=== PATIENT | female | born 1970 | race Caucasian/White ===

== ENCOUNTER 2020-04-20 22:45 | Emergency (ER) | payer OTHER, SELFPAY ==
--- NOTE | 2020-04-20 | CT_ITS ---
EXAMINATION: CT HEAD WITHOUT CONTRAST CLINICAL INFORMATION: Seizures COMPARISON: None TECHNIQUE: Contiguous axial imaging was performed from the skull base to vertex without intravenous administration of contrast. Coronal and sagittal reformatted images are performed at the CT scanner This CT examination was performed using dose optimization techniques as appropriate, variously including the following: *Automated exposure control *Adjustment of mA and/or kV according to patient size (this includes techniques or standardized protocols for targeted exams where dose is matched to indication/reason for exam; i.e. extremities or head) *Use of iterative reconstruction technique DLP: 806 mGy-cm FINDINGS: There is no evidence of acute intracranial hemorrhage or territorial infarction. No abnormal mass effect or midline shift is seen. Brady to white matter differentiation is well preserved. No extra-axial fluid collections are identified. The ventricles are normal in size for patient age. There is no abnormal attenuation within the brain parenchyma. The osseous structures and soft tissues are normal. The mastoid air cells and visualized portions of the paranasal sinuses are well aerated. IMPRESSION: No acute intracranial pathology.
--- NOTE | 2020-04-20 | ECG_ITS ---
Test Reason : SEIZURE Blood Pressure : / mmHG Vent. Rate : 090 BPM Atrial Rate : 090 BPM P-R Int : 136 ms QRS Dur : 092 ms QT Int : 362 ms P-R-T Axes : 068 -29 058 degrees QTc Int : 442 ms Sinus rhythm with marked sinus arrhythmia Minimal voltage criteria for LVH, may be normal variant Borderline ECG When compared with ECG of 02-AUG-2017 20:50, Vent. rate has increased BY 41 BPM Referred By: Aj Strickland Electronically Signed By:NEGRO EDWARDS
--- NOTE | 2020-04-20 22:56 | ED.SEIZURE ---
HPI - Seizure General Chief Complaint: Seizure Stated Complaint: seizures back pain Time Seen by Provider: 04/20/20 22:56 Source: patient, family and EMS Mode of arrival: ambulatory History of Present Illness HPI Narrative: as per EMS patient has had 3 seizures today. All lasting approximately several minutes described tonic-clonic by family and EMS. EMS states did have a seizure in front of them the last about 1 minutes full tonic-clonic however was alert oriented immediately after MD complaint: seizure Onset (ago): hour(s) Trauma: No Seizure History: Yes Place: Home Related Data Previous Rx's Medication Instructions Recorded divalproex [Depakote] 500 mg PO BID #30 tab 04/21/20 Allergies Allergy/AdvReac Type Severity Reaction Status Date / Time acetaminophen [From VICODIN] Allergy Unknown UNKNOWN Verified 04/20/20 22:56 aspirin Allergy Unknown Unknown Verified 04/20/20 22:56 hydrocodone [From VICODIN] Allergy Unknown UNKNOWN Verified 04/20/20 22:56 ibuprofen [From MOTRIN] Allergy Unknown UNKNOWN Verified 04/20/20 22:56 meperidine [From DEMEROL] Allergy Unknown UNKNOWN Verified 04/20/20 22:56 naproxen [Aleve] Allergy Unknown Unknown Verified 04/20/20 22:56 penicillin V Allergy Unknown Unknown Verified 04/20/20 22:56 Sulfa (Sulfonamide Allergy Unknown Unknown Verified 04/20/20 22:56 Antibiotics) tramadol Allergy Unknown Unknown Verified 04/20/20 22:56 Codeine Sulfate Allergy Unknown Unknown Uncoded 04/20/20 22:56 Review of Systems Review of Systems: unable to obtain secondary to postictal state PMF Past Medical History Attestation statement: The following information was validated with the patient. Medical History Anxiety Seizure Social History Social History Alcohol intake: never Smoking Status: Current every day smoker Smoked in Last 30 Days: Yes Use of substances other than those prescribed or required for medical reasons: No Advance Directives: No Advance Directives Information Provided: No Physical Exam Vital Signs and I&O and Narrative: Vital Signs and I&O: Vital Signs Temp 97.6 F 04/20/20 22:57 Pulse 93 04/21/20 02:00 Resp 20 04/21/20 02:00 BP 148/73 H 04/21/20 02:00 Pulse Ox 98 04/21/20 02:00 Intake & Output 04/20/20 04/20/20 04/21/20 06:59 18:59 06:59 Intake Total 1000 / 1000 Balance 1000 / 1000 Weight 78.925 kg Intake: Intake, IV Amoun t 1000 / 1000 0.9 % Sodium C hloride 1,000 ml 1000 / 1000 @ 999 mls/hr I VCONT .Q1H1M ANDREA Rx#:[id number] Body Mass Index 26.4 Const: Other: Appearance: Alert. drowsy. No acute distress. Eyes: Pupils equal, round and reactive to light. ENT: Pharynx normal. Neck: Normal inspection. Neck supple. CVS: Normal heart rate and rhythm. Pulses normal. Respiratory: No respiratory distress. Breath sounds normal. Abdomen: Soft and nontender. Skin: Skin warm and dry. Normal skin color. Normal skin turgor. Extremities: No lower extremity edema. No lower extremity edema. Neuro: drowsy but arousable with verbal stimuli. No motor deficit. No sensory deficit. Course Reevaluation(s) Reevaluation #1: last admission note by Dr. Call shows to increase Depakote level to 750 mg daily and have an outpatient EEG Reevaluation #2: further history notes that EMS states when she had a seizure in front of them she was completely oriented afterwards. While in the emergency department she had a seizure in which she was shaking however she was able to speak with us, no tongue biting no urinary incontinence, and was oriented immediately afterwards. Patient has been asking for narcotic pain medicine stating that her primary care doctor referred her to a pain specialist however has not been able to fill her brain scripts. Patient does have a history of fibromyalgia. I did give her 1 dose of IV morphine and patient was completely fine and normal afterwards. Shortly after that patient became agitated that she wants more pain medications and at this point decided that she does not want to stay and wants to leave. I discussed with her that she needs IV medications for her Depakote however patient states she wants to leave does not want to stay anymore. Patient is alert and oriented x4. Nontoxic appearing. I will give her p.o. Depakote and advised her to increase her dose and follow-up with her primary care doctor. Patient will be leaving AMA Time: 02:09 MDM - Seizure Lab Data Attestation: I reviewed the patient's lab results. Result diagrams: 04/21/20 01:14 04/21/20 01:14 Labs: Lab Results 04/21/20 04/21/20 Range/Units 01:14 01:14 WBC 8.8 (4.8-10.8) X10*3/uL RBC 4.01 L (4.20-5.50) X10*6/uL Hgb 11.1 L (12.0-16.0) g/dl Hct 34.5 L (37-47) % MCV 86.0 (80-98) fL MCH 27.7 (27.0-33.0) pg MCHC 32.2 (31.0-35.0) g/dl RDW 13.2 (11.0-16.0) % Plt Count 342 (160-400) X10*3/uL MPV 8.6 L (9.4-12.3) fL Immature Gran % (Auto) 0.3 (0.0-0.4) % Neut % (Auto) 48.5 (45-73) % Lymph % (Auto) 36.1 (20-40) % [place] % (Auto) 8.7 (2-11) % Eos % (Auto) 5.5 H (0-4) % Baso % (Auto) 0.9 (0-2) % Neut # (Auto) 4.3 (2.0-8.3) X10*3/uL Lymph # (Auto) 3.2 (1.2-4.9) X10*3/uL [place] # (Auto) 0.8 (0.1-1.2) X10*3/uL Eos # (Auto) 0.5 H (0.0-0.4) X10*3/uL Baso # (Auto) 0.1 (0.0-0.2) X10*3/uL Abs Immat Gran (auto) 0.03 (0.00-0.03) X10*3/uL Absolute Nucleated RBC 0.000 (0.0-0.012) X10*3/uL Nucleated RBC % (auto) 0.0 (0.0-0.2) /100WBC Sodium 140 (135-145) mmol/L Potassium 4.4 (3.3-5.1) mmol/l Chloride 110 H (96-108) mmol/L Carbon Dioxide 23 (22-29) mmol/L Anion Gap 11 L (12-20) BUN 18 H (9-16) mg/dL Creatinine 0.79 (0.5-1.4) mg/dL Estim Creat Clear Calc 97.2 Estimated GFR > 60 Random Glucose 102 (60-115) mg/dL Calcium 8.5 (8.4-10.2) mg/dL Total Bilirubin 0.2 (0.0-1.0) mg/dL Direct Bilirubin < 0.2 (0.0-0.5) mg/dL AST 38 H (5-31) U/L ALT 16 (0-31) U/L Alkaline Phosphatase 69 (39-117) U/L Total Protein 6.6 (6.5-8.0) g/dL Albumin 4.0 (3.5-5.0) g/dL ECG Data Attestation: I personally reviewed and interpreted this ECG as follows: Interpretation: normal sinus rhythm at 90 beats per minute. Rightward axis. Normal ST segments. Normal p.r. segments Discharge Plan Discharge Clinical Impression: Generalized seizure, Focal seizure Patient Disposition: Left Against Medical Advice Instructions: Fibromyalgia (ED), Generalized Tonic Clonic Seizures (ED) Additional Instructions: Thank you for visiting the emergency department today. If your symptoms worsen or do not resolve completely please return to the emergency department immediately or call 911. if he have any questions please call your primary care physician Prescriptions: New divalproex [Depakote] 500 mg tablet,delayed release (DR/EC) 500 mg PO BID Qty: 30 RF: 0 Referrals: Ramone Call MD [Physician] - 2 days
[2020-04-20 22:57] VITALS: BP 140/80; BP 152/78; PULSE 108; PULSE 95; RESP 18; TEMP 36.4; O2SAT 100; O2SAT 99; BMI 26.4
--- NOTE | 2020-04-20 23:03 | PC.NURSE ---
current meds: oxycodone, gabapentin, omeprazole, zolpidem, divalproex, ventolin. C collar in place at arrival. removed by MD during triage.
--- NOTE | 2020-04-20 23:45 | PC.NURSE ---
REPORT TAKEN FROM HENRIQUE ROSENBERG. PT OFF FLOOR TO CT.
--- NOTE | 2020-04-21 | PC.NURSE ---
PT REPORTING SEVERE BACK PAIN, WHIMPERING UPON RN ENTERING ROOM. MIRYAM PCT AT BEDSIDE OBTAINING LAB DRAWS. WHEN RN BEGAN QUESTIONING PT ABOUT PAIN PT BEGAN WITH SPORADIC UNCOORDINATED FORCED BODILY MOVEMENTS ?PSEUDO SEIZURE ACTIVITY. REMAINED CONSCIOUS AND RESPONDED TO RN THROUGHOUT EPISODE EVEN GRABBING ONTO RNS ARM. MD KASPER CALLED TO ROOM TO OBSERVE ACTIVITY. PT RETURNED TO BASELINE UPON MD EXITING ROOM. REQUESTING PAIN MEDICATION SHORTLY AFTER AND SPEAKING IN FULL CLEAR SENTENCES TO ON PHONE.
[2020-04-21] MEDS: 0.9 % Sodium Chloride 1,000 ML 999 ML IVCONT (00:29)
[2020-04-21] MEDS: Morphine Sulfate 4 MG/ML CARTRIDGE IVPUSH (00:29)
--- NOTE | 2020-04-21 00:33 | PC.NURSE ---
PT MEDICATED PER MAR, UPON RN TELLING PT SHE IS RECEIVING MORPHINE PT BECAME VERY TALKATIVE WITH RN, SMILING. NO LONGER WHIMPERING OR FACIAL GRIMACING EVEN PRIOR TO MED ADMINISTRATION. IVF HUNG AND NFUSING WITHOUT DIFFICULTY. AWAITING TEST RESULTS. SEIZURE PRECAUTIONS MAINTAINED. AWARE OF PLAN OF CARE.
[2020-04-21 01:22] LABS: MANUAL DIFF FLAG NO
[2020-04-21 01:25] LABS: Basophils Absolute Auto 0.1 X10*3/uL (0.0-0.2); Basophils Percent Auto 0.9 % (0-2); Eosinophils Absolute Auto 0.5 X10*3/uL (0.0-0.4); Eosinophils Percent Auto 5.5 % (0-4); Hematocrit 34.5 % (37-47); Hemoglobin 11.1 g/dl (12.0-16.0); Imm Gran Abs Auto 0.03 X10*3/uL (0.00-0.03); Imm Gran Pct Auto 0.3 % (0.0-0.4); Lymphocytes Absolute Auto 3.2 X10*3/uL (1.2-4.9); Lymphocytes Percent Auto 36.1 % (20-40); Mean Corpuscular HGB Conc 32.2 g/dl (31.0-35.0); Mean Corpuscular Hemoglobin 27.7 pg (27.0-33.0); Mean Platelet Volume 8.6 fL (9.4-12.3); Monocytes Absolute Auto 0.8 X10*3/uL (0.1-1.2); Monocytes Percent Auto 8.7 % (2-11); Neutrophils Absolute Auto 4.3 X10*3/uL (2.0-8.3); Neutrophils Percent Auto 48.5 % (45-73); Platelet Count 342 X10*3/uL (160-400); Red Blood Count 4.01 X10*6/uL (4.20-5.50); Red Cell Distribution Width 13.2 % (11.0-16.0); White Blood Count 8.8 X10*3/uL (4.8-10.8)
--- NOTE | 2020-04-21 01:28 | PC.NURSE ---
PT REQUESTING MORE PAIN MEDICATION, NOTIFIED. PT ALSO REQUESTING HER PM AMBIEN AND CLONAZEPAM. HEAD CT NEGATIVE AWAITING LAB RESULTS AWARE OF PLAN OF CARE.
--- NOTE | 2020-04-21 01:45 | PC.NURSE ---
PT SITTING UP ON EDGE OF BED FULLY DRESSED STATING I WANT TO GO HOME NOW, I HAVE NO SHOES AND HAVE TO WALK TO [place]. RN ASKED PT TO SIT BACK IN BED THAT WE WERE AWAITING HER LAB RESULTS AND WHEN RECEIVED THE DR WILL UPDATE HER TO PLAN OF CARE.
[2020-04-21 01:48] LABS: Alanine Aminotransferase 16 U/L (0-31); Alkaline Phosphatase 69 U/L (39-117); Anion Gap 11 (12-20); Aspartate Amino Transferase 38 U/L (5-31); Bilirubin Direct < 0.2 mg/dL (0.0-0.5); Bilirubin Total 0.2 mg/dL (0.0-1.0); Blood Urea Nitrogen 18 mg/dL (9-16); Calcium 8.5 mg/dL (8.4-10.2); Carbon Dioxide 23 mmol/L (22-29); Chloride 110 mmol/L (96-108); Creatinine Clr Calc Pharmacy 97.2; Estimated Glomerular Filt Rate > 60; Glucose Random 102 mg/dL (60-115); Potassium 4.4 mmol/l (3.3-5.1); Sodium 140 mmol/L (135-145); Total Protein 6.6 g/dL (6.5-8.0)
--- NOTE | 2020-04-21 01:51 | PC.NURSE ---
PT NOW COMPLAINING OF PAIN AND NAUSEA, MD AWARE.
[2020-04-21 02:00] VITALS: BP 148/73; PULSE 93; RESP 20; O2SAT 98
[2020-04-21] MEDS: Divalproex Sodium 500 MG TABLET.DR 1000 MG PO (02:21)
[2020-04-21 02:36] LABS: Valproate 19.3 mcg/mL (50.0-100.0)
== END 2020-04-21 02:31 | disposition left against medical advice (07) ==
PROVIDERS: Emergency Provider Emergency Medicine
DX: G40.409 Other generalized epilepsy and epileptic syndromes, not intractable, without status epilepticus (principal); Z79.899 Other long term (current) drug therapy
CPT/HCPCS: 36415; 70450; 80048; 80076; 80164; 85025; 93005; 93010; 96361; 96374; 99284; J2270

== ENCOUNTER 2020-05-22 19:13 | Emergency (ER) | payer OTHER, SELFPAY ==
[2020-05-22 19:25] VITALS: BP 140/91; BP 145/97; PULSE 101; PULSE 108; RESP 17; TEMP 36.8; O2SAT 100; O2SAT 99; BMI 35.5
[2020-05-22 19:52] VITALS: RESP 18
[2020-05-22] MEDS: Morphine Sulfate 4 MG/ML CARTRIDGE IVPUSH (19:52)
[2020-05-22] MEDS: ondansetron HCL 4 MG/2 ML VIAL IVPUSH (19:53)
[2020-05-22] MEDS: LORazepam 2 MG/ML VIAL 1 MG IVPUSH (19:53)
--- NOTE | 2020-05-22 19:53 | ED.SEIZURE ---
HPI - Seizure General Chief Complaint: Seizure Stated Complaint: seizures Time Seen by Provider: 05/22/20 19:32 Source: patient and EMS Mode of arrival: EMS Limitations: no limitations History of Present Illness HPI Narrative: patient has history of seizures on Depakote 500 mg twice daily was seen here on 04/08 with episode of seizure started on Depakote , today she was in the bathroom had a seizure she fell landing on her left side no head injury patient was not postictal no incontinence no tongue bite patient has history of real seizures and stress-induced seizures and today she had a lot of stress at home did not sleep for last 4 days per son patient was going to the bathroom and started having generalized tonic-clonic seizure which lasted about 2 minutes had 3 episode of seizures each lasting is same amount of time before the seizure she fell down and hit the left shoulder to the toilet . patient has a situation at home and could not get her medication for last 2 weeks last refill was in 04/21 :30 tablet which should have finished by now Seizure History: Yes (PER PATIENT REPORT) Place: Home Related Data Previous Rx's Medication Instructions Recorded divalproex [Depakote] 500 mg PO BID #30 tab 04/21/20 albuterol sulfate [ProAir HFA] 2 puff INHALATION Q6H PRN #18 g 05/22/20 amitriptyline 25 mg PO BEDTIME #30 tab 05/22/20 apixaban [Eliquis] 5 mg PO BID #60 tab 05/22/20 clonazepam 1 mg PO BID #30 tab 05/22/20 divalproex [Depakote ER] 500 mg PO BID #60 tab 05/22/20 fluticasone propionate [Flovent 1 puff INHALATION BID #12 g 05/22/20 HFA] gabapentin 300 mg PO TID #90 cap 05/22/20 omeprazole 20 mg PO DAILY #30 cap 05/22/20 oxycodone 5 mg PO Q6H PRN #20 tab 05/22/20 simvastatin [Zocor] 20 mg PO BEDTIME #30 tab 05/22/20 Allergies Allergy/AdvReac Type Severity Reaction Status Date / Time acetaminophen [From VICODIN] Allergy Unknown UNKNOWN Verified 04/20/20 22:56 aspirin Allergy Unknown Unknown Verified 04/20/20 22:56 hydrocodone [From VICODIN] Allergy Unknown UNKNOWN Verified 04/20/20 22:56 ibuprofen [From MOTRIN] Allergy Unknown UNKNOWN Verified 04/20/20 22:56 meperidine [From DEMEROL] Allergy Unknown UNKNOWN Verified 04/20/20 22:56 naproxen [Aleve] Allergy Unknown Unknown Verified 04/20/20 22:56 penicillin V Allergy Unknown Unknown Verified 04/20/20 22:56 Sulfa (Sulfonamide Allergy Unknown Unknown Verified 04/20/20 22:56 Antibiotics) tramadol Allergy Unknown Unknown Verified 04/20/20 22:56 Codeine Sulfate Allergy Unknown Unknown Uncoded 04/20/20 22:56 Review of Systems Review of Systems: REVIEW OF SYSTEMS: Pertinent positives and negatives are stated above in the history. GEN: no fevers, chills, fatigue HEENT: no nasal congestion, sore throat, ear pain NEURO: no headache, dizziness, focal weakness PULM: no cough, shortness of breath CV: no chest pain, palpitations, LE edema ABD: no abdominal pain, nausea, vomiting, diarrhea : no dysuria, urgency, frequency SKIN: bruises over left shoulder ROS otherwise negative x 10 PMFSH Past Medical History Medical History Anxiety Seizure Social History Social History Alcohol intake: never Smoking Status: Current every day smoker Use of substances other than those prescribed or required for medical reasons: No Advance Directives: No Advance Directives Information Provided: Yes Physical Exam Vital Signs: Vital Signs: Vital Signs Temp Pulse Resp BP Pulse Ox 05/22/20 21:48 15 05/22/20 21:37 98.6 F 96 21 H 140/91 H 100 05/22/20 19:52 18 05/22/20 19:25 98.2 F 108 H 17 140/91 H 99 Body Mass Index 35.5 VITAL SIGNS: Reviewed. GENERAL: Well developed, well nourished, in no acute distress no confusion or postictal findings. HEAD: Normocephalic/atraumatic, EYES: PERRLA No pallor/icterus noted EARS: Ext canals without abnormality NOSE: Nares patent bilateral OROPHARYNX: Oral mucosa moist no oral lesions tongue intact NECK: Supple, no adenopathy LUNGS: Normal breath sounds. No adventitious sounds or accessory muscle use CARDIOVASCULAR: Regular rate and rhythm without noted murmurs, no JVD or lower extremity edema. ABDOMEN: Soft, non-tender, non-distended with bowel sounds. No rigidity. No guarding. No palpable masses or hernias noted MUSCULOSKELETAL: diffuse soft tissue tenderness left shoulder and left iliac crest area good range of movement of left shoulder and neck, EXTREMITIES: No cyanosis or edema. SKIN: no rashes, ulcerations, jaundice, pallor, or petechiae NEUROLOGIC: Alert and oriented x 3. Strength and sensation to light touch were grossly intact Course Course Course Narrative: patient with history of seizures and increased stress at home also has stress-induced seizures patient did not sleep well for last 4 days and has increased stress at home had a seizure similar to in the past workup is negative patient is on Keppra and Depakote supposed to follow-up with neurologist next week will discharge her home MDM - Seizure Lab Data Result diagrams: 05/22/20 20:02 05/22/20 20:02 Labs: Lab Results 05/22/20 05/22/20 05/22/20 Range/Units 20:02 20:02 20:10 WBC 8.4 (4.8-10.8) X10*3/uL RBC 3.67 L (4.20-5.50) X10*6/uL Hgb 10.2 L (12.0-16.0) g/dl Hct 32.1 L (37-47) % MCV 87.5 (80-98) fL MCH 27.8 (27.0-33.0) pg MCHC 31.8 (31.0-35.0) g/dl RDW 14.1 (11.0-16.0) % Plt Count 281 (160-400) X10*3/uL MPV 9.0 L (9.4-12.3) fL Immature Gran % (Auto) 0.5 H (0.0-0.4) % Neut % (Auto) 51.6 (45-73) % Lymph % (Auto) 35.6 (20-40) % [place] % (Auto) 9.1 (2-11) % Eos % (Auto) 2.8 (0-4) % Baso % (Auto) 0.4 (0-2) % Lymph # (Auto) 3.0 (1.2-4.9) X10*3/uL [place] # (Auto) 0.8 (0.1-1.2) X10*3/uL Eos # (Auto) 0.2 (0.0-0.4) X10*3/uL Baso # (Auto) 0.0 (0.0-0.2) X10*3/uL Abs Immat Gran (auto) 0.04 H (0.00-0.03) X10*3/uL Absolute Neuts (auto) 4.3 (2.0-8.3) X10*3/uL Absolute Nucleated RBC 0.000 (0.0-0.012) X10*3/uL Nucleated RBC % (auto) 0.0 (0.0-0.2) /100WBC Sodium 140 (135-145) mmol/L Potassium 4.1 (3.3-5.1) mmol/l Chloride 107 (96-108) mmol/L Carbon Dioxide 23 (22-29) mmol/L Anion Gap 14 (12-20) BUN 19 H (9-16) mg/dL Creatinine 0.78 (0.5-1.4) mg/dL Estim Creat Clear Calc 113.6 Estimated GFR > 60 Random Glucose 86 (60-115) mg/dL Calcium 8.0 L (8.4-10.2) mg/dL Total Bilirubin 0.4 (0.0-1.0) mg/dL Direct Bilirubin < 0.2 (0.0-0.5) mg/dL AST 20 D (5-31) U/L ALT 13 (0-31) U/L Alkaline Phosphatase 65 (39-117) U/L Total Protein 6.6 (6.5-8.0) g/dL Albumin 3.8 (3.5-5.0) g/dL Valproic Acid 20.3 L (50.0-100.0) mcg/mL Discharge Plan Discharge Clinical Impression: Anxiety Epileptic seizure Qualifiers: Epilepsy type: generalized idiopathic Intractability: not intractable Status epilepticus: without status epilepticus Qualified Code(s): G40.309 - Generalized idiopathic epilepsy and epileptic syndromes, not intractable, without status epilepticus Patient Disposition: Home, Self-Care Instructions: Epilepsy (ED), Anxiety (ED) Additional Instructions: continue your seizure medications on time and take medication to relax and follow-up with your neurologist Prescriptions: New divalproex [Depakote ER] 500 mg tablet extended release 24 hr 500 mg PO BID Qty: 60 RF: 3 clonazepam 1 mg tablet 1 mg PO BID Qty: 30 RF: 0 albuterol sulfate [ProAir HFA] 90 mcg/actuation HFA aerosol inhaler 2 puff inhalation Q6H PRN (Reason: shortness of breath or wheezing) Qty: 18 RF: 0 Eliquis 5 mg tablet 5 mg PO BID Qty: 60 RF: 0 simvastatin [Zocor] 20 mg tablet 20 mg PO BEDTIME Qty: 30 RF: 0 gabapentin 300 mg capsule 300 mg PO TID Qty: 90 RF: 0 amitriptyline 25 mg tablet 25 mg PO BEDTIME Qty: 30 RF: 0 Flovent HFA 220 mcg/actuation HFA aerosol inhaler 1 puff inhalation BID Qty: 12 RF: 0 omeprazole 20 mg capsule,delayed release(DR/EC) 20 mg PO DAILY Qty: 30 RF: 0 oxycodone 5 mg tablet 5 mg PO Q6H PRN (Reason: pain) Qty: 20 RF: 0 No Action divalproex [Depakote] 500 mg tablet,delayed release (DR/EC) 500 mg PO BID Qty: 30 RF: 0 Interventions: ED Discharge Assessment Last Done: 05/22/20 22:28 Print Language: Tristanian
--- NOTE | 2020-05-22 19:59 | CT_ITS ---
EXAMINATION: CT HEAD WITHOUT CONTRAST CLINICAL INFORMATION: Fall. On Eliquis COMPARISON: CT head 04/20/2020 TECHNIQUE: Contiguous axial imaging was performed from the skull base to vertex without intravenous administration of contrast. Coronal and sagittal reformatted images are performed at the CT scanner This CT examination was performed using dose optimization techniques as appropriate, variously including the following: *Automated exposure control *Adjustment of mA and/or kV according to patient size (this includes techniques or standardized protocols for targeted exams where dose is matched to indication/reason for exam; i.e. extremities or head) *Use of iterative reconstruction technique DLP: 751 mGy-cm FINDINGS: There is no evidence of acute intracranial hemorrhage or territorial infarction. No abnormal mass effect or midline shift is seen. Brady to white matter differentiation is well preserved. No extra-axial fluid collections are identified. The ventricles are normal in size for patient age. There is no abnormal attenuation within the brain parenchyma. The osseous structures and soft tissues are normal. The mastoid air cells and visualized portions of the paranasal sinuses are well aerated. CT/CT head/brain wo con IMPRESSION: No acute intracranial pathology.
[2020-05-22 20:15] LABS: MANUAL DIFF FLAG NO
[2020-05-22 20:16] LABS: Basophils Percent Auto 0.4 % (0-2); Eosinophils Absolute Auto 0.2 X10*3/uL (0.0-0.4); Eosinophils Percent Auto 2.8 % (0-4); Hematocrit 32.1 % (37-47); Hemoglobin 10.2 g/dl (12.0-16.0); Imm Gran Abs Auto 0.04 X10*3/uL (0.00-0.03); Imm Gran Pct Auto 0.5 % (0.0-0.4); Lymphocytes Percent Auto 35.6 % (20-40); Mean Corpuscular HGB Conc 31.8 g/dl (31.0-35.0); Mean Corpuscular Hemoglobin 27.8 pg (27.0-33.0); Mean Corpuscular Volume 87.5 fL (80-98); Monocytes Absolute Auto 0.8 X10*3/uL (0.1-1.2); Monocytes Percent Auto 9.1 % (2-11); Neutrophils Absolute Auto 4.3 X10*3/uL (2.0-8.3); Neutrophils Percent Auto 51.6 % (45-73); Platelet Count 281 X10*3/uL (160-400); Red Blood Count 3.67 X10*6/uL (4.20-5.50); Red Cell Distribution Width 14.1 % (11.0-16.0); White Blood Count 8.4 X10*3/uL (4.8-10.8)
--- NOTE | 2020-05-22 20:26 | XR_ITS ---
EXAMINATION: XR SHOULDER, LEFT CLINICAL INFORMATION: Fall. Seizure. COMPARISON: None TECHNIQUE: Three views of the left shoulder. FINDINGS: The bones and soft tissues are normal. No fracture. Glenohumeral and acromioclavicular alignment is anatomic with normal joint space. No abnormal soft tissue calcifications. XR/XR shoulder LT min 2V IMPRESSION: Normal left shoulder.
[2020-05-22 20:57] LABS: Alanine Aminotransferase 13 U/L (0-31); Albumin Level 3.8 g/dL (3.5-5.0); Alkaline Phosphatase 65 U/L (39-117); Anion Gap 14 (12-20); Aspartate Amino Transferase 20 U/L (5-31); Bilirubin Direct < 0.2 mg/dL (0.0-0.5); Bilirubin Total 0.4 mg/dL (0.0-1.0); Blood Urea Nitrogen 19 mg/dL (9-16); Carbon Dioxide 23 mmol/L (22-29); Chloride 107 mmol/L (96-108); Creatinine Clr Calc Pharmacy 113.6; Estimated Glomerular Filt Rate > 60; Glucose Random 86 mg/dL (60-115); Potassium 4.1 mmol/l (3.3-5.1); Sodium 140 mmol/L (135-145); Total Protein 6.6 g/dL (6.5-8.0)
[2020-05-22 21:01] LABS: Valproate 20.3 mcg/mL (50.0-100.0)
[2020-05-22 21:37] VITALS: BP 140/91; PULSE 96; RESP 21; TEMP 37; O2SAT 100
--- NOTE | 2020-05-22 21:37 | XR_ITS ---
EXAMINATION: XR PELVIS CLINICAL INFORMATION: Fall with left iliac pain COMPARISON: None TECHNIQUE: AP view of the pelvis. FINDINGS: The bones and soft tissues are normal aside from some mild degenerative changes in the lower lumbosacral spine. No fracture. Sacroiliac and hip joints are normal. Pubic symphysis is normal. No abnormal soft tissue calcifications. XR/XR pelvis 1-2V IMPRESSION: No acute disease. No evidence of traumatic injury.
[2020-05-22 21:48] VITALS: RESP 15
[2020-05-22] MEDS: Morphine Sulfate 2 MG/ML CARTRIDGE 4 MG IVPUSH (21:48)
--- NOTE | 2020-05-22 21:51 | PC.NURSE ---
PATIENT AMBULATED WITH STEADY GAIT WITH THIS VICE PRESIDENT LENDING PER MD INSTRUCTIONS. PATIENT STATES THAT SHE HAS PAIN IN HER LEFT SIDE 10/10 WHILE AMBULATING. MD AWARE AND PATIENT MEDICATED PER EMAR. MD ORDERED XRAY OF LEFT SIDE BACK AND ABDOMEN. PATIENT AWAITING THE RESULTS
[2020-05-22] MEDS: Divalproex Sodium ER 500 MG TAB.ER.24H 1000 MG PO (22:53)
== END 2020-05-22 22:59 | disposition home or self-care (01) ==
PROVIDERS: Emergency Provider Internal Medicine
DX: G40.309 Generalized idiopathic epilepsy and epileptic syndromes, not intractable, without status epilepticus (principal); R10.2 Pelvic and perineal pain; M25.512 Pain in left shoulder; G44.309 Post-traumatic headache, unspecified, not intractable; F41.1 Generalized anxiety disorder; F43.0 Acute stress reaction; F17.200 Nicotine dependence, unspecified, uncomplicated; Z71.6 Tobacco abuse counseling; Z79.899 Other long term (current) drug therapy
CPT/HCPCS: 36415; 70450; 72170; 73030; 80048; 80076; 80164; 85025; 96374; 96375; 96376; 99284; J2060; J2270; J2405

== ENCOUNTER 2020-06-04 08:36 | Emergency (ER) | payer OTHER, SELFPAY ==
[2020-06-04 08:41] VITALS: BP 140/67; BP 170/92; PULSE 58; PULSE 60; RESP 16; TEMP 36.7; O2SAT 100; BMI 27.3
--- NOTE | 2020-06-04 09:30 | PC.NURSE ---
SEEN BY PROVIDER. UA OBTAINED AND SENT TO LAB
[2020-06-04] MEDS: Cyclobenzaprine HCl 10 MG TABLET PO (09:38)
[2020-06-04] MEDS: diphenhydrAMINE HCL 25 MG TABLET 50 MG PO (09:39)
[2020-06-04] MEDS: Ketorolac Tromethamine 60 MG/2 ML VIAL IM (09:39)
--- NOTE | 2020-06-04 09:39 | PC.NURSE ---
SEEN BY THE PROVIDER. URINE TO LAB. MEDICATED WITH PO AND IM MEDS PER ORDERS
--- NOTE | 2020-06-04 09:40 | ED.GENADULT ---
HPI - General Adult General Chief complaint: Abdominal Pain <ORQUIDEA Mello - Last Filed: 06/04/20 16:31> Stated complaint: BACK PAIN <ORQUIDEA Mello - Last Filed: 06/04/20 16:31> Time Seen by Provider: 06/04/20 09:05 <ORQUIDEA Mello - Last Filed: 06/04/20 16:31> Source: patient <ORQUIDEA Mello - Last Filed: 06/04/20 16:31> Mode of arrival: ambulatory <ORQUIDEA Mello - Last Filed: 06/04/20 16:31> Limitations: no limitations <ORQUIDEA Mello Last Filed: 06/04/20 16:31> History of Present Illness HPI narrative: patient presents to ED for low back pain radiating down both legs and abdomen since last night. Patient denies any recent trauma. Patient states history of chronic back pain arthritis. Patient denies any recent trauma, nausea, vomiting, dysuria, or vaginal bleeding. patient also states since last night chest pain on inspiration with abdominal pain and back pain. Patient denies any urinary or bowel incontinence. patient presents to the ED recently with similar presentation. <ORQUIDEA Mello - Last Filed: 06/04/20 16:31> Related Data Home medications: Previous Rx's Medication Instructions Recorded divalproex [Depakote] 500 mg PO BID #30 tab 04/21/20 albuterol sulfate [ProAir HFA] 2 puff INHALATION Q6H PRN #18 g 05/22/20 amitriptyline 25 mg PO BEDTIME #30 tab 05/22/20 apixaban [Eliquis] 5 mg PO BID #60 tab 05/22/20 clonazepam 1 mg PO BID #30 tab 05/22/20 divalproex [Depakote ER] 500 mg PO BID #60 tab 05/22/20 fluticasone propionate [Flovent 1 puff INHALATION BID #12 g 05/22/20 HFA] gabapentin 300 mg PO TID #90 cap 05/22/20 omeprazole 20 mg PO DAILY #30 cap 05/22/20 oxycodone 5 mg PO Q6H PRN #20 tab 05/22/20 simvastatin [Zocor] 20 mg PO BEDTIME #30 tab 05/22/20 oxycodone 5 mg PO Q8H PRN #12 tab 06/04/20 <ORQUIDEA Mello Last Filed: 06/04/20 16:31> Allergies/adverse reactions: Allergies Allergy/AdvReac Type Severity Reaction Status Date / Time acetaminophen [From VICODIN] Allergy Unknown UNKNOWN Verified 04/20/20 22:56 aspirin Allergy Unknown Unknown Verified 04/20/20 22:56 hydrocodone [From VICODIN] Allergy Unknown UNKNOWN Verified 04/20/20 22:56 ibuprofen [From MOTRIN] Allergy Unknown UNKNOWN Verified 04/20/20 22:56 meperidine [From DEMEROL] Allergy Unknown UNKNOWN Verified 04/20/20 22:56 naproxen [Aleve] Allergy Unknown Unknown Verified 04/20/20 22:56 penicillin V Allergy Unknown Unknown Verified 04/20/20 22:56 Sulfa (Sulfonamide Allergy Unknown Unknown Verified 04/20/20 22:56 Antibiotics) tramadol Allergy Unknown Unknown Verified 04/20/20 22:56 diphenhydramine Allergy Unknown Verified 06/04/20 09:42 [From Benadryl] Codeine Sulfate Allergy Unknown Unknown Uncoded 04/20/20 22:56 <ORQUIDEA Mello Last Filed: 06/04/20 16:31> Review of Systems Review of Systems: Yes all other systems are reviewed and are negative <ORQUIDEA Mello Last Filed: 06/04/20 16:31> Constitutional: Constitutional: Reports as per HPI and Reports no additional constitutional complaints <ORQUIDEA Mello Last Filed: 06/04/20 16:31> Eyes: Eyes: Reports as per HPI and Reports no additional eye complaints <ORQUIDEA Mello Last Filed: 06/04/20 16:31> ENT: Reports system reviewed and no additional complaints, except as documented, Reports as per HPI and Denies dysphagia <ORQUIDEA Mello Last Filed: 06/04/20 16:31> Cardiovascular: Cardiovascular: Reports as per HPI and Reports no additional cardiovascular complaints <ORQUIDEA Mello Last Filed: 06/04/20 16:31> Respiratory: Respiratory: Reports as per HPI, Reports no additional respiratory complaints and Reports pain on inspiration <ORQUIDEA Mello Last Filed: 06/04/20 16:31> Gastrointestinal: Gastrointestinal: Reports as per HPI, Reports no additional gastrointestinal complaints, Reports abdominal pain, Denies belching, Denies melena, Denies bloating, Denies hematochezia, Denies tenesmus, Denies change in stool character, Denies coffee ground emesis, Denies constipation, Denies GI cramping and Denies dysphagia <ORQUIDEA Mello - Last Filed: 06/04/20 16:31> Genitourinary: Genitourinary: Reports no additional female genitourinary complaints and Reports as per HPI <ORQUIDEA Mello - Last Filed: 06/04/20 16:31> Musculoskeletal: Musculoskeletal: Reports no additional musculoskeletal complaints, Reports as per HPI and Reports back pain <ORQUIDEA Mello - Last Filed: 06/04/20 16:31> Neurologic: Reports as per HPI <ORQUIDEA Mello - Last Filed: 06/04/20 16:31> Psychiatric: Psychiatric: Reports no additional psychiatric complaints and Reports as per HPI <ORQUIDEA Mello - Last Filed: 06/04/20 16:31> [facility] Past Medical History Medical History: Medical History (Updated 06/05/20 @ 00:00 by Berta Zhao) Anxiety HTN (hypertension) Seizure <ORQUIDEA Mello - Last Filed: 06/04/20 16:31> Social History Social History: Social History Alcohol intake: never Smoking Status: Former smoker Smoked in Last 30 Days: No Use of substances other than those prescribed or required for medical reasons: No Advance Directives: Yes Advance Directives Information Provided: Yes Advance Directives on File: No <ORQUIDEA Mello - Last Filed: 06/04/20 16:31> Physical Exam Vital Signs: Vital Signs: Last Vital Signs Temp 99.0 F 06/04/20 14:00 Pulse 59 06/04/20 14:00 Resp 16 06/04/20 14:00 BP 156/99 H 06/04/20 14:00 Pulse Ox 99 06/04/20 14:00 Body Mass Index 27.3 <ORQUIDEA Mello Last Filed: 06/04/20 16:31> Vital Signs: Last Vital Signs Temp 99.0 F 06/04/20 14:00 Pulse 59 06/04/20 14:00 Resp 16 06/04/20 14:00 BP 156/99 H 06/04/20 14:00 Pulse Ox 99 06/04/20 14:00 Body Mass Index 27.3 <Gary Orellana MD - Last Filed: 06/05/20 13:23> Const: General: cooperative, healthy appearing, comfortable, no acute distress, well developed and awake <ORQUIDEA Mello - Last Filed: 06/04/20 16:31> Orientation/consciousness: patient oriented x3 <ORQUIDEA Mello - Last Filed: 06/04/20 16:31> HENMT: Head: Yes normal to inspection and Yes No palpable skull fracture present <ORQUIDEA Mello Last Filed: 06/04/20 16:31> Eyes: General: appearance normal, both eyes and all related structures <ORQUIDEA Mello Last Filed: 06/04/20 16:31> Visual Kunz: normal visual kunz by confrontation <ORQUIDEA Mello - Last Filed: 06/04/20 16:31> Neck: Neck: Yes normal visual inspection, Yes full ROM and Yes no lymphadenopathy <ORQUIDEA Mello Last Filed: 06/04/20 16:31> Chest: Chest palpation & inspection: normal inspection of the chest, normal palpation of entire chest wall and no localized rib tenderness <ORQUIDEA Mello Last Filed: 06/04/20 16:31> Resp: Effort & Inspection: normal respiratory effort and not able to speak in complete sentences <ORQUIDEA Mello Last Filed: 06/04/20 16:31> Auscultation: clear to auscultation bilaterally, no crackles, no rales, no rhonchi and no wheezes <ORQUIDEA Mello Last Filed: 06/04/20 16:31> Cardio: Jugular venous distension: no JVD <ORQUIDEA Mello Last Filed: 06/04/20 16:31> Heart sounds: S1 normal heart sound present and S2 normal heart sound present <ORQUIDEA Mello Last Filed: 06/04/20 16:31> GI: Inspection: Yes normal to inspection <ORQUIDEA Mello Last Filed: 06/04/20 16:31> Palpation (GI): Soft to palpation, not firm, Tenderness to palpation present (GI) ( Diffuse), no guarding and not rigid <ORQUIDEA Mello - Last Filed: 06/04/20 16:31> : General: No CVA tenderness and Yes no CVA tenderness <ORQUIDEA Mello - Last Filed: 06/04/20 16:31> Back/Spine/Pelvis: Back: no CVA tenderness, No CVA tenderness and back tenderness ( Lumbar tenderness) <ORQUIDEA Mello - Last Filed: 06/04/20 16:31> Skin: General skin exam: no rashes or lesions noted <ORQUIDEA Mello - Last Filed: 06/04/20 16:31> Neuro: General: patient oriented x3, gait normal and CN's II-XI intact bilaterally <ORQUIDEA Mello - Last Filed: 06/04/20 16:31> Cranial nerves: Yes CN's II-XII intact bilaterally <ORQUIDEA Mello - Last Filed: 06/04/20 16:31> Extrem: General: Yes normal to inspection and Yes full ROM <ORQUIDEA Mello - Last Filed: 06/04/20 16:31> Psych: Appearance: grossly normal, well kempt and not disheveled <ORQUIDEA Mello - Last Filed: 06/04/20 16:31> Course Course Course Narrative: history physical exam indicates spinal arthritis back exacerbation. Patient given Toradol/Benadryl, Flexeril for pain. Patient also will have urinalysis sent. patient states she had a hysterectomy. <ORQUIDEA Mello - Last Filed: 06/04/20 16:31> I have reviewed the chart <Gary Orellana MD - Last Filed: 06/05/20 13:23> Reevaluation(s) Reevaluation #1: patient has good rectal tone and sensation in perinoeal area. Not suspecting Cord Compression. Not suspecting epidural abscess. NEgative for drug use. Patient given Toradol Flexeril. On re-evaluation patient has abdominal tenderness and states pain is not improving. patient states chest pain on inspiration. X-ray does not show any fracture of the spine. Will do basic labs probably sent for CT scan. <ORQUIDEA Mello - Last Filed: 06/04/20 16:31> Time: 11:11 <ORQUIDEA Mello - Last Filed: 06/04/20 16:31> Reevaluation #2: patient's abdominal / pelvis CT scan came back negative for any acute findings. Chest CTA negative for PE or pneumonia. Patient walked on her own to the bathroom. Clinically not suspecting cord compression or epidural abscess. Patient states he has taken perocet before without any allergic reactions. patient labs negative for elevated white blood cell count. Troponin is negative after chest pain on inspiration since last night. Patient no longer has any chest pain. Seem like pain more was referred pain from the back going down legs. patient labs came back normal. UA negative for UTI. <ORQUIDEA Mello - Last Filed: 06/04/20 16:31> Time: 15:16 <ORQUIDEA Mello - Last Filed: 06/04/20 16:31> Medical Decision Making MDM Narrative Medical decision making narrative: Chronic back and abdominal pain <ORQUIDEA Mello - Last Filed: 06/04/20 16:31> Lab Data Result diagrams: : 06/04/20 12:06 06/04/20 12:06 <ORQUIDEA Mello - Last Filed: 06/04/20 16:31> Labs: Lab Results 06/04/20 06/04/20 06/04/20 Range/Units 09:36 12:06 12:06 WBC 7.3 (4.8-10.8) X10*3/uL RBC 4.64 D (4.20-5.50) X10*6/uL Hgb 12.9 D (12.0-16.0) g/dl Hct 40.5 D (37-47) % MCV 87.3 (80-98) fL MCH 27.8 (27.0-33.0) pg MCHC 31.9 (31.0-35.0) g/dl RDW 14.2 (11.0-16.0) % Plt Count 359 D (160-400) X10*3/uL MPV 8.9 L (9.4-12.3) fL Immature Gran % (Auto) 0.0 (0.0-0.4) % Neut % (Auto) 53.4 (45-73) % Lymph % (Auto) 36.2 (20-40) % [place] % (Auto) 7.4 (2-11) % Eos % (Auto) 2.3 (0-4) % Baso % (Auto) 0.7 (0-2) % Lymph # (Auto) 2.6 (1.2-4.9) X10*3/uL [place] # (Auto) 0.5 (0.1-1.2) X10*3/uL Eos # (Auto) 0.2 (0.0-0.4) X10*3/uL Baso # (Auto) 0.1 (0.0-0.2) X10*3/uL Abs Immat Gran (auto) 0.00 (0.00-0.03) X10*3/uL Absolute Neuts (auto) 3.9 (2.0-8.3) X10*3/uL Absolute Nucleated RBC 0.000 (0.0-0.012) X10*3/uL Nucleated RBC % (auto) 0.0 (0.0-0.2) /100WBC PT Cancelled INR Cancelled APTT Cancelled Sodium (135-145) mmol/L Potassium (3.3-5.1) mmol/l Chloride (96-108) mmol/L Carbon Dioxide (22-29) mmol/L Anion Gap (12-20) BUN (9-16) mg/dL Creatinine (0.5-1.4) mg/dL Estim Creat Clear Calc Estimated GFR Random Glucose (60-115) mg/dL Calcium (8.4-10.2) mg/dL Total Bilirubin (0.0-1.0) mg/dL AST (5-31) U/L ALT (0-31) U/L Alkaline Phosphatase (39-117) U/L Troponin I High Sens (<3.5-17.0) ng/L Total Protein (6.5-8.0) g/dL Albumin (3.5-5.0) g/dL Lipase (8-78) U/L Urine Color YELLOW Urine Appearance CLEAR Urine pH 6.0 (5.0-8.0) Ur Specific [place] 1.015 (1.005-1.025) Urine Protein NEG (NEG-TRACE) MG/DL Urine Glucose (UA) NEG (NEG) MG/DL Urine Ketones NEG (NEG) MG/DL Urine Blood NEG (NEG) Urine Nitrite NEG (NEG) Ur Leukocyte Esterase NEG (NEG) Urine Test NEGATIVE (NEGATIVE) 06/04/20 06/04/20 06/04/20 Range/Units 12:06 12:06 14:16 WBC (4.8-10.8) X10*3/uL RBC (4.20-5.50) X10*6/uL Hgb (12.0-16.0) g/dl Hct (37-47) % MCV (80-98) fL MCH (27.0-33.0) pg MCHC (31.0-35.0) g/dl RDW (11.0-16.0) % Plt Count (160-400) X10*3/uL MPV (9.4-12.3) fL Immature Gran % (Auto) (0.0-0.4) % Neut % (Auto) (45-73) % Lymph % (Auto) (20-40) % [place] % (Auto) (2-11) % Eos % (Auto) (0-4) % Baso % (Auto) (0-2) % Lymph # (Auto) (1.2-4.9) X10*3/uL [place] # (Auto) (0.1-1.2) X10*3/uL Eos # (Auto) (0.0-0.4) X10*3/uL Baso # (Auto) (0.0-0.2) X10*3/uL Abs Immat Gran (auto) (0.00-0.03) X10*3/uL Absolute Neuts (auto) (2.0-8.3) X10*3/uL Absolute Nucleated RBC (0.0-0.012) X10*3/uL Nucleated RBC % (auto) (0.0-0.2) /100WBC PT INR APTT 30.2 Sodium 139 (135-145) mmol/L Potassium 4.6 (3.3-5.1) mmol/l Chloride 104 (96-108) mmol/L Carbon Dioxide 27 (22-29) mmol/L Anion Gap 13 (12-20) BUN 11 (9-16) mg/dL Creatinine 0.84 (0.5-1.4) mg/dL Estim Creat Clear Calc 92.7 Estimated GFR > 60 Random Glucose 86 (60-115) mg/dL Calcium 9.2 D (8.4-10.2) mg/dL Total Bilirubin 0.4 (0.0-1.0) mg/dL AST 18 (5-31) U/L ALT 10 (0-31) U/L Alkaline Phosphatase 69 (39-117) U/L Troponin I High Sens < 3.5 (<3.5-17.0) ng/L Total Protein 7.8 (6.5-8.0) g/dL Albumin 4.5 (3.5-5.0) g/dL Lipase 5 L (8-78) U/L Urine Color Urine Appearance Urine pH (5.0-8.0) Ur Specific [place] (1.005-1.025) Urine Protein (NEG-TRACE) MG/DL Urine Glucose (UA) (NEG) MG/DL Urine Ketones (NEG) MG/DL Urine Blood (NEG) Urine Nitrite (NEG) Ur Leukocyte Esterase (NEG) Urine Test (NEGATIVE) 06/04/20 Range/Units 14:16 WBC (4.8-10.8) X10*3/uL RBC (4.20-5.50) X10*6/uL Hgb (12.0-16.0) g/dl Hct (37-47) % MCV (80-98) fL MCH (27.0-33.0) pg MCHC (31.0-35.0) g/dl RDW (11.0-16.0) % Plt Count (160-400) X10*3/uL MPV (9.4-12.3) fL Immature Gran % (Auto) (0.0-0.4) % Neut % (Auto) (45-73) % Lymph % (Auto) (20-40) % [place] % (Auto) (2-11) % Eos % (Auto) (0-4) % Baso % (Auto) (0-2) % Lymph # (Auto) (1.2-4.9) X10*3/uL [place] # (Auto) (0.1-1.2) X10*3/uL Eos # (Auto) (0.0-0.4) X10*3/uL Baso # (Auto) (0.0-0.2) X10*3/uL Abs Immat Gran (auto) (0.00-0.03) X10*3/uL Absolute Neuts (auto) (2.0-8.3) X10*3/uL Absolute Nucleated RBC (0.0-0.012) X10*3/uL Nucleated RBC % (auto) (0.0-0.2) /100WBC PT 12.3 INR 1.0 APTT Sodium (135-145) mmol/L Potassium (3.3-5.1) mmol/l Chloride (96-108) mmol/L Carbon Dioxide (22-29) mmol/L Anion Gap (12-20) BUN (9-16) mg/dL Creatinine (0.5-1.4) mg/dL Estim Creat Clear Calc Estimated GFR Random Glucose (60-115) mg/dL Calcium (8.4-10.2) mg/dL Total Bilirubin (0.0-1.0) mg/dL AST (5-31) U/L ALT (0-31) U/L Alkaline Phosphatase (39-117) U/L Troponin I High Sens (<3.5-17.0) ng/L Total Protein (6.5-8.0) g/dL Albumin (3.5-5.0) g/dL Lipase (8-78) U/L Urine Color Urine Appearance Urine pH (5.0-8.0) Ur Specific [place] (1.005-1.025) Urine Protein (NEG-TRACE) MG/DL Urine Glucose (UA) (NEG) MG/DL Urine Ketones (NEG) MG/DL Urine Blood (NEG) Urine Nitrite (NEG) Ur Leukocyte Esterase (NEG) Urine Test (NEGATIVE) <ORQUIDEA Mello - Last Filed: 06/04/20 16:31> Lab Results 06/04/20 06/04/20 06/04/20 Range/Units 09:36 12:06 12:06 WBC 7.3 (4.8-10.8) X10*3/uL RBC 4.64 D (4.20-5.50) X10*6/uL Hgb 12.9 D (12.0-16.0) g/dl Hct 40.5 D (37-47) % MCV 87.3 (80-98) fL MCH 27.8 (27.0-33.0) pg MCHC 31.9 (31.0-35.0) g/dl RDW 14.2 (11.0-16.0) % Plt Count 359 D (160-400) X10*3/uL MPV 8.9 L (9.4-12.3) fL Immature Gran % (Auto) 0.0 (0.0-0.4) % Neut % (Auto) 53.4 (45-73) % Lymph % (Auto) 36.2 (20-40) % [place] % (Auto) 7.4 (2-11) % Eos % (Auto) 2.3 (0-4) % Baso % (Auto) 0.7 (0-2) % Lymph # (Auto) 2.6 (1.2-4.9) X10*3/uL [place] # (Auto) 0.5 (0.1-1.2) X10*3/uL Eos # (Auto) 0.2 (0.0-0.4) X10*3/uL Baso # (Auto) 0.1 (0.0-0.2) X10*3/uL Abs Immat Gran (auto) 0.00 (0.00-0.03) X10*3/uL Absolute Neuts (auto) 3.9 (2.0-8.3) X10*3/uL Absolute Nucleated RBC 0.000 (0.0-0.012) X10*3/uL Nucleated RBC % (auto) 0.0 (0.0-0.2) /100WBC PT Cancelled INR Cancelled APTT Cancelled Sodium (135-145) mmol/L Potassium (3.3-5.1) mmol/l Chloride (96-108) mmol/L Carbon Dioxide (22-29) mmol/L Anion Gap (12-20) BUN (9-16) mg/dL Creatinine (0.5-1.4) mg/dL Estim Creat Clear Calc Estimated GFR Random Glucose (60-115) mg/dL Calcium (8.4-10.2) mg/dL Total Bilirubin (0.0-1.0) mg/dL AST (5-31) U/L ALT (0-31) U/L Alkaline Phosphatase (39-117) U/L Troponin I High Sens (<3.5-17.0) ng/L Total Protein (6.5-8.0) g/dL Albumin (3.5-5.0) g/dL Lipase (8-78) U/L Urine Color YELLOW Urine Appearance CLEAR Urine pH 6.0 (5.0-8.0) Ur Specific [place] 1.015 (1.005-1.025) Urine Protein NEG (NEG-TRACE) MG/DL Urine Glucose (UA) NEG (NEG) MG/DL Urine Ketones NEG (NEG) MG/DL Urine Blood NEG (NEG) Urine Nitrite NEG (NEG) Ur Leukocyte Esterase NEG (NEG) Urine Test NEGATIVE (NEGATIVE) 06/04/20 06/04/20 06/04/20 Range/Units 12:06 12:06 14:16 WBC (4.8-10.8) X10*3/uL RBC (4.20-5.50) X10*6/uL Hgb (12.0-16.0) g/dl Hct (37-47) % MCV (80-98) fL MCH (27.0-33.0) pg MCHC (31.0-35.0) g/dl RDW (11.0-16.0) % Plt Count (160-400) X10*3/uL MPV (9.4-12.3) fL Immature Gran % (Auto) (0.0-0.4) % Neut % (Auto) (45-73) % Lymph % (Auto) (20-40) % [place] % (Auto) (2-11) % Eos % (Auto) (0-4) % Baso % (Auto) (0-2) % Lymph # (Auto) (1.2-4.9) X10*3/uL [place] # (Auto) (0.1-1.2) X10*3/uL Eos # (Auto) (0.0-0.4) X10*3/uL Baso # (Auto) (0.0-0.2) X10*3/uL Abs Immat Gran (auto) (0.00-0.03) X10*3/uL Absolute Neuts (auto) (2.0-8.3) X10*3/uL Absolute Nucleated RBC (0.0-0.012) X10*3/uL Nucleated RBC % (auto) (0.0-0.2) /100WBC PT INR APTT 30.2 Sodium 139 (135-145) mmol/L Potassium 4.6 (3.3-5.1) mmol/l Chloride 104 (96-108) mmol/L Carbon Dioxide 27 (22-29) mmol/L Anion Gap 13 (12-20) BUN 11 (9-16) mg/dL Creatinine 0.84 (0.5-1.4) mg/dL Estim Creat Clear Calc 92.7 Estimated GFR > 60 Random Glucose 86 (60-115) mg/dL Calcium 9.2 D (8.4-10.2) mg/dL Total Bilirubin 0.4 (0.0-1.0) mg/dL AST 18 (5-31) U/L ALT 10 (0-31) U/L Alkaline Phosphatase 69 (39-117) U/L Troponin I High Sens < 3.5 (<3.5-17.0) ng/L Total Protein 7.8 (6.5-8.0) g/dL Albumin 4.5 (3.5-5.0) g/dL Lipase 5 L (8-78) U/L Urine Color Urine Appearance Urine pH (5.0-8.0) Ur Specific [place] (1.005-1.025) Urine Protein (NEG-TRACE) MG/DL Urine Glucose (UA) (NEG) MG/DL Urine Ketones (NEG) MG/DL Urine Blood (NEG) Urine Nitrite (NEG) Ur Leukocyte Esterase (NEG) Urine Test (NEGATIVE) 06/04/20 Range/Units 14:16 WBC (4.8-10.8) X10*3/uL RBC (4.20-5.50) X10*6/uL Hgb (12.0-16.0) g/dl Hct (37-47) % MCV (80-98) fL MCH (27.0-33.0) pg MCHC (31.0-35.0) g/dl RDW (11.0-16.0) % Plt Count (160-400) X10*3/uL MPV (9.4-12.3) fL Immature Gran % (Auto) (0.0-0.4) % Neut % (Auto) (45-73) % Lymph % (Auto) (20-40) % [place] % (Auto) (2-11) % Eos % (Auto) (0-4) % Baso % (Auto) (0-2) % Lymph # (Auto) (1.2-4.9) X10*3/uL [place] # (Auto) (0.1-1.2) X10*3/uL Eos # (Auto) (0.0-0.4) X10*3/uL Baso # (Auto) (0.0-0.2) X10*3/uL Abs Immat Gran (auto) (0.00-0.03) X10*3/uL Absolute Neuts (auto) (2.0-8.3) X10*3/uL Absolute Nucleated RBC (0.0-0.012) X10*3/uL Nucleated RBC % (auto) (0.0-0.2) /100WBC PT 12.3 INR 1.0 APTT Sodium (135-145) mmol/L Potassium (3.3-5.1) mmol/l Chloride (96-108) mmol/L Carbon Dioxide (22-29) mmol/L Anion Gap (12-20) BUN (9-16) mg/dL Creatinine (0.5-1.4) mg/dL Estim Creat Clear Calc Estimated GFR Random Glucose (60-115) mg/dL Calcium (8.4-10.2) mg/dL Total Bilirubin (0.0-1.0) mg/dL AST (5-31) U/L ALT (0-31) U/L Alkaline Phosphatase (39-117) U/L Troponin I High Sens (<3.5-17.0) ng/L Total Protein (6.5-8.0) g/dL Albumin (3.5-5.0) g/dL Lipase (8-78) U/L Urine Color Urine Appearance Urine pH (5.0-8.0) Ur Specific [place] (1.005-1.025) Urine Protein (NEG-TRACE) MG/DL Urine Glucose (UA) (NEG) MG/DL Urine Ketones (NEG) MG/DL Urine Blood (NEG) Urine Nitrite (NEG) Ur Leukocyte Esterase (NEG) Urine Test (NEGATIVE) <Gary Orellana MD - Last Filed: 06/05/20 13:23> ECG Data Interpretation: sinus bradycardia. Ventricular rate 55. Pr interval 128. QRS 94. Negative STEMI <ORQUIDEA Mello - Last Filed: 06/04/20 16:31> Discharge Plan Discharge Clinical Impression: Chronic back pain, Abdominal pain <ORQUIDEA Mello - Last Filed: 06/04/20 16:31> Patient Disposition: Home, Self-Care <ORQUIDEA Mello - Last Filed: 06/04/20 16:31> Instructions: Abdominal Pain (ED), Chronic Back Pain (DC) <ORQUIDEA Mello - Last Filed: 06/04/20 16:31> Prescriptions: New oxycodone 5 mg tablet 5 mg PO Q8H PRN (Reason: pain) Qty: 12 RF: 0 No Action divalproex [Depakote] 500 mg tablet,delayed release (DR/EC) 500 mg PO BID Qty: 30 RF: 0 divalproex [Depakote ER] 500 mg tablet extended release 24 hr 500 mg PO BID Qty: 60 RF: 3 clonazepam 1 mg tablet 1 mg PO BID Qty: 30 RF: 0 albuterol sulfate [ProAir HFA] 90 mcg/actuation HFA aerosol inhaler 2 puff inhalation Q6H PRN (Reason: shortness of breath or wheezing) Qty: 18 RF: 0 Eliquis 5 mg tablet 5 mg PO BID Qty: 60 RF: 0 simvastatin [Zocor] 20 mg tablet 20 mg PO BEDTIME Qty: 30 RF: 0 gabapentin 300 mg capsule 300 mg PO TID Qty: 90 RF: 0 amitriptyline 25 mg tablet 25 mg PO BEDTIME Qty: 30 RF: 0 Flovent HFA 220 mcg/actuation HFA aerosol inhaler 1 puff inhalation BID Qty: 12 RF: 0 omeprazole 20 mg capsule,delayed release(DR/EC) 20 mg PO DAILY Qty: 30 RF: 0 oxycodone 5 mg tablet 5 mg PO Q6H PRN (Reason: pain) Qty: 20 RF: 0 <ORQUIDEA Mello - Last Filed: 06/04/20 16:31> Interventions: ED Discharge Assessment Last Done: 06/04/20 15:48 <ORQUIDEA Mello - Last Filed: 06/04/20 16:31> Discharge Date/Time: 06/04/20 15:49 <ORQUIDEA Mello - Last Filed: 06/04/20 16:31>
[2020-06-04 09:42] LABS: Glucose Urine UA NEG (NEG); Leukocyte Esterase Urine NEG (NEG); Nitrite Urine NEG (NEG); Specific Gravity - Urine 1.015 (1.005-1.025); Urine Blood NEG (NEG); Urine Ketones NEG (NEG); Urine Protein NEG (NEG-TRACE)
--- NOTE | 2020-06-04 09:42 | PC.NURSE ---
REFUGIO HELD AFTER SCANNING - PT STATES ALLERGY - ADDED TO LIST
[2020-06-04 09:43] LABS: Appearance Urine CLEAR; Color Urine YELLOW
--- NOTE | 2020-06-04 09:49 | XR_ITS ---
EXAMINATION: XR LUMBOSACRAL SPINE CLINICAL INFORMATION: Low back pain COMPARISON: None TECHNIQUE: Three views of the lumbosacral spine. FINDINGS: AP view is somewhat limited due to distended loops of bowel. There is mild curvature of the lumbar spine to the left. Bone alignment is otherwise normal. No fracture, dislocation or bone lesion is seen. Disc spaces are normal. XR/XR lumbar spine 2-3V IMPRESSION: Mild curvature of the lumbar spine to the left. Distended loops of small and large bowel.
[2020-06-04 10:56] LABS: UPreg QC Valid YES; Urine Pregnancy NEGATIVE (NEGATIVE)
--- NOTE | 2020-06-04 10:58 | ECG_ITS ---
Test Reason : ABDOMINAL PAIN Blood Pressure : / mmHG Vent. Rate : 055 BPM Atrial Rate : 055 BPM P-R Int : 128 ms QRS Dur : 094 ms QT Int : 434 ms P-R-T Axes : 047 -11 027 degrees QTc Int : 415 ms Sinus bradycardia Moderate voltage criteria for LVH, may be normal variant Borderline ECG When compared with ECG of 20-APR-2020 22:58, Vent. rate has decreased BY 35 BPM Referred By: Marshall Obrien Electronically Signed By:ZAIDA GIMENEZ MD
[2020-06-04 11:34] VITALS: BP 183/96; PULSE 58; O2SAT 100
[2020-06-04 11:52] VITALS: BP 174/102; PULSE 77; RESP 15; TEMP 36.9; O2SAT 99
[2020-06-04 12:13] VITALS: RESP 14
[2020-06-04] MEDS: HYDROmorphone HCl 0.5 MG/0.5 ML SYRINGE IVPUSH (12:13)
[2020-06-04] MEDS: 0.9 % Sodium Chloride 1,000 ML 999 ML IVCONT (12:14)
[2020-06-04 12:21] LABS: MANUAL DIFF FLAG NO
[2020-06-04 12:22] LABS: Basophils Absolute Auto 0.1 X10*3/uL (0.0-0.2); Basophils Percent Auto 0.7 % (0-2); Eosinophils Absolute Auto 0.2 X10*3/uL (0.0-0.4); Eosinophils Percent Auto 2.3 % (0-4); Hematocrit 40.5 % (37-47); Hemoglobin 12.9 g/dl (12.0-16.0); Lymphocytes Absolute Auto 2.6 X10*3/uL (1.2-4.9); Lymphocytes Percent Auto 36.2 % (20-40); Mean Corpuscular HGB Conc 31.9 g/dl (31.0-35.0); Mean Corpuscular Hemoglobin 27.8 pg (27.0-33.0); Mean Corpuscular Volume 87.3 fL (80-98); Mean Platelet Volume 8.9 fL (9.4-12.3); Monocytes Absolute Auto 0.5 X10*3/uL (0.1-1.2); Monocytes Percent Auto 7.4 % (2-11); Neutrophils Absolute Auto 3.9 X10*3/uL (2.0-8.3); Neutrophils Percent Auto 53.4 % (45-73); Platelet Count 359 X10*3/uL (160-400); Red Blood Count 4.64 X10*6/uL (4.20-5.50); Red Cell Distribution Width 14.2 % (11.0-16.0); White Blood Count 7.3 X10*3/uL (4.8-10.8)
[2020-06-04 12:54] LABS: Alanine Aminotransferase 10 U/L (0-31); Albumin Level 4.5 g/dL (3.5-5.0); Alkaline Phosphatase 69 U/L (39-117); Anion Gap 13 (12-20); Aspartate Amino Transferase 18 U/L (5-31); Bilirubin Total 0.4 mg/dL (0.0-1.0); Blood Urea Nitrogen 11 mg/dL (9-16); Calcium 9.2 mg/dL (8.4-10.2); Carbon Dioxide 27 mmol/L (22-29); Chloride 104 mmol/L (96-108); Creatinine Clr Calc Pharmacy 92.7; Estimated Glomerular Filt Rate > 60; Glucose Random 86 mg/dL (60-115); Lipase 5 U/L (8-78); Potassium 4.6 mmol/l (3.3-5.1); Sodium 139 mmol/L (135-145); Total Protein 7.8 g/dL (6.5-8.0)
--- NOTE | 2020-06-04 12:57 | CT_ITS ---
EXAMINATION: CT ANGIOGRAM OF THE CHEST WITH AND WITHOUT CONTRAST (CT PULMONARY ANGIOGRAM FOR PE) CT ABDOMEN AND PELVIS WITH CONTRAST CLINICAL INFORMATION: Pain on inspiration. Past medical history of pulmonary embolism. Abdominal pain and back pain. COMPARISON: V/Q scan and abdominal CT performed 04/02/2020 TECHNIQUE: Prior to contrast administration, noncontrast localization images were obtained. Subsequently, multidetector volumetric imaging was performed from the thoracic inlet to below the diaphragms following the administration of 65 mL Omnipaque 350 intravenous contrast. This was followed by multidetector acquisition of the abdomen and pelvis. No contrast reaction reported Sagittal, coronal, and MIP oblique sagittal reformatted images were obtained on the CT workstation, uploaded to PACS, and reviewed. Total exam dose-length product 1246 mGy-cm FINDINGS: QUALITY OF STUDY/CONTRAST BOLUS: Satisfactory. PULMONARY ARTERIES: No central or segmental pulmonary emboli. THORACIC AORTA: No aneurysm or dissection. LUNG: The central airways are patent. Mild bronchial wall thickening noted. Minimal bibasilar atelectasis. No consolidation. There is a right upper lobe pulmonary nodule measuring 0.3 cm on series 10 image 108. No additional pulmonary nodules. No suspicious pulmonary mass.. PLEURA: No pleural effusion or pneumothorax. MEDIASTINUM: Normal heart size. No pericardial effusion. No hilar or mediastinal lymphadenopathy. Small hernia. No evidence of septal bowing or right heart strain. CHEST WALL/AXILLA: No axillary or internal mammary lymphadenopathy. LIVER, GALLBLADDER, AND BILIARY TREE: The liver is normal in size, shape, and attenuation. No focal hepatic lesion or biliary ductal dilatation is present. Calcifications along the margin of the liver. Cholecystectomy. PANCREAS: Unremarkable. SPLEEN: Unremarkable. ADRENAL GLANDS: Unremarkable. KIDNEYS AND URETERS: The kidneys are normal in size, shape, and attenuation. No hydronephrosis, hydroureter, or calculi seen. No perinephric stranding. BLADDER: Decompressed with no gross abnormality. GASTROINTESTINAL TRACT: Small hiatal hernia. Foci of high attenuation are seen near the gastroesophageal junction, possibly associated with previous intervention. The stomach is otherwise unremarkable. Normal caliber small bowel. There is no bowel obstruction. Normal appendix. Gaseous distention of the transverse colon. The descending colon is decompressed. Stool in the ascending colon. No focal obstructing mass identified. No free air or free fluid. ABDOMINAL WALL: No significant hernia is appreciated. LYMPH NODES: Normal. VASCULAR: Unremarkable. PELVIC VISCERA: Uterus is not seen. No adnexal mass. OSSEOUS STRUCTURES: No acute or suspicious osseous abnormality. Mild degenerative changes are seen throughout the spine. CT/CT angio chest PE protocol IMPRESSION: 1. No pulmonary embolism. 2. Bronchial wall thickening can be seen with a small airways process such as asthma or atypical/viral infection. 3. No acute findings in the abdomen or pelvis. No inflammatory changes. There is mild gaseous distention of the transverse colon. Prominent stool in the ascending colon. No obstructive process seen. 4. 0.3 cm right upper lobe pulmonary nodule. No further follow-up needed in a low risk patient. Consider 12 month follow-up if this is a high-risk patient. VTE: negative
[2020-06-04 13:00] LABS: Troponin-I High Sensitivity < 3.5 ng/L (<3.5-17.0)
[2020-06-04 14:00] VITALS: BP 156/99; PULSE 59; RESP 16; TEMP 37.2; O2SAT 99
[2020-06-04 14:35] LABS: Prothrombin Time 12.3 SEC (10.8-13.0)
[2020-06-04 14:38] LABS: Partial Thromboplastin Time 30.2 SEC (24.1-38.0)
[2020-06-04] MEDS: iohexoL 350 MG/ML 100 ML INFUS..BTL 65 ML IV (14:38)
== END 2020-06-04 15:49 | disposition home or self-care (01) ==
PROVIDERS: Physician Assistant; Emergency Provider Emergency Medicine
DX: M54.5 Low back pain (principal); R10.9 Unspecified abdominal pain; Z87.891 Personal history of nicotine dependence; Z79.899 Other long term (current) drug therapy
CPT/HCPCS: 36415; 71275; 72100; 74177; 80053; 81003; 81025; 83690; 84484; 85025; 85610; 85730; 93005; 96361; 96372; 96374; 99284; J1170; J1885; Q0163; Q9967

== ENCOUNTER 2020-06-07 19:57 | Emergency (ER) | payer OTHER, SELFPAY ==
[2020-06-07 20:35] VITALS: BP 155/86; PULSE 86; RESP 16; O2SAT 100; BMI 27.3
--- NOTE | 2020-06-07 21:04 | ED_ITS ---
HPI - Back Pain/Injury General Chief Complaint: Back Pain/Injury Stated Complaint: ABD/BACK PAIN/SP FALL Time Seen by Provider: 06/07/20 21:04 Source: patient and old records reviewed Mode of arrival: ambulatory Limitations: no limitations History of Present Illness MD elicited complaint: back pain, back injury and fall Pertinent past history: prior back pain Onset (ago): day(s) (few days ago just seen on 06/[address] scan of abdomen/pelvis and CTA chest comes in states she still has pain and did not fill her Rx and may have had a seizure in the waiting room) Timing: constant Severity: severe Location: lumbar spine Radiation: abdomen Exacerbating factors: movement Relieving factors: none Context: fall Associated symptoms: abdominal pain Work related injury: No Related Data Previous Rx's Medication Instructions Recorded divalproex [Depakote] 500 mg PO BID #30 tab 04/21/20 albuterol sulfate [ProAir HFA] 2 puff INHALATION Q6H PRN #18 g 05/22/20 amitriptyline 25 mg PO BEDTIME #30 tab 05/22/20 apixaban [Eliquis] 5 mg PO BID #60 tab 05/22/20 clonazepam 1 mg PO BID #30 tab 05/22/20 divalproex [Depakote ER] 500 mg PO BID #60 tab 05/22/20 fluticasone propionate [Flovent 1 puff INHALATION BID #12 g 05/22/20 HFA] gabapentin 300 mg PO TID #90 cap 05/22/20 omeprazole 20 mg PO DAILY #30 cap 05/22/20 oxycodone 5 mg PO Q6H PRN #20 tab 05/22/20 simvastatin [Zocor] 20 mg PO BEDTIME #30 tab 05/22/20 oxycodone 5 mg PO Q8H PRN #12 tab 06/04/20 Allergies Allergy/AdvReac Type Severity Reaction Status Date / Time acetaminophen [From VICODIN] Allergy Unknown UNKNOWN Verified 04/20/20 22:56 aspirin Allergy Unknown Unknown Verified 04/20/20 22:56 hydrocodone [From VICODIN] Allergy Unknown UNKNOWN Verified 04/20/20 22:56 ibuprofen [From MOTRIN] Allergy Unknown UNKNOWN Verified 04/20/20 22:56 meperidine [From DEMEROL] Allergy Unknown UNKNOWN Verified 04/20/20 22:56 naproxen [Aleve] Allergy Unknown Unknown Verified 04/20/20 22:56 penicillin V Allergy Unknown Unknown Verified 04/20/20 22:56 Sulfa (Sulfonamide Allergy Unknown Unknown Verified 04/20/20 22:56 Antibiotics) tramadol Allergy Unknown Unknown Verified 04/20/20 22:56 diphenhydramine Allergy Unknown Verified 06/04/20 09:42 [From Benadryl] Codeine Sulfate Allergy Unknown Unknown Uncoded 04/20/20 22:56 Review of Systems Review of Systems: Constitutional : No Weight loss, No Fever, No Chills, ENT/Mouth : No Hearing loss, No Ear Pain, No Nasal Congestion, No Sinus Pain, No Hoarseness, No sore throat, No Rhinorrhea, No Swallowing Difficulty Cardiovascular : No Chest Pain, No SOB Respiratory : No Cough, No Dyspnea Gastrointestinal : pos Nausea, no Vomiting, pos Diarrhea, pos abdominal Pain, No Hematochezia, No Melena Genitourinary : No Dysuria, No Urinary Frequency, No Hematuria, No Urinary Incontinence, Musculoskeletal : positive back pain Skin : No Skin Lesions, No rash Neuro : No Weakness, No Numbness, No Paresthesias, no loss of bowel or bladder incontinence, no saddle anesthesia All other systems reviewed and are negative PMFSH Past Medical History Attestation statement: The following information was validated with the patient. Medical History Anxiety HTN (hypertension) Seizure Social History Social History Alcohol intake: never Smoking Status: Former smoker Advance Directives: No Advance Directives Information Provided: No Physical Exam Vital Signs: Vital Signs: Last Vital Signs Pulse 86 06/07/20 20:35 Resp 16 06/07/20 20:35 BP 155/86 H 06/07/20 20:35 Pulse Ox 100 06/07/20 20:35 Body Mass Index 27.3 Appearance: Alert. Oriented X3. No acute distress. Eyes: Pupils equal, round and reactive to light. ENT: Pharynx normal. Neck: Normal inspection. Neck supple. CVS: Normal heart rate and rhythm. Pulses normal. Respiratory: No respiratory distress. Breath sounds normal. Abdomen: Soft and mild lower abdominal ttp Back: ttp along entire lumbar spine Skin: Skin warm and dry. Normal skin color. Normal skin turgor. Extremities: No lower extremity edema. No calf ttp Neuro: Oriented X 3. No motor deficit. No sensory deficit. SILT inner thigh Course Course Course Narrative: patient was ambulating fine to bathroom observed by me then with RN went down to her knees and started crying, she is now talking about the stress of her home life centered around her daughter, she had a steady gait, required no assist and was doing well. patient stating she still has pain, she is very emotional doubt CE just had full workup and no change, I am not sure best how to help her at this time given negative workup, will attempt better pain control but she can be managed at home MDM - Back Pain/Injury MDM Narrative Medical decision making narrative: 49 yo female with recent fall and c/o back pain just had negative CT scans on 06/04 and lab work states she still has pain - no b/b incontinence, no saddle anesthesia, also notes she had a seizure in the waiting room but not postictal and states it was due to her waiting too long - seems behavioral in nature no head trauma, will obtain basic labs, treat pain and DC home Lab Data Result diagrams: 06/07/20 21:18 06/07/20 21:18 Labs: Lab Results 06/07/20 06/07/20 06/07/20 Range/Units 21:18 21:18 21:18 WBC 7.7 (4.8-10.8) X10*3/uL RBC 3.96 L (4.20-5.50) X10*6/uL Hgb 11.1 L (12.0-16.0) g/dl Hct 34.8 L (37-47) % MCV 87.9 (80-98) fL MCH 28.0 (27.0-33.0) pg MCHC 31.9 (31.0-35.0) g/dl RDW 14.3 (11.0-16.0) % Plt Count 323 (160-400) X10*3/uL MPV 8.8 L (9.4-12.3) fL Immature Gran % (Auto) 0.3 (0.0-0.4) % Neut % (Auto) 52.3 (45-73) % Lymph % (Auto) 35.9 (20-40) % Stevens % (Auto) 7.7 (2-11) % Eos % (Auto) 3.1 (0-4) % Baso % (Auto) 0.7 (0-2) % Lymph # (Auto) 2.8 (1.2-4.9) X10*3/uL Stevens # (Auto) 0.6 (0.1-1.2) X10*3/uL Eos # (Auto) 0.2 (0.0-0.4) X10*3/uL Baso # (Auto) 0.1 (0.0-0.2) X10*3/uL Abs Immat Gran (auto) 0.02 (0.00-0.03) X10*3/uL Absolute Neuts (auto) 4.0 (2.0-8.3) X10*3/uL Absolute Nucleated RBC 0.000 (0.0-0.012) X10*3/uL Nucleated RBC % (auto) 0.0 (0.0-0.2) /100WBC Hold Blue Top SEE NOTE Sodium 142 (135-145) mmol/L Potassium 3.9 (3.3-5.1) mmol/l Chloride 107 (96-108) mmol/L Carbon Dioxide 27 (22-29) mmol/L Anion Gap 12 (12-20) BUN 14 (9-16) mg/dL Creatinine 0.88 (0.5-1.4) mg/dL Estim Creat Clear Calc 88.6 Estimated GFR > 60 Random Glucose 90 (60-115) mg/dL Calcium 8.4 D (8.4-10.2) mg/dL Magnesium 1.7 (1.6-2.6) mg/dL Total Bilirubin 0.4 (0.0-1.0) mg/dL Direct Bilirubin < 0.2 (0.0-0.5) mg/dL AST 16 (5-31) U/L ALT 17 (0-31) U/L Alkaline Phosphatase 77 (39-117) U/L Total Protein 6.7 (6.5-8.0) g/dL Albumin 3.9 (3.5-5.0) g/dL Lipase 6 L (8-78) U/L Urine Color Urine Appearance Urine pH (5.0-8.0) Ur Specific [place] (1.005-1.025) Urine Protein (NEG-TRACE) MG/DL Urine Glucose (UA) (NEG) MG/DL Urine Ketones (NEG) MG/DL Urine Blood (NEG) Urine Nitrite (NEG) Ur Leukocyte Esterase (NEG) 06/07/20 Range/Units 21:22 WBC (4.8-10.8) X10*3/uL RBC (4.20-5.50) X10*6/uL Hgb (12.0-16.0) g/dl Hct (37-47) % MCV (80-98) fL MCH (27.0-33.0) pg MCHC (31.0-35.0) g/dl RDW (11.0-16.0) % Plt Count (160-400) X10*3/uL MPV (9.4-12.3) fL Immature Gran % (Auto) (0.0-0.4) % Neut % (Auto) (45-73) % Lymph % (Auto) (20-40) % Stevens % (Auto) (2-11) % Eos % (Auto) (0-4) % Baso % (Auto) (0-2) % Lymph # (Auto) (1.2-4.9) X10*3/uL Stevens # (Auto) (0.1-1.2) X10*3/uL Eos # (Auto) (0.0-0.4) X10*3/uL Baso # (Auto) (0.0-0.2) X10*3/uL Abs Immat Gran (auto) (0.00-0.03) X10*3/uL Absolute Neuts (auto) (2.0-8.3) X10*3/uL Absolute Nucleated RBC (0.0-0.012) X10*3/uL Nucleated RBC % (auto) (0.0-0.2) /100WBC Hold Blue Top Sodium (135-145) mmol/L Potassium (3.3-5.1) mmol/l Chloride (96-108) mmol/L Carbon Dioxide (22-29) mmol/L Anion Gap (12-20) BUN (9-16) mg/dL Creatinine (0.5-1.4) mg/dL Estim Creat Clear Calc Estimated GFR Random Glucose (60-115) mg/dL Calcium (8.4-10.2) mg/dL Magnesium (1.6-2.6) mg/dL Total Bilirubin (0.0-1.0) mg/dL Direct Bilirubin (0.0-0.5) mg/dL AST (5-31) U/L ALT (0-31) U/L Alkaline Phosphatase (39-117) U/L Total Protein (6.5-8.0) g/dL Albumin (3.5-5.0) g/dL Lipase (8-78) U/L Urine Color YELLOW Urine Appearance CLEAR Urine pH 7.0 (5.0-8.0) Ur Specific [place] 1.025 (1.005-1.025) Urine Protein NEG (NEG-TRACE) MG/DL Urine Glucose (UA) NEG (NEG) MG/DL Urine Ketones NEG (NEG) MG/DL Urine Blood NEG (NEG) Urine Nitrite NEG (NEG) Ur Leukocyte Esterase NEG (NEG) Discharge Plan Discharge Clinical Impression: Acute back pain Patient Disposition: Home, Self-Care Instructions: Acute Low Back Pain (ED) Additional Instructions: return to ED for any worsening symptoms or concerns please fill your prescriptions Prescriptions: No Action divalproex [Depakote] 500 mg tablet,delayed release (DR/EC) 500 mg PO BID Qty: 30 RF: 0 divalproex [Depakote ER] 500 mg tablet extended release 24 hr 500 mg PO BID Qty: 60 RF: 3 clonazepam 1 mg tablet 1 mg PO BID Qty: 30 RF: 0 albuterol sulfate [ProAir HFA] 90 mcg/actuation HFA aerosol inhaler 2 puff inhalation Q6H PRN (Reason: shortness of breath or wheezing) Qty: 18 RF: 0 Eliquis 5 mg tablet 5 mg PO BID Qty: 60 RF: 0 simvastatin [Zocor] 20 mg tablet 20 mg PO BEDTIME Qty: 30 RF: 0 gabapentin 300 mg capsule 300 mg PO TID Qty: 90 RF: 0 amitriptyline 25 mg tablet 25 mg PO BEDTIME Qty: 30 RF: 0 Flovent HFA 220 mcg/actuation HFA aerosol inhaler 1 puff inhalation BID Qty: 12 RF: 0 omeprazole 20 mg capsule,delayed release(DR/EC) 20 mg PO DAILY Qty: 30 RF: 0 oxycodone 5 mg tablet 5 mg PO Q6H PRN (Reason: pain) Qty: 20 RF: 0 oxycodone 5 mg tablet 5 mg PO Q8H PRN (Reason: pain) Qty: 12 RF: 0 Referrals: Physician,Unknown [Primary Care Provider] - 1 day (please call your doctor)
[2020-06-07] MEDS: HYDROmorphone HCl 2 MG TABLET PO (21:25)
--- NOTE | 2020-06-07 21:25 | PC.NURSE ---
Labs and UA obtained and sent. Pt medicated per EMAR. Continue to monitor.
[2020-06-07 21:27] LABS: MANUAL DIFF FLAG NO
[2020-06-07 21:28] LABS: Basophils Absolute Auto 0.1 X10*3/uL (0.0-0.2); Basophils Percent Auto 0.7 % (0-2); Eosinophils Absolute Auto 0.2 X10*3/uL (0.0-0.4); Eosinophils Percent Auto 3.1 % (0-4); Hematocrit 34.8 % (37-47); Hemoglobin 11.1 g/dl (12.0-16.0); Imm Gran Abs Auto 0.02 X10*3/uL (0.00-0.03); Imm Gran Pct Auto 0.3 % (0.0-0.4); Lymphocytes Absolute Auto 2.8 X10*3/uL (1.2-4.9); Lymphocytes Percent Auto 35.9 % (20-40); Mean Corpuscular HGB Conc 31.9 g/dl (31.0-35.0); Mean Corpuscular Volume 87.9 fL (80-98); Mean Platelet Volume 8.8 fL (9.4-12.3); Monocytes Absolute Auto 0.6 X10*3/uL (0.1-1.2); Monocytes Percent Auto 7.7 % (2-11); Neutrophils Percent Auto 52.3 % (45-73); Platelet Count 323 X10*3/uL (160-400); Red Blood Count 3.96 X10*6/uL (4.20-5.50); Red Cell Distribution Width 14.3 % (11.0-16.0); White Blood Count 7.7 X10*3/uL (4.8-10.8)
[2020-06-07 21:29] LABS: Glucose Urine UA NEG (NEG); Leukocyte Esterase Urine NEG (NEG); Nitrite Urine NEG (NEG); Specific Gravity - Urine 1.025 (1.005-1.025); Urine Blood NEG (NEG); Urine Ketones NEG (NEG); Urine Protein NEG (NEG-TRACE)
--- NOTE | 2020-06-07 21:31 | PC.NURSE ---
Pt refusing Valium, states she is allergic. aware.
[2020-06-07 21:33] LABS: Appearance Urine CLEAR; Color Urine YELLOW
[2020-06-07] MEDS: diazePAM 5 MG TABLET PO (21:45)
--- NOTE | 2020-06-07 21:46 | PC.NURSE ---
Pt now agreeable to taking Diazepam despite refusing it earlier. Pt medicated with Diazepam per EMAR. Continue to monitor.
--- NOTE | 2020-06-07 21:48 | PC.NURSE ---
Pt reports no relief of pain as of yet after Dilaudid, continue to monitor. Awaiting lab results.
[2020-06-07 21:51] LABS: Alanine Aminotransferase 17 U/L (0-31); Albumin Level 3.9 g/dL (3.5-5.0); Alkaline Phosphatase 77 U/L (39-117); Anion Gap 12 (12-20); Aspartate Amino Transferase 16 U/L (5-31); Bilirubin Direct < 0.2 mg/dL (0.0-0.5); Bilirubin Total 0.4 mg/dL (0.0-1.0); Blood Urea Nitrogen 14 mg/dL (9-16); Calcium 8.4 mg/dL (8.4-10.2); Carbon Dioxide 27 mmol/L (22-29); Chloride 107 mmol/L (96-108); Creatinine Clr Calc Pharmacy 88.6; Estimated Glomerular Filt Rate > 60; Glucose Random 90 mg/dL (60-115); Lipase 6 U/L (8-78); Magnesium 1.7 mg/dL (1.6-2.6); Potassium 3.9 mmol/l (3.3-5.1); Sodium 142 mmol/L (135-145); Total Protein 6.7 g/dL (6.5-8.0)
--- NOTE | 2020-06-07 23:17 | PC.NURSE ---
Pt reporting nausea, provided with [place] and [place] for comfort.
[2020-06-07 23:45] VITALS: BP 131/80; PULSE 88; RESP 20; TEMP 36.5; O2SAT 98
[2020-06-07] MEDS: HYDROmorphone HCl 2 MG/ML VIAL IM (23:50)
--- NOTE | 2020-06-07 23:59 | PC.NURSE ---
Pt medicated with Dilaudid for pain. VSS. Pt aware of plan to DC home.
== END 2020-06-08 | disposition home or self-care (01) ==
PROVIDERS: Emergency Provider Emergency Medicine
DX: M54.5 Low back pain (principal); Z87.891 Personal history of nicotine dependence; Z79.899 Other long term (current) drug therapy
CPT/HCPCS: 36415; 80048; 80076; 81003; 83690; 83735; 85025; 96372; 99284; J1170; J2270

== ENCOUNTER 2020-06-11 13:21 | Emergency (ER) | payer OTHER, SELFPAY ==
[2020-06-11 13:39] VITALS: BP 162/106; BP 164/94; PULSE 73; PULSE 80; RESP 16; TEMP 35.9; O2SAT 98; BMI 27.3
--- NOTE | 2020-06-11 13:56 | ED.BACK ---
HPI - Back Pain/Injury General Chief Complaint: Back Pain/Injury Stated Complaint: lower back pain x3days Time Seen by Provider: 06/11/20 13:56 Source: patient Mode of arrival: ambulatory Limitations: no limitations History of Present Illness HPI Narrative: Pt is here because she has back pain and cannot refill her rx at [facility], she has tried calling her doc and [facility] but doesn't understand why she cannot refill it. She states her doctor told her to come here, she arrived via ambulance. Related Data Previous Rx's Medication Instructions Recorded divalproex [Depakote] 500 mg PO BID #30 tab 04/21/20 albuterol sulfate [ProAir HFA] 2 puff INHALATION Q6H PRN #18 g 05/22/20 amitriptyline 25 mg PO BEDTIME #30 tab 05/22/20 apixaban [Eliquis] 5 mg PO BID #60 tab 05/22/20 clonazepam 1 mg PO BID #30 tab 05/22/20 divalproex [Depakote ER] 500 mg PO BID #60 tab 05/22/20 fluticasone propionate [Flovent 1 puff INHALATION BID #12 g 05/22/20 HFA] gabapentin 300 mg PO TID #90 cap 05/22/20 omeprazole 20 mg PO DAILY #30 cap 05/22/20 oxycodone 5 mg PO Q6H PRN #20 tab 05/22/20 simvastatin [Zocor] 20 mg PO BEDTIME #30 tab 05/22/20 oxycodone 5 mg PO Q8H PRN #12 tab 06/04/20 Allergies Allergy/AdvReac Type Severity Reaction Status Date / Time acetaminophen [From VICODIN] Allergy Unknown UNKNOWN Verified 04/20/20 22:56 aspirin Allergy Unknown Unknown Verified 04/20/20 22:56 hydrocodone [From VICODIN] Allergy Unknown UNKNOWN Verified 04/20/20 22:56 ibuprofen [From MOTRIN] Allergy Unknown UNKNOWN Verified 04/20/20 22:56 meperidine [From DEMEROL] Allergy Unknown UNKNOWN Verified 04/20/20 22:56 naproxen [Aleve] Allergy Unknown Unknown Verified 04/20/20 22:56 penicillin V Allergy Unknown Unknown Verified 04/20/20 22:56 Sulfa (Sulfonamide Allergy Unknown Unknown Verified 04/20/20 22:56 Antibiotics) tramadol Allergy Unknown Unknown Verified 04/20/20 22:56 diphenhydramine Allergy Unknown Verified 06/04/20 09:42 [From Benadryl] Codeine Sulfate Allergy Unknown Unknown Uncoded 04/20/20 22:56 Review of Systems Review of Systems: see [facility] Past Medical History Attestation statement: The following information was validated with the patient. Medical History Anxiety HTN (hypertension) Seizure Social History Social History Alcohol intake: never Smoking Status: Never smoker Use of substances other than those prescribed or required for medical reasons: No Advance Directives: No Advance Directives Information Provided: No Physical Exam Vital Signs: Vital Signs: Last Vital Signs Temp 96.7 F L 06/11/20 13:39 Pulse 80 06/11/20 13:39 Resp 16 06/11/20 13:39 BP 164/94 H 06/11/20 13:39 Pulse Ox 98 06/11/20 13:39 Body Mass Index 27.3 Const: General: cooperative, healthy appearing, comfortable, no acute distress and well developed Nutritional Appearance: obese Orientation/consciousness: patient oriented x3 Limitations: no limitations HENMT: Head: Yes normal to inspection Face and sinus: Yes normal facial exam Eyes: General: appearance normal, both eyes and all related structures Neck: Neck: Yes normal visual inspection, Yes full ROM and Yes supple Resp: Effort & Inspection: normal respiratory effort Back/Spine/Pelvis: Thoracic/Lumbar Spine: thoracic and lumbar spine normal to inspection, straight leg raise negative bilaterally and paraspinal muscle tenderness bilaterally Neuro: General: patient oriented x3 Extrem: General: Yes normal to inspection Course Course Course Narrative: NurseLyndsey, called [facility], they state the pt's ins co is requiring a prior auth and will not refill rx for oxycontin until it is done. I explained this to the patient. Discharge Plan Discharge Clinical Impression: Prescription requested, Chronic back pain Patient Disposition: Home, Self-Care Instructions: Chronic Back Pain (DC) Prescriptions: No Action divalproex [Depakote] 500 mg tablet,delayed release (DR/EC) 500 mg PO BID Qty: 30 RF: 0 divalproex [Depakote ER] 500 mg tablet extended release 24 hr 500 mg PO BID Qty: 60 RF: 3 clonazepam 1 mg tablet 1 mg PO BID Qty: 30 RF: 0 albuterol sulfate [ProAir HFA] 90 mcg/actuation HFA aerosol inhaler 2 puff inhalation Q6H PRN (Reason: shortness of breath or wheezing) Qty: 18 RF: 0 Eliquis 5 mg tablet 5 mg PO BID Qty: 60 RF: 0 simvastatin [Zocor] 20 mg tablet 20 mg PO BEDTIME Qty: 30 RF: 0 gabapentin 300 mg capsule 300 mg PO TID Qty: 90 RF: 0 amitriptyline 25 mg tablet 25 mg PO BEDTIME Qty: 30 RF: 0 Flovent HFA 220 mcg/actuation HFA aerosol inhaler 1 puff inhalation BID Qty: 12 RF: 0 omeprazole 20 mg capsule,delayed release(DR/EC) 20 mg PO DAILY Qty: 30 RF: 0 oxycodone 5 mg tablet 5 mg PO Q6H PRN (Reason: pain) Qty: 20 RF: 0 oxycodone 5 mg tablet 5 mg PO Q8H PRN (Reason: pain) Qty: 12 RF: 0 Referrals: Ildefonso Franz PA [Physician Timers Inspector] - 2 days
--- NOTE | 2020-06-11 14:15 | PC.NURSE ---
SPOKE TO PHARMACIST AT [facility]. PT IS AWAITING PRIOR AUTH FROM HER PMD.THEY TOLD PT SHE COULD PAY FOR OXYCODONE OUT OF POCKET AND SHE REFUSED. ALL THIS EXPLAINED TO PT BY ORQUIDEA RENDON
== END 2020-06-11 14:40 | disposition home or self-care (01) ==
PROVIDERS: Emergency Provider Emergency Medicine Emergency Medical Services; PCP Physician Assistant
DX: M54.5 Low back pain (principal); I10 Essential (primary) hypertension; Z79.899 Other long term (current) drug therapy; Z76.0 Encounter for issue of repeat prescription
CPT/HCPCS: 99283

== ENCOUNTER 2020-07-10 11:21 | Emergency (ER) | payer OTHER, SELFPAY ==
[2020-07-10 11:33] VITALS: BP 134/81; BP 142/86; PULSE 100; PULSE 120; RESP 19; TEMP 36.9; O2SAT 100; O2SAT 98; BMI 16.5
--- NOTE | 2020-07-10 11:35 | ECG_ITS ---
Test Reason : BACK PAIN Blood Pressure : / mmHG Vent. Rate : 086 BPM Atrial Rate : 086 BPM P-R Int : 134 ms QRS Dur : 088 ms QT Int : 362 ms P-R-T Axes : 024 -22 016 degrees QTc Int : 433 ms Normal sinus rhythm Minimal voltage criteria for LVH, may be normal variant Borderline ECG When compared with ECG of 04-JUN-2020 11:06, Vent. rate has increased BY 31 BPM Referred By: Huong Saldana Electronically Signed By:NATTY LOZANO MD
--- NOTE | 2020-07-10 11:39 | ED_ITS ---
HPI - Back Pain/Injury General Chief Complaint: Back Pain/Injury Stated Complaint: low back pain Time Seen by Provider: 07/10/20 11:35 Source: patient, EMS and old records reviewed Mode of arrival: EMS Limitations: other (poor historian very anxious) History of Present Illness HPI Narrative: 50 yo female with chronic back pain and hx of seizures also on eliquis for prior PE - no change in chronic back pain - states she cannot get her oxycontin filled, also the ptaient had GTC with EMS but was awake and following commands hx of pseudoseizures MD elicited complaint: back pain Pertinent past history: prior back pain Onset (ago): month(s) (2) Timing: constant Severity: similar to previous episodes Quality: sharp Location: lumbar spine Radiation: abdomen Exacerbating factors: movement Relieving factors: none Associated symptoms: other (anxiety and seizures) Work related injury: No Related Data Previous Rx's Medication Instructions Recorded divalproex [Depakote] 500 mg PO BID #30 tab 04/21/20 albuterol sulfate [ProAir HFA] 2 puff INHALATION Q6H PRN #18 g 05/22/20 amitriptyline 25 mg PO BEDTIME #30 tab 05/22/20 apixaban [Eliquis] 5 mg PO BID #60 tab 05/22/20 clonazepam 1 mg PO BID #30 tab 05/22/20 divalproex [Depakote ER] 500 mg PO BID #60 tab 05/22/20 fluticasone propionate [Flovent 1 puff INHALATION BID #12 g 05/22/20 HFA] gabapentin 300 mg PO TID #90 cap 05/22/20 omeprazole 20 mg PO DAILY #30 cap 05/22/20 oxycodone 5 mg PO Q6H PRN #20 tab 05/22/20 simvastatin [Zocor] 20 mg PO BEDTIME #30 tab 05/22/20 oxycodone 5 mg PO Q8H PRN #12 tab 06/04/20 Allergies Allergy/AdvReac Type Severity Reaction Status Date / Time acetaminophen [From VICODIN] Allergy Unknown UNKNOWN Verified 04/20/20 22:56 aspirin Allergy Unknown Unknown Verified 04/20/20 22:56 hydrocodone [From VICODIN] Allergy Unknown UNKNOWN Verified 04/20/20 22:56 ibuprofen [From MOTRIN] Allergy Unknown UNKNOWN Verified 04/20/20 22:56 meperidine [From DEMEROL] Allergy Unknown UNKNOWN Verified 04/20/20 22:56 naproxen [Aleve] Allergy Unknown Unknown Verified 04/20/20 22:56 penicillin V Allergy Unknown Unknown Verified 04/20/20 22:56 Sulfa (Sulfonamide Allergy Unknown Unknown Verified 04/20/20 22:56 Antibiotics) tramadol Allergy Unknown Unknown Verified 04/20/20 22:56 diphenhydramine Allergy Unknown Verified 06/04/20 09:42 [From Benadryl] Codeine Sulfate Allergy Unknown Unknown Uncoded 04/20/20 22:56 Review of Systems Review of Systems: Constitutional : No Weight loss, No Fever, No Chills, ENT/Mouth : No Hearing loss, No Ear Pain, No Nasal Congestion, No Sinus Pain, No Hoarseness, No sore throat, No Rhinorrhea, No Swallowing Difficulty Cardiovascular : No Chest Pain, No SOB Respiratory : No Cough, No Dyspnea Gastrointestinal : No Nausea, No Vomiting, No Diarrhea, No abdominal Pain, No Hematochezia, No Melena Genitourinary : No Dysuria, No Urinary Frequency, No Hematuria, No Urinary Incontinence, Musculoskeletal : positive back pain Skin : No Skin Lesions, No rash Neuro : No Weakness, No Numbness, No Paresthesias, no loss of bowel or bladder incontinence, no saddle anesthesia All other systems reviewed and are negative [facility] Past Medical History Attestation statement: The following information was validated with the patient. Medical History Anxiety Chronic back pain HTN (hypertension) Pulmonary embolus Seizure Social History Social History Alcohol intake: never Smoking Status: Never smoker Use of substances other than those prescribed or required for medical reasons: No Advance Directives: No Advance Directives Information Provided: Yes Physical Exam Vital Signs: Vital Signs: Last Vital Signs Temp 98.5 F 07/10/20 11:33 Pulse 140 H 07/10/20 14:00 Resp 20 07/10/20 14:00 BP 138/80 07/10/20 14:00 Pulse Ox 99 07/10/20 14:00 Body Mass Index 16.5 Appearance: Alert. Oriented X3. No acute distress. Anxious, talking in a whisper, very dramatic Eyes: Pupils equal, round and reactive to light. ENT: Pharynx normal. Neck: Normal inspection. Neck supple. CVS: tachycardicheart rate and rhythm. Pulses normal. Respiratory: No respiratory distress. Breath sounds normal. Abdomen: Soft and nontender. Back: R flank and right lower lumbar ttp Skin: Skin warm and dry. Normal skin color. Normal skin turgor. Extremities: No lower extremity edema. No calf ttp Neuro: Oriented X 3. No motor deficit. No sensory deficit. Course Course Course Narrative: patient repeatedly asking for narcotics despite being told she is intoxicated and it is not safe, she states she didn't drink alcohol, patient then threw herself on the floor no injuries noted, she did not strike her head HR goes up to 140s sinus tach when she is on phone and agitated, HR then back down to 70s at this time she has chronic back pain and we have called her PCP to put prior authorization through for her for the oxycontin, repeat anxiety medications at this time she should be able to be DC home with adult ride MDM - Back Pain/Injury MDM Narrative Medical decision making narrative: 50 yo female with chronic back pain and other issues - comes in again with chronic back pain no b/b incontinence, no saddle anesthesia she is a very poor historian had what sounds like pseudoseizure in the ambulance - will obtain CT scan for retroperitonal hematoma though low suspicion, IV ativan for anxiety, what I can gather from her and her last visit in may is that her PCP put an oxycontin Rx through but the pharmacy needs prior authorization and the patient has no pain medications at home Lab Data Result diagrams: 07/10/20 11:54 07/10/20 11:54 Labs: Lab Results 07/10/20 07/10/20 07/10/20 Range/Units 11:54 11:54 11:54 WBC 5.2 (4.8-10.8) X10*3/uL RBC 4.40 (4.20-5.50) X10*6/uL Hgb 12.2 (12.0-16.0) g/dl Hct 37.8 (37-47) % MCV 85.9 (80-98) fL MCH 27.7 (27.0-33.0) pg MCHC 32.3 (31.0-35.0) g/dl RDW 14.0 (11.0-16.0) % Plt Count 369 (160-400) X10*3/uL MPV 9.0 L (9.4-12.3) fL Immature Gran % (Auto) 0.4 (0.0-0.4) % Neut % (Auto) 37.5 L (45-73) % Lymph % (Auto) 48.5 H (20-40) % [place] % (Auto) 10.3 (2-11) % Eos % (Auto) 2.5 (0-4) % Baso % (Auto) 0.8 (0-2) % Lymph # (Auto) 2.5 (1.2-4.9) X10*3/uL [place] # (Auto) 0.5 (0.1-1.2) X10*3/uL Eos # (Auto) 0.1 (0.0-0.4) X10*3/uL Baso # (Auto) 0.0 (0.0-0.2) X10*3/uL Abs Immat Gran (auto) 0.02 (0.00-0.03) X10*3/uL Absolute Neuts (auto) 2.0 (2.0-8.3) X10*3/uL Absolute Nucleated RBC 0.000 (0.0-0.012) X10*3/uL Nucleated RBC % (auto) 0.0 (0.0-0.2) /100WBC Hold Blue Top Sodium 142 (135-145) mmol/L Potassium 4.7 D (3.3-5.1) mmol/l Chloride 107 (96-108) mmol/L Carbon Dioxide 28 (22-29) mmol/L Anion Gap 12 (12-20) BUN 10 (9-16) mg/dL Creatinine 0.78 (0.5-1.4) mg/dL Estim Creat Clear Calc 136.4 Estimated GFR > 60 Random Glucose 94 (60-115) mg/dL Calcium 8.8 (8.4-10.2) mg/dL Magnesium (1.6-2.6) mg/dL Total Bilirubin (0.0-1.0) mg/dL Direct Bilirubin (0.0-0.5) mg/dL AST (5-31) U/L ALT (0-31) U/L Alkaline Phosphatase (39-117) U/L Total Protein (6.5-8.0) g/dL Albumin (3.5-5.0) g/dL Urine Color Urine Appearance Urine pH (5.0-8.0) Ur Specific [place] (1.005-1.025) Urine Protein (NEG-TRACE) MG/DL Urine Glucose (UA) (NEG) MG/DL Urine Ketones (NEG) MG/DL Urine Blood (NEG) Urine Nitrite (NEG) Ur Leukocyte Esterase (NEG) Urine Opiates Screen (Not Detect) Ur Barbiturates Screen (Not Detect) Valproic Acid (50.0-100.0) mcg/mL Ur Phencyclidine Scrn (Not Detect) Ur Amphetamines Screen (Not Detect) U Benzodiazepines Scrn (Not Detect) Urine Cocaine Screen (Not Detect) U Marijuana (THC) Screen (Not Detect) Ethyl Alcohol 202 mg/dL 07/10/20 07/10/20 07/10/20 Range/Units 11:54 11:54 11:54 WBC (4.8-10.8) X10*3/uL RBC (4.20-5.50) X10*6/uL Hgb (12.0-16.0) g/dl Hct (37-47) % MCV (80-98) fL MCH (27.0-33.0) pg MCHC (31.0-35.0) g/dl RDW (11.0-16.0) % Plt Count (160-400) X10*3/uL MPV (9.4-12.3) fL Immature Gran % (Auto) (0.0-0.4) % Neut % (Auto) (45-73) % Lymph % (Auto) (20-40) % [place] % (Auto) (2-11) % Eos % (Auto) (0-4) % Baso % (Auto) (0-2) % Lymph # (Auto) (1.2-4.9) X10*3/uL [place] # (Auto) (0.1-1.2) X10*3/uL Eos # (Auto) (0.0-0.4) X10*3/uL Baso # (Auto) (0.0-0.2) X10*3/uL Abs Immat Gran (auto) (0.00-0.03) X10*3/uL Absolute Neuts (auto) (2.0-8.3) X10*3/uL Absolute Nucleated RBC (0.0-0.012) X10*3/uL Nucleated RBC % (auto) (0.0-0.2) /100WBC Hold Blue Top SEE NOTE Sodium (135-145) mmol/L Potassium (3.3-5.1) mmol/l Chloride (96-108) mmol/L Carbon Dioxide (22-29) mmol/L Anion Gap (12-20) BUN (9-16) mg/dL Creatinine (0.5-1.4) mg/dL Estim Creat Clear Calc Estimated GFR Random Glucose (60-115) mg/dL Calcium (8.4-10.2) mg/dL Magnesium 2.3 (1.6-2.6) mg/dL Total Bilirubin 0.4 (0.0-1.0) mg/dL Direct Bilirubin < 0.2 (0.0-0.5) mg/dL AST 18 (5-31) U/L ALT 10 (0-31) U/L Alkaline Phosphatase 70 (39-117) U/L Total Protein 7.0 (6.5-8.0) g/dL Albumin 4.1 (3.5-5.0) g/dL Urine Color Urine Appearance Urine pH (5.0-8.0) Ur Specific [place] (1.005-1.025) Urine Protein (NEG-TRACE) MG/DL Urine Glucose (UA) (NEG) MG/DL Urine Ketones (NEG) MG/DL Urine Blood (NEG) Urine Nitrite (NEG) Ur Leukocyte Esterase (NEG) Urine Opiates Screen (Not Detect) Ur Barbiturates Screen (Not Detect) Valproic Acid 41.7 L (50.0-100.0) mcg/mL Ur Phencyclidine Scrn (Not Detect) Ur Amphetamines Screen (Not Detect) U Benzodiazepines Scrn (Not Detect) Urine Cocaine Screen (Not Detect) U Marijuana (THC) Screen (Not Detect) Ethyl Alcohol mg/dL 07/10/20 07/10/20 Range/Units 12:52 12:52 WBC (4.8-10.8) X10*3/uL RBC (4.20-5.50) X10*6/uL Hgb (12.0-16.0) g/dl Hct (37-47) % MCV (80-98) fL MCH (27.0-33.0) pg MCHC (31.0-35.0) g/dl RDW (11.0-16.0) % Plt Count (160-400) X10*3/uL MPV (9.4-12.3) fL Immature Gran % (Auto) (0.0-0.4) % Neut % (Auto) (45-73) % Lymph % (Auto) (20-40) % [place] % (Auto) (2-11) % Eos % (Auto) (0-4) % Baso % (Auto) (0-2) % Lymph # (Auto) (1.2-4.9) X10*3/uL [place] # (Auto) (0.1-1.2) X10*3/uL Eos # (Auto) (0.0-0.4) X10*3/uL Baso # (Auto) (0.0-0.2) X10*3/uL Abs Immat Gran (auto) (0.00-0.03) X10*3/uL Absolute Neuts (auto) (2.0-8.3) X10*3/uL Absolute Nucleated RBC (0.0-0.012) X10*3/uL Nucleated RBC % (auto) (0.0-0.2) /100WBC Hold Blue Top Sodium (135-145) mmol/L Potassium (3.3-5.1) mmol/l Chloride (96-108) mmol/L Carbon Dioxide (22-29) mmol/L Anion Gap (12-20) BUN (9-16) mg/dL Creatinine (0.5-1.4) mg/dL Estim Creat Clear Calc Estimated GFR Random Glucose (60-115) mg/dL Calcium (8.4-10.2) mg/dL Magnesium (1.6-2.6) mg/dL Total Bilirubin (0.0-1.0) mg/dL Direct Bilirubin (0.0-0.5) mg/dL AST (5-31) U/L ALT (0-31) U/L Alkaline Phosphatase (39-117) U/L Total Protein (6.5-8.0) g/dL Albumin (3.5-5.0) g/dL Urine Color STRAW Urine Appearance CLEAR Urine pH 6.5 (5.0-8.0) Ur Specific [place] <= 1.005 (1.005-1.025) Urine Protein NEG (NEG-TRACE) MG/DL Urine Glucose (UA) NEG (NEG) MG/DL Urine Ketones NEG (NEG) MG/DL Urine Blood NEG (NEG) Urine Nitrite NEG (NEG) Ur Leukocyte Esterase NEG (NEG) Urine Opiates Screen Not Detected (Not Detect) Ur Barbiturates Screen Not Detected (Not Detect) Valproic Acid (50.0-100.0) mcg/mL Ur Phencyclidine Scrn Not Detected (Not Detect) Ur Amphetamines Screen Not Detected (Not Detect) U Benzodiazepines Scrn Not Detected (Not Detect) Urine Cocaine Screen Not Detected (Not Detect) U Marijuana (THC) Screen Not Detected (Not Detect) Ethyl Alcohol mg/dL ECG Data Attestation: I personally reviewed and interpreted this ECG as follows: ECG interpretation date: 07/10/20 ECG interpretation time: 12:33 Interpretation: Rate: 86 Rhythm: NSR [place]: left, LVH Normal P waves. Normal RELL. Normal QRS complex. ST T wave : normal, no SCOUT qTC: normal prior studies: no acute ischemia The study has been interpreted contemporaneously by me. . Discharge Plan Discharge Clinical Impression: Alcohol abuse, Anxiety, Pseudoseizure, Chronic back pain Patient Disposition: Home, Self-Care Instructions: Chronic Back Pain (DC), Anxiety (ED), Abuse of Alcohol (ED) Additional Instructions: return to ED for any worsening symptoms or concerns YOU NEED TO CALL THE PHARMACY TO SEE IF YOUR PAIN PRESCRIPTION FROM YOUR DOCTOR WENT THROUGH Prescriptions: No Action divalproex [Depakote] 500 mg tablet,delayed release (DR/EC) 500 mg PO BID Qty: 30 RF: 0 divalproex [Depakote ER] 500 mg tablet extended release 24 hr 500 mg PO BID Qty: 60 RF: 3 clonazepam 1 mg tablet 1 mg PO BID Qty: 30 RF: 0 albuterol sulfate [ProAir HFA] 90 mcg/actuation HFA aerosol inhaler 2 puff inhalation Q6H PRN (Reason: shortness of breath or wheezing) Qty: 18 RF: 0 Eliquis 5 mg tablet 5 mg PO BID Qty: 60 RF: 0 simvastatin [Zocor] 20 mg tablet 20 mg PO BEDTIME Qty: 30 RF: 0 gabapentin 300 mg capsule 300 mg PO TID Qty: 90 RF: 0 amitriptyline 25 mg tablet 25 mg PO BEDTIME Qty: 30 RF: 0 Flovent HFA 220 mcg/actuation HFA aerosol inhaler 1 puff inhalation BID Qty: 12 RF: 0 omeprazole 20 mg capsule,delayed release(DR/EC) 20 mg PO DAILY Qty: 30 RF: 0 oxycodone 5 mg tablet 5 mg PO Q6H PRN (Reason: pain) Qty: 20 RF: 0 oxycodone 5 mg tablet 5 mg PO Q8H PRN (Reason: pain) Qty: 12 RF: 0 Referrals: Ildefonso Franz PA [Physician Director Dental Services] - 2 days Print Language: [place]
--- NOTE | 2020-07-10 11:40 | CT_ITS ---
EXAMINATION: CT ABDOMEN AND PELVIS WITHOUT CONTRAST CLINICAL INFORMATION: Right flank and back pain. Patient on thinning medicine. COMPARISON: Previous CT of the abdomen and pelvis May 2020 TECHNIQUE: Multidetector volumetric imaging was performed from the superior aspect of the liver through the pubic symphysis. Sagittal and coronal reformatted images were obtained on the technologist's workstation. This CT examination was performed using dose optimization techniques as appropriate, variously including the following: *Automated exposure control *Adjustment of mA and/or kV according to patient size (this includes techniques or standardized protocols for targeted exams where dose is matched to indication/reason for exam; i.e. extremities or head) *Use of iterative reconstruction technique DLP: 781 mGy-cm FINDINGS: LUNG BASES: The visualized lung bases are unremarkable. LIVER, GALLBLADDER, AND BILIARY TREE: There are small peripheral calcifications in the right lobe of the liver that are stable. The liver is otherwise unremarkable. The gallbladder is been removed. There is no biliary duct dilatation. PANCREAS: Unremarkable. SPLEEN: Unremarkable. ADRENAL GLANDS: Unremarkable. KIDNEYS AND URETERS: The kidneys are normal in size, shape, and attenuation. No hydronephrosis, hydroureter, or calculi seen. No perinephric stranding. No perinephric or retroperitoneal hematoma is seen. BLADDER: Unremarkable. GASTROINTESTINAL TRACT: The small and large bowel are unremarkable. The appendix is unremarkable. May be a esophageal hernia. The stomach is otherwise unremarkable. ABDOMINAL WALL: No significant hernia is appreciated. LYMPH NODES: There are small calcified enteric lymph nodes that are stable.. VASCULAR: Unremarkable. PELVIC VISCERA: The uterus has been removed. No pelvic mass is seen. OSSEOUS STRUCTURES: Unremarkable. CT/CT abdomen pelvis wo con IMPRESSION: No hematoma seen. Small peripheral calcifications in the right lobe of the liver is stable from previous exam. Probable small esophageal hernia.
[2020-07-10 12:00] VITALS: BP 118/92; PULSE 114; RESP 18; O2SAT 98
[2020-07-10] MEDS: LORazepam 2 MG/ML VIAL 1 MG IVPUSH ×2 (12:02→15:21)
[2020-07-10] MEDS: 0.9 % Sodium Chloride 1,000 ML 999 ML IVCONT (12:02)
[2020-07-10 12:06] LABS: MANUAL DIFF FLAG NO
[2020-07-10 12:14] LABS: Basophils Percent Auto 0.8 % (0-2); Eosinophils Absolute Auto 0.1 X10*3/uL (0.0-0.4); Eosinophils Percent Auto 2.5 % (0-4); Hematocrit 37.8 % (37-47); Hemoglobin 12.2 g/dl (12.0-16.0); Imm Gran Abs Auto 0.02 X10*3/uL (0.00-0.03); Imm Gran Pct Auto 0.4 % (0.0-0.4); Lymphocytes Absolute Auto 2.5 X10*3/uL (1.2-4.9); Lymphocytes Percent Auto 48.5 % (20-40); Mean Corpuscular HGB Conc 32.3 g/dl (31.0-35.0); Mean Corpuscular Hemoglobin 27.7 pg (27.0-33.0); Mean Corpuscular Volume 85.9 fL (80-98); Monocytes Absolute Auto 0.5 X10*3/uL (0.1-1.2); Monocytes Percent Auto 10.3 % (2-11); Neutrophils Percent Auto 37.5 % (45-73); Platelet Count 369 X10*3/uL (160-400); White Blood Count 5.2 X10*3/uL (4.8-10.8)
[2020-07-10 12:44] LABS: Anion Gap 12 (12-20); Blood Urea Nitrogen 10 mg/dL (9-16); Calcium 8.8 mg/dL (8.4-10.2); Carbon Dioxide 28 mmol/L (22-29); Chloride 107 mmol/L (96-108); Creatinine Clr Calc Pharmacy 136.4; Estimated Glomerular Filt Rate > 60; Ethanol 202 mg/dL; Glucose Random 94 mg/dL (60-115); Potassium 4.7 mmol/l (3.3-5.1); Sodium 142 mmol/L (135-145)
[2020-07-10 12:49] LABS: Alanine Aminotransferase 10 U/L (0-31); Albumin Level 4.1 g/dL (3.5-5.0); Alkaline Phosphatase 70 U/L (39-117); Aspartate Amino Transferase 18 U/L (5-31); Bilirubin Direct < 0.2 mg/dL (0.0-0.5); Bilirubin Total 0.4 mg/dL (0.0-1.0); Magnesium 2.3 mg/dL (1.6-2.6)
[2020-07-10 12:58] LABS: Valproate 41.7 mcg/mL (50.0-100.0)
[2020-07-10 13:00] LABS: Glucose Urine UA NEG (NEG); Leukocyte Esterase Urine NEG (NEG); Nitrite Urine NEG (NEG); PH 6.5 (5.0-8.0); Specific Gravity - Urine <= 1.005 (1.005-1.025); Urine Blood NEG (NEG); Urine Ketones NEG (NEG); Urine Protein NEG (NEG-TRACE)
[2020-07-10 13:04] LABS: Appearance Urine CLEAR; Color Urine STRAW
--- NOTE | 2020-07-10 13:07 | PC.NURSE ---
Pt noted with two pseudoseizures at this time, during activity pt able to follow simple commands and does not appear postictal, Dr Saldana aware. Dr Saldana to bedside discussing ETOH level and PCP office contacted for Oxycontin rx and prior auth needed.
--- NOTE | 2020-07-10 13:17 | MHC.CM.ED ---
Received case management consult from Dr Saldana. Patient came to ER with chronic low back pain. Patient states the pharmacy isn't able to fill the prescription. T/W spoke with [facility] in [place]. Patient has [employer]. They will only allow 2 narcotics within 60 days, unless a prior auth is provided by the PCP. T/W left a message for Jamila at [facility] to explain office needed to contact [facility] in [place] to obtain insurance auth from [facility]. Dr Saldana aware. Continue to monitor for d/c needs.
[2020-07-10 13:27] LABS: Amphetamine Screen Urine Not Detected (Not Detect); Barbiturates, Urine Not Detected (Not Detect); Benzodiazepines Screen Urine Not Detected (Not Detect); Cannabinoid Screen Urine Not Detected (Not Detect); Cocaine Screen Urine Not Detected (Not Detect); Opiate Screen Urine Not Detected (Not Detect); Phencyclidine Screen Urine Not Detected (Not Detect)
[2020-07-10 14:00] VITALS: BP 138/80; PULSE 140; RESP 20; O2SAT 99
--- NOTE | 2020-07-10 15:03 | PC.NURSE ---
Pt found on floor having seizre like activity but able to respond to simple commands during assessment. Pt assisted BTB. Call [place] was within reach, pt made high fall risk and instructed not to get up without assist. After pt returned to bed pt reports im sorry Pt tearful/upset, reports pain to low back, Dr Saldana aware however not prescribing narcotics at this time and offered Tylenol however pt refused. Per Dr Saldana, PCP office contacted in attempt to fill Oxycontin at home rx and prior auth
--- NOTE | 2020-07-10 16:02 | PC.NURSE ---
Pt reports unable to find hotel card (to get access to hotel room). [facility] called and will call back if found. Case management working on transport home
[2020-07-10 16:09] VITALS: PULSE 83; RESP 16; O2SAT 98
== END 2020-07-10 16:32 | disposition home or self-care (01) ==
PROVIDERS: Emergency Provider Emergency Medicine
DX: G40.802 Other epilepsy, not intractable, without status epilepticus (principal); F10.10 Alcohol abuse, uncomplicated; Y90.7 Blood alcohol level of 200-239 mg/100 ml; F41.9 Anxiety disorder, unspecified; G89.29 Other chronic pain; M54.5 Low back pain; I10 Essential (primary) hypertension; Z86.711 Personal history of pulmonary embolism; Z79.01 Long term (current) use of anticoagulants; Z79.899 Other long term (current) drug therapy
CPT/HCPCS: 36415; 74176; 80048; 80076; 80164; 80307; 80320; 81003; 83735; 85025; 93005; 96361; 96374; 96376; 99284; J2060

== ENCOUNTER 2020-07-11 17:24 | Emergency (ER) | payer OTHER, SELFPAY ==
[2020-07-11 17:38] VITALS: BP 144/82; PULSE 71; RESP 16; TEMP 36.6; O2SAT 100; BMI 32.5
--- NOTE | 2020-07-11 18:05 | ED_ITS ---
HPI - Back Pain/Injury General Chief Complaint: Back Pain/Injury Stated Complaint: back pain Time Seen by Provider: 07/11/20 17:48 Source: EMS Mode of arrival: EMS Limitations: no limitations History of Present Illness HPI Narrative: 50-year-old female with history of hypertension, pulmonary embolism on Eliquis, seizure disorder and anxiety disorder as well as chronic back pain who presents via EMS with complaint of exacerbation of back pain. States she was seen here yesterday told to follow-up with her primary care doctor however she called and she did not get a response back so she came back as she is having continued back pain. She denies any GI symptoms. No headache, chest pain or shortness of breath. No fever. Denies any alcohol intake today. MD elicited complaint: back pain Pertinent past history: prior back pain Onset (ago): day(s) Timing: constant Severity: moderate Similar Symptoms Previously: Yes Quality: aching Location: lumbar spine Exacerbating factors: movement Relieving factors: none Associated symptoms: denies other symptoms Work related injury: No Related Data Previous Rx's Medication Instructions Recorded divalproex [Depakote] 500 mg PO BID #30 tab 04/21/20 albuterol sulfate [ProAir HFA] 2 puff INHALATION Q6H PRN #18 g 05/22/20 amitriptyline 25 mg PO BEDTIME #30 tab 05/22/20 apixaban [Eliquis] 5 mg PO BID #60 tab 05/22/20 clonazepam 1 mg PO BID #30 tab 05/22/20 divalproex [Depakote ER] 500 mg PO BID #60 tab 05/22/20 fluticasone propionate [Flovent 1 puff INHALATION BID #12 g 05/22/20 HFA] gabapentin 300 mg PO TID #90 cap 05/22/20 omeprazole 20 mg PO DAILY #30 cap 05/22/20 oxycodone 5 mg PO Q6H PRN #20 tab 05/22/20 simvastatin [Zocor] 20 mg PO BEDTIME #30 tab 05/22/20 oxycodone 5 mg PO Q8H PRN #12 tab 06/04/20 Allergies Allergy/AdvReac Type Severity Reaction Status Date / Time acetaminophen [From VICODIN] Allergy Unknown UNKNOWN Verified 04/20/20 22:56 aspirin Allergy Unknown Unknown Verified 04/20/20 22:56 hydrocodone [From VICODIN] Allergy Unknown UNKNOWN Verified 04/20/20 22:56 ibuprofen [From MOTRIN] Allergy Unknown UNKNOWN Verified 04/20/20 22:56 meperidine [From DEMEROL] Allergy Unknown UNKNOWN Verified 04/20/20 22:56 naproxen [Aleve] Allergy Unknown Unknown Verified 04/20/20 22:56 penicillin V Allergy Unknown Unknown Verified 04/20/20 22:56 Sulfa (Sulfonamide Allergy Unknown Unknown Verified 04/20/20 22:56 Antibiotics) tramadol Allergy Unknown Unknown Verified 04/20/20 22:56 diphenhydramine Allergy Unknown Verified 06/04/20 09:42 [From Benadryl] Codeine Sulfate Allergy Unknown Unknown Uncoded 04/20/20 22:56 Review of Systems Review of Systems: Constitutional: No Weight loss, No Fever, No Chills, No Night Sweats, No Fatigue, No Malaise ENT/Mouth: No Hearing loss, No Ear Pain, No Nasal Congestion, No Sinus Pain, No Hoarseness, No sore throat, No Rhinorrhea Eyes: No Eye Pain, No Swelling, No Redness, No Foreign Body, No Discharge, No Vision Changes Cardiovascular: No Chest Pain, No SOB, No Dyspnea on Exertion, No Orthopnea, No Edema, No Palpitations Respiratory: No Cough, No Sputum, No Wheezing, No Smoke Exposure, No Dyspnea Gastrointestinal: No Nausea, No Vomiting, No Diarrhea, No Constipation, No abdominal Pain Genitourinary: no irregular bleeding, No Dysuria, No Urinary Frequency, No He maturia, No Urinary Incontinence, No Urgency, No Flank Pain, No Urinary Flow Changes, No Hesitancy Musculoskeletal: No joint pain, No Myalgias, No Joint Swelling, as noted HPI Skin: No Skin Lesions, No rash Neuro: No Weakness, No Numbness, No Paresthesias, No Loss of Consciousness, No Dizziness, No Headache Psych: No Anxiety/Panic, No Depression, No SI/HI/AH/VH, No Social Issues Heme/Lymph: No Bruising, No Bleeding,No Lymphadenopathy Endocrine: No Polyuria, No Polydipsia, No Temperature Intolerance Yes all other systems are reviewed and are negative [facility] Past Medical History Medical History Anxiety Chronic back pain HTN (hypertension) Pulmonary embolus Seizure Social History Social History Alcohol intake: never Smoking Status: Never smoker Advance Directives: No Advance Directives Information Provided: Yes Physical Exam Vital Signs: Vital Signs: Last Vital Signs Temp 98 F 07/11/20 17:38 Pulse 71 07/11/20 17:38 Resp 16 07/11/20 17:38 BP 144/82 H 07/11/20 17:38 Pulse Ox 100 07/11/20 17:38 Body Mass Index 32.5 Reviewed Const: General: cooperative and healthy appearing; No acute distress or intoxicated appearing Nutritional Appearance: average body habitus Orientation/consciousness: patient oriented x3 HENMT: Head: Yes normal to inspection Ears: hearing grossly normal bilaterally Eyes: General: appearance normal, both eyes and all related structures Visual Feliciano: normal visual feliciano by confrontation Neck: Neck: Yes normal visual inspection, No positive Brudzinski's sign, No positive Kernig's sign and No tender Thyroid: Thyroid normal Chest: Chest palpation & inspection: normal inspection of the chest Resp: Effort & Inspection: normal respiratory effort Cardio: Jugular venous distension: no JVD GI: Inspection: Yes normal to inspection Percussion: Yes normal to percussion Auscultation: normal bowel sounds : General: Yes no CVA tenderness Back/Spine/Pelvis: Other: Soft tissue tender palpation over the right lower paraspinal muscle region. States this pain wraps around to the front. Back: no CVA tenderness Skin: General skin exam: no rashes or lesions noted Neuro: General: patient oriented x3 Extrem: General: Yes normal to inspection Course Course Course Narrative: In review 42-year-old female with above history presenting with exacerbation of acute on chronic back pain now radiates to her right-sided abdomen. Does have history of medication seeking behavior did call her primary care doctor without answer that is coming to the emergency room via EMS. Upon arrival directly asking for narcotic based medication. Patient did have full workup including CT scan of the abdomen pelvis yesterday. After reviewing the findings of the workup yesterday and the CT scan findings patient now reports that she had another seizure today due to the increased pain. Patient has known history of pseudoseizures however given her complaint advise I will check labs for electrolyte derangement and treat pain with nonnarcotic base analgesia. Check urine for infectious process. She was agreeable with this after I left the room- I was subsequently advised by the nurse a few minutes later the patient got up dressed herself and walk to the room to the waiting room. Discharge Plan Discharge Clinical Impression: Back pain Patient Disposition: Elopement Prescriptions: No Action divalproex [Depakote] 500 mg tablet,delayed release (DR/EC) 500 mg PO BID Qty: 30 RF: 0 divalproex [Depakote ER] 500 mg tablet extended release 24 hr 500 mg PO BID Qty: 60 RF: 3 clonazepam 1 mg tablet 1 mg PO BID Qty: 30 RF: 0 albuterol sulfate [ProAir HFA] 90 mcg/actuation HFA aerosol inhaler 2 puff inhalation Q6H PRN (Reason: shortness of breath or wheezing) Qty: 18 RF: 0 Eliquis 5 mg tablet 5 mg PO BID Qty: 60 RF: 0 simvastatin [Zocor] 20 mg tablet 20 mg PO BEDTIME Qty: 30 RF: 0 gabapentin 300 mg capsule 300 mg PO TID Qty: 90 RF: 0 amitriptyline 25 mg tablet 25 mg PO BEDTIME Qty: 30 RF: 0 Flovent HFA 220 mcg/actuation HFA aerosol inhaler 1 puff inhalation BID Qty: 12 RF: 0 omeprazole 20 mg capsule,delayed release(DR/EC) 20 mg PO DAILY Qty: 30 RF: 0 oxycodone 5 mg tablet 5 mg PO Q6H PRN (Reason: pain) Qty: 20 RF: 0 oxycodone 5 mg tablet 5 mg PO Q8H PRN (Reason: pain) Qty: 12 RF: 0 Discharge Date/Time: 07/11/20 18:08
--- NOTE | 2020-07-11 18:07 | PC.NURSE ---
pt seen by crnp denys, when told would not receive narcotic medications pt put clothes on and ambulated out of ed with even steady gait.
== END 2020-07-11 18:08 | disposition left against medical advice (07) ==
PROVIDERS: Emergency Provider Emergency Medicine
DX: M54.5 Low back pain (principal); I10 Essential (primary) hypertension; Z76.5 Malingerer [conscious simulation]; Z86.711 Personal history of pulmonary embolism; Z79.01 Long term (current) use of anticoagulants
CPT/HCPCS: 99282

== ENCOUNTER 2020-07-16 20:20 | Emergency (ER) | payer OTHER, SELFPAY ==
[2020-07-16 20:57] VITALS: BP 125/82; PULSE 67; RESP 18; TEMP 36.5; O2SAT 99; BMI 27.6
--- NOTE | 2020-07-17 02:00 | ED_ITS ---
HPI - Back Pain/Injury General Chief Complaint: Back Pain/Injury Stated Complaint: BACK PAIN Time Seen by Provider: 07/17/20 02:00 Source: patient History of Present Illness HPI Narrative: This is a 50-year-old female known to this emergency department who presents with right-sided back discomfort and complaints of urine symptoms. However, she denies any fever, chills, nausea, vomiting, diarrhea. Related Data Previous Rx's Medication Instructions Recorded divalproex [Depakote] 500 mg PO BID #30 tab 04/21/20 albuterol sulfate [ProAir HFA] 2 puff INHALATION Q6H PRN #18 g 05/22/20 amitriptyline 25 mg PO BEDTIME #30 tab 05/22/20 apixaban [Eliquis] 5 mg PO BID #60 tab 05/22/20 clonazepam 1 mg PO BID #30 tab 05/22/20 divalproex [Depakote ER] 500 mg PO BID #60 tab 05/22/20 fluticasone propionate [Flovent 1 puff INHALATION BID #12 g 05/22/20 HFA] gabapentin 300 mg PO TID #90 cap 05/22/20 omeprazole 20 mg PO DAILY #30 cap 05/22/20 oxycodone 5 mg PO Q6H PRN #20 tab 05/22/20 simvastatin [Zocor] 20 mg PO BEDTIME #30 tab 05/22/20 oxycodone 5 mg PO Q8H PRN #12 tab 06/04/20 cyclobenzaprine 5 mg PO BEDTIME PRN #3 tab 07/17/20 Allergies Allergy/AdvReac Type Severity Reaction Status Date / Time acetaminophen [From VICODIN] Allergy Unknown UNKNOWN Verified 07/16/20 20:32 aspirin Allergy Unknown Unknown Verified 07/16/20 20:32 hydrocodone [From VICODIN] Allergy Unknown UNKNOWN Verified 07/16/20 20:32 ibuprofen [From MOTRIN] Allergy Unknown UNKNOWN Verified 07/16/20 20:32 meperidine [From DEMEROL] Allergy Unknown UNKNOWN Verified 07/16/20 20:32 naproxen [Aleve] Allergy Unknown Unknown Verified 07/16/20 20:32 penicillin V Allergy Unknown Unknown Verified 07/16/20 20:32 Sulfa (Sulfonamide Allergy Unknown Unknown Verified 07/16/20 20:32 Antibiotics) tramadol Allergy Unknown Unknown Verified 07/16/20 20:32 diphenhydramine Allergy Unknown Verified 07/16/20 20:32 [From Benadryl] Codeine Sulfate Allergy Unknown Unknown Uncoded 07/16/20 20:32 Review of Systems Review of Systems: Pertinent positives and negatives as stated in HPI 10 point review of systems is otherwise negative. [facility] Past Medical History Source: nursing notes reviewed Medical History Anxiety Chronic back pain HTN (hypertension) Pulmonary embolus Seizure Social History Social History Alcohol intake: never Smoking Status: Never smoker Advance Directives: No Advance Directives Information Provided: No Physical Exam Vital Signs: Vital Signs: Last Vital Signs Temp 97.7 F 07/16/20 20:57 Pulse 57 07/17/20 02:30 Resp 18 07/17/20 02:30 BP 123/64 07/17/20 02:30 Pulse Ox 99 07/16/20 20:57 Body Mass Index 27.6 VITAL SIGNS: Reviewed. GENERAL: Well developed, well nourished, in no acute distress. HEAD: Normocephalic/atraumatic, OROPHARYNX: no oral lesions noted, posterior pharynx clear and non-erythematous without noted tonsillar enlargement/erythema/exudates NECK: Supple, no adenopathy LUNGS: Normal breath sounds. No adventitious sounds or accessory muscle use. SpO2<99> BACK: No CVA tenderness but noted muscle spasm on palpation with associated tenderness CARDIOVASCULAR: Regular rate and rhythm without noted murmurs, no JVD or lower extremity edema. ABDOMEN: Soft, non-tender, non-distended with bowel sounds. No rigidity. No guarding. No palpable masses or hernias noted NEUROLOGIC: Alert and oriented x 4. Strength and sensation to light touch were grossly intact x 4. Course Course Course Narrative: This is a 50-year-old female with history and clinical presentation consistent with likely muscle spasm however she has multiple allergies which have limited is to treating to lidocaine patch at this time. Otherwise, patient is noted to be resting comfortably and will likely be discharged. Patient is declining to provide a urinalysis for further workup and is specifically asking for pain medication and did have good results after having the lidocaine patch placed and was discharged in stable condition. Discharge Plan Discharge Clinical Impression: Muscle spasm Patient Disposition: Home, Self-Care Instructions: Muscle Spasm (ED) Additional Instructions: Resume all home medications as prescribed. Please follow-up with your primary care provider by calling the office this morning. Prescriptions: New cyclobenzaprine 5 mg tablet 5 mg PO BEDTIME PRN (Reason: muscle spasm) Qty: 3 RF: 0 No Action divalproex [Depakote] 500 mg tablet,delayed release (DR/EC) 500 mg PO BID Qty: 30 RF: 0 divalproex [Depakote ER] 500 mg tablet extended release 24 hr 500 mg PO BID Qty: 60 RF: 3 clonazepam 1 mg tablet 1 mg PO BID Qty: 30 RF: 0 albuterol sulfate [ProAir HFA] 90 mcg/actuation HFA aerosol inhaler 2 puff inhalation Q6H PRN (Reason: shortness of breath or wheezing) Qty: 18 RF: 0 Eliquis 5 mg tablet 5 mg PO BID Qty: 60 RF: 0 simvastatin [Zocor] 20 mg tablet 20 mg PO BEDTIME Qty: 30 RF: 0 gabapentin 300 mg capsule 300 mg PO TID Qty: 90 RF: 0 amitriptyline 25 mg tablet 25 mg PO BEDTIME Qty: 30 RF: 0 Flovent HFA 220 mcg/actuation HFA aerosol inhaler 1 puff inhalation BID Qty: 12 RF: 0 omeprazole 20 mg capsule,delayed release(DR/EC) 20 mg PO DAILY Qty: 30 RF: 0 oxycodone 5 mg tablet 5 mg PO Q6H PRN (Reason: pain) Qty: 20 RF: 0 oxycodone 5 mg tablet 5 mg PO Q8H PRN (Reason: pain) Qty: 12 RF: 0 Referrals: Physician,Outside [Primary Care Provider] - 2 days (Re-evaluation and outpatient management for muscle spasm.)
[2020-07-17 02:30] VITALS: BP 123/64; PULSE 57; RESP 18
[2020-07-17 04:00] VITALS: RESP 16; O2SAT 99
[2020-07-17] MEDS: Lidocaine 4 % Patch ADH..PATCH 1 PATCH TRANSDERMA (05:10)
--- NOTE | 2020-07-17 05:38 | PC.NURSE ---
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 YOU GUYS DON'T CARE ABOUT ME! I WAS TOLD THAT I COULD GET A RIDE HOME FROM A GLASS DESIGNER OR ONE OF YOU GUYS. I DON'T HAVE MONEY FOR A RIDE HOME . PT HAS CELL PHONE, WAS SPEAKING TO . WHILE SPEAKING TO , PATIENT STATED (IN [place]): WHAT DO YOU WANT ME TO DO? GRAB THEM AROUND THEIR NECKS TO GET THEM TO LISTEN? [employer]ATING INSTALLER (ANNABELLE) NOTIFIED OF PATIENT'S THREATENING STATEMENTS. PATIENT LEFT ED, REFUSED TO SIGN DISCHARGE PAPERWORK, AMBULATING WITH STEADY GAIT.
== END 2020-07-17 05:30 | disposition home or self-care (01) ==
PROVIDERS: Emergency Provider Student in an Organized Health Care Education/Training Program
DX: M62.830 Muscle spasm of back (principal); I10 Essential (primary) hypertension
CPT/HCPCS: 99283; 99284

== ENCOUNTER 2020-07-21 05:26 | Emergency (ER) | payer OTHER, SELFPAY ==
[2020-07-21 05:39] VITALS: BP 124/68; BP 140/91; PULSE 110; PULSE 88; RESP 16; TEMP 36.5; O2SAT 100; O2SAT 99; BMI 27.3
--- NOTE | 2020-07-21 05:56 | ED_ITS ---
HPI - General Adult General Chief complaint: Extremity Injury, Lower Stated complaint: LOWER BACK PAIN/MEDICATION ISSUES Time Seen by Provider: 07/21/20 05:43 Source: patient Mode of arrival: EMS Limitations: no limitations History of Present Illness HPI narrative: Patient history of seizure disorder on Depakote been here multiple times for multiple complaints now she comes as she feeling more weak after discharge on 07/17 also had a seizure and got abrasion on the left knee feels body is swollen and since she is feels sluggish patient does have history of hypertension pulmonary embolism on Eliquis and anxiety disorder and chronic back pain last seen in ER was on 07/17 patient does have a history of narcotic- seeking behavior and use of alcohol but patient denies any use of alcohol lately Onset (ago): week(s) Related Data Previous Rx's Medication Instructions Recorded divalproex [Depakote] 500 mg PO BID #30 tab 04/21/20 albuterol sulfate [ProAir HFA] 2 puff INHALATION Q6H PRN #18 g 05/22/20 amitriptyline 25 mg PO BEDTIME #30 tab 05/22/20 apixaban [Eliquis] 5 mg PO BID #60 tab 05/22/20 clonazepam 1 mg PO BID #30 tab 05/22/20 divalproex [Depakote ER] 500 mg PO BID #60 tab 05/22/20 fluticasone propionate [Flovent 1 puff INHALATION BID #12 g 05/22/20 HFA] gabapentin 300 mg PO TID #90 cap 05/22/20 omeprazole 20 mg PO DAILY #30 cap 05/22/20 oxycodone 5 mg PO Q6H PRN #20 tab 05/22/20 simvastatin [Zocor] 20 mg PO BEDTIME #30 tab 05/22/20 oxycodone 5 mg PO Q8H PRN #12 tab 06/04/20 cyclobenzaprine 5 mg PO BEDTIME PRN #3 tab 07/17/20 Allergies Allergy/AdvReac Type Severity Reaction Status Date / Time acetaminophen [From VICODIN] Allergy Unknown UNKNOWN Verified 07/21/20 05:38 aspirin Allergy Unknown Unknown Verified 07/21/20 05:38 hydrocodone [From VICODIN] Allergy Unknown UNKNOWN Verified 07/21/20 05:38 ibuprofen [From MOTRIN] Allergy Unknown UNKNOWN Verified 07/21/20 05:38 meperidine [From DEMEROL] Allergy Unknown UNKNOWN Verified 07/21/20 05:38 naproxen [Aleve] Allergy Unknown Unknown Verified 07/21/20 05:38 penicillin V Allergy Unknown Unknown Verified 07/21/20 05:38 Sulfa (Sulfonamide Allergy Unknown Unknown Verified 07/21/20 05:38 Antibiotics) tramadol Allergy Unknown Unknown Verified 07/21/20 05:38 diphenhydramine Allergy Unknown Verified 07/21/20 05:38 [From Benadryl] Codeine Sulfate Allergy Unknown Unknown Uncoded 07/16/20 20:32 Review of Systems 2 Review of Systems: Constitutional : No Weight loss, No Fever, No Chills ENT/Mouth : No sore throat, No Rhinorrhea Eyes: No Eye Pain, No Swelling Cardiovascular : No Chest Pain, no palpitations Respiratory : No Cough, No Sputum, no shortness of breath Gastrointestinal : no Nausea, No Vomiting, No Diarrhea, No abdominal Pain, no black stools Genitourinary : No Dysuria, No Urinary Frequency Musculoskeletal : No joint pain, No Myalgias, No Joint Swelling leg swelling+ Skin : No Skin Lesions, No rash Neuro : ++Weakness, No Numbness, No Dizziness, No Headache Psych : No Anxiety/Panic, No Depression Heme/Lymph: No Bruising, No Lymphadenopathy Endocrine : No Polyuria, No Polydipsia All other systems reviewed and are negative [facility] Past Medical History Medical History Anxiety Chronic back pain HTN (hypertension) Pulmonary embolus Seizure Social History Social History Alcohol intake: never Smoking Status: Never smoker Advance Directives: No Advance Directives Information Provided: No Physical Exam Vital Signs: Vital Signs: Last Vital Signs Temp 97.7 F 07/21/20 05:39 Pulse 110 H 07/21/20 05:39 Resp 16 07/21/20 05:39 BP 140/91 H 07/21/20 05:39 Pulse Ox 99 07/21/20 05:39 Body Mass Index 27.3 Const: General: cooperative, comfortable and no acute distress Orientation/consciousness: patient oriented x3 HENMT: Other: Facial puffiness+ Head: Yes normocephalic and Yes atraumatic Ears: hearing grossly normal bilaterally General nose exam: Normal external nose present Face and sinus: Yes normal facial exam Mouth: Normal oral and palatal mucosa present Eyes: General: appearance normal, both eyes and all related structures Neck: Neck: Yes normal visual inspection and Yes full ROM Chest: Chest palpation & inspection: normal inspection of the chest and normal palpation of entire chest wall Resp: Effort & Inspection: normal respiratory effort and able to speak in c omplete sentences Auscultation: clear to auscultation bilaterally, no aircraft mechanic ckles, no rales, no rhonchi and no wheezes Cardio: Jugular venous distension: no JVD Palpation: normal PMI Rate: regular rate Heart sounds: S1 normal heart sound present and S2 normal heart sound present Peripheral pulses: Peripheral pulses 2+ throughout GI: Inspection: Yes normal to inspection Palpation (GI): Soft to palpation and nontender Back/Spine/Pelvis: Thoracic/Lumbar Spine: thoracic and lumbar spine normal to inspection and paraspinal muscle tenderness Skin: Other: Left knee Trauma: abrasion Neuro: General: patient oriented x3, moves all extremities, no focal motor deficits and CN's II-XI intact bilaterally Course Course Course Narrative: Patient has multiple complaints labs are ordered patient signed out to Dr. Owen for further evaluation and management Medical Decision Making Lab Data Result diagrams: 07/21/20 06:21 07/21/20 06:21 Discharge Plan Discharge Prescriptions: No Action cyclobenzaprine 5 mg tablet 5 mg PO BEDTIME PRN (Reason: muscle spasm) Qty: 3 RF: 0 divalproex [Depakote] 500 mg tablet,delayed release (DR/EC) 500 mg PO BID Qty: 30 RF: 0 divalproex [Depakote ER] 500 mg tablet extended release 24 hr 500 mg PO BID Qty: 60 RF: 3 clonazepam 1 mg tablet 1 mg PO BID Qty: 30 RF: 0 albuterol sulfate [ProAir HFA] 90 mcg/actuation HFA aerosol inhaler 2 puff inhalation Q6H PRN (Reason: shortness of breath or wheezing) Qty: 18 RF: 0 Eliquis 5 mg tablet 5 mg PO BID Qty: 60 RF: 0 simvastatin [Zocor] 20 mg tablet 20 mg PO BEDTIME Qty: 30 RF: 0 gabapentin 300 mg capsule 300 mg PO TID Qty: 90 RF: 0 amitriptyline 25 mg tablet 25 mg PO BEDTIME Qty: 30 RF: 0 Flovent HFA 220 mcg/actuation HFA aerosol inhaler 1 puff inhalation BID Qty: 12 RF: 0 omeprazole 20 mg capsule,delayed release(DR/EC) 20 mg PO DAILY Qty: 30 RF: 0 oxycodone 5 mg tablet 5 mg PO Q6H PRN (Reason: pain) Qty: 20 RF: 0 oxycodone 5 mg tablet 5 mg PO Q8H PRN (Reason: pain) Qty: 12 RF: 0
[2020-07-21 06:30] LABS: Basophils Percent Auto 0.6 % (0-2); Eosinophils Absolute Auto 0.2 X10*3/uL (0.0-0.4); Hematocrit 34.1 % (37-47); Hemoglobin 10.7 g/dl (12.0-16.0); Imm Gran Abs Auto 0.05 X10*3/uL (0.00-0.03); Imm Gran Pct Auto 0.7 % (0.0-0.4); Lymphocytes Absolute Auto 2.5 X10*3/uL (1.2-4.9); Lymphocytes Percent Auto 35.7 % (20-40); MANUAL DIFF FLAG NO; Mean Corpuscular HGB Conc 31.4 g/dl (31.0-35.0); Mean Corpuscular Hemoglobin 27.8 pg (27.0-33.0); Mean Corpuscular Volume 88.6 fL (80-98); Mean Platelet Volume 8.8 fL (9.4-12.3); Monocytes Absolute Auto 0.9 X10*3/uL (0.1-1.2); Monocytes Percent Auto 12.8 % (2-11); Neutrophils Absolute Auto 3.3 X10*3/uL (2.0-8.3); Neutrophils Percent Auto 47.2 % (45-73); Platelet Count 299 X10*3/uL (160-400); Red Blood Count 3.85 X10*6/uL (4.20-5.50); Red Cell Distribution Width 13.8 % (11.0-16.0)
[2020-07-21 07:07] LABS: Ethanol < 10 mg/dL
[2020-07-21 07:12] LABS: Alanine Aminotransferase 10 U/L (0-31); Albumin Level 3.9 g/dL (3.5-5.0); Alkaline Phosphatase 70 U/L (39-117); Anion Gap 12 (12-20); Aspartate Amino Transferase 16 U/L (5-31); Blood Urea Nitrogen 19 mg/dL (9-16); Calcium 8.4 mg/dL (8.4-10.2); Carbon Dioxide 24 mmol/L (22-29); Chloride 108 mmol/L (96-108); Creatinine Clr Calc Pharmacy 80.3; Estimated Glomerular Filt Rate > 60; Glucose Random 105 mg/dL (60-115); Magnesium 2.2 mg/dL (1.6-2.6); Potassium 3.9 mmol/l (3.3-5.1); Sodium 140 mmol/L (135-145); Total Protein 6.5 g/dL (6.5-8.0)
[2020-07-21 07:13] VITALS: BP 125/80; PULSE 80; RESP 16; O2SAT 99
[2020-07-21 07:15] LABS: B Type Natriuretic Peptide 17 pg/mL (<100)
[2020-07-21 07:17] LABS: INTERNATIONAL NORM RATIO 0.9 (0.9-1.1); Prothrombin Time 10.9 SEC (10.8-13.0)
[2020-07-21 07:20] LABS: Partial Thromboplastin Time 26.3 SEC (24.1-38.0)
[2020-07-21 07:25] LABS: Bilirubin Total < 0.2 mg/dL (0.0-1.0)
[2020-07-21 07:29] LABS: Valproate 4.7 mcg/mL (50.0-100.0)
[2020-07-21] MEDS: Valproic Acid (as Sodium Salt) 500 MG in Dextrose 5 % 50 ML 55 MG IV (08:34)
[2020-07-21] MEDS: 0.9 % Sodium Chloride 1,000 ML 999 ML IVCONT (08:35)
[2020-07-21 09:30] VITALS: BP 136/86; PULSE 105; RESP 18; O2SAT 100
[2020-07-21] MEDS: oxyCODONE HCl Immed Release 5 MG TABLET PO (09:58)
== END 2020-07-21 10:36 | disposition home or self-care (01) ==
PROVIDERS: Internal Medicine; Emergency Provider Emergency Medicine
DX: M54.5 Low back pain (principal); R53.1 Weakness; I10 Essential (primary) hypertension; Z79.899 Other long term (current) drug therapy
CPT/HCPCS: 36415; 80053; 80164; 80320; 83735; 83880; 85025; 85610; 85730; 96365; 99284

== ENCOUNTER 2020-08-19 18:50 | Emergency (ER) | payer OTHER, SELFPAY ==
[2020-08-19 19:49] VITALS: BP 140/74; PULSE 87; RESP 16; TEMP 36.8; O2SAT 99; BMI 27.3
--- NOTE | 2020-08-19 21:43 | ED_ITS ---
HPI - Dental/Oral General Chief complaint: Dental/Oral Stated complaint: tooth pain Time Seen by Provider: 08/19/20 21:10 Source: patient Mode of arrival: ambulatory History of Present Illness HPI Narrative: This is a 50-year-old female who presents with 3 days gum pain at the left lower 17. Position that she states she had a tooth extracted approximately 2 weeks ago. She states that the pain is radiating along the jaw and into her ear but denies any associated fevers, chills, nausea, vomiting. In addition, patient is denying any difficulty with breathing or swallowing and states that she contacted her dentist today but that they never sent the prescription for antibiotics or pain medications. Related Data Previous Rx's Medication Instructions Recorded divalproex [Depakote] 500 mg PO BID #30 tab 04/21/20 albuterol sulfate [ProAir HFA] 2 puff INHALATION Q6H PRN #18 g 05/22/20 amitriptyline 25 mg PO BEDTIME #30 tab 05/22/20 apixaban [Eliquis] 5 mg PO BID #60 tab 05/22/20 clonazepam 1 mg PO BID #30 tab 05/22/20 divalproex [Depakote ER] 500 mg PO BID #60 tab 05/22/20 fluticasone propionate [Flovent 1 puff INHALATION BID #12 g 05/22/20 HFA] gabapentin 300 mg PO TID #90 cap 05/22/20 omeprazole 20 mg PO DAILY #30 cap 05/22/20 oxycodone 5 mg PO Q6H PRN #20 tab 05/22/20 simvastatin [Zocor] 20 mg PO BEDTIME #30 tab 05/22/20 oxycodone 5 mg PO Q8H PRN #12 tab 06/04/20 cyclobenzaprine 5 mg PO BEDTIME PRN #3 tab 07/17/20 clindamycin HCl 300 mg PO Q6H 5 Days #20 cap 08/19/20 Allergies Allergy/AdvReac Type Severity Reaction Status Date / Time acetaminophen [From VICODIN] Allergy Unknown UNKNOWN Verified 07/21/20 05:38 aspirin Allergy Unknown Unknown Verified 07/21/20 05:38 hydrocodone [From VICODIN] Allergy Unknown UNKNOWN Verified 07/21/20 05:38 ibuprofen [From MOTRIN] Allergy Unknown UNKNOWN Verified 07/21/20 05:38 meperidine [From DEMEROL] Allergy Unknown UNKNOWN Verified 07/21/20 05:38 naproxen [Aleve] Allergy Unknown Unknown Verified 07/21/20 05:38 penicillin V Allergy Unknown Unknown Verified 07/21/20 05:38 Sulfa (Sulfonamide Allergy Unknown Unknown Verified 07/21/20 05:38 Antibiotics) tramadol Allergy Unknown Unknown Verified 07/21/20 05:38 diphenhydramine Allergy Unknown Verified 07/21/20 05:38 [From Benadryl] Codeine Sulfate Allergy Unknown Unknown Uncoded 07/16/20 20:32 Review of Systems Review of Systems: Pertinent positives and negatives as stated in HPI 10 point review of systems otherwise negative. [facility] Past Medical History Source: nursing notes reviewed Medical History Anxiety Chronic back pain HTN (hypertension) Pulmonary embolus Seizure Social History Social History Alcohol intake: never Smoking Status: Never smoker Advance Directives: No Advance Directives Information Provided: Yes Physical Exam Vital Signs: Vital Signs: Last Vital Signs Temp 98.3 F 08/19/20 19:49 Pulse 87 08/19/20 19:49 Resp 16 08/19/20 19:49 BP 140/74 H 08/19/20 19:49 Pulse Ox 99 08/19/20 19:49 Body Mass Index 27.3 VITAL SIGNS: Reviewed. GENERAL: Well developed, well nourished, in no acute distress. EARS: Ext canals without abnormality, TMs non-bulging and non-erythematous NOSE: Nares patent bilateral OROPHARYNX: no oral lesions noted, posterior pharynx clear minimal swelling at the #17 position, no trismus NECK: Supple, no adenopathy LUNGS: Normal breath sounds. No adventitious sounds or accessory muscle use. SpO2<99> CARDIOVASCULAR: Regular rate and rhythm without noted murmurs, no JVD or lower extremity edema. ABDOMEN: Obese, Soft, non-tender, non-distended with bowel sounds. No rigidity. No guarding. No palpable masses or hernias noted NEUROLOGIC: Alert and oriented x 4. Course Course Course Narrative: This is a 50-year-old female with history and clinical presentation consistent with very mild gum swelling no evidence of abscess and suspect that the partial that she uses is contributing to some of her pain and discomfort due to her likely forcing it over this area of swelling. However, we erred on the side of caution gave her a dose of antibiotics here and sent remaining to the pharmacy and treated her with a combination of analgesics to include viscous lidocaine for additional symptom relief. She was then instructed to follow-up with her dentist in the morning for re-evaluation. Discharge Plan Discharge Clinical Impression: Toothache Patient Disposition: Home, Self-Care Instructions: Toothache (ED) Additional Instructions: 1. Tylenol 1000 mg, por v?a oral, cada 6 horas seg?n sea necesario para controlar el dolor. No exceda los 4000 mg en 24 horas. 2. Recomendar y Anbesol, disponible sin receta en todos los [facility] / [facility], aplicar en el ?alexx de las enc?as david se indica en el empaque exterior. 4. Limite el uso de carrizales parcial que se superpone a esta ?alexx de las enc?as, ya que probablemente aumentar? el dolor que siente. 5. Llame a carrizales dentista por la ma?giselle para jose evaluaci?n adicional. Prescriptions: New clindamycin HCl 300 mg capsule 300 mg PO Q6H 5 Days Qty: 20 RF: 0 No Action cyclobenzaprine 5 mg tablet 5 mg PO BEDTIME PRN (Reason: muscle spasm) Qty: 3 RF: 0 divalproex [Depakote] 500 mg tablet,delayed release (DR/EC) 500 mg PO BID Qty: 30 RF: 0 divalproex [Depakote ER] 500 mg tablet extended release 24 hr 500 mg PO BID Qty: 60 RF: 3 clonazepam 1 mg tablet 1 mg PO BID Qty: 30 RF: 0 albuterol sulfate [ProAir HFA] 90 mcg/actuation HFA aerosol inhaler 2 puff inhalation Q6H PRN (Reason: shortness of breath or wheezing) Qty: 18 RF: 0 Eliquis 5 mg tablet 5 mg PO BID Qty: 60 RF: 0 simvastatin [Zocor] 20 mg tablet 20 mg PO BEDTIME Qty: 30 RF: 0 gabapentin 300 mg capsule 300 mg PO TID Qty: 90 RF: 0 amitriptyline 25 mg tablet 25 mg PO BEDTIME Qty: 30 RF: 0 Flovent HFA 220 mcg/actuation HFA aerosol inhaler 1 puff inhalation BID Qty: 12 RF: 0 omeprazole 20 mg capsule,delayed release(DR/EC) 20 mg PO DAILY Qty: 30 RF: 0 oxycodone 5 mg tablet 5 mg PO Q6H PRN (Reason: pain) Qty: 20 RF: 0 oxycodone 5 mg tablet 5 mg PO Q8H PRN (Reason: pain) Qty: 12 RF: 0 Referrals: Physician,Unknown [Primary Care Provider] - 2 days Print Language: Frisian
[2020-08-19] MEDS: Ketorolac Tromethamine 15 MG/ML VIAL IM (22:03)
[2020-08-19] MEDS: Lidocaine HCl Viscous 2 % 15 ML SOLUTION 10 ML MUCOUS MEM (22:03)
--- NOTE | 2020-08-19 22:22 | PC.NURSE ---
PT REQUESTING TO WAIT IN WAITING ROOM UNTIL CAN PICK HER UP MAY BE AWHILE DO TO SNOW STORM DIRECTOR OF INFORMATICS AWARE AND TRIAGE NURSE AWARE.
== END 2020-08-19 22:23 | disposition home or self-care (01) ==
PROVIDERS: Emergency Provider Student in an Organized Health Care Education/Training Program
DX: K08.89 Other specified disorders of teeth and supporting structures (principal); I10 Essential (primary) hypertension; Z86.711 Personal history of pulmonary embolism; Z79.01 Long term (current) use of anticoagulants; Z79.899 Other long term (current) drug therapy
CPT/HCPCS: 96372; 99283; 99284; J1885

== ENCOUNTER 2020-08-24 17:07 | Emergency (ER) | payer OTHER, SELFPAY ==
[2020-08-24 17:15] VITALS: BP 140/83; PULSE 92; RESP 18; TEMP 36.8; O2SAT 100; BMI 37.2
--- NOTE | 2020-08-24 17:27 | ED.GENADULT ---
HPI - General Adult General Chief complaint: General Medical Stated complaint: got vaccinated yesterday Time Seen by Provider: 08/24/20 17:22 Source: patient Mode of arrival: ambulatory Limitations: no limitations History of Present Illness HPI narrative: Patient has been here multiple times for various problems yesterday she had the COVID vaccine now she is complaining of body aches diarrhea and vomiting all started today Onset (ago): day(s) (1) Related Data Previous Rx's Medication Instructions Recorded divalproex [Depakote] 500 mg PO BID #30 tab 04/21/20 albuterol sulfate [ProAir HFA] 2 puff INHALATION Q6H PRN #18 g 05/22/20 amitriptyline 25 mg PO BEDTIME #30 tab 05/22/20 apixaban [Eliquis] 5 mg PO BID #60 tab 05/22/20 clonazepam 1 mg PO BID #30 tab 05/22/20 divalproex [Depakote ER] 500 mg PO BID #60 tab 05/22/20 fluticasone propionate [Flovent 1 puff INHALATION BID #12 g 05/22/20 HFA] gabapentin 300 mg PO TID #90 cap 05/22/20 omeprazole 20 mg PO DAILY #30 cap 05/22/20 oxycodone 5 mg PO Q6H PRN #20 tab 05/22/20 simvastatin [Zocor] 20 mg PO BEDTIME #30 tab 05/22/20 oxycodone 5 mg PO Q8H PRN #12 tab 06/04/20 cyclobenzaprine 5 mg PO BEDTIME PRN #3 tab 07/17/20 clindamycin HCl 300 mg PO Q6H 5 Days #20 cap 08/19/20 ondansetron 4 mg PO Q6-8H PRN #7 tab 08/24/20 Allergies Allergy/AdvReac Type Severity Reaction Status Date / Time acetaminophen [From VICODIN] Allergy Unknown UNKNOWN Verified 07/21/20 05:38 aspirin Allergy Unknown Unknown Verified 07/21/20 05:38 hydrocodone [From VICODIN] Allergy Unknown UNKNOWN Verified 07/21/20 05:38 ibuprofen [From MOTRIN] Allergy Unknown UNKNOWN Verified 07/21/20 05:38 meperidine [From DEMEROL] Allergy Unknown UNKNOWN Verified 07/21/20 05:38 naproxen [Aleve] Allergy Unknown Unknown Verified 07/21/20 05:38 penicillin V Allergy Unknown Unknown Verified 07/21/20 05:38 Sulfa (Sulfonamide Allergy Unknown Unknown Verified 07/21/20 05:38 Antibiotics) tramadol Allergy Unknown Unknown Verified 07/21/20 05:38 diphenhydramine Allergy Unknown Verified 07/21/20 05:38 [From Benadryl] Codeine Sulfate Allergy Unknown Unknown Uncoded 07/16/20 20:32 Review of Systems Review of Systems: Constitutional : No Weight loss, No Fever, No Chills body aches+ ENT/Mouth : No sore throat, No Rhinorrhea Eyes: No Eye Pain, No Swelling Cardiovascular : No Chest Pain, no palpitations Respiratory : No Cough, No Sputum, no shortness of breath Gastrointestinal : + Nausea, + Vomiting,+Diarrhea, No abdominal Pain, no black stools Genitourinary : No Dysuria, No Urinary Frequency Musculoskeletal : No joint pain, No Myalgias, No Joint Swelling Skin : No Skin Lesions, No rash Neuro : No Weakness, No Numbness, No Dizziness, No Headache Psych : No Anxiety/Panic, No Depression Heme/Lymph: No Bruising, No Lymphadenopathy Endocrine : No Polyuria, No Polydipsia All other systems reviewed and are negative [facility] Past Medical History Medical History Anxiety Chronic back pain HTN (hypertension) Pseudoseizure Pulmonary embolus Seizure Social History Social History Alcohol intake: unknown Smoking Status: Unknown if ever smoked Use of substances other than those prescribed or required for medical reasons: Unknown Advance Directives: No Physical Exam Vital Signs: Vital Signs: Last Vital Signs Temp 98.3 F 08/24/20 17:15 Pulse 92 08/24/20 17:15 Resp 18 08/24/20 17:15 BP 140/83 H 08/24/20 17:15 Pulse Ox 100 08/24/20 17:15 Body Mass Index 37.2 Appearance: Alert. Oriented X3. No acute distress. Eyes: Pupils equal, round and reactive to light. ENT: Pharynx normal. Neck: Normal inspection. Neck supple. CVS: Normal heart rate and rhythm. Pulses normal. Respiratory: No respiratory distress. Breath sounds normal. Abdomen: Soft and nontender. Bowel sounds are present, no mass palpable, no CVA tenderness Skin: Skin warm and dry. Normal skin color. Normal skin turgor. Extremities: No lower extremity edema. Neuro: Oriented X 3. No motor deficit. No sensory deficit. Discharge Plan Discharge Clinical Impression: Viral syndrome Patient Disposition: Home, Self-Care Instructions: Viral Syndrome (ED) Additional Instructions: Drink plenty of fluids the symptoms should get better in a day or 2 Medicine for nausea as advised Prescriptions: New ondansetron 4 mg tablet,disintegrating 4 mg PO Q6-8H PRN (Reason: nausea and vomiting) Qty: 7 RF: 0 No Action cyclobenzaprine 5 mg tablet 5 mg PO BEDTIME PRN (Reason: muscle spasm) Qty: 3 RF: 0 divalproex [Depakote] 500 mg tablet,delayed release (DR/EC) 500 mg PO BID Qty: 30 RF: 0 divalproex [Depakote ER] 500 mg tablet extended release 24 hr 500 mg PO BID Qty: 60 RF: 3 clonazepam 1 mg tablet 1 mg PO BID Qty: 30 RF: 0 albuterol sulfate [ProAir HFA] 90 mcg/actuation HFA aerosol inhaler 2 puff inhalation Q6H PRN (Reason: shortness of breath or wheezing) Qty: 18 RF: 0 Eliquis 5 mg tablet 5 mg PO BID Qty: 60 RF: 0 simvastatin [Zocor] 20 mg tablet 20 mg PO BEDTIME Qty: 30 RF: 0 gabapentin 300 mg capsule 300 mg PO TID Qty: 90 RF: 0 amitriptyline 25 mg tablet 25 mg PO BEDTIME Qty: 30 RF: 0 Flovent HFA 220 mcg/actuation HFA aerosol inhaler 1 puff inhalation BID Qty: 12 RF: 0 omeprazole 20 mg capsule,delayed release(DR/EC) 20 mg PO DAILY Qty: 30 RF: 0 oxycodone 5 mg tablet 5 mg PO Q6H PRN (Reason: pain) Qty: 20 RF: 0 oxycodone 5 mg tablet 5 mg PO Q8H PRN (Reason: pain) Qty: 12 RF: 0 clindamycin HCl 300 mg capsule 300 mg PO Q6H 5 Days Qty: 20 RF: 0 Interventions: ED Discharge Assessment Last Done: 08/24/20 18:52 Discharge Date/Time: 08/24/20 18:53
[2020-08-24] MEDS: 0.9 % Sodium Chloride 1,000 ML 999 ML IVCONT (17:43)
[2020-08-24] MEDS: ondansetron HCL 4 MG/2 ML VIAL IVPUSH (17:49)
[2020-08-24] MEDS: Ketorolac Tromethamine 30 MG/ML VIAL IVPUSH (17:49)
[2020-08-24] MEDS: Loperamide HCl 2 MG CAPSULE 4 MG PO (17:53)
== END 2020-08-24 18:53 | disposition home or self-care (01) ==
PROVIDERS: Emergency Provider Internal Medicine
DX: B34.9 Viral infection, unspecified (principal); M79.10 Myalgia, unspecified site; Z79.899 Other long term (current) drug therapy; Z79.01 Long term (current) use of anticoagulants
CPT/HCPCS: 96361; 96374; 96375; 99284; J1885; J2405

== ENCOUNTER 2020-08-24 19:23 | Emergency (ER) | payer OTHER, SELFPAY ==
[2020-08-24 19:37] VITALS: PULSE 98; RESP 24; TEMP 37; O2SAT 98; BMI 43.5
[2020-08-24] MEDS: Divalproex Sodium 500 MG TABLET.DR PO (19:55)
--- NOTE | 2020-08-24 19:59 | ED_ITS ---
HPI - General Adult General Chief complaint: Seizure Stated complaint: Seizure? Time Seen by Provider: 08/24/20 19:31 Source: patient Mode of arrival: ambulatory Limitations: no limitations History of Present Illness HPI narrative: Patient presents to ED for pseudo-seizure. Patient was discharged 1 hour earlier in the ED and went to the waiting room. Patient wanted to wait in the waiting room and sleep overnight until tomorrow morning. Patient was informed by security and nursing staff due to COVID-19 protocol should not be able to do that and then patient threw herself on the floor and started to have a ?? seizure. Nursing staff evaluated patient and they state when they lifted the patient hand and dropped it and patient avoided her hand hitting her face by dropping it to the side and grab an object. patient was alert at this time This is clear signs of pseudo-seizure. Patient states she missed her dose of Depakote. Related Data Previous Rx's Medication Instructions Recorded divalproex [Depakote] 500 mg PO BID #30 tab 04/21/20 albuterol sulfate [ProAir HFA] 2 puff INHALATION Q6H PRN #18 g 05/22/20 amitriptyline 25 mg PO BEDTIME #30 tab 05/22/20 apixaban [Eliquis] 5 mg PO BID #60 tab 05/22/20 clonazepam 1 mg PO BID #30 tab 05/22/20 divalproex [Depakote ER] 500 mg PO BID #60 tab 05/22/20 fluticasone propionate [Flovent 1 puff INHALATION BID #12 g 05/22/20 HFA] gabapentin 300 mg PO TID #90 cap 05/22/20 omeprazole 20 mg PO DAILY #30 cap 05/22/20 oxycodone 5 mg PO Q6H PRN #20 tab 05/22/20 simvastatin [Zocor] 20 mg PO BEDTIME #30 tab 05/22/20 oxycodone 5 mg PO Q8H PRN #12 tab 06/04/20 cyclobenzaprine 5 mg PO BEDTIME PRN #3 tab 07/17/20 clindamycin HCl 300 mg PO Q6H 5 Days #20 cap 08/19/20 ondansetron 4 mg PO Q6-8H PRN #7 tab 08/24/20 Allergies Allergy/AdvReac Type Severity Reaction Status Date / Time acetaminophen [From VICODIN] Allergy Unknown UNKNOWN Verified 07/21/20 05:38 aspirin Allergy Unknown Unknown Verified 07/21/20 05:38 hydrocodone [From VICODIN] Allergy Unknown UNKNOWN Verified 07/21/20 05:38 ibuprofen [From MOTRIN] Allergy Unknown UNKNOWN Verified 07/21/20 05:38 meperidine [From DEMEROL] Allergy Unknown UNKNOWN Verified 07/21/20 05:38 naproxen [Aleve] Allergy Unknown Unknown Verified 07/21/20 05:38 penicillin V Allergy Unknown Unknown Verified 07/21/20 05:38 Sulfa (Sulfonamide Allergy Unknown Unknown Verified 07/21/20 05:38 Antibiotics) tramadol Allergy Unknown Unknown Verified 07/21/20 05:38 diphenhydramine Allergy Unknown Verified 07/21/20 05:38 [From Benadryl] Codeine Sulfate Allergy Unknown Unknown Uncoded 07/16/20 20:32 Review of Systems Review of Systems: Yes all other systems are reviewed and are negative Constitutional: Constitutional: Reports as per HPI and Reports no additional constitutional complaints Eyes: Eyes: Reports as per HPI and Reports no additional eye complaints ENT: Reports system reviewed and no additional complaints, except as documented and Reports as per HPI Cardiovascular: Cardiovascular: Reports as per HPI and Reports no additional cardiovascular complaints Respiratory: Respiratory: Reports as per HPI and Reports no additional respiratory complaints Gastrointestinal: Gastrointestinal: Reports as per HPI and Reports no additional gastrointestinal complaints Genitourinary: Genitourinary: Reports no additional female genitourinary complaints and Reports as per HPI Musculoskeletal: Musculoskeletal: Reports no additional musculoskeletal complaints and Reports as per HPI Neurologic: Reports system reviewed and no additional complaints, except as documented and Reports as per HPI Comments: Pseudo-seizure Psychiatric: Psychiatric: Reports no additional psychiatric complaints and Reports as per HPI PMF Past Medical History Medical History Anxiety Chronic back pain HTN (hypertension) Pseudoseizure Pulmonary embolus Seizure Social History Social History Alcohol intake: unknown Smoking Status: Unknown if ever smoked Use of substances other than those prescribed or required for medical reasons: Unknown Advance Directives: No Physical Exam Vital Signs: Vital Signs: Last Vital Signs Temp 98.6 F 02/06/21 19:37 Pulse 98 08/24/20 19:37 Resp 24 H 08/24/20 19:37 Pulse Ox 98 08/24/20 19:37 Body Mass Index 43.5 Const: General: cooperative, healthy appearing, comfortable, no acute distress, well developed, alert, awake and Physically active Orientation/consciousness: patient oriented x3 HENMT: Head: Yes normal to inspection, Yes No palpable skull fracture present, Yes normocephalic, Yes atraumatic, No abrasion, No Crowe's sign, No contusion, No cranial bruits, No hematoma, No laceration, No occipital foramen tenderness, No palpable skull fracture, No raccoon eyes, No scalp lesion, No scalp tenderness, No Temporal artery tenderness present and No periorbital ecchymosis Eyes: General: appearance normal, both eyes and all related structures Neck: Neck: Yes normal visual inspection, Yes full ROM, Yes no lymphadenopathy, Yes no meningeal signs, Yes trachea midline, Yes supple and No tender Chest: Chest palpation & inspection: normal inspection of the chest and normal palpation of entire chest wall Resp: Effort & Inspection: normal respiratory effort and able to speak in complete sentences Auscultation: clear to auscultation bilaterally Cardio: Jugular venous distension: no JVD Heart sounds: S1 normal heart sound present and S2 normal heart sound present GI: Inspection: Yes normal to inspection and No abdominal wall ecchymosis Palpation (GI): Soft to palpation, not firm, nontender, no guarding and not rigid : General: No CVA tenderness and Yes no CVA tenderness Back/Spine/Pelvis: Back: no CVA tenderness, No CVA tenderness and No back tenderness Skin: General skin exam: no rashes or lesions noted and elasticity normal Neuro: Other: Negative for slurred speech. Negative for loss of vision. Negative negative pronator drift. All extremities do motor strength are equal and intact. 5+ Patient has normal gait General: patient oriented x3, no meningeal signs and CN's II-XI intact bilaterally Cranial nerves: Yes CN's II-XII intact bilaterally Extrem: General: Yes normal to inspection and Yes full ROM Psych: Appearance: grossly normal, well kempt and not disheveled Course Course Course Narrative: History indicates pseudo-seizure remove you patient her Depakote re-evaluate Reevaluation(s) Reevaluation #1: Patient had another pseudo seizure episode in the bed. I want to evaluate patient and picked up her hand and leg goes to drop it patient avoid making her hand hit her face and moved to the side and graft to the bed. Patient was awake during whole episode. Patient not having actual seizure. V ital signs stable. Will re-evaluate patient. After his episode on patient awaking and worked on room Time: 20:09 Reevaluation #2: Patient alert orientedx3 walking around the ED. Patient eloped from the ED before she could receive discharge papers. Blood pressure on monitor is 148/70. Time: 09:05 Medical Decision Making MDM Narrative Medical decision making narrative: Pseudo-seizure Discharge Plan Discharge Clinical Impression: Pseudoseizure Patient Disposition: Home, Self-Care Instructions: Viral Syndrome (ED), Normal Exam (ED) Additional Instructions: Return to ED immediately for chest pain, shortness of breath, coughing, fever, chills, vomiting, headache, dizziness, slurred speech, loss of vision, chest pain, shortness of breath, any other concerning symptoms. Prescriptions: No Action cyclobenzaprine 5 mg tablet 5 mg PO BEDTIME PRN (Reason: muscle spasm) Qty: 3 RF: 0 ondansetron 4 mg tablet,disintegrating 4 mg PO Q6-8H PRN (Reason: nausea and vomiting) Qty: 7 RF: 0 divalproex [Depakote] 500 mg tablet,delayed release (DR/EC) 500 mg PO BID Qty: 30 RF: 0 divalproex [Depakote ER] 500 mg tablet extended release 24 hr 500 mg PO BID Qty: 60 RF: 3 clonazepam 1 mg tablet 1 mg PO BID Qty: 30 RF: 0 albuterol sulfate [ProAir HFA] 90 mcg/actuation HFA aerosol inhaler 2 puff inhalation Q6H PRN (Reason: shortness of breath or wheezing) Qty: 18 RF: 0 Eliquis 5 mg tablet 5 mg PO BID Qty: 60 RF: 0 simvastatin [Zocor] 20 mg tablet 20 mg PO BEDTIME Qty: 30 RF: 0 gabapentin 300 mg capsule 300 mg PO TID Qty: 90 RF: 0 amitriptyline 25 mg tablet 25 mg PO BEDTIME Qty: 30 RF: 0 Flovent HFA 220 mcg/actuation HFA aerosol inhaler 1 puff inhalation BID Qty: 12 RF: 0 omeprazole 20 mg capsule,delayed release(DR/EC) 20 mg PO DAILY Qty: 30 RF: 0 oxycodone 5 mg tablet 5 mg PO Q6H PRN (Reason: pain) Qty: 20 RF: 0 oxycodone 5 mg tablet 5 mg PO Q8H PRN (Reason: pain) Qty: 12 RF: 0 clindamycin HCl 300 mg capsule 300 mg PO Q6H 5 Days Qty: 20 RF: 0 Interventions: ED Discharge Assessment Last Done: 08/24/20 21:05 Discharge Date/Time: 08/24/20 21:06 Print Language: Occitan
--- NOTE | 2020-08-24 20:55 | PC.NURSE ---
Patient asking for pain medication and I let the provider know what patient wanted. Patient then walked out to the desk to speak to provider. She was specifically asking for morphine.
== END 2020-08-24 21:06 | disposition home or self-care (01) ==
PROVIDERS: Emergency Provider Internal Medicine
DX: R56.9 Unspecified convulsions (principal); Z79.899 Other long term (current) drug therapy
CPT/HCPCS: 99283; 99284

== ENCOUNTER 2020-08-25 14:59 | Emergency (ER) | payer OTHER, SELFPAY ==
--- NOTE | ~2020-08-25 | XR_ITS ---
EXAMINATION: XR KNEE, LEFT CLINICAL INFORMATION: Left knee pain status post fall. COMPARISON: None TECHNIQUE: Four views of the left knee. FINDINGS: No significant tricompartmental degenerative joint changes are seen. There is no acute fracture, dislocation or joint effusion. Mild prepatellar soft tissue swelling is seen. XR/XR knee LT 2V IMPRESSION: Mild prepatellar soft tissue swelling. No acute underlying abnormality.
[2020-08-25 15:11] VITALS: BP 114/77; PULSE 85; RESP 20; TEMP 36.8; O2SAT 98; BMI 30.4
--- NOTE | 2020-08-25 15:47 | ED_ITS ---
HPI - Extremity Injury (Lower) General Chief Complaint: Extremity Injury, Lower Stated Complaint: FALL, LEFT LEG/ANKLE PAIN Time Seen by Provider: 08/25/20 15:47 Source: patient Mode of arrival: EMS Limitations: no limitations History of Present Illness HPI Narrative: Patient was seen here 2 times yesterday for multiple complaints comes back again as [place] she slipped and fell came with abrasion to the left knee no significant head injury no loss of consciousness no nausea no vomiting at this time MD complaint: knee injury Related Data Previous Rx's Medication Instructions Recorded divalproex [Depakote] 500 mg PO BID #30 tab 04/21/20 albuterol sulfate [ProAir HFA] 2 puff INHALATION Q6H PRN #18 g 05/22/20 amitriptyline 25 mg PO BEDTIME #30 tab 05/22/20 apixaban [Eliquis] 5 mg PO BID #60 tab 05/22/20 clonazepam 1 mg PO BID #30 tab 05/22/20 divalproex [Depakote ER] 500 mg PO BID #60 tab 05/22/20 fluticasone propionate [Flovent 1 puff INHALATION BID #12 g 05/22/20 HFA] gabapentin 300 mg PO TID #90 cap 05/22/20 omeprazole 20 mg PO DAILY #30 cap 05/22/20 oxycodone 5 mg PO Q6H PRN #20 tab 05/22/20 simvastatin [Zocor] 20 mg PO BEDTIME #30 tab 05/22/20 oxycodone 5 mg PO Q8H PRN #12 tab 06/04/20 cyclobenzaprine 5 mg PO BEDTIME PRN #3 tab 07/17/20 clindamycin HCl 300 mg PO Q6H 5 Days #20 cap 08/19/20 ondansetron 4 mg PO Q6-8H PRN #7 tab 08/24/20 Allergies Allergy/AdvReac Type Severity Reaction Status Date / Time acetaminophen [From VICODIN] Allergy Unknown UNKNOWN Verified 07/21/20 05:38 aspirin Allergy Unknown Unknown Verified 07/21/20 05:38 hydrocodone [From VICODIN] Allergy Unknown UNKNOWN Verified 07/21/20 05:38 ibuprofen [From MOTRIN] Allergy Unknown UNKNOWN Verified 07/21/20 05:38 meperidine [From DEMEROL] Allergy Unknown UNKNOWN Verified 07/21/20 05:38 naproxen [Aleve] Allergy Unknown Unknown Verified 07/21/20 05:38 penicillin V Allergy Unknown Unknown Verified 07/21/20 05:38 Sulfa (Sulfonamide Allergy Unknown Unknown Verified 07/21/20 05:38 Antibiotics) tramadol Allergy Unknown Unknown Verified 07/21/20 05:38 diphenhydramine Allergy Unknown Verified 07/21/20 05:38 [From Benadryl] Codeine Sulfate Allergy Unknown Unknown Uncoded 07/16/20 20:32 Review of Systems Review of Systems: Yes all other systems are reviewed and are negative [facility] Past Medical History Medical History Anxiety Chronic back pain HTN (hypertension) Pseudoseizure Pulmonary embolus Seizure Social History Social History Alcohol intake: unknown Smoking Status: Unknown if ever smoked Advance Directives: No Advance Directives Information Provided: Yes Physical Exam Vital Signs: Vital Signs: Last Vital Signs Temp 98.3 F 08/25/20 15:11 Pulse 85 08/25/20 15:11 Resp 20 08/25/20 15:11 BP 114/77 08/25/20 15:11 Pulse Ox 98 08/25/20 15:11 Body Mass Index 30.4 Const: General: comfortable and no acute distress Orientation/consciousness: patient oriented x3 HENMT: Head: Yes normocephalic and Yes atraumatic Eyes: General: appearance normal, both eyes and all related structures Neck: Neck: Yes normal visual inspection, Yes full ROM and No tender Chest: Chest palpation & inspection: normal inspection of the chest and normal palpation of entire chest wall Resp: Effort & Inspection: normal respiratory effort Auscultation: clear to auscultation bilaterally Cardio: Rate: regular rate Rhythm: regular rhythm Heart sounds: S1 normal heart sound present : General: Yes no CVA tenderness Back/Spine/Pelvis: Back: no CVA tenderness Thoracic/Lumbar Spine: No thoracic spinal tenderness and No lumbar spinal tenderness Skin: Full body images: 1. Superficial abrasion left patella, no joint effusion good range of movement Neuro: General: patient oriented x3 and no focal motor deficits Extrem: Elbow/forearm/wrist images: 1. Superficial abrasion on the patella good range of movements no effusion MDM - Extremity Injury (Lower) MDM Narrative Medical decision making narrative: Patient x-ray negative for any fractures no significant deep injury superficial abrasion left knee patient already has tramadol at home will discharge patient home and Medical Records Attestation: I reviewed the patient's medical records. Lab Data Attestation: I reviewed the patient's lab results. Discharge Plan Discharge Clinical Impression: Contusion of knee, left Qualifiers: Encounter type: initial encounter Qualified Code(s): S80.02XA - Contusion of left knee, initial encounter Abrasion of knee, left Qualifiers: Encounter type: initial encounter Qualified Code(s): S80.212A - Abrasion, left knee, initial encounter Patient Disposition: Home, Self-Care Instructions: Knee Pain (ED) Additional Instructions: Local care as advised. Continue pain medications as described by your previous provider Prescriptions: No Action cyclobenzaprine 5 mg tablet 5 mg PO BEDTIME PRN (Reason: muscle spasm) Qty: 3 RF: 0 ondansetron 4 mg tablet,disintegrating 4 mg PO Q6-8H PRN (Reason: nausea and vomiting) Qty: 7 RF: 0 divalproex [Depakote] 500 mg tablet,delayed release (DR/EC) 500 mg PO BID Qty: 30 RF: 0 divalproex [Depakote ER] 500 mg tablet extended release 24 hr 500 mg PO BID Qty: 60 RF: 3 clonazepam 1 mg tablet 1 mg PO BID Qty: 30 RF: 0 albuterol sulfate [ProAir HFA] 90 mcg/actuation HFA aerosol inhaler 2 puff inhalation Q6H PRN (Reason: shortness of breath or wheezing) Qty: 18 RF: 0 Eliquis 5 mg tablet 5 mg PO BID Qty: 60 RF: 0 simvastatin [Zocor] 20 mg tablet 20 mg PO BEDTIME Qty: 30 RF: 0 gabapentin 300 mg capsule 300 mg PO TID Qty: 90 RF: 0 amitriptyline 25 mg tablet 25 mg PO BEDTIME Qty: 30 RF: 0 Flovent HFA 220 mcg/actuation HFA aerosol inhaler 1 puff inhalation BID Qty: 12 RF: 0 omeprazole 20 mg capsule,delayed release(DR/EC) 20 mg PO DAILY Qty: 30 RF: 0 oxycodone 5 mg tablet 5 mg PO Q6H PRN (Reason: pain) Qty: 20 RF: 0 oxycodone 5 mg tablet 5 mg PO Q8H PRN (Reason: pain) Qty: 12 RF: 0 clindamycin HCl 300 mg capsule 300 mg PO Q6H 5 Days Qty: 20 RF: 0
[2020-08-25] MEDS: oxyCODONE HCl Immed Release 5 MG TABLET 10 MG PO (16:11)
== END 2020-08-25 16:46 | disposition home or self-care (01) ==
PROVIDERS: Emergency Provider Internal Medicine
DX: S80.02XA Contusion of left knee, initial encounter (principal); S80.212A Abrasion, left knee, initial encounter; W00.0XXA Fall on same level due to ice and snow, initial encounter; I10 Essential (primary) hypertension; Z86.711 Personal history of pulmonary embolism; Y93.01 Activity, walking, marching and hiking; Y92.480 Sidewalk as the place of occurrence of the external cause; Y99.9 Unspecified external cause status
CPT/HCPCS: 73560; 99283

== ENCOUNTER 2020-09-21 11:29 | Emergency (ER) | payer OTHER, SELFPAY ==
[2020-09-21 11:36] VITALS: BP 124/72; BP 128/70; PULSE 112; PULSE 122; RESP 16; TEMP 37.2; O2SAT 97; O2SAT 98; BMI 28.8
--- NOTE | 2020-09-21 12:13 | ED.GENADULT ---
HPI - General Adult General Chief complaint: General Medical Stated complaint: NOT FEELING WELL AFTER SECOND DOSE COVID VACCINE Time Seen by Provider: 09/21/20 11:56 Source: patient Mode of arrival: ambulatory Limitations: no limitations History of Present Illness HPI narrative: 50 y/o female with history of PE on Eliquis, asthma, pseudoseizures, chronic pain on chronic opiates, anxiety on chronic benzos who presents to the ED 1 day after her second dose of COVID-19 vaccination with complaints of nausea, vomiting, generalized weakness and generally not feeling well. She states after she got the shot yesterday she had 3 episodes of blood streaked vomiting along with epigastric burning. She was up all night with nausea and her chronic back pain. She reports having an anxiety attack and she did not want to wake up her early this morning. She had recurrent vomiting this morning, 2 episodes of vomiting with red steaks in it. She denies melena or BRBPR. She denies fever, chills, and any other abdominal pain aside from the epigastric burning. She denies SOB or chest pain. Of note, patient also presented to the ED the day after she received her first dose of the COVID vaccine with similar complaints. She did not have blood in her vomitus at that time. On arrival today patient has some slurred speech - she reports not sleeping at all last night. She took her opiates this morning. She reports her medications were recently changed by her doctor. [employer] reviewed - on klonopin and suboxone. complaint: N/V, epigastric pain Onset (ago): day(s) (1) Location: head, back, abdomen and lower extremity Radiation: non-radiation Severity: moderate Quality: burning and aching Pain Consistency: constant Relieving factors: medication (on chronic opiates) Exacerbating factors: movement Associated symptoms: headaches, loss of appetite, nausea/vomiting and weakness Treatments prior to arrival: none Related Data Previous Rx's Medication Instructions Recorded divalproex [Depakote] 500 mg PO BID #30 tab 04/21/20 albuterol sulfate [ProAir HFA] 2 puff INHALATION Q6H PRN #18 g 05/22/20 amitriptyline 25 mg PO BEDTIME #30 tab 05/22/20 apixaban [Eliquis] 5 mg PO BID #60 tab 05/22/20 clonazepam 1 mg PO BID #30 tab 05/22/20 divalproex [Depakote ER] 500 mg PO BID #60 tab 05/22/20 fluticasone propionate [Flovent 1 puff INHALATION BID #12 g 05/22/20 HFA] gabapentin 300 mg PO TID #90 cap 05/22/20 omeprazole 20 mg PO DAILY #30 cap 05/22/20 oxycodone 5 mg PO Q6H PRN #20 tab 05/22/20 simvastatin [Zocor] 20 mg PO BEDTIME #30 tab 05/22/20 oxycodone 5 mg PO Q8H PRN #12 tab 06/04/20 cyclobenzaprine 5 mg PO BEDTIME PRN #3 tab 07/17/20 clindamycin HCl 300 mg PO Q6H 5 Days #20 cap 08/19/20 ondansetron 4 mg PO Q6-8H PRN #7 tab 08/24/20 Allergies Allergy/AdvReac Type Severity Reaction Status Date / Time acetaminophen [From VICODIN] Allergy Unknown UNKNOWN Verified 09/21/20 11:36 aspirin Allergy Unknown Unknown Verified 09/21/20 11:36 hydrocodone [From VICODIN] Allergy Unknown UNKNOWN Verified 09/21/20 11:36 ibuprofen [From MOTRIN] Allergy Unknown UNKNOWN Verified 09/21/20 11:36 meperidine [From DEMEROL] Allergy Unknown UNKNOWN Verified 09/21/20 11:36 naproxen [Aleve] Allergy Unknown Unknown Verified 09/21/20 11:36 penicillin V Allergy Unknown Unknown Verified 09/21/20 11:36 Sulfa (Sulfonamide Allergy Unknown Unknown Verified 09/21/20 11:36 Antibiotics) tramadol Allergy Unknown Unknown Verified 09/21/20 11:36 diphenhydramine Allergy Unknown Verified 09/21/20 11:36 [From Benadryl] Codeine Sulfate Allergy Unknown Unknown Uncoded 07/16/20 20:32 Review of Systems Review of Systems: Constitutional: No Fever, No Chills ENT/Mouth: No sore throat, No Rhinorrhea, No Swallowing Difficulty Eyes: No Eye Pain, No Swelling, No Redness Cardiovascular: No Chest Pain, + SOB, No Orthopnea, No Edema Respiratory: No Cough, No Sputum, No Wheezing, No dyspnea Gastrointestinal: + Nausea, + Vomiting, No Diarrhea, + abdominal Pain, No Hematochezia, No Melena Genitourinary: No Dysuria, No Urinary Frequency, No Hematuria Musculoskeletal: + joint pain, + Myalgias Skin: No Skin Lesions, No rash Neuro: + Weakness (generalized), No Numbness, No Dizziness, + Headache Psych: + Anxiety/Panic, No Depression Heme/Lymph: No Bruising, No Lymphadenopathy Endocrine: No Polyuria, No Polydipsia PMFSH Past Medical History Attestation statement: The following information was validated with the patient. Medical History Anxiety Chronic back pain HTN (hypertension) Pseudoseizure Pulmonary embolus Seizure Social History Social History Alcohol intake: never Smoking Status: Current some day smoker Use of substances other than those prescribed or required for medical reasons: No Advance Directives: No Advance Directives Information Provided: No Physical Exam Vital Signs: Vital Signs: Last Vital Signs Temp 98.9 F 09/21/20 11:36 Pulse 112 H 09/21/20 11:36 Resp 16 09/21/20 11:36 BP 128/70 09/21/20 11:36 Pulse Ox 98 09/21/20 11:36 Body Mass Index 28.8 Appearance: Slightly lethargic, but oriented X3. No acute distress. Eyes: Pupils equal, round and reactive to light. ENT: Pharynx normal. Neck: Normal inspection. Neck supple. CVS: Normal heart rate and rhythm. Pulses normal. Respiratory: No respiratory distress. Breath sounds normal. Abdomen: obese, soft with mild epigastric tenderness, no rebound or guarding. +BS x4 Skin: Skin warm and dry. Normal skin color. Normal skin turgor. No rashes. Extremities: No lower extremity edema. tender quadriceps, no calf tenderness. Neuro: Oriented X 3. No motor deficit. No sensory deficit. Slurred speech noted without focal deficits. NIH Stroke Scale Internal: Initial- Upon Arrival Time: 12:21 Level of Consciousness: Not Alert; but arousable by minor stimulation Level of Consciousness Questions: Answers both questions correctly Level of Consciousness Commands: Performs both tasks correctly Best Gaze: Normal Visual: No visual loss Facial Palsy: Normal Motor Arm (Right): No drift Motor Arm (Left): No drift Motor Leg (Right): No drift Motor Leg (Left): No drift Limb Ataxia: Absent Sensory: Normal Best Language: No aphasia Dysarthia: Mild to moderate dysarthria Extinction and Inattention: No abnormality Score: 2 Course Course Course Narrative: 50 y/o female presenting with nausea and vomiting of blood streaked vomitus with epigastric pain and generally feeling unwell after having her second COVID-19 vaccination yesterday. She had similar side effects after her 1st vaccine. Slurred speech noted without other deficits on exam - NIH 2. Suspect related to newly started Suboxone and lack of sleep. Doubt CVA. Non debilitating symptom, not a tPA candidate. Concern for additional opiate use. She is on Eliquis for PE. Will check basic labs and give GI cocktail + zofran. Reevaluation(s) Reevaluation #1: H/H stable from prior. No vomiting here. Refused zofran and GI cocktail. Other labs still pending. Reevaluation #2: Patient eloped at 2pm. Medical Decision Making Lab Data Result diagrams: 09/21/20 13:17 09/21/20 13:17 Labs: Lab Results 09/21/20 09/21/20 09/21/20 Range/Units 13:17 13:17 13:17 WBC 15.6 H (4.8-10.8) X10*3/uL RBC 3.80 L (4.20-5.50) X10*6/uL Hgb 10.6 L (12.0-16.0) g/dl Hct 34.0 L (37-47) % MCV 89.5 (80-98) fL MCH 27.9 (27.0-33.0) pg MCHC 31.2 (31.0-35.0) g/dl RDW 14.4 (11.0-16.0) % Plt Count 278 (160-400) X10*3/uL MPV 8.7 L (9.4-12.3) fL Immature Gran % (Auto) 0.3 (0.0-0.4) % Neut % (Auto) 87.9 H (45-73) % Lymph % (Auto) 6.1 L (20-40) % [place] % (Auto) 5.1 (2-11) % Eos % (Auto) 0.4 (0-4) % Baso % (Auto) 0.2 (0-2) % Lymph # (Auto) 1.0 L (1.2-4.9) X10*3/uL [place] # (Auto) 0.8 (0.1-1.2) X10*3/uL Eos # (Auto) 0.1 (0.0-0.4) X10*3/uL Baso # (Auto) 0.0 (0.0-0.2) X10*3/uL Abs Immat Gran (auto) 0.05 H (0.00-0.03) X10*3/uL Absolute Neuts (auto) 13.7 H (2.0-8.3) X10*3/uL Absolute Nucleated RBC 0.000 (0.0-0.012) X10*3/uL Nucleated RBC % (auto) 0.0 (0.0-0.2) /100WBC PT 10.8 (10.8-13.0) SEC INR 0.9 (0.9-1.1) APTT 29.3 (24.1-38.0) SEC Sodium 136 (135-145) mmol/L Potassium 4.4 (3.3-5.1) mmol/L Chloride 101 (96-108) mmol/L Carbon Dioxide 29 (22-29) mmol/L Anion Gap 10 L (12-20) BUN 14 (9-16) mg/dL Creatinine 0.74 (0.5-1.4) mg/dL Estim Creat Clear Calc 106.8 Estimated GFR > 60 Random Glucose 121 H (60-115) mg/dL Calcium 8.3 L (8.4-10.2) mg/dL Magnesium 2.0 (1.6-2.6) mg/dL Total Bilirubin 0.3 (0.0-1.0) mg/dL Direct Bilirubin < 0.2 (0.0-0.5) mg/dL AST 12 (5-31) U/L ALT 8 (0-31) U/L Alkaline Phosphatase 77 (39-117) U/L Total Protein 6.5 (6.5-8.0) g/dL Albumin 3.7 (3.5-5.0) g/dL Discharge Plan Discharge Clinical Impression: Vomiting Patient Disposition: Elopement Prescriptions: No Action cyclobenzaprine 5 mg tablet 5 mg PO BEDTIME PRN (Reason: muscle spasm) Qty: 3 RF: 0 ondansetron 4 mg tablet,disintegrating 4 mg PO Q6-8H PRN (Reason: nausea and vomiting) Qty: 7 RF: 0 divalproex [Depakote] 500 mg tablet,delayed release (DR/EC) 500 mg PO BID Qty: 30 RF: 0 divalproex [Depakote ER] 500 mg tablet extended release 24 hr 500 mg PO BID Qty: 60 RF: 3 clonazepam 1 mg tablet 1 mg PO BID Qty: 30 RF: 0 albuterol sulfate [ProAir HFA] 90 mcg/actuation HFA aerosol inhaler 2 puff inhalation Q6H PRN (Reason: shortness of breath or wheezing) Qty: 18 RF: 0 Eliquis 5 mg tablet 5 mg PO BID Qty: 60 RF: 0 simvastatin [Zocor] 20 mg tablet 20 mg PO BEDTIME Qty: 30 RF: 0 gabapentin 300 mg capsule 300 mg PO TID Qty: 90 RF: 0 amitriptyline 25 mg tablet 25 mg PO BEDTIME Qty: 30 RF: 0 Flovent HFA 220 mcg/actuation HFA aerosol inhaler 1 puff inhalation BID Qty: 12 RF: 0 omeprazole 20 mg capsule,delayed release(DR/EC) 20 mg PO DAILY Qty: 30 RF: 0 oxycodone 5 mg tablet 5 mg PO Q6H PRN (Reason: pain) Qty: 20 RF: 0 oxycodone 5 mg tablet 5 mg PO Q8H PRN (Reason: pain) Qty: 12 RF: 0 clindamycin HCl 300 mg capsule 300 mg PO Q6H 5 Days Qty: 20 RF: 0 Interventions: ED Discharge Assessment Last Done: 09/21/20 13:57 Discharge Date/Time: 09/21/20 13:59
--- NOTE | 2020-09-21 12:25 | PC.NURSE ---
pt refuses po medications, sts last time i had that it made me want to throw up . pt educated about medications indication for nausea. pt continues to refuse medications and is attempting to address other staff members when this rn is trying to converse w pt.
--- NOTE | 2020-09-21 13:17 | PC.NURSE ---
Addendum entered by Juni Reid 09/21/20 13:21: davi guardado reports pt appears sleepy during blood draw. Original Note: pt now agreeing to blood work, rn at chairside to obtain blood.
[2020-09-21 13:23] LABS: Basophils Percent Auto 0.2 % (0-2); Eosinophils Absolute Auto 0.1 X10*3/uL (0.0-0.4); Eosinophils Percent Auto 0.4 % (0-4); Hemoglobin 10.6 g/dl (12.0-16.0); Imm Gran Abs Auto 0.05 X10*3/uL (0.00-0.03); Imm Gran Pct Auto 0.3 % (0.0-0.4); Lymphocytes Percent Auto 6.1 % (20-40); MANUAL DIFF FLAG NO; Mean Corpuscular HGB Conc 31.2 g/dl (31.0-35.0); Mean Corpuscular Hemoglobin 27.9 pg (27.0-33.0); Mean Corpuscular Volume 89.5 fL (80-98); Mean Platelet Volume 8.7 fL (9.4-12.3); Monocytes Absolute Auto 0.8 X10*3/uL (0.1-1.2); Monocytes Percent Auto 5.1 % (2-11); Neutrophils Absolute Auto 13.7 X10*3/uL (2.0-8.3); Neutrophils Percent Auto 87.9 % (45-73); Platelet Count 278 X10*3/uL (160-400); Red Cell Distribution Width 14.4 % (11.0-16.0); White Blood Count 15.6 X10*3/uL (4.8-10.8)
[2020-09-21 13:28] LABS: INTERNATIONAL NORM RATIO 0.9 (0.9-1.1); Prothrombin Time 10.8 SEC (10.8-13.0)
[2020-09-21 13:31] LABS: Partial Thromboplastin Time 29.3 SEC (24.1-38.0)
[2020-09-21 13:54] LABS: Alanine Aminotransferase 8 U/L (0-31); Albumin Level 3.7 g/dL (3.5-5.0); Alkaline Phosphatase 77 U/L (39-117); Anion Gap 10 (12-20); Aspartate Amino Transferase 12 U/L (5-31); Bilirubin Direct < 0.2 mg/dL (0.0-0.5); Bilirubin Total 0.3 mg/dL (0.0-1.0); Blood Urea Nitrogen 14 mg/dL (9-16); Calcium 8.3 mg/dL (8.4-10.2); Carbon Dioxide 29 mmol/L (22-29); Chloride 101 mmol/L (96-108); Creatinine Clr Calc Pharmacy 106.8; Estimated Glomerular Filt Rate > 60; Glucose Random 121 mg/dL (60-115); Potassium 4.4 mmol/L (3.3-5.1); Sodium 136 mmol/L (135-145); Total Protein 6.5 g/dL (6.5-8.0)
== END 2020-09-21 13:59 | disposition left against medical advice (07) ==
PROVIDERS: Physician Assistant; Emergency Provider Emergency Medicine
DX: R11.2 Nausea with vomiting, unspecified (principal); I10 Essential (primary) hypertension; G89.29 Other chronic pain; M54.9 Dorsalgia, unspecified; Z79.891 Long term (current) use of opiate analgesic; Z86.711 Personal history of pulmonary embolism; Z79.01 Long term (current) use of anticoagulants; F41.9 Anxiety disorder, unspecified; F17.200 Nicotine dependence, unspecified, uncomplicated
CPT/HCPCS: 36415; 80048; 80076; 83735; 85025; 85610; 85730; 99283; 99284

== ENCOUNTER 2021-02-03 09:37 | Emergency (ER) | payer OTHER, SELFPAY ==
--- NOTE | ~2021-02-03 | CT_ITS ---
EXAMINATION: CT ABDOMEN AND PELVIS WITH CONTRAST CLINICAL INFORMATION: Diffuse abdominal pain COMPARISON: Previous CT of the abdomen and pelvis June 2020 TECHNIQUE: Multidetector volumetric images were obtained from the superior aspect of the liver through the pubic symphysis following administration 85 mL of Omnipaque 350 intravenous contrast. Sagittal and coronal reformatted images were obtained on the technologist's workstation. Oral contrast: Yes This CT examination was performed using dose optimization techniques as appropriate, variously including the following: *Automated exposure control *Adjustment of mA and/or kV according to patient size (this includes techniques or standardized protocols for targeted exams where dose is matched to indication/reason for exam; i.e. extremities or head) *Use of iterative reconstruction technique DLP: 821 mGy-cm FINDINGS: LUNG BASES: There is subsegmental atelectasis at the lung bases. LIVER, GALLBLADDER, AND BILIARY TREE: The liver is normal in size, shape, and attenuation. No focal hepatic lesion or biliary ductal dilatation is present. The gallbladder has been removed. There are small clustered calcifications adjacent to the posterior segment of the right lobe the liver that are stable. PANCREAS: Unremarkable. SPLEEN: Unremarkable. ADRENAL GLANDS: Unremarkable. KIDNEYS AND URETERS: There is excreted contrast seen in the collecting systems and ureters. This lowers sensitivity for detection of a small stone. No stone is seen. The kidneys are unremarkable. The collecting systems and ureters are unremarkable. BLADDER: Unremarkable. GASTROINTESTINAL TRACT: The small and large bowel are unremarkable. The appendix is unremarkable. There may be a small esophageal hernia. The stomach is unremarkable. ABDOMINAL WALL: No significant hernia is appreciated. LYMPH NODES: Normal. VASCULAR: Unremarkable. PELVIC VISCERA: The uterus has been removed. There may be a small 1 cm left adnexal cyst. No pelvic mass is seen.. OSSEOUS STRUCTURES: Unremarkable. CT/CT abdomen pelvis w con IMPRESSION: No acute findings. Small esophageal hernia.
[2021-02-03 09:44] VITALS: BP 132/80; PULSE 78; O2SAT 94
[2021-02-03 09:50] VITALS: BP 115/82; PULSE 80; RESP 16; TEMP 36.6; O2SAT 100; BMI 35.9
--- NOTE | 2021-02-03 10:24 | ED.ABDPAIN ---
HPI - Abdominal Pain General Chief Complaint: Abdominal Pain Stated Complaint: abd pain Time Seen by Provider: 02/03/21 10:14 Source: patient Mode of arrival: ambulatory Limitations: no limitations History of Present Illness HPI narrative: Patient comes emergency room complaining of diarrhea and diffuse abdominal pain for 1 day. Patient reports 1 episode of vomiting. Patient denies dysuria, hematuria, no fever or chills MD elicited complaint: abdominal pain Related Data Previous Rx's Medication Instructions Recorded divalproex [Depakote] 500 mg PO BID #30 tab 04/21/20 albuterol sulfate [ProAir HFA] 2 puff INHALATION Q6H PRN #18 g 05/22/20 amitriptyline 25 mg PO BEDTIME #30 tab 05/22/20 apixaban [Eliquis] 5 mg PO BID #60 tab 05/22/20 clonazepam 1 mg PO BID #30 tab 05/22/20 divalproex [Depakote ER] 500 mg PO BID #60 tab 05/22/20 fluticasone propionate [Flovent 1 puff INHALATION BID #12 g 05/22/20 HFA] gabapentin 300 mg PO TID #90 cap 05/22/20 omeprazole 20 mg PO DAILY #30 cap 05/22/20 oxycodone 5 mg PO Q6H PRN #20 tab 05/22/20 simvastatin [Zocor] 20 mg PO BEDTIME #30 tab 05/22/20 oxycodone 5 mg PO Q8H PRN #12 tab 06/04/20 cyclobenzaprine 5 mg PO BEDTIME PRN #3 tab 07/17/20 clindamycin HCl 300 mg PO Q6H 5 Days #20 cap 08/19/20 ondansetron 4 mg PO Q6-8H PRN #7 tab 08/24/20 hyoscyamine sulfate 0.125 mg PO QID #7 tab 02/03/21 gfhbjhkmb-ymlypl-xqaugu-petrol 1 appl TOPICAL TID #28 g 02/03/21 [Preparation H Rapid Rlf-Lidocn] loperamide 2 mg PO Q6H PRN #10 cap 02/03/21 Allergies Allergy/AdvReac Type Severity Reaction Status Date / Time acetaminophen [From VICODIN] Allergy Unknown UNKNOWN Verified 09/21/20 11:36 aspirin Allergy Unknown Unknown Verified 09/21/20 11:36 hydrocodone [From VICODIN] Allergy Unknown UNKNOWN Verified 09/21/20 11:36 ibuprofen [From MOTRIN] Allergy Unknown UNKNOWN Verified 09/21/20 11:36 meperidine [From DEMEROL] Allergy Unknown UNKNOWN Verified 09/21/20 11:36 naproxen [Aleve] Allergy Unknown Unknown Verified 09/21/20 11:36 penicillin V Allergy Unknown Unknown Verified 09/21/20 11:36 Sulfa (Sulfonamide Allergy Unknown Unknown Verified 09/21/20 11:36 Antibiotics) tramadol Allergy Unknown Unknown Verified 09/21/20 11:36 diphenhydramine Allergy Unknown Verified 09/21/20 11:36 [From Benadryl] Codeine Sulfate Allergy Unknown Unknown Uncoded 07/16/20 20:32 Review of Systems Review of Systems Constitutional : No Weight loss, No Fever, No Chills, No Night Sweats, No Fatigue, No Malaise ENT/Mouth : No Hearing loss, No Ear Pain, No Nasal Congestion, No Sinus Pain, No Hoarseness, No sore throat, No Rhinorrhea, No Swallowing Difficulty Eyes: No Eye Pain, No Swelling, No Redness, No Foreign Body, No Discharge, No Vision Changes Cardiovascular : No Chest Pain, No SOB, No Dyspnea on Exertion, No Orthopnea, No Edema, No Palpitations Respiratory : No Cough, No Sputum, No Wheezing, No Smoke Exposure, No Dyspnea Gastrointestinal : Reports 1 episode of vomiting, copious diarrhea, diffuse abdominal cramping, No Hematochezia, No Melena Genitourinary : no irregular bleeding, No Dysuria, No Urinary Frequency, No Hematuria, No Urinary Incontinence, No Urgency, No Flank Pain, No Urinary Flow Changes, No Hesitancy Musculoskeletal : No joint pain, No Myalgias, No Joint Swelling Skin : No Skin Lesions, No rash Neuro : No Weakness, No Numbness, No Paresthesias, No Loss of Consciousness, No Dizziness, No Headache Psych : No Anxiety/Panic, No Depression, No SI/HI/AH/VH, No Social Issues, Heme/Lymph: No Bruising, No Bleeding,No Lymphadenopathy Endocrine : No Polyuria, No Polydipsia, No Temperature Intolerance Physical Exam Vital Signs: Vital Signs: Last Vital Signs Temp 98.0 F 02/03/21 14:14 Pulse 66 02/03/21 14:14 Resp 16 02/03/21 14:18 BP 148/91 H 02/03/21 14:14 Pulse Ox 100 02/03/21 14:14 Body Mass Index 35.9 Appearance: Alert. Oriented X3. Very anxious Eyes: Pupils equal, round and reactive to light. ENT: Pharynx normal. Neck: Normal inspection. Neck supple. No lymph nodes noted. No crepitus CVS: Normal heart rate and rhythm. Pulses normal. Normal S1 and S2 Respiratory: No respiratory distress. Breath sounds normal. No Wheezing. No rales Abdomen: Soft, seems nontender on deep palpation. No rigidity. No distention. Skin: Skin warm and dry. Normal skin color. Normal skin turgor. Extremities: No lower extremity edema. No lower extremity edema. No Lacerations. No Rash Neuro: Oriented X 3. No motor deficit. No sensory deficit. Moving all extermities. No slurred speech. Course Course Course Narrative: I discussed the labs and imaging with the patient, patient does have mild leukocytosis, likely due to the viral illness causing the diarrhea. CT scan shows no acute findings. Patient had 1 diarrheal episode on arrival but has no longer had any vomiting or diarrhea. No abdominal cramping. Prior to discharge, patient requested prescription for hemorrhoids. MDM - Abdominal Pain Lab Data Result diagrams: 02/03/21 11:29 02/03/21 11:29 Labs: Lab Results 02/03/21 02/03/21 02/03/21 Range/Units 11:29 11:29 11:29 WBC 9.9 (4.8-10.8) X10*3/uL RBC 4.21 (4.20-5.50) X10*6/uL Hgb 11.2 L (12.0-16.0) g/dl Hct 36.5 L (37-47) % MCV 86.7 (80-98) fL MCH 26.6 L (27.0-33.0) pg MCHC 30.7 L (31.0-35.0) g/dl RDW 15.4 (11.0-16.0) % Plt Count 305 (160-400) X10*3/uL MPV 10.0 (9.4-12.3) fL Immature Gran % (Auto) 0.2 (0.0-0.4) % Neut % (Auto) 61.5 (45-73) % Lymph % (Auto) 27.3 (20-40) % [place] % (Auto) 8.5 (2-11) % Eos % (Auto) 2.2 (0-4) % Baso % (Auto) 0.3 (0-2) % Lymph # (Auto) 2.7 (1.2-4.9) X10*3/uL [place] # (Auto) 0.8 (0.1-1.2) X10*3/uL Eos # (Auto) 0.2 (0.0-0.4) X10*3/uL Baso # (Auto) 0.0 (0.0-0.2) X10*3/uL Abs Immat Gran (auto) 0.02 (0.00-0.03) X10*3/uL Absolute Neuts (auto) 6.1 (2.0-8.3) X10*3/uL Absolute Nucleated RBC 0.000 (0.0-0.012) X10*3/uL Nucleated RBC % (auto) 0.0 (0.0-0.2) /100WBC Smear Tech's Comments Not Reportable Sodium 141 (135-145) mmol/L Potassium 5.2 H (3.3-5.1) mmol/L Chloride 110 H (96-108) mmol/L Carbon Dioxide 22 (22-29) mmol/L Anion Gap 14 (12-20) BUN 9 (9-16) mg/dL Creatinine 0.80 (0.5-1.4) mg/dL Estim Creat Clear Calc 110.2 Estimated GFR > 60 Random Glucose 78 D (60-115) mg/dL Calcium 9.0 D (8.4-10.2) mg/dL Total Bilirubin 0.3 (0.0-1.0) mg/dL Direct Bilirubin < 0.2 (0.0-0.5) mg/dL AST 23 D (5-31) U/L ALT 10 (0-31) U/L Alkaline Phosphatase 82 (39-117) U/L Total Protein 7.3 (6.5-8.0) g/dL Albumin 4.1 (3.5-5.0) g/dL Lipase < 4 L (8-78) U/L Urine Color Urine Appearance Urine pH (5.0-8.0) Ur Specific [place] (1.005-1.025) Urine Protein (NEG-TRACE) MG/DL Urine Glucose (UA) (NEG) MG/DL Urine Ketones (NEG) MG/DL Urine Blood (NEG) Urine Nitrite (NEG) Ur Leukocyte Esterase (NEG) 02/03/21 Range/Units 12:50 WBC (4.8-10.8) X10*3/uL RBC (4.20-5.50) X10*6/uL Hgb (12.0-16.0) g/dl Hct (37-47) % MCV (80-98) fL MCH (27.0-33.0) pg MCHC (31.0-35.0) g/dl RDW (11.0-16.0) % Plt Count (160-400) X10*3/uL MPV (9.4-12.3) fL Immature Gran % (Auto) (0.0-0.4) % Neut % (Auto) (45-73) % Lymph % (Auto) (20-40) % [place] % (Auto) (2-11) % Eos % (Auto) (0-4) % Baso % (Auto) (0-2) % Lymph # (Auto) (1.2-4.9) X10*3/uL [place] # (Auto) (0.1-1.2) X10*3/uL Eos # (Auto) (0.0-0.4) X10*3/uL Baso # (Auto) (0.0-0.2) X10*3/uL Abs Immat Gran (auto) (0.00-0.03) X10*3/uL Absolute Neuts (auto) (2.0-8.3) X10*3/uL Absolute Nucleated RBC (0.0-0.012) X10*3/uL Nucleated RBC % (auto) (0.0-0.2) /100WBC Smear Tech's Comments Sodium (135-145) mmol/L Potassium (3.3-5.1) mmol/L Chloride (96-108) mmol/L Carbon Dioxide (22-29) mmol/L Anion Gap (12-20) BUN (9-16) mg/dL Creatinine (0.5-1.4) mg/dL Estim Creat Clear Calc Estimated GFR Random Glucose (60-115) mg/dL Calcium (8.4-10.2) mg/dL Total Bilirubin (0.0-1.0) mg/dL Direct Bilirubin (0.0-0.5) mg/dL AST (5-31) U/L ALT (0-31) U/L Alkaline Phosphatase (39-117) U/L Total Protein (6.5-8.0) g/dL Albumin (3.5-5.0) g/dL Lipase (8-78) U/L Urine Color STRAW Urine Appearance CLEAR Urine pH 5.5 (5.0-8.0) Ur Specific [place] <= 1.005 (1.005-1.025) Urine Protein NEG (NEG-TRACE) MG/DL Urine Glucose (UA) NEG (NEG) MG/DL Urine Ketones NEG (NEG) MG/DL Urine Blood NEG (NEG) Urine Nitrite NEG (NEG) Ur Leukocyte Esterase NEG (NEG) Imaging Data CT scan - abdomen: Radiologist's impression: FINDINGS: LUNG BASES: There is subsegmental atelectasis at the lung bases. LIVER, GALLBLADDER, AND BILIARY TREE: The liver is normal in size, shape, and attenuation. No focal hepatic lesion or biliary ductal dilatation is present. The gallbladder has been removed. There are small clustered calcifications adjacent to the posterior segment of the right lobe the liver that are stable. PANCREAS: Unremarkable. SPLEEN: Unremarkable. ADRENAL GLANDS: Unremarkable. KIDNEYS AND URETERS: There is excreted contrast seen in the collecting systems and ureters. This lowers sensitivity for detection of a small stone. No stone is seen. The kidneys are unremarkable. The collecting systems and ureters are unremarkable. BLADDER: Unremarkable. GASTROINTESTINAL TRACT: The small and large bowel are unremarkable. The appendix is unremarkable. There may be a small esophageal hernia. The stomach is unremarkable. ABDOMINAL WALL: No significant hernia is appreciated. LYMPH NODES: Normal. VASCULAR: Unremarkable. PELVIC VISCERA: The uterus has been removed. There may be a small 1 cm left adnexal cyst. No pelvic mass is seen.. OSSEOUS STRUCTURES: Unremarkable. CT/CT abdomen pelvis w con IMPRESSION: No acute findings. Small esophageal hernia. Discharge Plan Discharge Clinical Impression: Diarrhea Qualifiers: Diarrhea type: unspecified type Qualified Code(s): R19.7 - Diarrhea, unspecified Patient Disposition: Home, Self-Care Instructions: Acute Diarrhea (ED) Additional Instructions: Please follow-up with your primary care physician tomorrow. If you have any worsening or new symptoms, please return to the emergency room or call 911 Prescriptions: New hyoscyamine sulfate 0.125 mg tablet 0.125 mg PO QID Qty: 7 RF: 0 loperamide 2 mg capsule 2 mg PO Q6H PRN (Reason: loose stool) Qty: 10 RF: 0 Preparation H Rapid Rlf-Lidocn 5-0.25-14.4-15 % cream 1 appl topical TID Qty: 28 RF: 0 No Action cyclobenzaprine 5 mg tablet 5 mg PO BEDTIME PRN (Reason: muscle spasm) Qty: 3 RF: 0 ondansetron 4 mg tablet,disintegrating 4 mg PO Q6-8H PRN (Reason: nausea and vomiting) Qty: 7 RF: 0 divalproex [Depakote] 500 mg tablet,delayed release (DR/EC) 500 mg PO BID Qty: 30 RF: 0 divalproex [Depakote ER] 500 mg tablet extended release 24 hr 500 mg PO BID Qty: 60 RF: 3 clonazepam 1 mg tablet 1 mg PO BID Qty: 30 RF: 0 albuterol sulfate [ProAir HFA] 90 mcg/actuation HFA aerosol inhaler 2 puff inhalation Q6H PRN (Reason: shortness of breath or wheezing) Qty: 18 RF: 0 Eliquis 5 mg tablet 5 mg PO BID Qty: 60 RF: 0 simvastatin [Zocor] 20 mg tablet 20 mg PO BEDTIME Qty: 30 RF: 0 gabapentin 300 mg capsule 300 mg PO TID Qty: 90 RF: 0 amitriptyline 25 mg tablet 25 mg PO BEDTIME Qty: 30 RF: 0 Flovent HFA 220 mcg/actuation HFA aerosol inhaler 1 puff inhalation BID Qty: 12 RF: 0 omeprazole 20 mg capsule,delayed release(DR/EC) 20 mg PO DAILY Qty: 30 RF: 0 oxycodone 5 mg tablet 5 mg PO Q6H PRN (Reason: pain) Qty: 20 RF: 0 oxycodone 5 mg tablet 5 mg PO Q8H PRN (Reason: pain) Qty: 12 RF: 0 clindamycin HCl 300 mg capsule 300 mg PO Q6H 5 Days Qty: 20 RF: 0 PMFSH Past Medical History Medical History Anxiety Chronic back pain HTN (hypertension) Pseudoseizure Pulmonary embolus Seizure Social History Social History Alcohol intake: never Patient Tobacco Use Status: Former Tobacco user Use of substances other than those prescribed or required for medical reasons: No Advance Directives: Yes Advance Directives Information Provided: Yes Advance Directives on File: No
[2021-02-03 11:38] LABS: Basophils Percent Auto 0.3 % (0-2); Eosinophils Percent Auto 2.2 % (0-4); Hemoglobin 11.2 g/dl (12.0-16.0); Imm Gran Abs Auto 0.02 X10*3/uL (0.00-0.03); Imm Gran Pct Auto 0.2 % (0.0-0.4); Lymphocytes Absolute Auto 2.7 X10*3/uL (1.2-4.9); MANUAL DIFF FLAG SCAN; PLT CLUMP 1; SCAN SMEAR FLAG 1
[2021-02-03 11:40] LABS: Eosinophils Absolute Auto 0.2 X10*3/uL (0.0-0.4); Hematocrit 36.5 % (37-47); Lymphocytes Percent Auto 27.3 % (20-40); Mean Corpuscular HGB Conc 30.7 g/dl (31.0-35.0); Mean Corpuscular Hemoglobin 26.6 pg (27.0-33.0); Mean Corpuscular Volume 86.7 fL (80-98); Monocytes Absolute Auto 0.8 X10*3/uL (0.1-1.2); Monocytes Percent Auto 8.5 % (2-11); Neutrophils Absolute Auto 6.1 X10*3/uL (2.0-8.3); Neutrophils Percent Auto 61.5 % (45-73); Red Blood Count 4.21 X10*6/uL (4.20-5.50); Red Cell Distribution Width 15.4 % (11.0-16.0); White Blood Count 9.9 X10*3/uL (4.8-10.8)
[2021-02-03] MEDS: 0.9 % Sodium Chloride 1,000 ML 999 ML IVCONT (11:46)
[2021-02-03] MEDS: ondansetron HCL 4 MG/2 ML VIAL IVPUSH (11:46)
[2021-02-03 11:47] VITALS: RESP 18
[2021-02-03] MEDS: Morphine Sulfate 4 MG/ML CARTRIDGE IVPUSH (11:47)
[2021-02-03] MEDS: Loperamide HCl 2 MG CAPSULE 4 MG PO (11:47)
[2021-02-03 11:50] VITALS: BP 160/87; PULSE 90; RESP 16; TEMP 37; O2SAT 100
[2021-02-03 12:13] LABS: Lipase < 4 U/L (8-78)
[2021-02-03 12:15] LABS: Platelet Count 305 X10*3/uL (160-400)
[2021-02-03 12:39] LABS: Alanine Aminotransferase 10 U/L (0-31); Albumin Level 4.1 g/dL (3.5-5.0); Alkaline Phosphatase 82 U/L (39-117); Anion Gap 14 (12-20); Aspartate Amino Transferase 23 U/L (5-31); Bilirubin Direct < 0.2 mg/dL (0.0-0.5); Bilirubin Total 0.3 mg/dL (0.0-1.0); Blood Urea Nitrogen 9 mg/dL (9-16); Carbon Dioxide 22 mmol/L (22-29); Chloride 110 mmol/L (96-108); Creatinine Clr Calc Pharmacy 110.2; Estimated Glomerular Filt Rate > 60; Glucose Random 78 mg/dL (60-115); Potassium 5.2 mmol/L (3.3-5.1); Sodium 141 mmol/L (135-145); Total Protein 7.3 g/dL (6.5-8.0)
[2021-02-03 12:58] LABS: Appearance Urine CLEAR; Color Urine STRAW; Glucose Urine UA NEG (NEG); Leukocyte Esterase Urine NEG (NEG); Nitrite Urine NEG (NEG); PH 5.5 (5.0-8.0); Specific Gravity - Urine <= 1.005 (1.005-1.025); Urine Blood NEG (NEG); Urine Ketones NEG (NEG); Urine Protein NEG (NEG-TRACE)
[2021-02-03] MEDS: iohexoL 350 MG/ML 100 ML INFUS..BTL IV (13:13)
[2021-02-03 14:14] VITALS: BP 148/91; PULSE 66; RESP 16; TEMP 36.7; O2SAT 100
[2021-02-03 14:18] VITALS: RESP 16
== END 2021-02-03 14:30 | disposition home or self-care (01) ==
PROVIDERS: Emergency Provider Emergency Medicine
DX: R19.7 Diarrhea, unspecified (principal); I10 Essential (primary) hypertension; Z86.711 Personal history of pulmonary embolism; Z79.01 Long term (current) use of anticoagulants; Z79.899 Other long term (current) drug therapy
CPT/HCPCS: 36415; 74177; 80048; 80076; 81003; 83690; 85025; 96361; 96374; 96375; 99284; J2270; J2405; Q9967

== ENCOUNTER 2021-02-04 14:29 | Emergency (ER) | payer OTHER, SELFPAY ==
[2021-02-04 14:42] VITALS: BP 129/90; PULSE 92; RESP 18; TEMP 36.6; O2SAT 100; BMI 35.6
--- NOTE | 2021-02-04 15:06 | ED.OVERDOSE ---
HPI - Overdose General Chief Complaint: Overdose Stated Complaint: overdose Time Seen by Provider: 02/04/21 14:51 Source: patient and EMS Mode of arrival: EMS Limitations: no limitations History of Present Illness HPI Narrative: 50-year-old female with history of PE on Eliquis, asthma, nonepileptic seizures, chronic pain on chronic opiates, anxiety on chronic benzos here after reported overdose. Per EMS the patient was called to the patient's place where she lives ([facility]). She was found to be unresponsive. She received Narcan and roused after this. Patient denies substance use. She denies currently taking any prescription narcotics. She tells me that she had a seizure today. She has a history of seizures and takes Depakote. She is intermittently compliant. She tells me that she often has seizures when she is stressed and she has had some stressed about her daughter and custody. She is also complaining of some generalized abdominal pain with radiation to the back. Of note, the patient was seen here yesterday for the same complaint and had unremarkable labs and CT scan. Reviewed mass pat. Active prescriptions for Suboxone, gabapentin, benzos. Related Data Previous Rx's Medication Instructions Recorded divalproex [Depakote] 500 mg PO BID #30 tab 04/21/20 albuterol sulfate [ProAir HFA] 2 puff INHALATION Q6H PRN #18 g 05/22/20 amitriptyline 25 mg PO BEDTIME #30 tab 05/22/20 apixaban [Eliquis] 5 mg PO BID #60 tab 05/22/20 clonazepam 1 mg PO BID #30 tab 05/22/20 divalproex [Depakote ER] 500 mg PO BID #60 tab 05/22/20 fluticasone propionate [Flovent 1 puff INHALATION BID #12 g 05/22/20 HFA] gabapentin 300 mg PO TID #90 cap 05/22/20 omeprazole 20 mg PO DAILY #30 cap 05/22/20 oxycodone 5 mg PO Q6H PRN #20 tab 05/22/20 simvastatin [Zocor] 20 mg PO BEDTIME #30 tab 05/22/20 oxycodone 5 mg PO Q8H PRN #12 tab 06/04/20 cyclobenzaprine 5 mg PO BEDTIME PRN #3 tab 07/17/20 clindamycin HCl 300 mg PO Q6H 5 Days #20 cap 08/19/20 ondansetron 4 mg PO Q6-8H PRN #7 tab 08/24/20 hyoscyamine sulfate 0.125 mg PO QID #7 tab 02/03/21 sjynbftwg-cgkjhz-ceafkc-petrol 1 appl TOPICAL TID #28 g 02/03/21 [Preparation H Rapid Rlf-Lidocn] loperamide 2 mg PO Q6H PRN #10 cap 02/03/21 cyclobenzaprine 10 mg PO TID PRN #10 tab 02/04/21 lidocaine [Lidoderm] 1 patch TOPICAL DAILY #15 ea 02/04/21 Allergies Allergy/AdvReac Type Severity Reaction Status Date / Time acetaminophen [From VICODIN] Allergy Unknown UNKNOWN Verified 09/21/20 11:36 aspirin Allergy Unknown Unknown Verified 09/21/20 11:36 hydrocodone [From VICODIN] Allergy Unknown UNKNOWN Verified 09/21/20 11:36 ibuprofen [From MOTRIN] Allergy Unknown UNKNOWN Verified 09/21/20 11:36 meperidine [From DEMEROL] Allergy Unknown UNKNOWN Verified 09/21/20 11:36 naproxen [Aleve] Allergy Unknown Unknown Verified 09/21/20 11:36 penicillin V Allergy Unknown Unknown Verified 09/21/20 11:36 Sulfa (Sulfonamide Allergy Unknown Unknown Verified 09/21/20 11:36 Antibiotics) tramadol Allergy Unknown Unknown Verified 09/21/20 11:36 diphenhydramine Allergy Unknown Verified 09/21/20 11:36 [From Benadryl] Codeine Sulfate Allergy Unknown Unknown Uncoded 07/16/20 20:32 Review of Systems Review of Systems: Yes all other systems are reviewed and are negative Constitutional: Constitutional: Reports no additional constitutional complaints, Denies body ache(s), Denies chills, Denies fever(s), Denies headache(s) and Denies weakness Eyes: Eyes: Reports no additional eye complaints and Denies change in vision ENT: Reports system reviewed and no additional complaints, except as documented, Denies dizziness, Denies headache(s), Denies nasal congestion, Denies nasal discharge and Denies neck pain Cardiovascular: Cardiovascular: Reports no additional cardiovascular complaints, Denies chest pain, Denies leg edema and Denies dyspnea Respiratory: Respiratory: Reports no additional respiratory complaints, Denies cough and Denies dyspnea Gastrointestinal: Gastrointestinal: Reports no additional gastrointestinal complaints, Reports abdominal pain, Denies diarrhea, Denies nausea and Denies vomiting Genitourinary: Genitourinary: Reports no additional female genitourinary complaints and Denies urinary incontinence Musculoskeletal: Musculoskeletal: Reports no additional musculoskeletal complaints, Reports back pain, Denies arthralgias, Denies joint swelling, Denies neck pain, Denies numbness and Denies tingling Integumentary/Breasts: Skin/Breast: Reports system reviewed and no additional complaints, except as docu and Denies rash Neurologic: Reports system reviewed and no additional complaints, except as documented, Denies Abnormal speech present, Denies dizziness, Denies headache(s), Denies numbness, Denies tingling and Denies weakness PMFSH Past Medical History Attestation statement: The following information was validated with the patient. Source: old records reviewed and nursing notes reviewed Medical History Anxiety Chronic back pain HTN (hypertension) Pseudoseizure Pulmonary embolus Seizure Social History Social History Alcohol intake: never Patient Tobacco Use Status: Former Tobacco user Use of substances other than those prescribed or required for medical reasons: No Advance Directives: No Advance Directives Information Provided: No Patient : No Physical Exam Vital Signs: Vital Signs: Last Vital Signs Temp 97.8 F 02/04/21 14:42 Pulse 92 02/04/21 14:42 Resp 18 02/04/21 14:42 BP 129/90 H 02/04/21 14:42 Pulse Ox 100 02/04/21 14:42 Body Mass Index 35.6 Const: General: cooperative, healthy appearing, comfortable and no acute distress Orientation/consciousness: patient oriented x3 Limitations: no limitations HENMT: Head: Yes normal to inspection Ears: hearing grossly normal bilaterally General nose exam: Normal external nose present Face and sinus: Yes normal facial exam Mouth: Normal oral and palatal mucosa present Throat: Yes posterior oropharynx normal Eyes: General: appearance normal, both eyes and all related structures Pupils: Equal, round and reactive pupils present Neck: Neck: Yes normal visual inspection Chest: Chest palpation & inspection: normal inspection of the chest Resp: Effort & Inspection: normal respiratory effort Auscultation: clear to auscultation bilaterally Cardio: Rate: regular rate Rhythm: regular rhythm Peripheral pulses: Peripheral pulses 2+ throughout GI: Inspection: Yes normal to inspection Palpation (GI): Soft to palpation and Tenderness to palpation present (GI) (Diffusely tender. No rebound or guarding) Auscultation: normal bowel sounds Back/Spine/Pelvis: Thoracic/Lumbar Spine: thoracic and lumbar spine normal to inspection Skin: General skin exam: no rashes or lesions noted Neuro: General: patient oriented x3, no focal motor deficits and normal sensation to monofilament Cranial nerves: Yes Equal, round and reactive pupils present, Yes Bilaterally intact EOM present, Yes Nystagmus not present, Yes Normal facial strength present and Yes Midline tongue present Cognition (Neuro): normal cognition Speech: No Abnormal speech present Gait exam (Neuro): Normal gait present Motor exam (neuro): 5/5 motor strength present throughout Sensory Exam: Normal double simultaneous stimulation for sensation Extrem: General: Yes normal to inspection Course Course Course Narrative: 50-year-old female here after being found unresponsive by EMS. Roused to Narcan. Denies substance use. Patient tells me she had a seizure which she relates to having increased stress in her life. On arrival alert and oriented. No neurological deficits. Hemodynamically stable. She is complaining of diffuse abdominal pain and was seen here yesterday for the same with negative workup. Patient has slurred speech, tells me she is tired. Sleeping in between interview questions. She is taking Suboxone, gabapentin and prescribed benzos. ?substance use. Will check labs, UA, PULIDO. 1645-labs are unremarkable. Lactic acid is normal so less likely seizure. However, depakote level <2.0 with compliance issues in the past. UA and U tox pending. Multiple requests for pain medication for her low back which she tells me is chronic. Abd soft, mildly diffusely tender with negative CT A/P <24 hrs ago. She does have a history of fibromyalgia and chronic pain syndrome. To be noted also that she had multiple ED visits for back pain therefore I do not think narcotic are indicated. She is still falling asleep in between questioning. 1730-Patient walked with steady gait to the bathroom for urine sample. Requesting additional analgesia for back pain. Will order APAP, lidoderm patch. 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 Reviewed worrisome signs.symptoms with patient and family and when to [id number] to the ED. Comfortable with discharge home. MDM - Overdose MDM Narrative Medical decision making narrative: seizure Differential Diagnosis Differential diagnosis: Likely drug overdose Medical Records Attestation: I reviewed the patient's medical records. Lab Data Attestation: I reviewed the patient's lab results. Result diagrams: 02/04/21 15:09 02/04/21 15:09 Labs: Lab Results 02/04/21 02/04/21 02/04/21 Range/Units 15:09 15:09 15:09 WBC 8.0 (4.8-10.8) X10*3/uL RBC 3.92 L (4.20-5.50) X10*6/uL Hgb 10.4 L (12.0-16.0) g/dl Hct 33.6 L (37-47) % MCV 85.7 (80-98) fL MCH 26.5 L (27.0-33.0) pg MCHC 31.0 (31.0-35.0) g/dl RDW 15.6 (11.0-16.0) % Plt Count 307 (160-400) X10*3/uL MPV 8.9 L (9.4-12.3) fL Immature Gran % (Auto) 0.1 (0.0-0.4) % Neut % (Auto) 54.4 (45-73) % Lymph % (Auto) 33.8 (20-40) % [place] % (Auto) 8.7 (2-11) % Eos % (Auto) 2.9 (0-4) % Baso % (Auto) 0.1 (0-2) % Lymph # (Auto) 2.7 (1.2-4.9) X10*3/uL [place] # (Auto) 0.7 (0.1-1.2) X10*3/uL Eos # (Auto) 0.2 (0.0-0.4) X10*3/uL Baso # (Auto) 0.0 (0.0-0.2) X10*3/uL Abs Immat Gran (auto) 0.01 (0.00-0.03) X10*3/uL Absolute Neuts (auto) 4.4 (2.0-8.3) X10*3/uL Absolute Nucleated RBC 0.000 (0.0-0.012) X10*3/uL Nucleated RBC % (auto) 0.0 (0.0-0.2) /100WBC Sodium 143 (135-145) mmol/L Potassium 4.0 D (3.3-5.1) mmol/L Chloride 109 H (96-108) mmol/L Carbon Dioxide 28 (22-29) mmol/L Anion Gap 10 L (12-20) BUN 5 L (9-16) mg/dL Creatinine 0.83 (0.5-1.4) mg/dL Estim Creat Clear Calc 105.7 Estimated GFR > 60 Random Glucose 74 (60-115) mg/dL Lactic Acid 0.8 (0.5-2.0) mmol/L Calcium 8.9 (8.4-10.2) mg/dL Total Bilirubin 0.2 (0.0-1.0) mg/dL Direct Bilirubin < 0.2 (0.0-0.5) mg/dL AST 18 (5-31) U/L ALT 11 (0-31) U/L Alkaline Phosphatase 83 (39-117) U/L Total Protein 6.8 (6.5-8.0) g/dL Albumin 4.0 (3.5-5.0) g/dL Lipase (8-78) U/L Urine Color Urine Appearance Urine pH (5.0-8.0) Ur Specific [place] (1.005-1.025) Urine Protein (NEG-TRACE) MG/DL Urine Glucose (UA) (NEG) MG/DL Urine Ketones (NEG) MG/DL Urine Blood (NEG) Urine Nitrite (NEG) Ur Leukocyte Esterase (NEG) Valproic Acid (50.0-100.0) mcg/mL Ethyl Alcohol mg/dL 02/04/21 02/04/21 02/04/21 Range/Units 15:09 15:09 15:09 WBC (4.8-10.8) X10*3/uL RBC (4.20-5.50) X10*6/uL Hgb (12.0-16.0) g/dl Hct (37-47) % MCV (80-98) fL MCH (27.0-33.0) pg MCHC (31.0-35.0) g/dl RDW (11.0-16.0) % Plt Count (160-400) X10*3/uL MPV (9.4-12.3) fL Immature Gran % (Auto) (0.0-0.4) % Neut % (Auto) (45-73) % Lymph % (Auto) (20-40) % [place] % (Auto) (2-11) % Eos % (Auto) (0-4) % Baso % (Auto) (0-2) % Lymph # (Auto) (1.2-4.9) X10*3/uL [place] # (Auto) (0.1-1.2) X10*3/uL Eos # (Auto) (0.0-0.4) X10*3/uL Baso # (Auto) (0.0-0.2) X10*3/uL Abs Immat Gran (auto) (0.00-0.03) X10*3/uL Absolute Neuts (auto) (2.0-8.3) X10*3/uL Absolute Nucleated RBC (0.0-0.012) X10*3/uL Nucleated RBC % (auto) (0.0-0.2) /100WBC Sodium (135-145) mmol/L Potassium (3.3-5.1) mmol/L Chloride (96-108) mmol/L Carbon Dioxide (22-29) mmol/L Anion Gap (12-20) BUN (9-16) mg/dL Creatinine (0.5-1.4) mg/dL Estim Creat Clear Calc Estimated GFR Random Glucose (60-115) mg/dL Lactic Acid (0.5-2.0) mmol/L Calcium (8.4-10.2) mg/dL Total Bilirubin (0.0-1.0) mg/dL Direct Bilirubin (0.0-0.5) mg/dL AST (5-31) U/L ALT (0-31) U/L Alkaline Phosphatase (39-117) U/L Total Protein (6.5-8.0) g/dL Albumin (3.5-5.0) g/dL Lipase 4 L (8-78) U/L Urine Color Urine Appearance Urine pH (5.0-8.0) Ur Specific [place] (1.005-1.025) Urine Protein (NEG-TRACE) MG/DL Urine Glucose (UA) (NEG) MG/DL Urine Ketones (NEG) MG/DL Urine Blood (NEG) Urine Nitrite (NEG) Ur Leukocyte Esterase (NEG) Valproic Acid < 2.0 L (50.0-100.0) mcg/mL Ethyl Alcohol < 10 mg/dL 02/04/21 Range/Units 17:29 WBC (4.8-10.8) X10*3/uL RBC (4.20-5.50) X10*6/uL Hgb (12.0-16.0) g/dl Hct (37-47) % MCV (80-98) fL MCH (27.0-33.0) pg MCHC (31.0-35.0) g/dl RDW (11.0-16.0) % Plt Count (160-400) X10*3/uL MPV (9.4-12.3) fL Immature Gran % (Auto) (0.0-0.4) % Neut % (Auto) (45-73) % Lymph % (Auto) (20-40) % [place] % (Auto) (2-11) % Eos % (Auto) (0-4) % Baso % (Auto) (0-2) % Lymph # (Auto) (1.2-4.9) X10*3/uL [place] # (Auto) (0.1-1.2) X10*3/uL Eos # (Auto) (0.0-0.4) X10*3/uL Baso # (Auto) (0.0-0.2) X10*3/uL Abs Immat Gran (auto) (0.00-0.03) X10*3/uL Absolute Neuts (auto) (2.0-8.3) X10*3/uL Absolute Nucleated RBC (0.0-0.012) X10*3/uL Nucleated RBC % (auto) (0.0-0.2) /100WBC Sodium (135-145) mmol/L Potassium (3.3-5.1) mmol/L Chloride (96-108) mmol/L Carbon Dioxide (22-29) mmol/L Anion Gap (12-20) BUN (9-16) mg/dL Creatinine (0.5-1.4) mg/dL Estim Creat Clear Calc Estimated GFR Random Glucose (60-115) mg/dL Lactic Acid (0.5-2.0) mmol/L Calcium (8.4-10.2) mg/dL Total Bilirubin (0.0-1.0) mg/dL Direct Bilirubin (0.0-0.5) mg/dL AST (5-31) U/L ALT (0-31) U/L Alkaline Phosphatase (39-117) U/L Total Protein (6.5-8.0) g/dL Albumin (3.5-5.0) g/dL Lipase (8-78) U/L Urine Color YELLOW Urine Appearance CLEAR Urine pH 6.0 (5.0-8.0) Ur Specific [place] <= 1.005 (1.005-1.025) Urine Protein NEG (NEG-TRACE) MG/DL Urine Glucose (UA) NEG (NEG) MG/DL Urine Ketones NEG (NEG) MG/DL Urine Blood NEG (NEG) Urine Nitrite NEG (NEG) Ur Leukocyte Esterase NEG (NEG) Valproic Acid (50.0-100.0) mcg/mL Ethyl Alcohol mg/dL Discharge Plan Discharge Clinical Impression: Chronic back pain Patient Disposition: Home, Self-Care Instructions: Chronic Back Pain (DC) Additional Instructions: Heat or ice to the area Gentle stretching Follow-up with your primary care doctor to manage your chronic pain Prescriptions: New lidocaine [Lidoderm] 5 % adhesive patch,medicated 1 patch topical DAILY Qty: 15 RF: 0 cyclobenzaprine 10 mg tablet 10 mg PO TID PRN (Reason: muscle spasm) Qty: 10 RF: 0 No Action cyclobenzaprine 5 mg tablet 5 mg PO BEDTIME PRN (Reason: muscle spasm) Qty: 3 RF: 0 ondansetron 4 mg tablet,disintegrating 4 mg PO Q6-8H PRN (Reason: nausea and vomiting) Qty: 7 RF: 0 divalproex [Depakote] 500 mg tablet,delayed release (DR/EC) 500 mg PO BID Qty: 30 RF: 0 divalproex [Depakote ER] 500 mg tablet extended release 24 hr 500 mg PO BID Qty: 60 RF: 3 clonazepam 1 mg tablet 1 mg PO BID Qty: 30 RF: 0 albuterol sulfate [ProAir HFA] 90 mcg/actuation HFA aerosol inhaler 2 puff inhalation Q6H PRN (Reason: shortness of breath or wheezing) Qty: 18 RF: 0 Eliquis 5 mg tablet 5 mg PO BID Qty: 60 RF: 0 simvastatin [Zocor] 20 mg tablet 20 mg PO BEDTIME Qty: 30 RF: 0 gabapentin 300 mg capsule 300 mg PO TID Qty: 90 RF: 0 amitriptyline 25 mg tablet 25 mg PO BEDTIME Qty: 30 RF: 0 Flovent HFA 220 mcg/actuation HFA aerosol inhaler 1 puff inhalation BID Qty: 12 RF: 0 omeprazole 20 mg capsule,delayed release(DR/EC) 20 mg PO DAILY Qty: 30 RF: 0 oxycodone 5 mg tablet 5 mg PO Q6H PRN (Reason: pain) Qty: 20 RF: 0 oxycodone 5 mg tablet 5 mg PO Q8H PRN (Reason: pain) Qty: 12 RF: 0 clindamycin HCl 300 mg capsule 300 mg PO Q6H 5 Days Qty: 20 RF: 0 hyoscyamine sulfate 0.125 mg tablet 0.125 mg PO QID Qty: 7 RF: 0 loperamide 2 mg capsule 2 mg PO Q6H PRN (Reason: loose stool) Qty: 10 RF: 0 Preparation H Rapid Rlf-Lidocn 5-0.25-14.4-15 % cream 1 appl topical TID Qty: 28 RF: 0 Referrals: [facility] [Primary Care Provider] - 2 days
[2021-02-04 15:15] LABS: MANUAL DIFF FLAG NO
[2021-02-04] MEDS: Dicyclomine HCl 10 MG CAPSULE 20 MG PO (15:15)
[2021-02-04 15:17] LABS: Basophils Percent Auto 0.1 % (0-2); Eosinophils Absolute Auto 0.2 X10*3/uL (0.0-0.4); Eosinophils Percent Auto 2.9 % (0-4); Hematocrit 33.6 % (37-47); Hemoglobin 10.4 g/dl (12.0-16.0); Imm Gran Abs Auto 0.01 X10*3/uL (0.00-0.03); Imm Gran Pct Auto 0.1 % (0.0-0.4); Lymphocytes Absolute Auto 2.7 X10*3/uL (1.2-4.9); Lymphocytes Percent Auto 33.8 % (20-40); Mean Corpuscular Hemoglobin 26.5 pg (27.0-33.0); Mean Corpuscular Volume 85.7 fL (80-98); Mean Platelet Volume 8.9 fL (9.4-12.3); Monocytes Absolute Auto 0.7 X10*3/uL (0.1-1.2); Monocytes Percent Auto 8.7 % (2-11); Neutrophils Absolute Auto 4.4 X10*3/uL (2.0-8.3); Neutrophils Percent Auto 54.4 % (45-73); Platelet Count 307 X10*3/uL (160-400); Red Blood Count 3.92 X10*6/uL (4.20-5.50); Red Cell Distribution Width 15.6 % (11.0-16.0)
--- NOTE | 2021-02-04 15:20 | PC.NURSE ---
Patient is very vocal about insisting she does not use drugs or narcotics. Pt insists she had a seizure MANAGER CONTACT even though narcan given by ems due to unresponsivenessmade her responsive. When trying to do the [place] suicide scale, pt goes from being completely alert and moaning with abdominal pain to pretending she is too sleepy to answer questions.
[2021-02-04 15:39] LABS: Lactic Acid 0.8 mmol/L (0.5-2.0)
[2021-02-04 15:45] LABS: Alanine Aminotransferase 11 U/L (0-31); Alkaline Phosphatase 83 U/L (39-117); Anion Gap 10 (12-20); Aspartate Amino Transferase 18 U/L (5-31); Bilirubin Direct < 0.2 mg/dL (0.0-0.5); Bilirubin Total 0.2 mg/dL (0.0-1.0); Blood Urea Nitrogen 5 mg/dL (9-16); Calcium 8.9 mg/dL (8.4-10.2); Carbon Dioxide 28 mmol/L (22-29); Chloride 109 mmol/L (96-108); Creatinine Clr Calc Pharmacy 105.7; Estimated Glomerular Filt Rate > 60; Glucose Random 74 mg/dL (60-115); Sodium 143 mmol/L (135-145); Total Protein 6.8 g/dL (6.5-8.0)
[2021-02-04 15:46] LABS: Lipase 4 U/L (8-78)
[2021-02-04 15:48] LABS: Ethanol < 10 mg/dL
[2021-02-04 15:50] LABS: Valproate < 2.0 mcg/mL (50.0-100.0)
[2021-02-04 17:38] LABS: Glucose Urine UA NEG (NEG); Leukocyte Esterase Urine NEG (NEG); Nitrite Urine NEG (NEG); Specific Gravity - Urine <= 1.005 (1.005-1.025); Urine Blood NEG (NEG); Urine Ketones NEG (NEG); Urine Protein NEG (NEG-TRACE)
[2021-02-04 17:39] LABS: Appearance Urine CLEAR; Color Urine YELLOW
[2021-02-04 17:55] LABS: Amphetamine Screen Urine Not Detected (Not Detect); Barbiturates, Urine Not Detected (Not Detect); Benzodiazepines Screen Urine Not Detected (Not Detect); Cannabinoid Screen Urine Not Detected (Not Detect); Cocaine Screen Urine Not Detected (Not Detect); Opiate Screen Urine Not Detected (Not Detect); Phencyclidine Screen Urine Not Detected (Not Detect)
[2021-02-04] MEDS: Lidocaine 4 % Patch ADH..PATCH 1 PATCH TRANSDERMA (18:11)
== END 2021-02-04 18:17 | disposition home or self-care (01) ==
PROVIDERS: Nurse Practitioner Family; Emergency Provider Emergency Medicine
DX: M54.9 Dorsalgia, unspecified (principal); G89.29 Other chronic pain; R56.9 Unspecified convulsions; I10 Essential (primary) hypertension; M79.7 Fibromyalgia; Z86.711 Personal history of pulmonary embolism; Z79.01 Long term (current) use of anticoagulants; Z79.891 Long term (current) use of opiate analgesic; Z79.899 Other long term (current) drug therapy; Z91.14 Patient's other noncompliance with medication regimen
CPT/HCPCS: 36415; 80048; 80076; 80164; 80307; 81003; 82077; 83605; 83690; 85025; 99283; 99284

== ENCOUNTER 2021-02-08 11:00 | Emergency (ER) | payer OTHER, SELFPAY ==
--- NOTE | 2021-02-08 11:03 | ED.SEIZURE ---
HPI - Seizure General Chief Complaint: Seizure Stated Complaint: seizure Time Seen by Provider: 02/08/21 11:03 Source: patient Mode of arrival: EMS Limitations: no limitations History of Present Illness HPI Narrative: Patient had a seizure in [facility], has not been taking her depakote MD complaint: seizure Onset (ago): minute(s) Description of Episode: tonic-clonic movement -: second(s) Witnessed: Yes - by Bystander Trauma: No Seizure History: Yes Place: [facility] Possible Precipitating Event: none Associated symptoms: other (myalgias) Related Data Previous Rx's Medication Instructions Recorded divalproex [Depakote] 500 mg PO BID #30 tab 04/21/20 albuterol sulfate [ProAir HFA] 2 puff INHALATION Q6H PRN #18 g 05/22/20 amitriptyline 25 mg PO BEDTIME #30 tab 05/22/20 apixaban [Eliquis] 5 mg PO BID #60 tab 05/22/20 clonazepam 1 mg PO BID #30 tab 05/22/20 divalproex [Depakote ER] 500 mg PO BID #60 tab 05/22/20 fluticasone propionate [Flovent 1 puff INHALATION BID #12 g 05/22/20 HFA] gabapentin 300 mg PO TID #90 cap 05/22/20 omeprazole 20 mg PO DAILY #30 cap 05/22/20 oxycodone 5 mg PO Q6H PRN #20 tab 05/22/20 simvastatin [Zocor] 20 mg PO BEDTIME #30 tab 05/22/20 oxycodone 5 mg PO Q8H PRN #12 tab 06/04/20 cyclobenzaprine 5 mg PO BEDTIME PRN #3 tab 07/17/20 clindamycin HCl 300 mg PO Q6H 5 Days #20 cap 08/19/20 ondansetron 4 mg PO Q6-8H PRN #7 tab 08/24/20 hyoscyamine sulfate 0.125 mg PO QID #7 tab 02/03/21 [id number]-cjodpq-fbffag-petrol 1 appl TOPICAL TID #28 g 02/03/21 [Preparation H Rapid Rlf-Lidocn] loperamide 2 mg PO Q6H PRN #10 cap 02/03/21 cyclobenzaprine 10 mg PO TID PRN #10 tab 02/04/21 lidocaine [Lidoderm] 1 patch TOPICAL DAILY #15 ea 02/04/21 Allergies Allergy/AdvReac Type Severity Reaction Status Date / Time acetaminophen [From VICODIN] Allergy Unknown UNKNOWN Verified 09/21/20 11:36 aspirin Allergy Unknown Unknown Verified 09/21/20 11:36 hydrocodone [From VICODIN] Allergy Unknown UNKNOWN Verified 09/21/20 11:36 ibuprofen [From MOTRIN] Allergy Unknown UNKNOWN Verified 09/21/20 11:36 meperidine [From DEMEROL] Allergy Unknown UNKNOWN Verified 09/21/20 11:36 naproxen [Aleve] Allergy Unknown Unknown Verified 09/21/20 11:36 penicillin V Allergy Unknown Unknown Verified 09/21/20 11:36 Sulfa (Sulfonamide Allergy Unknown Unknown Verified 09/21/20 11:36 Antibiotics) tramadol Allergy Unknown Unknown Verified 09/21/20 11:36 diphenhydramine Allergy Unknown Verified 09/21/20 11:36 [From Benadryl] Codeine Sulfate Allergy Unknown Unknown Uncoded 07/16/20 20:32 Review of Systems Constitutional: Constitutional: Reports no additional constitutional complaints Eyes: Eyes: Reports no additional eye complaints ENT: Denies dizziness Cardiovascular: Cardiovascular: Reports no additional cardiovascular complaints Respiratory: Respiratory: Reports as per HPI Gastrointestinal: Gastrointestinal: Reports no additional gastrointestinal complaints Genitourinary: Genitourinary: Reports no additional female genitourinary complaints Musculoskeletal: Musculoskeletal: Reports no additional musculoskeletal complaints Integumentary/Breasts: Skin/Breast: Denies rash Neurologic: Reports system reviewed and no additional complaints, except as documented, Denies dizziness and Denies Sensory deficit (Neuro) Psychiatric: Psychiatric: Denies anxiety PMFSH Past Medical History Medical History Anxiety Chronic back pain HTN (hypertension) Pseudoseizure Pulmonary embolus Seizure Social History Social History Alcohol intake: never Patient Tobacco Use Status: Former Tobacco user Advance Directives: No Advance Directives Information Provided: Yes Patient : No Physical Exam Vital Signs: Vital Signs: Last Vital Signs Temp 98.9 F 02/08/21 11:04 Pulse 83 02/08/21 11:04 Resp 18 02/08/21 11:04 BP 164/111 H 02/08/21 11:04 Pulse Ox 100 02/08/21 11:04 Body Mass Index 39.8 Const: Other: Anxious and tearful female Nutritional Appearance: overweight Orientation/consciousness: oriented to person and patient oriented x3 Limitations: no limitations HENMT: Head: Yes normal to inspection Ears: external ears normal General nose exam: Normal external nose present Mouth: Normal oral and palatal mucosa present and oropharynx normal Throat: Yes posterior oropharynx normal Eyes: General: appearance normal, both eyes and all related structures Neck: Other: supple Neck: Yes normal visual inspection Chest: Chest palpation & inspection: normal inspection of the chest Resp: Auscultation: clear to auscultation bilaterally Cardio: Jugular venous distension: no JVD Rate: regular rate Rhythm: regular rhythm Heart sounds: S1 normal heart sound present and S2 normal heart sound present GI: Inspection: Yes normal to inspection Palpation (GI): Soft to palpation, nontender and No hepatosplenomegaly present Auscultation: normal bowel sounds : General: Yes no CVA tenderness Back/Spine/Pelvis: Back: no CVA tenderness Skin: General skin exam: no rashes or lesions noted Neuro: General: oriented to person and patient oriented x3 Cranial nerves: Yes CN's II-XII intact bilaterally Motor exam (neuro): 5/5 motor strength present throughout Sensory Exam: No Sensory deficit (Neuro) Extrem: General: Yes normal to inspection Psych: Appearance: grossly normal Course Reevaluation(s) Reevaluation #1: patient observed in the ED no further seizure activity will dc home Time: 14:01 MDM - Seizure Lab Data Result diagrams: 02/08/21 11:15 02/08/21 11:15 Labs: Lab Results 02/08/21 02/08/21 02/08/21 Range/Units 11:15 11:15 13:07 WBC 13.6 H (4.8-10.8) X10*3/uL RBC 4.30 (4.20-5.50) X10*6/uL Hgb 11.5 L (12.0-16.0) g/dl Hct 35.9 L (37-47) % MCV 83.5 (80-98) fL MCH 26.7 L (27.0-33.0) pg MCHC 32.0 (31.0-35.0) g/dl RDW 14.8 (11.0-16.0) % Plt Count 373 (160-400) X10*3/uL MPV 8.4 L (9.4-12.3) fL Immature Gran % (Auto) 0.9 H (0.0-0.4) % Neut % (Auto) 83.4 H (45-73) % Lymph % (Auto) 11.5 L (20-40) % Ada % (Auto) 4.1 (2-11) % Eos % (Auto) 0.0 (0-4) % Baso % (Auto) 0.1 (0-2) % Lymph # (Auto) 1.6 (1.2-4.9) X10*3/uL Ada # (Auto) 0.6 (0.1-1.2) X10*3/uL Eos # (Auto) 0.0 (0.0-0.4) X10*3/uL Baso # (Auto) 0.0 (0.0-0.2) X10*3/uL Abs Immat Gran (auto) 0.12 H (0.00-0.03) X10*3/uL Absolute Neuts (auto) 11.4 H (2.0-8.3) X10*3/uL Absolute Nucleated RBC 0.000 (0.0-0.012) X10*3/uL Nucleated RBC % (auto) 0.0 (0.0-0.2) /100WBC Sodium 140 (135-145) mmol/L Potassium 4.3 (3.3-5.1) mmol/L Chloride 105 (96-108) mmol/L Carbon Dioxide 23 (22-29) mmol/L Anion Gap 16 (12-20) BUN 11 D (9-16) mg/dL Creatinine 0.87 (0.5-1.4) mg/dL Estim Creat Clear Calc 100.3 Estimated GFR > 60 Random Glucose 124 H D (60-115) mg/dL Calcium 9.8 D (8.4-10.2) mg/dL Total Bilirubin 0.5 (0.0-1.0) mg/dL Direct Bilirubin 0.2 (0.0-0.5) mg/dL AST 13 (5-31) U/L ALT 10 (0-31) U/L Alkaline Phosphatase 87 (39-117) U/L Total Protein 7.5 (6.5-8.0) g/dL Albumin 4.4 (3.5-5.0) g/dL Urine Opiates Screen Not Detected (Not Detect) Ur Barbiturates Screen Not Detected (Not Detect) Ur Phencyclidine Scrn Not Detected (Not Detect) Ur Amphetamines Screen Not Detected (Not Detect) U Benzodiazepines Scrn POSITIVE H (Not Detect) Urine Cocaine Screen Not Detected (Not Detect) U Marijuana (THC) Screen Not Detected (Not Detect) Discharge Plan Discharge Clinical Impression: Epileptic seizure Qualifiers: Epilepsy type: unspecified Intractability: not intractable Status epilepticus: without status epilepticus Qualified Code(s): G40.909 - Epilepsy, unspecified, not intractable, without status epilepticus Patient Disposition: Home, Self-Care Instructions: Epilepsy (ED) Prescriptions: No Action cyclobenzaprine 5 mg tablet 5 mg PO BEDTIME PRN (Reason: muscle spasm) Qty: 3 RF: 0 ondansetron 4 mg tablet,disintegrating 4 mg PO Q6-8H PRN (Reason: nausea and vomiting) Qty: 7 RF: 0 lidocaine [Lidoderm] 5 % adhesive patch,medicated 1 patch topical DAILY Qty: 15 RF: 0 cyclobenzaprine 10 mg tablet 10 mg PO TID PRN (Reason: muscle spasm) Qty: 10 RF: 0 divalproex [Depakote] 500 mg tablet,delayed release (DR/EC) 500 mg PO BID Qty: 30 RF: 0 divalproex [Depakote ER] 500 mg tablet extended release 24 hr 500 mg PO BID Qty: 60 RF: 3 clonazepam 1 mg tablet 1 mg PO BID Qty: 30 RF: 0 albuterol sulfate [ProAir HFA] 90 mcg/actuation HFA aerosol inhaler 2 puff inhalation Q6H PRN (Reason: shortness of breath or wheezing) Qty: 18 RF: 0 Eliquis 5 mg tablet 5 mg PO BID Qty: 60 RF: 0 simvastatin [Zocor] 20 mg tablet 20 mg PO BEDTIME Qty: 30 RF: 0 gabapentin 300 mg capsule 300 mg PO TID Qty: 90 RF: 0 amitriptyline 25 mg tablet 25 mg PO BEDTIME Qty: 30 RF: 0 Flovent HFA 220 mcg/actuation HFA aerosol inhaler 1 puff inhalation BID Qty: 12 RF: 0 omeprazole 20 mg capsule,delayed release(DR/EC) 20 mg PO DAILY Qty: 30 RF: 0 oxycodone 5 mg tablet 5 mg PO Q6H PRN (Reason: pain) Qty: 20 RF: 0 oxycodone 5 mg tablet 5 mg PO Q8H PRN (Reason: pain) Qty: 12 RF: 0 clindamycin HCl 300 mg capsule 300 mg PO Q6H 5 Days Qty: 20 RF: 0 hyoscyamine sulfate 0.125 mg tablet 0.125 mg PO QID Qty: 7 RF: 0 loperamide 2 mg capsule 2 mg PO Q6H PRN (Reason: loose stool) Qty: 10 RF: 0 Preparation H Rapid Rlf-Lidocn 5-0.25-14.4-15 % cream 1 appl topical TID Qty: 28 RF: 0 Referrals: Physician,Unknown [Primary Care Provider] - 5 days
[2021-02-08 11:04] VITALS: BP 150/100; BP 164/111; PULSE 83; PULSE 84; RESP 18; TEMP 37.2; O2SAT 100; O2SAT 99; BMI 39.8
[2021-02-08 11:18] LABS: MANUAL DIFF FLAG NO
[2021-02-08 11:19] LABS: Basophils Percent Auto 0.1 % (0-2); Hematocrit 35.9 % (37-47); Hemoglobin 11.5 g/dl (12.0-16.0); Imm Gran Abs Auto 0.12 X10*3/uL (0.00-0.03); Imm Gran Pct Auto 0.9 % (0.0-0.4); Lymphocytes Absolute Auto 1.6 X10*3/uL (1.2-4.9); Lymphocytes Percent Auto 11.5 % (20-40); Mean Corpuscular Hemoglobin 26.7 pg (27.0-33.0); Mean Corpuscular Volume 83.5 fL (80-98); Mean Platelet Volume 8.4 fL (9.4-12.3); Monocytes Absolute Auto 0.6 X10*3/uL (0.1-1.2); Monocytes Percent Auto 4.1 % (2-11); Neutrophils Absolute Auto 11.4 X10*3/uL (2.0-8.3); Neutrophils Percent Auto 83.4 % (45-73); Platelet Count 373 X10*3/uL (160-400); Red Cell Distribution Width 14.8 % (11.0-16.0); White Blood Count 13.6 X10*3/uL (4.8-10.8)
[2021-02-08] MEDS: 0.9 % Sodium Chloride 1,000 ML 999 ML IVCONT ×2 (11:19→12:27)
[2021-02-08] MEDS: Divalproex Sodium 500 MG TABLET.DR 1000 MG PO (11:19)
[2021-02-08 11:50] LABS: Alanine Aminotransferase 10 U/L (0-31); Albumin Level 4.4 g/dL (3.5-5.0); Alkaline Phosphatase 87 U/L (39-117); Anion Gap 16 (12-20); Aspartate Amino Transferase 13 U/L (5-31); Bilirubin Direct 0.2 mg/dL (0.0-0.5); Bilirubin Total 0.5 mg/dL (0.0-1.0); Blood Urea Nitrogen 11 mg/dL (9-16); Calcium 9.8 mg/dL (8.4-10.2); Carbon Dioxide 23 mmol/L (22-29); Chloride 105 mmol/L (96-108); Creatinine Clr Calc Pharmacy 100.3; Estimated Glomerular Filt Rate > 60; Glucose Random 124 mg/dL (60-115); Potassium 4.3 mmol/L (3.3-5.1); Sodium 140 mmol/L (135-145); Total Protein 7.5 g/dL (6.5-8.0)
[2021-02-08] MEDS: Ketorolac Tromethamine 15 MG/ML VIAL IVPUSH (13:00)
--- NOTE | 2021-02-08 13:18 | PC.NURSE ---
pt recieved pain medication for general body aches. pt tearful, sts needs to go to bathroom, at bedside. pt ambulating to restroom and providing ua w slow steaady gait w stand by assist. lab work thus far unremarkable. no seizure activity noted during emergency room stay.
[2021-02-08 13:46] LABS: Amphetamine Screen Urine Not Detected (Not Detect); Barbiturates, Urine Not Detected (Not Detect); Benzodiazepines Screen Urine POSITIVE (Not Detect); Cannabinoid Screen Urine Not Detected (Not Detect); Cocaine Screen Urine Not Detected (Not Detect); Opiate Screen Urine Not Detected (Not Detect); Phencyclidine Screen Urine Not Detected (Not Detect)
== END 2021-02-08 14:24 | disposition home or self-care (01) ==
PROVIDERS: Emergency Provider Emergency Medicine
DX: G40.909 Epilepsy, unspecified, not intractable, without status epilepticus (principal); I10 Essential (primary) hypertension; F41.9 Anxiety disorder, unspecified; Z91.14 Patient's other noncompliance with medication regimen; Z86.711 Personal history of pulmonary embolism; Z87.891 Personal history of nicotine dependence; Z79.899 Other long term (current) drug therapy; Z79.01 Long term (current) use of anticoagulants; Z79.02 Long term (current) use of antithrombotics/antiplatelets
CPT/HCPCS: 36415; 80048; 80076; 80307; 85025; 96361; 96374; 99284; J1885

== ENCOUNTER 2021-03-16 12:28 | Emergency (ER) | payer OTHER, SELFPAY ==
[2021-03-16 12:44] VITALS: BP 140/78; PULSE 92; PULSE 94; RESP 18; TEMP 36.9; O2SAT 97; O2SAT 98; BMI 42.0
[2021-03-16 13:52] LABS: Glucose Urine UA NEG (NEG); Leukocyte Esterase Urine NEG (NEG); Nitrite Urine NEG (NEG); PH 5.5 (5.0-8.0); Specific Gravity - Urine >= 1.030 (1.005-1.025); Urine Blood NEG (NEG); Urine Ketones 5 MG/DL (NEG); Urine Protein TRACE MG/DL (NEG-TRACE)
[2021-03-16 14:03] LABS: Appearance Urine CLEAR; Color Urine YELLOW
--- NOTE | 2021-03-16 14:06 | ED.FEMALEGU ---
HPI - Female Genitourinary General Chief complaint: Urogenital-Female Stated complaint: painful urination/?UTI Time Seen by Provider: 03/16/21 13:17 Source: patient and EMS Mode of arrival: EMS Limitations: no limitations History of Present Illness HPI Narrative: 50 y/o female with history of PE on Eliquis, asthma, nonepileptic seizures, chronic pain on opiates, anxiety on chronic benzos, history of opiate overdose who presents to the ED via EMS with painful skin rash to her abdominal wall and under her right breast. She reports being seen at [facility] recently where she was placed on antibiotics for a UTI and pneumonia. Since then she has developed a painful burning rash under her pannus and under right breast. No fever or chills. No genital itching or discharge. MD elicited complaint: genital swelling (lower pannus ) Onset (ago): day(s) Location of symptoms: suprapubic Severity: severe Severity scale (1-10): 8 Quality of pain: burning Consistency: constant Vaginal discharge: none Vaginal bleeding: none Exacerbating factors: none Relieving factors: none Associated symptoms: denies other symptoms Treatment prior to arrival: none Sexual activity: No Patient : No Related Data Previous Rx's Medication Instructions Recorded divalproex 500 mg tablet,delayed 500 mg PO BID #30 tab 04/21/20 release (Depakote) albuterol sulfate 90 mcg/actuation 2 puff INHALATION Q6H PRN #18 g 05/22/20 aerosol inhaler (ProAir HFA) amitriptyline 25 mg tablet 25 mg PO BEDTIME #30 tab 05/22/20 apixaban 5 mg tablet (Eliquis) 5 mg PO BID #60 tab 05/22/20 clonazepam 1 mg tablet 1 mg PO BID #30 tab 05/22/20 divalproex 500 mg tablet,extended 500 mg PO BID #60 tab 05/22/20 release 24 hr (Depakote ER) fluticasone propionate 220 1 puff INHALATION BID #12 g 05/22/20 mcg/actuation HFA aerosol inhaler (Flovent HFA) gabapentin 300 mg capsule 300 mg PO TID #90 cap 05/22/20 omeprazole 20 mg capsule,delayed 20 mg PO DAILY #30 cap 05/22/20 release oxycodone 5 mg tablet 5 mg PO Q6H PRN #20 tab 05/22/20 simvastatin 20 mg tablet (Zocor) 20 mg PO BEDTIME #30 tab 05/22/20 oxycodone 5 mg tablet 5 mg PO Q8H PRN #12 tab 06/04/20 cyclobenzaprine 5 mg tablet 5 mg PO BEDTIME PRN #3 tab 07/17/20 clindamycin HCl 300 mg capsule 300 mg PO Q6H 5 Days #20 cap 08/19/20 ondansetron 4 mg disintegrating 4 mg PO Q6-8H PRN #7 tab 08/24/20 tablet hyoscyamine sulfate 0.125 mg tablet 0.125 mg PO QID #7 tab 02/03/21 lidocaine 5 %-phenylephrine 0.25 1 appl TOPICAL TID #28 g 02/03/21 %-glycern 14.4 %-petrolatm 15 % cream (Preparation H Rapid Relief-Lidocaine) loperamide 2 mg capsule 2 mg PO Q6H PRN #10 cap 02/03/21 cyclobenzaprine 10 mg tablet 10 mg PO TID PRN #10 tab 02/04/21 lidocaine 5 % topical patch 1 patch TOPICAL DAILY #15 ea 02/04/21 (Lidoderm) miconazole nitrate 2 % topical 1 appl TOPICAL BID #85 g 03/16/21 powder Allergies Allergy/AdvReac Type Severity Reaction Status Date / Time acetaminophen [From VICODIN] Allergy Unknown UNKNOWN Verified 03/16/21 12:44 aspirin Allergy Unknown Unknown Verified 03/16/21 12:44 hydrocodone [From VICODIN] Allergy Unknown UNKNOWN Verified 03/16/21 12:44 ibuprofen [From MOTRIN] Allergy Unknown UNKNOWN Verified 03/16/21 12:44 meperidine [From DEMEROL] Allergy Unknown UNKNOWN Verified 03/16/21 12:44 naproxen [Aleve] Allergy Unknown Unknown Verified 03/16/21 12:44 penicillin V Allergy Unknown Unknown Verified 03/16/21 12:44 Sulfa (Sulfonamide Allergy Unknown Unknown Verified 03/16/21 12:44 Antibiotics) tramadol Allergy Unknown Unknown Verified 03/16/21 12:44 diphenhydramine Allergy Unknown Verified 03/16/21 12:44 [From Benadryl] Codeine Sulfate Allergy Unknown Unknown Uncoded 07/16/20 20:32 Review of Systems Review of Systems: Constitutional: No Fever, No Chills Cardiovascular: No Chest Pain, No SOB Respiratory: No Cough, No Sputum Gastrointestinal: No Nausea, No Vomiting, No Diarrhea, No abdominal Pain Genitourinary: No Dysuria, No Urinary Frequency, No Hematuria Musculoskeletal: + joint pain, + Myalgias Skin: + Skin Lesions, + rash Neuro: No Weakness, No Numbness, No Dizziness, No Headache Psych: No Anxiety/Panic, No Depression Heme/Lymph: No Bruising, No Lymphadenopathy Endocrine: No Polyuria, No Polydipsia [facility] Past Medical History Attestation statement: The following information was validated with the patient. Medical History Anxiety Chronic back pain HTN (hypertension) Pseudoseizure Pulmonary embolus Seizure Social History Social History Alcohol intake: never Patient Tobacco Use Status: Former Tobacco user Advance Directives: No Advance Directives Information Provided: No Patient : No Physical Exam Vital Signs: Vital Signs: Last Vital Signs Temp 98.4 F 03/16/21 12:44 Pulse 92 03/16/21 12:44 Resp 18 03/16/21 12:44 BP 140/78 H 03/16/21 12:44 Pulse Ox 98 03/16/21 12:44 Body Mass Index 42.0 Appearance: Sleeping, arouses to voice. Eyes: Pupils equal, round and reactive to light. ENT: Pharynx normal. Neck: Normal inspection. Neck supple. CVS: Normal heart rate and rhythm. Pulses normal. Respiratory: No respiratory distress. Breath sounds normal. Abdomen: Obese, Soft with large lower abdominal pannus wtih raw, erythematous, tender rash Skin: Skin warm and dry. Normal skin color. Normal skin turgor. Erythematous raw rash under right breast Extremities:1+ lower extremity edema. Neuro: Oriented X 3. No motor deficit. No sensory deficit. Slow to move due to chronic pain. Slow to respond at times. Course Course Course Narrative: 50 y/o female presenting with painful rash under her pannus and right breast. Exam is consistent with fungal rash - will give dose of diflucan now and start nystating topically. She is stable for discharge with continued topical antifungal and outpatient follow up. Discussed importance of decreasing moisture in the areas and wearing cotton only. MDM - Female Genitourinary Lab Data Labs: Lab Results 03/16/21 Range/Units 13:44 Urine Color YELLOW Urine Appearance CLEAR Urine pH 5.5 (5.0-8.0) Ur Specific [place] >= 1.030 H (1.005-1.025) Urine Protein TRACE (NEG-TRACE) MG/DL Urine Glucose (UA) NEG (NEG) MG/DL Urine Ketones 5 (NEG) MG/DL Urine Blood NEG (NEG) Urine Nitrite NEG (NEG) Ur Leukocyte Esterase NEG (NEG) Critical Care Time Critical Care Time Critical Care Time: No Discharge Plan Discharge Clinical Impression: Candidiasis of breast, Fungal rash of trunk Patient Disposition: Home, Self-Care Instructions: Skin Yeast Infection (ED) Additional Instructions: Use the prescribed powder under your right breast and under your abdominal fold two times per day. Do your best to keep area dry. Place clean, absorbent fabric or gauze to the area to help wick away moisture. Take Tylenol and/or Motrin as needed for pain. Follow up with your doctor this week. Prescriptions: New miconazole nitrate 2 % powder 1 appl topical BID Qty: 85 RF: 0 No Action cyclobenzaprine 5 mg tablet 5 mg PO BEDTIME PRN (Reason: muscle spasm) Qty: 3 RF: 0 ondansetron 4 mg tablet,disintegrating 4 mg PO Q6-8H PRN (Reason: nausea and vomiting) Qty: 7 RF: 0 lidocaine [Lidoderm] 5 % adhesive patch,medicated 1 patch topical DAILY Qty: 15 RF: 0 cyclobenzaprine 10 mg tablet 10 mg PO TID PRN (Reason: muscle spasm) Qty: 10 RF: 0 divalproex [Depakote] 500 mg tablet,delayed release (DR/EC) 500 mg PO BID Qty: 30 RF: 0 divalproex [Depakote ER] 500 mg tablet extended release 24 hr 500 mg PO BID Qty: 60 RF: 3 clonazepam 1 mg tablet 1 mg PO BID Qty: 30 RF: 0 albuterol sulfate [ProAir HFA] 90 mcg/actuation HFA aerosol inhaler 2 puff inhalation Q6H PRN (Reason: shortness of breath or wheezing) Qty: 18 RF: 0 Eliquis 5 mg tablet 5 mg PO BID Qty: 60 RF: 0 simvastatin [Zocor] 20 mg tablet 20 mg PO BEDTIME Qty: 30 RF: 0 gabapentin 300 mg capsule 300 mg PO TID Qty: 90 RF: 0 amitriptyline 25 mg tablet 25 mg PO BEDTIME Qty: 30 RF: 0 Flovent HFA 220 mcg/actuation HFA aerosol inhaler 1 puff inhalation BID Qty: 12 RF: 0 omeprazole 20 mg capsule,delayed release(DR/EC) 20 mg PO DAILY Qty: 30 RF: 0 oxycodone 5 mg tablet 5 mg PO Q6H PRN (Reason: pain) Qty: 20 RF: 0 oxycodone 5 mg tablet 5 mg PO Q8H PRN (Reason: pain) Qty: 12 RF: 0 clindamycin HCl 300 mg capsule 300 mg PO Q6H 5 Days Qty: 20 RF: 0 hyoscyamine sulfate 0.125 mg tablet 0.125 mg PO QID Qty: 7 RF: 0 loperamide 2 mg capsule 2 mg PO Q6H PRN (Reason: loose stool) Qty: 10 RF: 0 Preparation H Rapid Rlf-Lidocn 5-0.25-14.4-15 % cream 1 appl topical TID Qty: 28 RF: 0 Interventions: ED Discharge Assessment Last Done: 03/16/21 15:36 Discharge Date/Time: 03/16/21 15:38
[2021-03-16] MEDS: Fluconazole 150 MG TABLET PO (14:32)
[2021-03-16] MEDS: Nystatin Powder 15 GM BOTTLE 1 APPL TOPICAL (14:53)
== END 2021-03-16 15:38 | disposition home or self-care (01) ==
PROVIDERS: Physician Assistant; Emergency Provider Emergency Medicine
DX: B37.2 Candidiasis of skin and nail (principal); R21 Rash and other nonspecific skin eruption; R30.0 Dysuria; Z79.899 Other long term (current) drug therapy; Z87.891 Personal history of nicotine dependence
CPT/HCPCS: 81003; 99284

== ENCOUNTER 2021-05-28 17:20 | Emergency (ER) | payer OTHER, SELFPAY ==
--- NOTE | ~2021-05-28 | CT_ITS ---
EXAMINATION: CT HEAD WITHOUT CONTRAST CT CERVICAL SPINE WITHOUT CONTRAST CLINICAL INFORMATION: Fall with head injury status post seizure COMPARISON: Head CT 05/22/2020 TECHNIQUE: A noncontrast CT of the head and a noncontrast CT of the cervical spine with sagittal and coronal reformats. This CT examination was performed using dose optimization techniques as appropriate, variously including the following: *Automated exposure control *Adjustment of mA and/or kV according to patient size (this includes techniques or standardized protocols for targeted exams where dose is matched to indication/reason for exam; i.e. extremities or head) *Use of iterative reconstruction technique DLP: 1730 FINDINGS: No intra-axial or extra-axial hemorrhage. No acute territorial infarct. Ventricles and sulci appear normal. Preservation of copeland-white matter differentiation. No mass, mass effect, or midline shift. No fracture. The mastoid air cells and visualized paranasal sinuses are clear. Normal alignment of the cervical spine. No fracture. No prevertebral soft tissue swelling. CT/CT head/brain wo con IMPRESSION: No acute intracranial abnormality. No cervical spine fracture or traumatic subluxation.
--- NOTE | ~2021-05-28 | CT_ITS ---
EXAMINATION: CT HEAD WITHOUT CONTRAST CT CERVICAL SPINE WITHOUT CONTRAST CLINICAL INFORMATION: Fall with head injury status post seizure COMPARISON: Head CT 05/22/2020 TECHNIQUE: A noncontrast CT of the head and a noncontrast CT of the cervical spine with sagittal and coronal reformats. This CT examination was performed using dose optimization techniques as appropriate, variously including the following: *Automated exposure control *Adjustment of mA and/or kV according to patient size (this includes techniques or standardized protocols for targeted exams where dose is matched to indication/reason for exam; i.e. extremities or head) *Use of iterative reconstruction technique DLP: 1730 FINDINGS: No intra-axial or extra-axial hemorrhage. No acute territorial infarct. Ventricles and sulci appear normal. Preservation of copeland-white matter differentiation. No mass, mass effect, or midline shift. No fracture. The mastoid air cells and visualized paranasal sinuses are clear. Normal alignment of the cervical spine. No fracture. No prevertebral soft tissue swelling. CT/CT cervical spine wo con IMPRESSION: No acute intracranial abnormality. No cervical spine fracture or traumatic subluxation.
--- NOTE | ~2021-05-28 | XR_ITS ---
EXAMINATION: XR CHEST XR LUMBOSACRAL SPINE CLINICAL INFORMATION: Status post seizure. Fall with head injury and lower back pain. COMPARISON: None TECHNIQUE: Single frontal view of the chest and 2 views, 3 images of the lumbosacral spine were obtained. FINDINGS: CHEST: Both lungs are symmetrically expanded and appear clear. The cardiomediastinal silhouette is within normal limits. No evidence of any pleural effusion or pneumothorax. No evidence of any displaced fracture. The visualized upper abdomen is unremarkable. SPINE: There are 5 nonrib-bearing lumbar vertebrae present. The heights of the lumbar vertebrae are well-maintained. Mild multilevel degenerative spondylosis is seen present. Posterior appendages are intact. The paraspinal soft tissues are remarkable for a radiopaque 0.8 cm density seen along the right paraspinal region below the level of the transverse process of L5, may represent an enterolith, calcified lymph node and less likely to be ureteric calculus. XR/XR chest 1V IMPRESSION: 1. The chest radiograph shows no radiographic evidence of any acute cardiopulmonary disease. 2. The lumbosacral spine shows no evidence of any compression fracture. Note is made of mild multilevel degenerative spondylosis. 3. Solitary 0.8 cm radiodensity seen projecting along the right paraspinal region below the level of the transverse processes of L5, likely represent calcified lymph node, enteroliths, and less likely to be ureteric calculus.
--- NOTE | ~2021-05-28 | XR_ITS ---
EXAMINATION: XR CHEST XR LUMBOSACRAL SPINE CLINICAL INFORMATION: Status post seizure. Fall with head injury and lower back pain. COMPARISON: None TECHNIQUE: Single frontal view of the chest and 2 views, 3 images of the lumbosacral spine were obtained. FINDINGS: CHEST: Both lungs are symmetrically expanded and appear clear. The cardiomediastinal silhouette is within normal limits. No evidence of any pleural effusion or pneumothorax. No evidence of any displaced fracture. The visualized upper abdomen is unremarkable. SPINE: There are 5 nonrib-bearing lumbar vertebrae present. The heights of the lumbar vertebrae are well-maintained. Mild multilevel degenerative spondylosis is seen present. Posterior appendages are intact. The paraspinal soft tissues are remarkable for a radiopaque 0.8 cm density seen along the right paraspinal region below the level of the transverse process of L5, may represent an enterolith, calcified lymph node and less likely to be ureteric calculus. XR/XR lumbar spine 2-3V IMPRESSION: 1. The chest radiograph shows no radiographic evidence of any acute cardiopulmonary disease. 2. The lumbosacral spine shows no evidence of any compression fracture. Note is made of mild multilevel degenerative spondylosis. 3. Solitary 0.8 cm radiodensity seen projecting along the right paraspinal region below the level of the transverse processes of L5, likely represent calcified lymph node, enteroliths, and less likely to be ureteric calculus.
[2021-05-28 17:28] VITALS: BP 132/74; PULSE 120; O2SAT 99
[2021-05-28 17:36] VITALS: PULSE 116; RESP 20; TEMP 36.6; O2SAT 98; BMI 34.2
--- NOTE | 2021-05-28 17:56 | ECG_ITS ---
Test Reason : fall. possible seizure Blood Pressure : / mmHG Vent. Rate : 083 BPM Atrial Rate : 083 BPM P-R Int : 138 ms QRS Dur : 092 ms QT Int : 394 ms P-R-T Axes : 000 194 161 degrees QTc Int : 462 ms Possible Limb lead reversal Normal sinus rhythm Right superior axis deviation Abnormal ECG When compared with ECG of 10-JUL-2020 12:15, advise repeat study Referred By: Roxana Cramer Electronically Signed By:ZAIDA GIMENEZ MD
--- NOTE | 2021-05-28 18:07 | ED.SEIZURE ---
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 She reports that she recently started Topamax 2 days ago and since then she has been having these increased episodes of seizures. She denies headaches, neck pain/stiffness, changes in vision, dizziness, nausea/vomiting/diarrhea, abdominal pain, bowel or bladder dysfunction or retention, hematuria, dysuria, black or bloody stools, extremity injury or pain or swelling, any other symptoms complaints or concerns at this time. MD complaint: seizure Onset (ago): day(s) (Two days) Description of Episode: loss of consciousness and tonic-clonic movement -: second(s) Witnessed: Yes - by Other (Family sister she reports) Trauma: Yes (To lower back) Seizure History: Yes Place: Home Possible Precipitating Event: other (Recently started on Topamax and intermittently compliant with her Depakote) Associated symptoms: denies other symptoms Treatments prior to arrival: none Related Data Previous Rx's Medication Instructions Recorded divalproex 500 mg tablet,delayed 500 mg PO BID #30 tab 04/21/20 release (Depakote) albuterol sulfate 90 mcg/actuation 2 puff INHALATION Q6H PRN #18 g 05/22/20 aerosol inhaler (ProAir HFA) amitriptyline 25 mg tablet 25 mg PO BEDTIME #30 tab 05/22/20 apixaban 5 mg tablet (Eliquis) 5 mg PO BID #60 tab 05/22/20 clonazepam 1 mg tablet 1 mg PO BID #30 tab 05/22/20 divalproex 500 mg tablet,extended 500 mg PO BID #60 tab 05/22/20 release 24 hr (Depakote ER) fluticasone propionate 220 1 puff INHALATION BID #12 g 05/22/20 mcg/actuation HFA aerosol inhaler (Flovent HFA) gabapentin 300 mg capsule 300 mg PO TID #90 cap 05/22/20 omeprazole 20 mg capsule,delayed 20 mg PO DAILY #30 cap 05/22/20 release oxycodone 5 mg tablet 5 mg PO Q6H PRN #20 tab 05/22/20 simvastatin 20 mg tablet (Zocor) 20 mg PO BEDTIME #30 tab 05/22/20 oxycodone 5 mg tablet 5 mg PO Q8H PRN #12 tab 06/04/20 cyclobenzaprine 5 mg tablet 5 mg PO BEDTIME PRN #3 tab 07/17/20 clindamycin HCl 300 mg capsule 300 mg PO Q6H 5 Days #20 cap 08/19/20 ondansetron 4 mg disintegrating 4 mg PO Q6-8H PRN #7 tab 08/24/20 tablet hyoscyamine sulfate 0.125 mg tablet 0.125 mg PO QID #7 tab 02/03/21 lidocaine 5 %-phenylephrine 0.25 1 appl TOPICAL TID #28 g 02/03/21 %-glycern 14.4 %-petrolatm 15 % cream (Preparation H Rapid Relief-Lidocaine) loperamide 2 mg capsule 2 mg PO Q6H PRN #10 cap 02/03/21 cyclobenzaprine 10 mg tablet 10 mg PO TID PRN #10 tab 02/04/21 lidocaine 5 % topical patch 1 patch TOPICAL DAILY #15 ea 02/04/21 (Lidoderm) miconazole nitrate 2 % topical 1 appl TOPICAL BID #85 g 03/16/21 powder acetaminophen 325 mg tablet 650 mg PO Q6H PRN #5 tab 05/28/21 (Tylenol) cyclobenzaprine 5 mg tablet 5 mg PO BEDTIME #5 tab 05/28/21 ferrous sulfate 325 mg (65 mg 325 mg PO DAILY #30 tab 05/28/21 iron) tablet Allergies Allergy/AdvReac Type Severity Reaction Status Date / Time acetaminophen [From VICODIN] Allergy Unknown UNKNOWN Verified 03/16/21 12:44 aspirin Allergy Unknown Unknown Verified 03/16/21 12:44 hydrocodone [From VICODIN] Allergy Unknown UNKNOWN Verified 03/16/21 12:44 ibuprofen [From MOTRIN] Allergy Unknown UNKNOWN Verified 03/16/21 12:44 meperidine [From DEMEROL] Allergy Unknown UNKNOWN Verified 03/16/21 12:44 naproxen [Aleve] Allergy Unknown Unknown Verified 03/16/21 12:44 penicillin V Allergy Unknown Unknown Verified 03/16/21 12:44 Sulfa (Sulfonamide Allergy Unknown Unknown Verified 03/16/21 12:44 Antibiotics) tramadol Allergy Unknown Unknown Verified 03/16/21 12:44 diphenhydramine Allergy Unknown Verified 03/16/21 12:44 [From Benadryl] Codeine Sulfate Allergy Unknown Unknown Uncoded 07/16/20 20:32 Review of Systems Review of Systems: Constitutional : No Fever, No Chills, No Night Sweats, No Fatigue, No Malaise ENT/Mouth : No Ear Pain, No Nasal Congestion, No Sinus Pain, No sore throat, No Rhinorrhea Eyes: No Eye Pain, No Swelling, No Redness, No Foreign Body, No Discharge, No Vision Changes Cardiovascular : No Chest Pain, No SOB, No Dyspnea on Exertion, No Orthopnea, No Palpitations Respiratory : No Cough, No Sputum, No Wheezing, No Dyspnea Gastrointestinal : No Nausea, No Vomiting, No Diarrhea, No Constipation, No abdominal Pain, No Hematochezia, No Melena Genitourinary : No Dysuria, No Urinary Frequency, No Urinary Incontinence, No Urgency, No Flank Pain Musculoskeletal : Positive back pain/injury, and no neck pain/injury, No joint pain, No Myalgias Skin : No lacerations Neuro : Positive seizures with head injury with loss of consciousness, No Focal weakness, no general weakness, No Numbness, No Paresthesias, No Dizziness, No Headache Yes all other systems are reviewed and are negative [facility] Past Medical History Attestation statement: The following information was validated with the patient. Medical History Anxiety Chronic back pain HTN (hypertension) Pseudoseizure Pulmonary embolus Seizure Social History Social History Alcohol intake: never Patient Tobacco Use Status: Former Tobacco user Advance Directives: No Advance Directives Information Provided: Yes Patient : No Physical Exam Vital Signs: Vital Signs: Last Vital Signs Temp 96.8 F 05/28/21 21:52 Pulse 73 05/28/21 21:52 Resp 15 05/28/21 21:52 BP 120/70 05/28/21 21:52 Pulse Ox 100 05/28/21 21:52 Body Mass Index 34.2 Vital signs have been reviewed as normal and appeared to be correct. Blood pressure normal. Heart rate normal. Respiration rate normal. Temperature normal. Oxygen saturation normal. Appearance: Alert. Oriented X3. No acute distress. Head: Normal external exam. Normocephalic. Atraumatic. Able to rotate head bilaterally. Eyes: PERRLA. EOMI. No nystagmus noted. Conjunctiva and sclera normal. Eyelids normal. Corneal reflex normal. ENT: EAC normal. TM's Normal. Hearing normal. Pharynx normal. Uvula midline. tongue midline. Moist mucous membranes. No trismus noted. No drooling noted. No muffled voice noted. No nystagmus noted. Neck: Normal inspection. Neck supple. FROM. No adenopathy. Trachea midline. Thyroid Normal. No meningeal signs. No neck mass noted. CVS: Normal heart rate and rhythm. Heart sound normal. No murmurs noted. Pulses normal throughout. Respiratory: No respiratory distress. Painless inspiration. Breath sounds normal. No wheezes/rales/rhonchi noted. Chest nontender. No accessory muscle usage noted or decreased air movement noted. Abdomen: Soft and nontender. Bowel sounds normal in all 4 quadrants. No distention noted. No organomegaly noted. No visible injury noted. Back: No CVA tenderness. Full range of motion noted. No obvious deformities, or edema. Mild para-spinal muscular tenderness from lumbar region to coccyx. Full ROM in back and lower extremities. 5/5 strength hip extension/flexion, abduction, adduction. Mild Lumbar pain with hip flexion against resistance. Straight leg raise test negative on right; Straight leg raise test negative on left; Reflexes normal ankle and knee bilaterally; EHL motor strength normal bilaterally. No rashes/lesion/induration/fluctuance or signs infection noted. Skin: Skin warm and dry. Normal skin color. Normal skin turgor. No rashes/lesions/lacerations noted. Extremities: No lower extremity edema. Extremities exhibit normal range of motion. Extremities nontender. Able to shrug shoulders bilaterally and keep up against resistance. Neuro: Oriented X 3. No motor deficit. No sensory deficit. Reflexes normal. Moving all extremities. No focal motor deficits. Cranial nerves II-XI intact bilaterally. Facial strength normal. Normal cognition. Speech normal. Gait normal. Strength 5/5 throughout. No pronator drift. No tremor noted. No fasciculations noted. No rigidity noted. Muscle tone normal throughout. No asterixis noted. [id number] test normal. Heel to hensley test normal. Tandem gait normal. Does not sway with eyes open. Romberg test negative. Rapid alternating movement upper extremity normal. Rapid alternating movement lower extremity normal. Hand drop from overhead Misses face. 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 She reports that she recently started Topamax 2 days ago and since then she has been having these increased episodes of seizures. Plan: Labs, Depakote level, CT scan of brain/cervical spine, lumbar x-ray, chest x-ray, EKG, provide Tylenol and Flexeril then re-evaluate. Reevaluation(s) Reevaluation #1: - labs reviewed and patient without anemia worse when compared to February 08 therefore stool occult was obtained. And stool occult is negative. Patient's CPK is 549. Serum quant was 3 although UA negative for UTI and UHCG negative for therefore will advise patient to have repeat serum quant in 2-3 days. Her Depakote level was 25.5 therefore I gave her a loading dose of 500 mg p.o. of Depakote. Otherwise all other labs are within normal limits. ETOH level negative. - chest x-ray within normal limits. Lumbar spine x-ray within normal limits. CT scan of brain/cervical spine within normal limits no acute processes are noted - therefore at this time patient will be discharged with instructions to continue taking her Depakote and to follow-up with neurology/PCP and to return if any new or worsening symptoms. Patient understands agrees with this plan. Time: 22:29 [facility] - Seizure Medical Records Attestation: I reviewed the patient's medical records. Lab Data Attestation: I reviewed the patient's lab results. Result diagrams: 05/28/21 20:27 05/28/21 20:27 Labs: Lab Results 05/28/21 05/28/21 05/28/21 Range/Units 20:27 20:27 20:27 WBC 7.7 (4.8-10.8) X10*3/uL RBC 3.69 L (4.20-5.50) X10*6/uL Hgb 9.9 L (12.0-16.0) g/dl Hct 30.8 L (37.0-47.0) % MCV 83.5 (80.0-98.0) fL MCH 26.8 L (27.0-33.0) pg MCHC 32.1 (31.0-35.0) g/dl RDW 14.5 (11.0-16.0) % Plt Count 298 (160-400) X10*3/uL MPV 8.9 L (9.4-12.3) fL Immature Gran % (Auto) 0.1 (0.0-0.4) % Neut % (Auto) 46.8 (45-73) % Lymph % (Auto) 38.5 (20-40) % [place] % (Auto) 9.4 (2-11) % Eos % (Auto) 4.8 H (0-4) % Baso % (Auto) 0.4 (0-2) % Lymph # (Auto) 3.0 (1.2-4.9) X10*3/uL [place] # (Auto) 0.7 (0.1-1.2) X10*3/uL Eos # (Auto) 0.4 (0.0-0.4) X10*3/uL Baso # (Auto) 0.0 (0.0-0.2) X10*3/uL Abs Immat Gran (auto) 0.01 (0.00-0.03) X10*3/uL Absolute Neuts (auto) 3.6 (2.0-8.3) x10*3/uL Absolute Nucleated RBC 0.000 (0.0-0.012) X10*3/uL Nucleated RBC % (auto) 0.0 (0.0-0.2) /100WBC Hold Purple Top PT 13.5 H (9.9-13.0) SEC INR 1.2 H (0.9-1.1) Sodium 141 (135-145) mmol/L Potassium 3.3 D (3.3-5.1) mmol/L Chloride 112 H (96-108) mmol/L Carbon Dioxide 24 (22-29) mmol/L Anion Gap 8 L (12-20) BUN 5 L D (9-16) mg/dL Creatinine 0.69 (0.5-1.4) mg/dL Estim Creat Clear Calc 124.5 Estimated GFR > 60 Random Glucose 91 (60-115) mg/dL Calcium 8.2 L D (8.4-10.2) mg/dL Magnesium 2.1 (1.6-2.6) mg/dL Total Bilirubin 0.3 (0.0-1.0) mg/dL AST 28 D (5-31) U/L ALT 29 (0-31) U/L Alkaline Phosphatase 90 (39-117) U/L Total Creatine Kinase 549 H (26-140) U/L B-Natriuretic Peptide (<100) pg/mL Total Protein 5.7 L D (6.5-8.0) g/dL Albumin 3.4 L D (3.5-5.0) g/dL Beta HCG, Quant mIU/mL Urine Color Urine Appearance Urine pH (5.0-8.0) Ur Specific [place] (1.005-1.025) Urine Protein (NEG-TRACE) MG/DL Urine Glucose (UA) (NEG) MG/DL Urine Ketones (NEG) MG/DL Urine Blood (NEG) Urine Nitrite (NEG) Ur Leukocyte Esterase (NEG) Urine Test (NEGATIVE) Stool Occult Blood (NEGATIVE) Urine Opiates Screen (Not Detect) Urine Fentanyl Screen (Not Detect) Ur Barbiturates Screen (Not Detect) Valproic Acid (50.0-100.0) mcg/mL Ur Phencyclidine Scrn (Not Detect) Ur Amphetamines Screen (Not Detect) U Benzodiazepines Scrn (Not Detect) Urine Cocaine Screen (Not Detect) U Marijuana (THC) Screen (Not Detect) Ethyl Alcohol mg/dL 05/28/21 05/28/21 05/28/21 Range/Units 20:27 20:27 20:27 WBC (4.8-10.8) X10*3/uL RBC (4.20-5.50) X10*6/uL Hgb (12.0-16.0) g/dl Hct (37.0-47.0) % MCV (80.0-98.0) fL MCH (27.0-33.0) pg MCHC (31.0-35.0) g/dl RDW (11.0-16.0) % Plt Count (160-400) X10*3/uL MPV (9.4-12.3) fL Immature Gran % (Auto) (0.0-0.4) % Neut % (Auto) (45-73) % Lymph % (Auto) (20-40) % [place] % (Auto) (2-11) % Eos % (Auto) (0-4) % Baso % (Auto) (0-2) % Lymph # (Auto) (1.2-4.9) X10*3/uL [place] # (Auto) (0.1-1.2) X10*3/uL Eos # (Auto) (0.0-0.4) X10*3/uL Baso # (Auto) (0.0-0.2) X10*3/uL Abs Immat Gran (auto) (0.00-0.03) X10*3/uL Absolute Neuts (auto) (2.0-8.3) x10*3/uL Absolute Nucleated RBC (0.0-0.012) X10*3/uL Nucleated RBC % (auto) (0.0-0.2) /100WBC Hold Purple Top SEE NOTE PT (9.9-13.0) SEC INR (0.9-1.1) Sodium (135-145) mmol/L Potassium (3.3-5.1) mmol/L Chloride (96-108) mmol/L Carbon Dioxide (22-29) mmol/L Anion Gap (12-20) BUN (9-16) mg/dL Creatinine (0.5-1.4) mg/dL Estim Creat Clear Calc Estimated GFR Random Glucose (60-115) mg/dL Calcium (8.4-10.2) mg/dL Magnesium (1.6-2.6) mg/dL Total Bilirubin (0.0-1.0) mg/dL AST (5-31) U/L ALT (0-31) U/L Alkaline Phosphatase (39-117) U/L Total Creatine Kinase (26-140) U/L B-Natriuretic Peptide 22 (<100) pg/mL Total Protein (6.5-8.0) g/dL Albumin (3.5-5.0) g/dL Beta HCG, Quant 3 mIU/mL Urine Color Urine Appearance Urine pH (5.0-8.0) Ur Specific [place] (1.005-1.025) Urine Protein (NEG-TRACE) MG/DL Urine Glucose (UA) (NEG) MG/DL Urine Ketones (NEG) MG/DL Urine Blood (NEG) Urine Nitrite (NEG) Ur Leukocyte Esterase (NEG) Urine Test (NEGATIVE) Stool Occult Blood (NEGATIVE) Urine Opiates Screen (Not Detect) Urine Fentanyl Screen (Not Detect) Ur Barbiturates Screen (Not Detect) Valproic Acid (50.0-100.0) mcg/mL Ur Phencyclidine Scrn (Not Detect) Ur Amphetamines Screen (Not Detect) U Benzodiazepines Scrn (Not Detect) Urine Cocaine Screen (Not Detect) U Marijuana (THC) Screen (Not Detect) Ethyl Alcohol mg/dL 05/28/21 05/28/21 05/28/21 Range/Units 20:27 20:28 21:55 WBC (4.8-10.8) X10*3/uL RBC (4.20-5.50) X10*6/uL Hgb (12.0-16.0) g/dl Hct (37.0-47.0) % MCV (80.0-98.0) fL MCH (27.0-33.0) pg MCHC (31.0-35.0) g/dl RDW (11.0-16.0) % Plt Count (160-400) X10*3/uL MPV (9.4-12.3) fL Immature Gran % (Auto) (0.0-0.4) % Neut % (Auto) (45-73) % Lymph % (Auto) (20-40) % [place] % (Auto) (2-11) % Eos % (Auto) (0-4) % Baso % (Auto) (0-2) % Lymph # (Auto) (1.2-4.9) X10*3/uL [place] # (Auto) (0.1-1.2) X10*3/uL Eos # (Auto) (0.0-0.4) X10*3/uL Baso # (Auto) (0.0-0.2) X10*3/uL Abs Immat Gran (auto) (0.00-0.03) X10*3/uL Absolute Neuts (auto) (2.0-8.3) x10*3/uL Absolute Nucleated RBC (0.0-0.012) X10*3/uL Nucleated RBC % (auto) (0.0-0.2) /100WBC Hold Purple Top PT (9.9-13.0) SEC INR (0.9-1.1) Sodium (135-145) mmol/L Potassium (3.3-5.1) mmol/L Chloride (96-108) mmol/L Carbon Dioxide (22-29) mmol/L Anion Gap (12-20) BUN (9-16) mg/dL Creatinine (0.5-1.4) mg/dL Estim Creat Clear Calc Estimated GFR Random Glucose (60-115) mg/dL Calcium (8.4-10.2) mg/dL Magnesium (1.6-2.6) mg/dL Total Bilirubin (0.0-1.0) mg/dL AST (5-31) U/L ALT (0-31) U/L Alkaline Phosphatase (39-117) U/L Total Creatine Kinase (26-140) U/L B-Natriuretic Peptide (<100) pg/mL Total Protein (6.5-8.0) g/dL Albumin (3.5-5.0) g/dL Beta HCG, Quant mIU/mL Urine Color YELLOW Urine Appearance CLEAR Urine pH 6.0 (5.0-8.0) Ur Specific [place] 1.015 (1.005-1.025) Urine Protein NEG (NEG-TRACE) MG/DL Urine Glucose (UA) NEG (NEG) MG/DL Urine Ketones NEG (NEG) MG/DL Urine Blood NEG (NEG) Urine Nitrite NEG (NEG) Ur Leukocyte Esterase NEG (NEG) Urine Test (NEGATIVE) Stool Occult Blood (NEGATIVE) Urine Opiates Screen (Not Detect) Urine Fentanyl Screen (Not Detect) Ur Barbiturates Screen (Not Detect) Valproic Acid 25.5 L (50.0-100.0) mcg/mL Ur Phencyclidine Scrn (Not Detect) Ur Amphetamines Screen (Not Detect) U Benzodiazepines Scrn (Not Detect) Urine Cocaine Screen (Not Detect) U Marijuana (THC) Screen (Not Detect) Ethyl Alcohol < 10 mg/dL 05/28/21 05/28/21 05/28/21 Range/Units 21:55 21:55 22:10 WBC (4.8-10.8) X10*3/uL RBC (4.20-5.50) X10*6/uL Hgb (12.0-16.0) g/dl Hct (37.0-47.0) % MCV (80.0-98.0) fL MCH (27.0-33.0) pg MCHC (31.0-35.0) g/dl RDW (11.0-16.0) % Plt Count (160-400) X10*3/uL MPV (9.4-12.3) fL Immature Gran % (Auto) (0.0-0.4) % Neut % (Auto) (45-73) % Lymph % (Auto) (20-40) % [place] % (Auto) (2-11) % Eos % (Auto) (0-4) % Baso % (Auto) (0-2) % Lymph # (Auto) (1.2-4.9) X10*3/uL [place] # (Auto) (0.1-1.2) X10*3/uL Eos # (Auto) (0.0-0.4) X10*3/uL Baso # (Auto) (0.0-0.2) X10*3/uL Abs Immat Gran (auto) (0.00-0.03) X10*3/uL Absolute Neuts (auto) (2.0-8.3) x10*3/uL Absolute Nucleated RBC (0.0-0.012) X10*3/uL Nucleated RBC % (auto) (0.0-0.2) /100WBC Hold Purple Top PT (9.9-13.0) SEC INR (0.9-1.1) Sodium (135-145) mmol/L Potassium (3.3-5.1) mmol/L Chloride (96-108) mmol/L Carbon Dioxide (22-29) mmol/L Anion Gap (12-20) BUN (9-16) mg/dL Creatinine (0.5-1.4) mg/dL Estim Creat Clear Calc Estimated GFR Random Glucose (60-115) mg/dL Calcium (8.4-10.2) mg/dL Magnesium (1.6-2.6) mg/dL Total Bilirubin (0.0-1.0) mg/dL AST (5-31) U/L ALT (0-31) U/L Alkaline Phosphatase (39-117) U/L Total Creatine Kinase (26-140) U/L B-Natriuretic Peptide (<100) pg/mL Total Protein (6.5-8.0) g/dL Albumin (3.5-5.0) g/dL Beta HCG, Quant mIU/mL Urine Color Urine Appearance Urine pH (5.0-8.0) Ur Specific [place] (1.005-1.025) Urine Protein (NEG-TRACE) MG/DL Urine Glucose (UA) (NEG) MG/DL Urine Ketones (NEG) MG/DL Urine Blood (NEG) Urine Nitrite (NEG) Ur Leukocyte Esterase (NEG) Urine Test NEGATIVE (NEGATIVE) Stool Occult Blood NEGATIVE (NEGATIVE) Urine Opiates Screen Not Detected (Not Detect) Urine Fentanyl Screen POSITIVE H (Not Detect) Ur Barbiturates Screen Not Detected (Not Detect) Valproic Acid (50.0-100.0) mcg/mL Ur Phencyclidine Scrn Not Detected (Not Detect) Ur Amphetamines Screen Not Detected (Not Detect) U Benzodiazepines Scrn POSITIVE H (Not Detect) Urine Cocaine Screen Not Detected (Not Detect) U Marijuana (THC) Screen Not Detected (Not Detect) Ethyl Alcohol mg/dL Imaging Data CT scan of brain/cervical spine without contrast: Attestation: I personally reviewed and interpreted this imaging study as follows: Radiologist's impression: FINDINGS: No intra-axial or extra-axial hemorrhage. No acute territorial infarct. Ventricles and sulci appear normal. Preservation of [place]-white matter differentiation. No mass, mass effect, or midline shift. No fracture. The mastoid air cells and visualized paranasal sinuses are clear. Normal alignment of the cervical spine. No fracture. No prevertebral soft tissue swelling. CT/CT cervical spine wo con IMPRESSION: No acute intracranial abnormality. ? No cervical spine fracture or traumatic subluxation. Lumbar spine x-ray: Attestation: I personally reviewed and interpreted this imaging study as follows: Radiologist's impression: FINDINGS: CHEST: Both lungs are symmetrically expanded and appear clear. The cardiomediastinal silhouette is within normal limits. No evidence of any pleural effusion or pneumothorax. No evidence of any displaced fracture. The visualized upper abdomen is unremarkable. SPINE: There are 5 nonrib-bearing lumbar vertebrae present. The heights of the lumbar vertebrae are well-maintained. Mild multilevel degenerative spondylosis is seen present. Posterior appendages are intact. The paraspinal soft tissues are remarkable for a radiopaque 0.8 cm density seen along the right paraspinal region below the level of the transverse process of L5, may represent an enterolith, calcified lymph node and less likely to be ureteric calculus. XR/XR lumbar spine 2-3V IMPRESSION: ? 1. The chest radiograph shows no radiographic evidence of any acute cardiopulmonary disease. 2. The lumbosacral spine shows no evidence of any compression fracture. Note is made of mild multilevel degenerative spondylosis. 3. Solitary 0.8 cm radiodensity seen projecting along the right paraspinal region below the level of the transverse processes of L5, likely represent calcified lymph node, enteroliths, and less likely to be ureteric calculus. Critical Care Time Critical Care Time Critical Care Time: Yes Total Critical Care Time: 60 Attestation: I personally attest to this time spent taking care of the patient Discharge Plan Discharge Clinical Impression: Strain of lumbar region, Seizure, Anemia Patient Disposition: Home, Self-Care Instructions: Low Back Strain (ED), Anemia (ED), Epilepsy in Older Adults (ED) Prescriptions: New acetaminophen [Tylenol] 325 mg tablet 650 mg PO Q6H PRN (Reason: fever or pain) Qty: 5 RF: 0 cyclobenzaprine 5 mg tablet 5 mg PO BEDTIME Qty: 5 RF: 0 ferrous sulfate 325 mg (65 mg iron) tablet 325 mg PO DAILY Qty: 30 RF: 0 No Action cyclobenzaprine 5 mg tablet 5 mg PO BEDTIME PRN (Reason: muscle spasm) Qty: 3 RF: 0 ondansetron 4 mg tablet,disintegrating 4 mg PO Q6-8H PRN (Reason: nausea and vomiting) Qty: 7 RF: 0 lidocaine [Lidoderm] 5 % adhesive patch,medicated 1 patch topical DAILY Qty: 15 RF: 0 cyclobenzaprine 10 mg tablet 10 mg PO TID PRN (Reason: muscle spasm) Qty: 10 RF: 0 miconazole nitrate 2 % powder 1 appl topical BID Qty: 85 RF: 0 divalproex [Depakote] 500 mg tablet,delayed release (DR/EC) 500 mg PO BID Qty: 30 RF: 0 divalproex [Depakote ER] 500 mg tablet extended release 24 hr 500 mg PO BID Qty: 60 RF: 3 clonazepam 1 mg tablet 1 mg PO BID Qty: 30 RF: 0 albuterol sulfate [ProAir HFA] 90 mcg/actuation HFA aerosol inhaler 2 puff inhalation Q6H PRN (Reason: shortness of breath or wheezing) Qty: 18 RF: 0 Eliquis 5 mg tablet 5 mg PO BID Qty: 60 RF: 0 simvastatin [Zocor] 20 mg tablet 20 mg PO BEDTIME Qty: 30 RF: 0 gabapentin 300 mg capsule 300 mg PO TID Qty: 90 RF: 0 amitriptyline 25 mg tablet 25 mg PO BEDTIME Qty: 30 RF: 0 Flovent HFA 220 mcg/actuation HFA aerosol inhaler 1 puff inhalation BID Qty: 12 RF: 0 omeprazole 20 mg capsule,delayed release(DR/EC) 20 mg PO DAILY Qty: 30 RF: 0 oxycodone 5 mg tablet 5 mg PO Q6H PRN (Reason: pain) Qty: 20 RF: 0 oxycodone 5 mg tablet 5 mg PO Q8H PRN (Reason: pain) Qty: 12 RF: 0 clindamycin HCl 300 mg capsule 300 mg PO Q6H 5 Days Qty: 20 RF: 0 hyoscyamine sulfate 0.125 mg tablet 0.125 mg PO QID Qty: 7 RF: 0 loperamide 2 mg capsule 2 mg PO Q6H PRN (Reason: loose stool) Qty: 10 RF: 0 Preparation H Rapid Rlf-Lidocn 5-0.25-14.4-15 % cream 1 appl topical TID Qty: 28 RF: 0 Referrals: Physician,Unknown J [Primary Care Provider] - 2 days (Follow-up with your PCP and neurologist) Print Language: Martiniquais
[2021-05-28] MEDS: Cyclobenzaprine HCl 10 MG TABLET PO (18:10)
[2021-05-28 20:36] LABS: MANUAL DIFF FLAG NO
[2021-05-28 20:39] LABS: Basophils Percent Auto 0.4 % (0-2); Eosinophils Absolute Auto 0.4 X10*3/uL (0.0-0.4); Eosinophils Percent Auto 4.8 % (0-4); Hematocrit 30.8 % (37.0-47.0); Hemoglobin 9.9 g/dl (12.0-16.0); Imm Gran Abs Auto 0.01 X10*3/uL (0.00-0.03); Imm Gran Pct Auto 0.1 % (0.0-0.4); Lymphocytes Percent Auto 38.5 % (20-40); Mean Corpuscular HGB Conc 32.1 g/dl (31.0-35.0); Mean Corpuscular Hemoglobin 26.8 pg (27.0-33.0); Mean Corpuscular Volume 83.5 fL (80.0-98.0); Mean Platelet Volume 8.9 fL (9.4-12.3); Monocytes Absolute Auto 0.7 X10*3/uL (0.1-1.2); Monocytes Percent Auto 9.4 % (2-11); Neutrophils Absolute Auto 3.6 x10*3/uL (2.0-8.3); Neutrophils Percent Auto 46.8 % (45-73); Platelet Count 298 X10*3/uL (160-400); Red Blood Count 3.69 X10*6/uL (4.20-5.50); Red Cell Distribution Width 14.5 % (11.0-16.0); White Blood Count 7.7 X10*3/uL (4.8-10.8)
[2021-05-28 20:44] LABS: INTERNATIONAL NORM RATIO 1.2 (0.9-1.1); Prothrombin Time 13.5 SEC (9.9-13.0)
[2021-05-28 20:54] LABS: Ethanol < 10 mg/dL
[2021-05-28 21:00] LABS: B Type Natriuretic Peptide 22 pg/mL (<100)
[2021-05-28 21:05] LABS: Alanine Aminotransferase 29 U/L (0-31); Albumin Level 3.4 g/dL (3.5-5.0); Alkaline Phosphatase 90 U/L (39-117); Anion Gap 8 (12-20); Aspartate Amino Transferase 28 U/L (5-31); Bilirubin Total 0.3 mg/dL (0.0-1.0); Blood Urea Nitrogen 5 mg/dL (9-16); Calcium 8.2 mg/dL (8.4-10.2); Carbon Dioxide 24 mmol/L (22-29); Chloride 112 mmol/L (96-108); Creatinine Clr Calc Pharmacy 124.5; Estimated Glomerular Filt Rate > 60; Glucose Random 91 mg/dL (60-115); Magnesium 2.1 mg/dL (1.6-2.6); Potassium 3.3 mmol/L (3.3-5.1); Sodium 141 mmol/L (135-145); Total Protein 5.7 g/dL (6.5-8.0)
[2021-05-28 21:09] LABS: Valproate 25.5 mcg/mL (50.0-100.0)
[2021-05-28 21:22] LABS: HCG Quantitative 3 mIU/mL
[2021-05-28 21:52] VITALS: BP 120/70; PULSE 73; RESP 15; TEMP 36; O2SAT 100
[2021-05-28] MEDS: Divalproex Sodium 500 MG TABLET.DR PO (21:53)
--- NOTE | 2021-05-28 21:56 | PC.NURSE ---
Pt reporting 10/10 low back pain, requesting pain meds. Pt very lethargic on stretcher and reports feeling fatigued. Roxana HEARD to be made aware.
--- NOTE | 2021-05-28 22:03 | PC.NURSE ---
Roxana HEARD is aware of pt's c/o of pain. Plan for UA, upreg, PULIDO and occult stool labs. Awaiting results. Pt's stretcher in lowest locked position, rails raised, remains visible to staff.
[2021-05-28 22:09] LABS: Appearance Urine CLEAR; Color Urine YELLOW; Glucose Urine UA NEG (NEG); Leukocyte Esterase Urine NEG (NEG); Nitrite Urine NEG (NEG); Specific Gravity - Urine 1.015 (1.005-1.025); Urine Blood NEG (NEG); Urine Ketones NEG (NEG); Urine Protein NEG (NEG-TRACE)
[2021-05-28 22:11] LABS: UPreg QC Valid YES; Urine Pregnancy NEGATIVE (NEGATIVE)
[2021-05-28 22:20] LABS: OBS Int Ctl Valid YES; OBS1 NEGATIVE (NEGATIVE)
[2021-05-28 22:32] LABS: Amphetamine Screen Urine Not Detected (Not Detect); Barbiturates, Urine Not Detected (Not Detect); Benzodiazepines Screen Urine POSITIVE (Not Detect); Cannabinoid Screen Urine Not Detected (Not Detect); Cocaine Screen Urine Not Detected (Not Detect); Fentanyl, urine POSITIVE (Not Detect); Opiate Screen Urine Not Detected (Not Detect); Phencyclidine Screen Urine Not Detected (Not Detect)
[2021-05-28 22:55] VITALS: BP 105/55; PULSE 74; RESP 16; TEMP 36.5; O2SAT 100
== END 2021-05-29 00:21 | disposition home or self-care (01) ==
PROVIDERS: Physician Assistant Medical; Emergency Provider Internal Medicine
DX: S39.012A Strain of muscle, fascia and tendon of lower back, initial encounter (principal); R56.9 Unspecified convulsions; D64.9 Anemia, unspecified; J45.909 Unspecified asthma, uncomplicated; F41.9 Anxiety disorder, unspecified; I10 Essential (primary) hypertension; Z86.711 Personal history of pulmonary embolism; Z79.01 Long term (current) use of anticoagulants; Z79.891 Long term (current) use of opiate analgesic; Z79.899 Other long term (current) drug therapy; X58.XXXA Exposure to other specified factors, initial encounter; Y93.9 Activity, unspecified; Y92.9 Unspecified place or not applicable; Y99.9 Unspecified external cause status
CPT/HCPCS: 36415; 70450; 71045; 72100; 72125; 80053; 80164; 80307; 81003; 81025; 82077; 82272; 82550; 83735; 83880; 84702; 85025; 85610; 93005; 99284; 99285; 99291

== ENCOUNTER 2021-07-09 17:21 | Emergency (ER) | payer OTHER, SELFPAY ==
--- NOTE | ~2021-07-09 | XR_ITS ---
EXAMINATION: XR HAND, RIGHT CLINICAL INFORMATION: Status post fall COMPARISON: None TECHNIQUE: PA, lateral, and oblique views of the right hand. FINDINGS: The bones and soft tissues are normal. No fracture. Alignment is anatomic. Joint spaces are maintained. No erosions or soft tissue calcifications. XR/XR hand RT 2V IMPRESSION: Normal right hand.
[2021-07-09 19:29] VITALS: BP 158/86; PULSE 74; RESP 18; TEMP 36.4; O2SAT 99; BMI 34.9
--- NOTE | 2021-07-09 22:23 | ED_ITS ---
HPI - Fall General Chief Complaint: Fall Stated Complaint: Fall, back pain, broken hand Time Seen by Provider: 07/09/21 22:23 Source: patient Mode of arrival: ambulatory Limitations: no limitations History of Present Illness HPI Narrative: Patient's history of seizure disorder apparently had a seizure yesterday in the morning fell and had a contusion and bruising of the right 5th finger went to [facility] was told that she has a fracture and splint was applied patient comes here as pain is getting worse and did not receive any pain medication at other hospital no other injuries Related Data Previous Rx's Medication Instructions Recorded divalproex 500 mg tablet,delayed 500 mg PO BID #30 tab 04/21/20 release (Depakote) albuterol sulfate 90 mcg/actuation 2 puff INHALATION Q6H PRN #18 g 05/22/20 aerosol inhaler (ProAir HFA) amitriptyline 25 mg tablet 25 mg PO BEDTIME #30 tab 05/22/20 apixaban 5 mg tablet (Eliquis) 5 mg PO BID #60 tab 05/22/20 clonazepam 1 mg tablet 1 mg PO BID #30 tab 05/22/20 divalproex 500 mg tablet,extended 500 mg PO BID #60 tab 05/22/20 release 24 hr (Depakote ER) fluticasone propionate 220 1 puff INHALATION BID #12 g 05/22/20 mcg/actuation HFA aerosol inhaler (Flovent HFA) gabapentin 300 mg capsule 300 mg PO TID #90 cap 05/22/20 omeprazole 20 mg capsule,delayed 20 mg PO DAILY #30 cap 05/22/20 release oxycodone 5 mg tablet 5 mg PO Q6H PRN #20 tab 05/22/20 simvastatin 20 mg tablet (Zocor) 20 mg PO BEDTIME #30 tab 05/22/20 oxycodone 5 mg tablet 5 mg PO Q8H PRN #12 tab 06/04/20 cyclobenzaprine 5 mg tablet 5 mg PO BEDTIME PRN #3 tab 07/17/20 clindamycin HCl 300 mg capsule 300 mg PO Q6H 5 Days #20 cap 08/19/20 ondansetron 4 mg disintegrating 4 mg PO Q6-8H PRN #7 tab 08/24/20 tablet hyoscyamine sulfate 0.125 mg tablet 0.125 mg PO QID #7 tab 02/03/21 lidocaine 5 %-phenylephrine 0.25 1 appl TOPICAL TID #28 g 02/03/21 %-glycern 14.4 %-petrolatm 15 % cream (Preparation H Rapid Relief-Lidocaine) loperamide 2 mg capsule 2 mg PO Q6H PRN #10 cap 02/03/21 cyclobenzaprine 10 mg tablet 10 mg PO TID PRN #10 tab 02/04/21 lidocaine 5 % topical patch 1 patch TOPICAL DAILY #15 ea 02/04/21 (Lidoderm) miconazole nitrate 2 % topical 1 appl TOPICAL BID #85 g 03/16/21 powder acetaminophen 325 mg tablet 650 mg PO Q6H PRN #5 tab 05/28/21 (Tylenol) cyclobenzaprine 5 mg tablet 5 mg PO BEDTIME #5 tab 05/28/21 ferrous sulfate 325 mg (65 mg 325 mg PO DAILY #30 tab 05/28/21 iron) tablet oxycodone 5 mg tablet 5 mg PO Q6H PRN #15 tab 07/09/21 Allergies Allergy/AdvReac Type Severity Reaction Status Date / Time acetaminophen [From VICODIN] Allergy Unknown UNKNOWN Verified 07/09/21 19:35 aspirin Allergy Unknown Unknown Verified 07/09/21 19:35 hydrocodone [From VICODIN] Allergy Unknown UNKNOWN Verified 07/09/21 19:35 ibuprofen [From MOTRIN] Allergy Unknown UNKNOWN Verified 07/09/21 19:35 meperidine [From DEMEROL] Allergy Unknown UNKNOWN Verified 07/09/21 19:35 naproxen [Aleve] Allergy Unknown Unknown Verified 07/09/21 19:35 penicillin V Allergy Unknown Unknown Verified 07/09/21 19:35 Sulfa (Sulfonamide Allergy Unknown Unknown Verified 07/09/21 19:35 Antibiotics) tramadol Allergy Unknown Unknown Verified 07/09/21 19:35 diphenhydramine Allergy Unknown Verified 07/09/21 19:35 [From Benadryl] Codeine Sulfate Allergy Unknown Unknown Uncoded 07/16/20 20:32 Review of Systems Review of Systems: Yes all other systems are reviewed and are negative PMFSH Past Medical History Medical History Anxiety Chronic back pain HTN (hypertension) Pseudoseizure Pulmonary embolus Seizure Social History Social History Alcohol intake: never Patient Tobacco Use Status: Former Tobacco user Advance Directives: No Advance Directives Information Provided: No Physical Exam Vital Signs: Vital Signs: Last Vital Signs Temp 97.6 F 07/09/21 19:29 Pulse 74 07/09/21 19:29 Resp 18 07/09/21 19:29 BP 158/86 H 07/09/21 19:29 Pulse Ox 99 07/09/21 19:29 BMI result Body Mass Index 34.9 Const: General: comfortable and no acute distress Orientation/consciousness: patient oriented x3 HENMT: Head: Yes normal to inspection, Yes No palpable skull fracture present, Yes normocephalic and Yes atraumatic Neck: Neck: Yes full ROM and No trachea midline Chest: Chest palpation & inspection: normal inspection of the chest and normal palpation of entire chest wall Resp: Effort & Inspection: normal respiratory effort Auscultation: clear to auscultation bilaterally Cardio: Palpation: normal PMI Rate: regular rate Rhythm: regular rhythm Heart sounds: S1 normal heart sound present and S2 normal heart sound present GI: Inspection: Yes normal to inspection Palpation (GI): Soft to palpation and nontender Neuro: General: patient oriented x3 Extrem: Hand/finger images: 1. ecchymosis of right 5th finger good range of movement no bony deformity neurovascular intact Procedures Orthopedic Splinting/Casting Injury #1: Side: right Upper Extremity Injury Location: finger (5th finger) Upper Extremity Immobilizer: aluminum form splint MDM - Fall MDM Narrative Medical decision making narrative: X-ray negative for fracture finger splint was applied along with Christiano wrap patient advised to follow with PCP as needed Discharge Plan Discharge Clinical Impression: Contusion of finger of right hand Qualifiers: Encounter type: initial encounter Finger: little finger Damage to nail status: without damage Qualified Code(s): S60.051A - Contusion of right little finger without damage to nail, initial encounter Patient Disposition: Home, Self-Care Instructions: Contusion in Adults (ED) Additional Instructions: Wear the finger splint as advised to support the contused right 5th finger Tylenol/ibuprofen for pain Oxycodone for severe pain Follow-up with PCP if any concerns Prescriptions: New oxycodone 5 mg tablet 5 mg PO Q6H PRN (Reason: Moderate Pain (Scale Score 5-6)) Qty: 15 RF: 0 No Action cyclobenzaprine 5 mg tablet 5 mg PO BEDTIME PRN (Reason: muscle spasm) Qty: 3 RF: 0 ondansetron 4 mg tablet,disintegrating 4 mg PO Q6-8H PRN (Reason: nausea and vomiting) Qty: 7 RF: 0 lidocaine [Lidoderm] 5 % adhesive patch,medicated 1 patch topical DAILY Qty: 15 RF: 0 cyclobenzaprine 10 mg tablet 10 mg PO TID PRN (Reason: muscle spasm) Qty: 10 RF: 0 miconazole nitrate 2 % powder 1 appl topical BID Qty: 85 RF: 0 divalproex [Depakote] 500 mg tablet,delayed release (DR/EC) 500 mg PO BID Qty: 30 RF: 0 divalproex [Depakote ER] 500 mg tablet extended release 24 hr 500 mg PO BID Qty: 60 RF: 3 clonazepam 1 mg tablet 1 mg PO BID Qty: 30 RF: 0 albuterol sulfate [ProAir HFA] 90 mcg/actuation HFA aerosol inhaler 2 puff inhalation Q6H PRN (Reason: shortness of breath or wheezing) Qty: 18 RF: 0 Eliquis 5 mg tablet 5 mg PO BID Qty: 60 RF: 0 simvastatin [Zocor] 20 mg tablet 20 mg PO BEDTIME Qty: 30 RF: 0 gabapentin 300 mg capsule 300 mg PO TID Qty: 90 RF: 0 amitriptyline 25 mg tablet 25 mg PO BEDTIME Qty: 30 RF: 0 Flovent HFA 220 mcg/actuation HFA aerosol inhaler 1 puff inhalation BID Qty: 12 RF: 0 omeprazole 20 mg capsule,delayed release(DR/EC) 20 mg PO DAILY Qty: 30 RF: 0 oxycodone 5 mg tablet 5 mg PO Q6H PRN (Reason: pain) Qty: 20 RF: 0 oxycodone 5 mg tablet 5 mg PO Q8H PRN (Reason: pain) Qty: 12 RF: 0 clindamycin HCl 300 mg capsule 300 mg PO Q6H 5 Days Qty: 20 RF: 0 hyoscyamine sulfate 0.125 mg tablet 0.125 mg PO QID Qty: 7 RF: 0 loperamide 2 mg capsule 2 mg PO Q6H PRN (Reason: loose stool) Qty: 10 RF: 0 Preparation H Rapid Rlf-Lidocn 5-0.25-14.4-15 % cream 1 appl topical TID Qty: 28 RF: 0 acetaminophen [Tylenol] 325 mg tablet 650 mg PO Q6H PRN (Reason: fever or pain) Qty: 5 RF: 0 cyclobenzaprine 5 mg tablet 5 mg PO BEDTIME Qty: 5 RF: 0 ferrous sulfate 325 mg (65 mg iron) tablet 325 mg PO DAILY Qty: 30 RF: 0 Interventions: ED Discharge Assessment Last Done: 07/09/21 23:30 Discharge Date/Time: 07/09/21 23:30
[2021-07-09] MEDS: oxyCODONE HCl Immed Release 5 MG TABLET PO (22:46)
== END 2021-07-09 23:30 | disposition home or self-care (01) ==
PROVIDERS: Emergency Provider Internal Medicine
DX: S60.051A Contusion of right little finger without damage to nail, initial encounter (principal); M79.641 Pain in right hand; W01.0XXA Fall on same level from slipping, tripping and stumbling without subsequent striking against object, initial encounter; Y93.9 Activity, unspecified; Y92.9 Unspecified place or not applicable; Y99.9 Unspecified external cause status; Z79.899 Other long term (current) drug therapy
CPT/HCPCS: 29130; 73120; 99283

== ENCOUNTER 2021-08-17 11:32 | Emergency (ER) | payer OTHER, SELFPAY ==
--- NOTE | ~2021-08-17 | XR_ITS ---
EXAMINATION: XR CHEST CLINICAL INFORMATION: Cough COMPARISON: Chest x-ray 05/28/2021 TECHNIQUE: Frontal view of the chest was obtained. FINDINGS: Cardiac silhouette is mildly enlarged. Lungs are mildly hypoinflated. Subtle bibasilar linear opacities most suggestive of atelectasis. No lobar consolidation. No pleural effusion or pneumothorax. XR/XR chest 1V IMPRESSION: No acute pulmonary pathology.
[2021-08-17 11:42] VITALS: BP 118/84; BP 128/90; PULSE 114; PULSE 120; RESP 20; TEMP 37; O2SAT 100; O2SAT 99; BMI 34.2
--- NOTE | 2021-08-17 11:48 | ECG_ITS ---
Test Reason : seizure Blood Pressure : / mmHG Vent. Rate : 134 BPM Atrial Rate : 134 BPM P-R Int : 168 ms QRS Dur : 078 ms QT Int : 298 ms P-R-T Axes : 000 -20 005 degrees QTc Int : 445 ms Sinus tachycardia Minimal voltage criteria for LVH, may be normal variant ( R in aVL ) Borderline ECG When compared with ECG of 28-MAY-2021 19:36, Vent. rate has increased BY 51 BPM QRS axis Shifted right Referred By: Varinder Owen Electronically Signed By:RAY [email or web address]
--- NOTE | 2021-08-17 11:50 | ED_ITS ---
HPI - Seizure General Chief Complaint: Seizure Stated Complaint: Post seizure Time Seen by Provider: 08/17/21 11:36 Source: patient and EMS Limitations: no limitations History of Present Illness HPI Narrative: This is a 51 years old patient with a history of substance abuse, seizure disorder worse was pseudo-seizure ( unclear from the chart if she has true seizure) presented to the emergency room by ambulance after a possible seizure. She arrived awake and alert she is not postictal. She was in the hotel staff colled because she was shaking. No tongue biting no urine incontinence no postictal status at the arrival to the emergency department. MD complaint: possible seizure Onset (ago): hour(s) (1h) Duration of episode: 3 Witnessed: Yes - by Bystander Trauma: No Seizure History: Yes Place: hotel Possible Precipitating Event: none Associated symptoms: denies other symptoms Related Data Previous Rx's Medication Instructions Recorded divalproex 500 mg tablet,delayed 500 mg PO BID #30 tab 04/21/20 release (Depakote) albuterol sulfate 90 mcg/actuation 2 puff INHALATION Q6H PRN #18 g 05/22/20 aerosol inhaler (ProAir HFA) amitriptyline 25 mg tablet 25 mg PO BEDTIME #30 tab 05/22/20 apixaban 5 mg tablet (Eliquis) 5 mg PO BID #60 tab 05/22/20 clonazepam 1 mg tablet 1 mg PO BID #30 tab 05/22/20 divalproex 500 mg tablet,extended 500 mg PO BID #60 tab 05/22/20 release 24 hr (Depakote ER) fluticasone propionate 220 1 puff INHALATION BID #12 g 05/22/20 mcg/actuation HFA aerosol inhaler (Flovent HFA) gabapentin 300 mg capsule 300 mg PO TID #90 cap 05/22/20 omeprazole 20 mg capsule,delayed 20 mg PO DAILY #30 cap 05/22/20 release oxycodone 5 mg tablet 5 mg PO Q6H PRN #20 tab 05/22/20 simvastatin 20 mg tablet (Zocor) 20 mg PO BEDTIME #30 tab 05/22/20 oxycodone 5 mg tablet 5 mg PO Q8H PRN #12 tab 06/04/20 cyclobenzaprine 5 mg tablet 5 mg PO BEDTIME PRN #3 tab 07/17/20 clindamycin HCl 300 mg capsule 300 mg PO Q6H 5 Days #20 cap 08/19/20 ondansetron 4 mg disintegrating 4 mg PO Q6-8H PRN #7 tab 08/24/20 tablet hyoscyamine sulfate 0.125 mg tablet 0.125 mg PO QID #7 tab 02/03/21 lidocaine 5 %-phenylephrine 0.25 1 appl TOPICAL TID #28 g 02/03/21 %-glycern 14.4 %-petrolatm 15 % cream (Preparation H Rapid Relief-Lidocaine) loperamide 2 mg capsule 2 mg PO Q6H PRN #10 cap 02/03/21 cyclobenzaprine 10 mg tablet 10 mg PO TID PRN #10 tab 02/04/21 lidocaine 5 % topical patch 1 patch TOPICAL DAILY #15 ea 02/04/21 (Lidoderm) miconazole nitrate 2 % topical 1 appl TOPICAL BID #85 g 03/16/21 powder acetaminophen 325 mg tablet 650 mg PO Q6H PRN #5 tab 05/28/21 (Tylenol) cyclobenzaprine 5 mg tablet 5 mg PO BEDTIME #5 tab 05/28/21 ferrous sulfate 325 mg (65 mg 325 mg PO DAILY #30 tab 05/28/21 iron) tablet oxycodone 5 mg tablet 5 mg PO Q6H PRN #15 tab 07/09/21 Allergies Allergy/AdvReac Type Severity Reaction Status Date / Time acetaminophen [From Allergy Unknown UNKNOWN Verified 07/09/21 19:35 VICODIN] aspirin Allergy Unknown Unknown Verified 07/09/21 19:35 hydrocodone [From Allergy Unknown UNKNOWN Verified 07/09/21 19:35 VICODIN] ibuprofen [From MOTRIN] Allergy Unknown UNKNOWN Verified 07/09/21 19:35 meperidine [From DEMEROL] Allergy Unknown UNKNOWN Verified 07/09/21 19:35 naproxen [Aleve] Allergy Unknown Unknown Verified 07/09/21 19:35 penicillin V Allergy Unknown Unknown Verified 07/09/21 19:35 Sulfa (Sulfonamide Allergy Unknown Unknown Verified 07/09/21 19:35 Antibiotics) tramadol Allergy Unknown Unknown Verified 07/09/21 19:35 diphenhydramine Allergy Unknown Verified 07/09/21 19:35 [From Benadryl] Codeine Sulfate Allergy Unknown Unknown Uncoded 07/16/20 20:32 Review of Systems Verdana 4l Constitutional: Verdana 4d Constitutional: Verdana 4d Verdana 4d Reports no additional constitutional complaints and Denies fever(s) Verdana 4l ENT: Verdana 4d Denies vertigo and Denies dizziness Verdana 4l Cardiovascular: Verdana 4d Cardiovascular: Verdana 4d Verdana 4d Reports no additional cardiovascular complaints Verdana 4l Gastrointestinal: Verdana 4d Gastrointestinal: Verdana 4d Verdana 4d Denies diarrhea, Denies nausea and Denies vomiting Verdana 4l Neurologic: Verdana 4d Denies vertigo and Denies dizziness Verdana 4l Psychiatric: Verdana 4d Verdana 4d Psychiatric: Verdana 4d Reports anxiety PMFSH Past Medical History Medical History Anxiety Chronic back pain HTN (hypertension) Pseudoseizure Pulmonary embolus Seizure Social History Social History Alcohol intake: never Patient Tobacco Use Status: Former Tobacco user Use of substances other than those prescribed or required for medical reasons: No Advance Directives: No Advance Directives Information Provided: Yes Physical Exam Verdana 4l Vital Signs: Verdana 4d Verdana 4d Vital Signs: Verdana 4d Verdana 4Bd Last Vital Signs Verdana 4d [employer] Work[employer] New 4d [employer] Worker New 4d Temp 98.2 F 08/17/21 14:28 [employer] Work[employer] New 4d Pulse 120 H 08/17/21 14:28 [employer] 4d Resp 19 08/17/21 14:28 BP 139/67 08/17/21 14:28 Pulse Ox 98 08/17/21 14:28 BMI result Body Mass Index 34.2 Const: General: cooperative Nutritional Appearance: well nourished Orientation/consciousness: patient oriented x3 HENMT: Head: Yes normal to inspection Face and sinus: Yes normal facial exam Mouth: Normal oral and palatal mucosa present Throat: Yes posterior oropharynx normal Neck: Neck: Yes normal visual inspection Chest: Chest palpation & inspection: normal inspection of the chest Resp: Effort & Inspection: normal respiratory effort Auscultation: clear to auscultation bilaterally Cardio: Jugular venous distension: no JVD Rate: regular rate Rhythm: regular rhythm GI: Inspection: Yes normal to inspection Palpation (GI): Soft to palpation, not firm, nontender and no guarding Skin: General skin exam: no rashes or lesions noted, elasticity normal and turgor normal Rashes: no rashes Neuro: General: patient oriented x3 Cranial nerves: Yes CN's II-XII intact bilaterally Coordination: [id number] test normal Comatose Patient: corneal reflex present Course Reevaluation(s) Reevaluation #1: I spoke with the PCP of the pt Dr Ildefonso Franz [phone] pt has hx of Psudoseizure ,they took her off Depakote Months ago. She has hx of opioid abuse disorder on suboxone. Reevaluation #2: Remain hemodinamically stable ,afebrile.I will sign out to dr Harris MDM - Seizure Lab Data Result diagrams: 08/17/21 12:01 08/17/21 12:01 Labs: Lab Results 08/17/21 08/17/21 08/17/21 Range/Units 12:01 12:01 12:01 WBC 15.2 H (4.8-10.8) X10*3/uL RBC 4.01 L (4.20-5.50) X10*6/uL Hgb 10.4 L (12.0-16.0) g/dl Hct 33.1 L (37.0-47.0) % MCV 82.5 (80.0-98.0) fL MCH 25.9 L (27.0-33.0) pg MCHC 31.4 (31.0-35.0) g/dl RDW 15.9 (11.0-16.0) % Plt Count 357 (160-400) X10*3/uL MPV 9.1 L (9.4-12.3) fL Immature Gran % (Auto) 0.3 (0.0-0.4) % Neut % (Auto) 79.0 H (45-73) % Lymph % (Auto) 13.1 L (20-40) % [place] % (Auto) 6.2 (2-11) % Eos % (Auto) 1.2 (0-4) % Baso % (Auto) 0.2 (0-2) % Lymph # (Auto) 2.0 (1.2-4.9) X10*3/uL [place] # (Auto) 1.0 (0.1-1.2) X10*3/uL Eos # (Auto) 0.2 (0.0-0.4) X10*3/uL Baso # (Auto) 0.0 (0.0-0.2) X10*3/uL Abs Immat Gran (auto) 0.05 H (0.00-0.03) X10*3/uL Absolute Neuts (auto) 12.0 H (2.0-8.3) x10*3/uL Absolute Nucleated RBC 0.000 (0.0-0.012) X10*3/uL Nucleated RBC % (auto) 0.0 (0.0-0.2) /100WBC Sodium 140 (135-145) mmol/L Potassium 4.6 D (3.3-5.1) mmol/L Chloride 102 (96-108) mmol/L Carbon Dioxide 27 (22-29) mmol/L Anion Gap 16 (12-20) BUN 12 (9-16) mg/dL Creatinine 0.86 (0.5-1.4) mg/dL Estim Creat Clear Calc 98.9 Estimated GFR > 60 Random Glucose 143 H (60-115) mg/dL Calcium 9.3 D (8.4-10.2) mg/dL Total Bilirubin 0.4 (0.0-1.0) mg/dL AST 16 D (5-31) U/L ALT 13 (0-31) U/L Alkaline Phosphatase 92 (39-117) U/L Total Protein 6.9 D (6.5-8.0) g/dL Albumin 3.9 (3.5-5.0) g/dL Urine Color Urine Appearance Urine pH (5.0-8.0) Ur Specific [place] (1.005-1.025) Urine Protein (NEG-TRACE) MG/DL Urine Glucose (UA) (NEG) MG/DL Urine Ketones (NEG) MG/DL Urine Blood (NEG) Urine Nitrite (NEG) Ur Leukocyte Esterase (NEG) Urine RBC (0) /HPF Urine WBC (0-4) /HPF Ur Squamous Epith Cells /LPF Urine Bacteria /LPF Urine Opiates Screen (Not Detect) Urine Fentanyl Screen (Not Detect) Ur Barbiturates Screen (Not Detect) Valproic Acid < 2.0 L (50.0-100.0) mcg/mL Ur Phencyclidine Scrn (Not Detect) Ur Amphetamines Screen (Not Detect) U Benzodiazepines Scrn (Not Detect) Urine Cocaine Screen (Not Detect) U Marijuana (THC) Screen (Not Detect) COVID-19 (SELVIN) (Negative) COVID-19 Clin Com 08/17/21 08/17/21 08/17/21 Range/Units 12:30 14:27 14:27 WBC (4.8-10.8) X10*3/uL RBC (4.20-5.50) X10*6/uL Hgb (12.0-16.0) g/dl Hct (37.0-47.0) % MCV (80.0-98.0) fL MCH (27.0-33.0) pg MCHC (31.0-35.0) g/dl RDW (11.0-16.0) % Plt Count (160-400) X10*3/uL MPV (9.4-12.3) fL Immature Gran % (0.0-0.4) % (Auto) Neut % (Auto) (45-73) % Lymph % (Auto) (20-40) % [place] % (Auto) (2-11) % Eos % (Auto) (0-4) % Baso % (Auto) (0-2) % Lymph # (Auto) (1.2-4.9) X10*3/uL [place] # (Auto) (0.1-1.2) X10*3/uL Eos # (Auto) (0.0-0.4) X10*3/uL Baso # (Auto) (0.0-0.2) X10*3/uL Abs Immat Gran (auto) (0.00-0.03) X10*3/uL Absolute Neuts (auto) (2.0-8.3) x10*3/uL Absolute Nucleated (0.0-0.012) RBC X10*3/uL Nucleated RBC % (0.0-0.2) /100WBC (auto) Sodium (135-145) mmol/L Potassium (3.3-5.1) mmol/L Chloride (96-108) mmol/L Carbon Dioxide (22-29) mmol/L Anion Gap (12-20) BUN (9-16) mg/dL Creatinine (0.5-1.4) mg/dL Estim Creat Clear Calc Estimated GFR Random Glucose (60-115) mg/dL Calcium (8.4-10.2) mg/dL Total Bilirubin (0.0-1.0) mg/dL AST (5-31) U/L ALT (0-31) U/L Alkaline Phosphatase (39-117) U/L Total Protein (6.5-8.0) g/dL Albumin (3.5-5.0) g/dL Urine Color YELLOW Urine Appearance CLEAR Urine pH 7.5 (5.0-8.0) Ur Specific [place] 1.010 (1.005-1.025) Urine Protein NEG (NEG-TRACE) MG/DL Urine Glucose (UA) NEG (NEG) MG/DL Urine Ketones NEG (NEG) MG/DL Urine Blood NEG (NEG) Urine Nitrite NEG (NEG) Ur Leukocyte Esterase NEG (NEG) Urine RBC 0-2 (0) /HPF Urine WBC 0 (0-4) /HPF Ur Squamous Epith 1+ /LPF Cells Urine Bacteria TRACE /LPF Urine Opiates Screen Not Detected (Not Detect) Urine Fentanyl Screen Not Detected (Not Detect) Ur Barbiturates Not Detected (Not Detect) Screen Valproic Acid (50.0-100.0) mcg/mL Ur Phencyclidine Scrn Not Detected (Not Detect) Ur Amphetamines Not Detected (Not Detect) Screen U Benzodiazepines Not Detected (Not Detect) Scrn Urine Cocaine Screen Not Detected (Not Detect) U Marijuana (THC) Not Detected (Not Detect) Screen COVID-19 (SELVIN) Negative (Negative) COVID-19 Clin Com See Note ECG Data ECG interpretation date: 08/17/21 ECG interpretation time: 12:49 Pacemaker model: Sinus tachycardia [address]-t isoelectric Procedures EJ/Peripheral Line Arm L: Time Out Performed: Yes Skin Cleansed in Sterile Fashion: Yes Size (gauge): 20 IV Secured and Dressing Applied: Yes Patient Tolerated Procedure: well Additional Comments: Under US linear probe cannulated ledt brachial vein with 20 jenny introcan 1 09/19 Discharge Plan Discharge Clinical Impression: Generalized seizure Prescriptions: No Action cyclobenzaprine 5 mg tablet 5 mg PO BEDTIME PRN (Reason: muscle spasm) Qty: 3 0RF ondansetron 4 mg tablet,disintegrating 4 mg PO Q6-8H PRN (Reason: nausea and vomiting) Qty: 7 0RF lidocaine [Lidoderm] 5 % adhesive patch,medicated 1 patch topical DAILY Qty: 15 0RF Rx Instructions: leave on most painful area for up to 12 hrs cyclobenzaprine 10 mg tablet 10 mg PO TID PRN (Reason: muscle spasm) Qty: 10 0RF miconazole nitrate 2 % powder 1 appl topical BID Qty: 85 0RF divalproex [Depakote] 500 mg tablet,delayed release (DR/EC) 500 mg PO BID Qty: 30 0RF divalproex [Depakote ER] 500 mg tablet extended release 24 hr 500 mg PO BID Qty: 60 3RF clonazepam 1 mg tablet 1 mg PO BID Qty: 30 0RF albuterol sulfate [ProAir HFA] 90 mcg/actuation HFA aerosol inhaler 2 puff inhalation Q6H PRN (Reason: shortness of breath or wheezing) Qty: 18 0RF Eliquis 5 mg tablet 5 mg PO BID Qty: 60 0RF simvastatin [Zocor] 20 mg tablet 20 mg PO BEDTIME Qty: 30 0RF gabapentin 300 mg capsule 300 mg PO TID Qty: 90 0RF amitriptyline 25 mg tablet 25 mg PO BEDTIME Qty: 30 0RF Flovent HFA 220 mcg/actuation HFA aerosol inhaler 1 puff inhalation BID Qty: 12 0RF omeprazole 20 mg capsule,delayed release(DR/EC) 20 mg PO DAILY Qty: 30 0RF oxycodone 5 mg tablet 5 mg PO Q6H PRN (Reason: pain) Qty: 20 0RF oxycodone 5 mg tablet 5 mg PO Q8H PRN (Reason: pain) Qty: 12 0RF clindamycin HCl 300 mg capsule 300 mg PO Q6H 5 Days Qty: 20 0RF hyoscyamine sulfate 0.125 mg tablet 0.125 mg PO QID Qty: 7 0RF loperamide 2 mg capsule 2 mg PO Q6H PRN (Reason: loose stool) Qty: 10 0RF Preparation H Rapid Rlf-Lidocn 5-0.25-14.4-15 % cream 1 appl topical TID Qty: 28 0RF acetaminophen [Tylenol] 325 mg tablet 650 mg PO Q6H PRN (Reason: fever or pain) Qty: 5 0RF cyclobenzaprine 5 mg tablet 5 mg PO BEDTIME Qty: 5 0RF ferrous sulfate 325 mg (65 mg iron) tablet 325 mg PO DAILY Qty: 30 0RF oxycodone 5 mg tablet 5 mg PO Q6H PRN (Reason: Moderate Pain (Scale Score 5-6)) Qty: 15 0RF
--- NOTE | 2021-08-17 12:00 | PC.NURSE ---
seizure pads in place, pt is not incontinent of urine, answering questions appropriately, sinus tach on the monitor anywhere from 130-105.
[2021-08-17 12:06] LABS: MANUAL DIFF FLAG NO
[2021-08-17 12:08] LABS: Basophils Percent Auto 0.2 % (0-2); Eosinophils Absolute Auto 0.2 X10*3/uL (0.0-0.4); Eosinophils Percent Auto 1.2 % (0-4); Hematocrit 33.1 % (37.0-47.0); Hemoglobin 10.4 g/dl (12.0-16.0); Imm Gran Abs Auto 0.05 X10*3/uL (0.00-0.03); Imm Gran Pct Auto 0.3 % (0.0-0.4); Lymphocytes Percent Auto 13.1 % (20-40); Mean Corpuscular HGB Conc 31.4 g/dl (31.0-35.0); Mean Corpuscular Hemoglobin 25.9 pg (27.0-33.0); Mean Corpuscular Volume 82.5 fL (80.0-98.0); Mean Platelet Volume 9.1 fL (9.4-12.3); Monocytes Percent Auto 6.2 % (2-11); Platelet Count 357 X10*3/uL (160-400); Red Blood Count 4.01 X10*6/uL (4.20-5.50); Red Cell Distribution Width 15.9 % (11.0-16.0); White Blood Count 15.2 X10*3/uL (4.8-10.8)
[2021-08-17 12:23] LABS: Alanine Aminotransferase 13 U/L (0-31); Albumin Level 3.9 g/dL (3.5-5.0); Alkaline Phosphatase 92 U/L (39-117); Anion Gap 16 (12-20); Aspartate Amino Transferase 16 U/L (5-31); Bilirubin Total 0.4 mg/dL (0.0-1.0); Blood Urea Nitrogen 12 mg/dL (9-16); Calcium 9.3 mg/dL (8.4-10.2); Carbon Dioxide 27 mmol/L (22-29); Chloride 102 mmol/L (96-108); Creatinine Clr Calc Pharmacy 98.9; Estimated Glomerular Filt Rate > 60; Glucose Random 143 mg/dL (60-115); Potassium 4.6 mmol/L (3.3-5.1); Sodium 140 mmol/L (135-145); Total Protein 6.9 g/dL (6.5-8.0)
[2021-08-17] MEDS: 0.9 % Sodium Chloride 1,000 ML 999 ML IVCONT (12:34)
[2021-08-17 12:39] LABS: Valproate < 2.0 mcg/mL (50.0-100.0)
[2021-08-17 12:50] LABS: COVID-19 Test Negative (Negative)
[2021-08-17 14:28] VITALS: BP 139/67; PULSE 120; RESP 19; TEMP 36.8; O2SAT 98
[2021-08-17 14:36] LABS: Appearance Urine CLEAR; Color Urine YELLOW; Glucose Urine UA NEG (NEG); Leukocyte Esterase Urine NEG (NEG); Nitrite Urine NEG (NEG); PH 7.5 (5.0-8.0); Urine Blood NEG (NEG); Urine Ketones NEG (NEG); Urine Protein NEG (NEG-TRACE)
[2021-08-17 14:55] LABS: Bacteria Urine TRACE /LPF; RBC Urine 0-2 /HPF (0); Squamous Epithelial Cell Urine 1+ /LPF; WBC Urine 0 /HPF (0-4)
[2021-08-17 15:03] LABS: Amphetamine Screen Urine Not Detected (Not Detect); Barbiturates, Urine Not Detected (Not Detect); Benzodiazepines Screen Urine Not Detected (Not Detect); Cannabinoid Screen Urine Not Detected (Not Detect); Cocaine Screen Urine Not Detected (Not Detect); Fentanyl, urine Not Detected (Not Detect); Opiate Screen Urine Not Detected (Not Detect); Phencyclidine Screen Urine Not Detected (Not Detect)
--- NOTE | 2021-08-17 16:27 | PC.NURSE ---
dr boyd and this rm at pt's bedside, pt tearful and she does not know how she will be getting home, has no way of getting home
[2021-08-17 16:29] VITALS: PULSE 109
--- NOTE | 2021-08-17 17:30 | PC.NURSE ---
Addendum entered by Margot Bear 08/17/21 18:16: correction lesly from the care team Original Note: Mami from care team at bedside
[2021-08-17] MEDS: Ketorolac Tromethamine 30 MG/ML VIAL IVPUSH (17:43)
--- NOTE | 2021-08-17 17:50 | MHC.CARE ---
CARE team consult received for pt who arrived to the ED earlier this afternoon s/p a pseudoseizure. Consult placed by attending doctor for pt's complaints of anxiety, depression, and substance use. Pt endorsed anxious and depressed mood secondary to physical pain that she is experiencing, and she expressed her frustration with feeling that nobody is listening to her about her pain. She spoke at length about this and reported that she had been to a pain management clinic and received an injection, however she didn't like this and at this time does not present as open to returning to the clinic. She denied SI/HI and reported that she's concerned about how she will get back to the [facility] in [place] where she has been staying. This database report writer relayed the information to the attending doctor and ED nursing. When pt is discharged to the waiting room this database report writer will request a lyft for transport.
== END 2021-08-17 18:17 | disposition home or self-care (01) ==
PROVIDERS: Emergency Provider Emergency Medicine
DX: R56.9 Unspecified convulsions (principal); Z20.822 Contact with and (suspected) exposure to COVID-19; Z79.899 Other long term (current) drug therapy; Z87.891 Personal history of nicotine dependence
CPT/HCPCS: 36415; 36556; 71045; 80053; 80164; 80307; 81001; 85025; 87635; 93005; 96374; 99284; J1885

== ENCOUNTER 2021-09-15 09:55 | Emergency (ER) | payer OTHER, SELFPAY ==
--- NOTE | ~2021-09-15 | CT_ITS ---
EXAMINATION: CT head/brain wo con, CT cervical spine wo con INDICATION INFORMATION: Fall 2 days ago. COMPARISON: CT head 05/28/2021 TECHNIQUE: Separate noncontrast CT examinations of the head and cervical spine were performed. Coronal and sagittal reformats were obtained at the acquisition workstation. DLP: 2913 mGy-cm FINDINGS: HEAD: There is no evidence of acute intracranial hemorrhage or edematous territorial infarction. Brady to white matter differentiation is well preserved. No abnormal mass effect or midline shift is seen. No extra-axial fluid collections are identified. No acute calvarial fracture. There is slight irregular mineralization of the skull base, unchanged as far back as 04/20/2020, most consistent with a benign fibro-osseous process. The mastoid air cells and visualized portions of the paranasal sinuses are well aerated. CERVICAL SPINE: Motion artifact degrading images, limiting evaluation. Craniocervical and atlantoaxial is maintained. Vertebral body heights are maintained. No evidence of acute fracture. Posterior alignment is maintained. No evidence of prevertebral soft tissue swelling. Lung apices are clear. No cervical adenopathy seen. CT/CT head/brain wo con IMPRESSION: No CT evidence of acute intracranial pathology. No CT evidence of acute fracture or subluxation within the cervical spine. Motion artifact degrading images, with associated limitation in evaluation.
--- NOTE | ~2021-09-15 | CT_ITS ---
EXAMINATION: CT head/brain wo con, CT cervical spine wo con INDICATION INFORMATION: Fall 2 days ago. COMPARISON: CT head 05/28/2021 TECHNIQUE: Separate noncontrast CT examinations of the head and cervical spine were performed. Coronal and sagittal reformats were obtained at the acquisition workstation. DLP: 2913 mGy-cm FINDINGS: HEAD: There is no evidence of acute intracranial hemorrhage or edematous territorial infarction. Brady to white matter differentiation is well preserved. No abnormal mass effect or midline shift is seen. No extra-axial fluid collections are identified. No acute calvarial fracture. There is slight irregular mineralization of the skull base, unchanged as far back as 04/20/2020, most consistent with a benign fibro-osseous process. The mastoid air cells and visualized portions of the paranasal sinuses are well aerated. CERVICAL SPINE: Motion artifact degrading images, limiting evaluation. Craniocervical and atlantoaxial is maintained. Vertebral body heights are maintained. No evidence of acute fracture. Posterior alignment is maintained. No evidence of prevertebral soft tissue swelling. Lung apices are clear. No cervical adenopathy seen. CT/CT cervical spine wo con IMPRESSION: No CT evidence of acute intracranial pathology. No CT evidence of acute fracture or subluxation within the cervical spine. Motion artifact degrading images, with associated limitation in evaluation.
--- NOTE | ~2021-09-15 | CT_ITS ---
EXAMINATION: CT THORACIC SPINE WITHOUT CONTRAST CLINICAL INFORMATION: Pain, status post fall COMPARISON: None TECHNIQUE: Axial imaging. Sagittal and coronal reconstructions. This CT examination was performed using dose optimization techniques as appropriate, variously including the following: *Automated exposure control *Adjustment of mA and/or kV according to patient size (this includes techniques or standardized protocols for targeted exams where dose is matched to indication/reason for exam; i.e. extremities or head) *Use of iterative reconstruction technique DLP: 2913 mGy-cm FINDINGS: There is a kyphotic curvature of the thoracic spine, with mild rightward curvature. Posterior alignment is maintained. No significant subluxation is seen. Vertebral body heights are maintained. No evidence of acute fracture. There is mild thoracic spine degeneration. There are linear opacities in bilateral lower lungs, suggesting atelectasis. 3 mm nodule right upper lobe, unchanged from 06/04/2020. Patchy airspace/groundglass opacities in the posterior aspect of the left lower lobe, could reflect infectious or inflammatory process.. Subcentimeter lymph nodes in the visualized mediastinum. Stable calcifications along the posterior aspect of the right lobe of the liver. CT/CT thoracic spine wo con IMPRESSION: 1. No CT evidence of acute fracture or subluxation in the thoracic and visualized lumbar spine. 2. Mild degenerative changes in the visualized thoracic and lumbar spine. 3. Patchy airspace and ground glass opacities in the posterior aspect of the left lower lobe. This could reflect infectious or inflammatory process. Consider follow-up imaging to ensure resolution. 4. Stable 3 mm nodule right upper lobe, unchanged from 06/04/2020. According to the UPDATED 2017 Fleischner Society recommendations, the advised follow-up imaging for solid nodules < 6 mm is: LOW RISK PATIENT: No routine follow-up. HIGH RISK PATIENT: Optional CT at 12 months. Fleischner guidelines were followed.
[2021-09-15 10:03] VITALS: BP 110/72; PULSE 114; O2SAT 99
[2021-09-15 10:08] VITALS: BP 110/80; PULSE 90; RESP 17; TEMP 36.7; O2SAT 98; BMI 31.6
[2021-09-15] MEDS: Cyclobenzaprine HCl 10 MG TABLET PO (11:16)
[2021-09-15] MEDS: predniSONE 20 MG TABLET 60 MG PO (11:17)
[2021-09-15] MEDS: oxyCODONE HCl Immed Release 5 MG TABLET PO (11:17)
--- NOTE | 2021-09-15 11:56 | ED_ITS ---
HPI - Back Pain/Injury General Chief Complaint: Back Pain/Injury Stated Complaint: SHOULDER AND BACK PAIN Time Seen by Provider: 09/15/21 10:37 Source: patient Mode of arrival: ambulatory Limitations: no limitations History of Present Illness HPI Narrative: Neuro topical 51-year-old female history of pseudo-seizure, anxiety, depression, high blood pressure, chronic pain, fibromyalgia, presents to ED for upper back pain since fall 2 days ago. Patient states she was seen at [facility] and she states nothing was done for her. Patient states her blood work was normal but does not remember if any imaging was done. Patient states she fell 2 days ago because she had seizure, but [facility] notes/previous visits states patient has history of pseudoseizures. Patient taking of seizure meds by her primary care provider. Patient states she has not had any seizure or fall since being seen at [facility], but came to ED today for upper back pain. MD elicited complaint: back pain Related Data Previous Rx's Medication Instructions Recorded divalproex 500 mg tablet,delayed 500 mg PO BID #30 tab 04/21/20 release (Depakote) albuterol sulfate 90 mcg/actuation 2 puff INHALATION Q6H PRN #18 g 05/22/20 aerosol inhaler (ProAir HFA) amitriptyline 25 mg tablet 25 mg PO BEDTIME #30 tab 05/22/20 apixaban 5 mg tablet (Eliquis) 5 mg PO BID #60 tab 05/22/20 clonazepam 1 mg tablet 1 mg PO BID #30 tab 05/22/20 divalproex 500 mg tablet,extended 500 mg PO BID #60 tab 05/22/20 release 24 hr (Depakote ER) fluticasone propionate 220 1 puff INHALATION BID #12 g 05/22/20 mcg/actuation HFA aerosol inhaler (Flovent HFA) gabapentin 300 mg capsule 300 mg PO TID #90 cap 05/22/20 omeprazole 20 mg capsule,delayed 20 mg PO DAILY #30 cap 05/22/20 release oxycodone 5 mg tablet 5 mg PO Q6H PRN #20 tab 05/22/20 simvastatin 20 mg tablet (Zocor) 20 mg PO BEDTIME #30 tab 05/22/20 oxycodone 5 mg tablet 5 mg PO Q8H PRN #12 tab 06/04/20 cyclobenzaprine 5 mg tablet 5 mg PO BEDTIME PRN #3 tab 07/17/20 clindamycin HCl 300 mg capsule 300 mg PO Q6H 5 Days #20 cap 08/19/20 ondansetron 4 mg disintegrating 4 mg PO Q6-8H PRN #7 tab 08/24/20 tablet hyoscyamine sulfate 0.125 mg tablet 0.125 mg PO QID #7 tab 02/03/21 lidocaine 5 %-phenylephrine 0.25 1 appl TOPICAL TID #28 g 02/03/21 %-glycern 14.4 %-petrolatm 15 % cream (Preparation H Rapid Relief-Lidocaine) loperamide 2 mg capsule 2 mg PO Q6H PRN #10 cap 02/03/21 cyclobenzaprine 10 mg tablet 10 mg PO TID PRN #10 tab 02/04/21 lidocaine 5 % topical patch 1 patch TOPICAL DAILY #15 ea 02/04/21 (Lidoderm) miconazole nitrate 2 % topical 1 appl TOPICAL BID #85 g 03/16/21 powder acetaminophen 325 mg tablet 650 mg PO Q6H PRN #5 tab 05/28/21 (Tylenol) cyclobenzaprine 5 mg tablet 5 mg PO BEDTIME #5 tab 05/28/21 ferrous sulfate 325 mg (65 mg 325 mg PO DAILY #30 tab 05/28/21 iron) tablet oxycodone 5 mg tablet 5 mg PO Q6H PRN #15 tab 07/09/21 levofloxacin 750 mg tablet 750 mg PO DAILY 5 Days #5 tab 09/15/21 Allergies Allergy/AdvReac Type Severity Reaction Status Date / Time acetaminophen [From VICODIN] Allergy Unknown UNKNOWN Verified 09/15/21 10:10 aspirin Allergy Unknown Unknown Verified 09/15/21 10:10 hydrocodone [From VICODIN] Allergy Unknown UNKNOWN Verified 09/15/21 10:10 ibuprofen [From MOTRIN] Allergy Unknown UNKNOWN Verified 09/15/21 10:10 meperidine [From DEMEROL] Allergy Unknown UNKNOWN Verified 09/15/21 10:10 naproxen [Aleve] Allergy Unknown Unknown Verified 09/15/21 10:10 penicillin V Allergy Unknown Unknown Verified 09/15/21 10:10 Sulfa (Sulfonamide Allergy Unknown Unknown Verified 09/15/21 10:10 Antibiotics) tramadol Allergy Unknown Unknown Verified 09/15/21 10:10 diphenhydramine Allergy Unknown Verified 09/15/21 10:10 [From Benadryl] Codeine Sulfate Allergy Unknown Unknown Uncoded 07/16/20 20:32 Review of Systems Review of Systems: Upper back pain Yes all other systems are reviewed and are negative [facility] Past Medical History Medical History Anxiety Chronic back pain HTN (hypertension) Pseudoseizure Pulmonary embolus Seizure Social History Social History Alcohol intake: never Patient Tobacco Use Status: Former Tobacco user Advance Directives: No Patient : No Physical Exam Vital Signs: Vital Signs: Last Vital Signs Temp 98.0 F 09/15/21 10:08 Pulse 73 09/15/21 13:54 Resp 17 09/15/21 13:54 BP 120/73 09/15/21 12:45 Pulse Ox 96 09/15/21 13:54 BMI result Body Mass Index 31.6 Const: General: cooperative, healthy appearing, comfortable and no acute distress Orientation/consciousness: patient oriented x3 HENMT: Head: Yes normal to inspection, Yes No palpable skull fracture present, Yes normocephalic and Yes atraumatic Eyes: General: appearance normal, both eyes and all related structures Neck: Neck: Yes normal visual inspection, Yes full ROM, Yes no lymphadenopathy, Yes no meningeal signs, Yes trachea midline, Yes supple, No anterior neck swelling and No tender Chest: Chest palpation & inspection: normal inspection of the chest and normal palpation of entire chest wall Resp: Effort & Inspection: normal respiratory effort and able to speak in complete sentences Cardio: Jugular venous distension: no JVD Heart sounds: S1 normal heart sound present and S2 normal heart sound present GI: Inspection: Yes normal to inspection and No abdominal wall ecchymosis Palpation (GI): Soft to palpation, not firm, nontender, no guarding and not rigid : General: No CVA tenderness and Yes no CVA tenderness Back/Spine/Pelvis: Back: no CVA tenderness, No CVA tenderness, No sacral edema and back tenderness (thoracic tenderness on palpation. ) Skin: General skin exam: no rashes or lesions noted and elasticity normal Neuro: General: patient oriented x3, gait normal and no meningeal signs Extrem: General: Yes normal to inspection and Yes full ROM Psych: Appearance: grossly normal, well kempt and not disheveled Course Course Course Narrative: Awaiting for hospital note/discharge noddonovan from [facility]. Will give pain medication oxycodone, Flexeril, prednisone Reevaluation(s) Reevaluation #1: Still have not yet recent imaging and labs from [facility] due to this will do repeat images here no need for labs. Vital signs are stable. Time: 10:45 Reevaluation #2: Patient sleptcomfortably for hours in ED. Patient drowsy Patient med reviews and rellized patient is on lots of oxycodone/cyclobenxapine and is on Narcan and also Suboxone. Due to patient's history of opiate dependence/abuse were not give patient any more pain medication ( opoids or sedatives) to avoid any overdose from opioids. Patient walked to the bathroom on her own. Time: 12:55 Reevaluation #3: [facility] ED discharge papers from 09/11/2021 were and showed patient had normal labs and normal head CT and cervical spine CT. Patient thoracic CT today shows incidental left lobe opacity. COVID swab negative. Patient will be discharged antibiotics and treated as atypical pneumonia. We will not discharge patient on any narcotics or muscle relaxers or sedatives due to patient already being on those medication and history of opiate dependence. No labs indicated. Patient vital signs stable. Patient denies any urinary symptoms. Patient is alert oriented x3 Time: 15:28 MDM - Back Pain/Injury MDM Narrative Medical decision making narrative: Chronic back pain. Pneumonia Lab Data Labs: Lab Results 09/15/21 Range/Units 14:26 COVID-19 (SELVIN) Negative (Negative) COVID-19 Clin Com See Note Discharge Plan Discharge Clinical Impression: Pneumonia, Chronic back pain Patient Disposition: Home, Self-Care Instructions: Community Acquired Pneumonia (DC), Chronic Back Pain (DC) Additional Instructions: You will be discharged with antibiotics. Yet head CT and cervical spine CT came back normal. Yes thoracic CT came back negative for back fracture. Patient was incidental finding of pneumonia you will be discharged with antibiotic. Return to the ED for any chest pain, shortness of breath, weakness, dizziness, shortness of breath, coughing up blood, or any other concerning symptoms. He will not be discharged with any pain medication. Records show he still have oxycodone prescriptions. You can take [id number] Tylenol. Please follow- up with primary care provider Prescriptions: New levofloxacin 750 mg tablet 750 mg PO DAILY 5 Days Qty: 5 0RF No Action cyclobenzaprine 5 mg tablet 5 mg PO BEDTIME PRN (Reason: muscle spasm) Qty: 3 0RF ondansetron 4 mg tablet,disintegrating 4 mg PO Q6-8H PRN (Reason: nausea and vomiting) Qty: 7 0RF lidocaine [Lidoderm] 5 % adhesive patch,medicated 1 patch topical DAILY Qty: 15 0RF Rx Instructions: leave on most painful area for up to 12 hrs cyclobenzaprine 10 mg tablet 10 mg PO TID PRN (Reason: muscle spasm) Qty: 10 0RF miconazole nitrate 2 % powder 1 appl topical BID Qty: 85 0RF divalproex [Depakote] 500 mg tablet,delayed release (DR/EC) 500 mg PO BID Qty: 30 0RF divalproex [Depakote ER] 500 mg tablet extended release 24 hr 500 mg PO BID Qty: 60 3RF clonazepam 1 mg tablet 1 mg PO BID Qty: 30 0RF albuterol sulfate [ProAir HFA] 90 mcg/actuation HFA aerosol inhaler 2 puff inhalation Q6H PRN (Reason: shortness of breath or wheezing) Qty: 18 0RF Eliquis 5 mg tablet 5 mg PO BID Qty: 60 0RF simvastatin [Zocor] 20 mg tablet 20 mg PO BEDTIME Qty: 30 0RF gabapentin 300 mg capsule 300 mg PO TID Qty: 90 0RF amitriptyline 25 mg tablet 25 mg PO BEDTIME Qty: 30 0RF Flovent HFA 220 mcg/actuation HFA aerosol inhaler 1 puff inhalation BID Qty: 12 0RF omeprazole 20 mg capsule,delayed release(DR/EC) 20 mg PO DAILY Qty: 30 0RF oxycodone 5 mg tablet 5 mg PO Q6H PRN (Reason: pain) Qty: 20 0RF oxycodone 5 mg tablet 5 mg PO Q8H PRN (Reason: pain) Qty: 12 0RF clindamycin HCl 300 mg capsule 300 mg PO Q6H 5 Days Qty: 20 0RF hyoscyamine sulfate 0.125 mg tablet 0.125 mg PO QID Qty: 7 0RF loperamide 2 mg capsule 2 mg PO Q6H PRN (Reason: loose stool) Qty: 10 0RF Preparation H Rapid Rlf-Lidocn 5-0.25-14.4-15 % cream 1 appl topical TID Qty: 28 0RF acetaminophen [Tylenol] 325 mg tablet 650 mg PO Q6H PRN (Reason: fever or pain) Qty: 5 0RF cyclobenzaprine 5 mg tablet 5 mg PO BEDTIME Qty: 5 0RF ferrous sulfate 325 mg (65 mg iron) tablet 325 mg PO DAILY Qty: 30 0RF oxycodone 5 mg tablet 5 mg PO Q6H PRN (Reason: Moderate Pain (Scale Score 5-6)) Qty: 15 0RF Stand Alone Forms: Work/School Release Interventions: ED Discharge Assessment Last Done: 09/15/21 15:56 Discharge Date/Time: 09/15/21 15:57 Print Language: Maori
--- NOTE | 2021-09-15 12:10 | PC.NURSE ---
PT SLEEPING, EASILY AWOKEN, RESP WNL.
[2021-09-15 12:45] VITALS: BP 120/73; PULSE 58; RESP 16; O2SAT 98
--- NOTE | 2021-09-15 12:54 | PC.NURSE ---
assisted patient to ambulate to bathroom . Patient sleepy and requesting more pain medication . I informed her i would talk to the provider but that she was sleepy and would probably not be getting any more at this time . She asked me to step out and give her privacy . I was outside the door when she pulled the call [place] as I opened the door I witnessed her sit herself on the floor . I asked her what was going on with her that she felt the need to sit on the floor ? She stated I feel dizzy now . I asked for a wheel chair as I assisted the patient to standing . She was able to stand with a steady gait . Paige ROSENBERG assisted transfer to chair then to stretcher . Provider aware .
[2021-09-15 13:54] VITALS: PULSE 73; RESP 17; O2SAT 96
[2021-09-15 14:56] LABS: COVID-19 Test Negative (Negative); IDNOW Serial# 16C4AD1C
== END 2021-09-15 15:57 | disposition home or self-care (01) ==
PROVIDERS: Physician Assistant; Emergency Provider Emergency Medicine
DX: J18.9 Pneumonia, unspecified organism (principal); G89.29 Other chronic pain; M54.6 Pain in thoracic spine; I10 Essential (primary) hypertension; F11.20 Opioid dependence, uncomplicated; Z20.822 Contact with and (suspected) exposure to COVID-19; Z86.711 Personal history of pulmonary embolism; Z79.01 Long term (current) use of anticoagulants; Z79.02 Long term (current) use of antithrombotics/antiplatelets
CPT/HCPCS: 70450; 72125; 72128; 87635; 99284

== ENCOUNTER 2021-10-29 16:34 | Emergency (ER) | payer OTHER, SELFPAY ==
--- NOTE | ~2021-10-29 | CT_ITS ---
EXAMINATION: CT CHEST, ABDOMEN AND PELVIS WITHOUT CONTRAST. CLINICAL INFORMATION: Reason for Exam Fall in bathroom. rib fractures? . COMPARISON: No pertinent prior studies are available for comparison. TECHNIQUE: Multidetector volumetric imaging was performed from the thoracic inlet through the pubic symphysis without intravenous contrast. Sagittal and coronal reformatted images were obtained on the technologist workstation. This CT examination was performed using dose optimization techniques as appropriate, variously including the following: *Automated exposure control *Adjustment of mA and/or kV according to patient size (this includes techniques or standardized protocols for targeted exams where dose is matched to indication/reason for exam; i.e. extremities or head) *Use of iterative reconstruction technique DLP: 1337 mGy-cm FINDINGS: CHEST: Lungs: Incidental 3 mm subpleural pulmonary nodule in the lateral aspect of the right upper lobe seen best on axial image in retrospect not significantly changed from the 06/04/2020 CT scan. Mediastinum: Small hiatal hernia. The central vascular structures are unremarkable. No hilar or mediastinal lymphadenopathy. Pericardium/Pleura: No significant effusion. No pleural mass or thickening. Chest Wall/Axilla: Unremarkable. ABDOMEN/PELVIS: Peritoneal Space:No significant free air or free fluid identified. Liver, Gallbladder, Biliary Tree: The non contrast liver is normal in size, shape, and attenuation. No focal hepatic lesion or biliary ductal dilatation is present. The gallbladder surgically absent. There are several tiny calcifications along the posterior aspect of the liver. In theory this could represent dropped gallstones. The subtle findings haven't present on prior studies and are of no acute significance. No significant inflammatory changes or fluid associated with these calcifications Pancreas: Atrophic Spleen: Unremarkable. Adrenal Glands: Unremarkable. Kidneys and Ureters: The kidneys are normal in size, shape, and attenuation. No hydronephrosis, hydroureter, or calculi seen. No perinephric stranding. Bladder: Unremarkable. Gastrointestinal Tract: No colonic wall thickening or pericolonic inflammatory change. Moderate amount of stool seen throughout colon to the rectum. Normal-appearing appendix in the right lower quadrant. Visualized small bowel unremarkable Abdominal Wall: No significant hernia is appreciated. Lymphovascular Structures: No lymphadenopathy. The aorta is unremarkable.. Pelvic Viscera: Surgically absent Osseus Structures: Unremarkable. Specifically no displaced rib fractures. CT/CT abdomen pelvis wo con IMPRESSION: Although this is a noncontrast study, I do not appreciate any obvious acute visceral organ injury. No displaced rib fractures seen..
--- NOTE | ~2021-10-29 | CT_ITS ---
EXAMINATION: CT HEAD W/O IV CONTRAST CT CERVICAL SPINE W/O IV CONTRAST CLINICAL INFORMATION: History of fall and head strike. COMPARISON: 09/15/2021. TECHNIQUE: Head - Contiguous axial imaging of the head was performed from the skull base to the vertex without the administration of intravenous contrast, and axial images are reconstructed at 2 mm and 5 mm slice thickness. Cervical spine - A volumetric, helical CT acquisition of the cervical spine was obtained without contrast; in addition to the standard set of axial images, multiplanar reformatted images were provided in the coronal and sagittal imaging planes. This CT examination was performed using dose optimization techniques as appropriate, variously including the following: *Automated exposure control *Adjustment of mA and/or kV according to patient size (this includes techniques or standardized protocols for targeted exams where dose is matched to indication/reason for exam; i.e. extremities or head) *Use of iterative reconstruction technique DLP: 1615 mGy-cm (total) FINDINGS: HEAD: No evidence of intracranial hemorrhage, major vascular territory infarction, focal mass effect or midline shift. Brady to white matter differentiation is preserved. The ventricles have normal size and configuration. No extra-axial fluid collections. The calvarium is intact and the paranasal sinuses, mastoid air cells and middle ear cavities are clear. The temporomandibular joints are unremarkable. The orbits and globes are normal. CERVICAL SPINE: The cervical spine has normal curvature. No acute abnormalities. The craniocervical junction is normal. The occipital condyles, dens and atlantodental articulation are intact. The vertebral body heights and alignment are maintained. No fractures in the anterior or posterior elements. No prevertebral soft tissue swelling. The disc spaces are well-preserved. Small anterior vertebral osteophytes are noted at C4-C5, C5-C6 and C6-C7. No spinal canal stenosis. No hematoma or focal fluid collection in the visualized neck. The examined lung apices are clear. Thyroid gland is normal. CT/CT cervical spine wo con IMPRESSION: * No intracranial hemorrhage or other acute intracranial pathology compared to 09/15/2021. * No fracture or malalignment in the cervical spine.
[2021-10-29 16:51] VITALS: BP 136/77; PULSE 108; O2SAT 98
[2021-10-29 18:54] VITALS: BP 137/70; PULSE 62; RESP 16; TEMP 37.1; O2SAT 98
--- NOTE | 2021-10-29 19:04 | ED_ITS ---
HPI - General Adult General Chief complaint: Fall Stated complaint: FALL @3AM,ABD AND BACK PAIN Time Seen by Provider: 10/29/21 16:37 Source: patient Mode of arrival: ambulatory Limitations: no limitations History of Present Illness HPI narrative: 51-year-old female presents to ED for fall. Patient states this morning after urinating in the bathroom she got up and walking slipped on the wet floor in the bathroom and she fell and hit her head on the bathtub and her back. Patient states this occurred around 03:00 this morning. Patient denies any loss of consciousness. Patient denies any nausea, vomiting, rectal bleeding, bloody urine, coughing up blood, or vomiting blood. Related Data Previous Rx's Medication Instructions Recorded divalproex 500 mg tablet,delayed 500 mg PO BID #30 tab 04/21/20 release (Depakote) albuterol sulfate 90 mcg/actuation 2 puff INHALATION Q6H PRN #18 g 05/22/20 aerosol inhaler (ProAir HFA) amitriptyline 25 mg tablet 25 mg PO BEDTIME #30 tab 05/22/20 apixaban 5 mg tablet (Eliquis) 5 mg PO BID #60 tab 05/22/20 clonazepam 1 mg tablet 1 mg PO BID #30 tab 05/22/20 divalproex 500 mg tablet,extended 500 mg PO BID #60 tab 05/22/20 release 24 hr (Depakote ER) fluticasone propionate 220 1 puff INHALATION BID #12 g 05/22/20 mcg/actuation HFA aerosol inhaler (Flovent HFA) gabapentin 300 mg capsule 300 mg PO TID #90 cap 05/22/20 omeprazole 20 mg capsule,delayed 20 mg PO DAILY #30 cap 05/22/20 release oxycodone 5 mg tablet 5 mg PO Q6H PRN #20 tab 05/22/20 simvastatin 20 mg tablet (Zocor) 20 mg PO BEDTIME #30 tab 05/22/20 oxycodone 5 mg tablet 5 mg PO Q8H PRN #12 tab 06/04/20 cyclobenzaprine 5 mg tablet 5 mg PO BEDTIME PRN #3 tab 07/17/20 clindamycin HCl 300 mg capsule 300 mg PO Q6H 5 Days #20 cap 08/19/20 ondansetron 4 mg disintegrating 4 mg PO Q6-8H PRN #7 tab 08/24/20 tablet hyoscyamine sulfate 0.125 mg tablet 0.125 mg PO QID #7 tab 02/03/21 lidocaine 5 %-phenylephrine 0.25 1 appl TOPICAL TID #28 g 02/03/21 %-glycern 14.4 %-petrolatm 15 % cream (Preparation H Rapid Relief-Lidocaine) loperamide 2 mg capsule 2 mg PO Q6H PRN #10 cap 02/03/21 cyclobenzaprine 10 mg tablet 10 mg PO TID PRN #10 tab 02/04/21 lidocaine 5 % topical patch 1 patch TOPICAL DAILY #15 ea 02/04/21 (Lidoderm) miconazole nitrate 2 % topical 1 appl TOPICAL BID #85 g 03/16/21 powder acetaminophen 325 mg tablet 650 mg PO Q6H PRN #5 tab 05/28/21 (Tylenol) cyclobenzaprine 5 mg tablet 5 mg PO BEDTIME #5 tab 05/28/21 ferrous sulfate 325 mg (65 mg 325 mg PO DAILY #30 tab 05/28/21 iron) tablet oxycodone 5 mg tablet 5 mg PO Q6H PRN #15 tab 07/09/21 levofloxacin 750 mg tablet 750 mg PO DAILY 5 Days #5 tab 09/15/21 acetaminophen 325 mg capsule 650 mg PO Q6H PRN 7 Days #56 cap 10/29/21 Allergies Allergy/AdvReac Type Severity Reaction Status Date / Time acetaminophen [From VICODIN] Allergy Unknown UNKNOWN Verified 09/15/21 10:10 aspirin Allergy Unknown Unknown Verified 09/15/21 10:10 hydrocodone [From VICODIN] Allergy Unknown UNKNOWN Verified 09/15/21 10:10 ibuprofen [From MOTRIN] Allergy Unknown UNKNOWN Verified 09/15/21 10:10 meperidine [From DEMEROL] Allergy Unknown UNKNOWN Verified 09/15/21 10:10 naproxen [Aleve] Allergy Unknown Unknown Verified 09/15/21 10:10 penicillin V Allergy Unknown Unknown Verified 09/15/21 10:10 Sulfa (Sulfonamide Allergy Unknown Unknown Verified 09/15/21 10:10 Antibiotics) tramadol Allergy Unknown Unknown Verified 09/15/21 10:10 diphenhydramine Allergy Unknown Verified 09/15/21 10:10 [From Benadryl] Codeine Sulfate Allergy Unknown Unknown Uncoded 07/16/20 20:32 Review of Systems Review of Systems: Fall. Back pain, and headache. Yes all other systems are reviewed and are negative [facility] Past Medical History Medical History Anxiety Chronic back pain HTN (hypertension) Pseudoseizure Pulmonary embolus Seizure Social History Social History Alcohol intake: never Patient Tobacco Use Status: Former Tobacco user Advance Directives: No Advance Directives Information Provided: No Physical Exam ED Vital Signs: Vital Signs - 24 hr 10/29/21 18:54 10/29/21 21:40 Temperature 98.7 F 97.0 F Pulse Rate 62 82 Respiratory Rate 16 16 Blood Pressure 137/70 134/60 Pulse Oximetry 98 98 BMI result Body Mass Index 34.2 Const General: cooperative, healthy appearing, comfortable, no acute distress, well developed, alert, awake and Physically active Orientation/consciousness: patient oriented x3 HENMT Head: Yes normal to inspection, Yes No palpable skull fracture present, Yes normocephalic and Yes atraumatic Head images: 2 1. Tenderness. Negative for ecchymosis, crepitus, laceration, bleeding, erythema, pus discharge, or step-off Eyes General: appearance normal, both eyes and all related structures Neck Neck: Yes normal visual inspection, Yes full ROM, Yes no lymphadenopathy, Yes no meningeal signs, Yes trachea midline, Yes supple, No anterior neck swelling and No tender Chest Chest palpation & inspection: normal inspection of the chest and normal palpation of entire chest wall Resp Effort & Inspection: normal respiratory effort and able to speak in complete sentences Auscultation: clear to auscultation bilaterally Cardio Jugular venous distension: no JVD Heart sounds: S1 normal heart sound present and S2 normal heart sound present GI Inspection: Yes normal to inspection and No abdominal wall ecchymosis Palpation (GI): Soft to palpation, not firm, nontender, no guarding and not rigid General: No CVA tenderness and Yes no CVA tenderness Back/Spine/Pelvis Back: no CVA tenderness, No CVA tenderness and back tenderness (Lumbar and th oracic tenderness) Skin General skin exam: no rashes or lesions noted and elasticity normal Neuro General: patient oriented x3, gait normal, tone normal and no meningeal signs Cranial nerves: Yes CN's II-XII intact bilaterally Extrem General: Yes normal to inspection and Yes full ROM Upper/lower leg/hip images: 1. Tenderness on palpation but negative for any ecchymosis, crepitus, or de formities. Negative any external/internal rotation. Lower extremity motor/nose/vascular exam intact Psych Appearance: grossly normal, well kempt and not disheveled Course Course Course Narrative: Patient was sent for imaging to make sure does not blame., neck fracture, rib fractures, or hip fractures. Reevaluation(s) Reevaluation #1: All of patient's images came back normal. Pain improved with oxycodone and Toradol. Patient is safe for discharge. Time: 21:37 Medical Decision Making MDM Narrative Medical decision making narrative: Fall. back pain Discharge Plan Discharge Clinical Impression: Fall, Back pain Patient Disposition: Home, Self-Care Instructions: Fall Prevention for Older Adults (ED), Back Pain (ED) Additional Instructions: Your images came back normal for any fractures or life-threatening medical/surgical etiology. You are safe for discharge. Return to the ED immediately for any headache, dizziness, nausea, vomiting, flank pain, fever, chills, rectal bleeding, vomiting blood, coughing up blood, blood in stool, bloody urine, chest pain, shortness of breath, abdominal pain, or any other concerning symptoms. Prescriptions: New acetaminophen 325 mg capsule 650 mg PO Q6H PRN (Reason: pain) 7 Days Qty: 56 0RF No Action cyclobenzaprine 5 mg tablet 5 mg PO BEDTIME PRN (Reason: muscle spasm) Qty: 3 0RF ondansetron 4 mg tablet,disintegrating 4 mg PO Q6-8H PRN (Reason: nausea and vomiting) Qty: 7 0RF lidocaine [Lidoderm] 5 % adhesive patch,medicated 1 patch topical DAILY Qty: 15 0RF Rx Instructions: leave on most painful area for up to 12 hrs cyclobenzaprine 10 mg tablet 10 mg PO TID PRN (Reason: muscle spasm) Qty: 10 0RF miconazole nitrate 2 % powder 1 appl topical BID Qty: 85 0RF divalproex [Depakote] 500 mg tablet,delayed release (DR/EC) 500 mg PO BID Qty: 30 0RF divalproex [Depakote ER] 500 mg tablet extended release 24 hr 500 mg PO BID Qty: 60 3RF clonazepam 1 mg tablet 1 mg PO BID Qty: 30 0RF albuterol sulfate [ProAir HFA] 90 mcg/actuation HFA aerosol inhaler 2 puff inhalation Q6H PRN (Reason: shortness of breath or wheezing) Qty: 18 0RF Eliquis 5 mg tablet 5 mg PO BID Qty: 60 0RF simvastatin [Zocor] 20 mg tablet 20 mg PO BEDTIME Qty: 30 0RF gabapentin 300 mg capsule 300 mg PO TID Qty: 90 0RF amitriptyline 25 mg tablet 25 mg PO BEDTIME Qty: 30 0RF Flovent HFA 220 mcg/actuation HFA aerosol inhaler 1 puff inhalation BID Qty: 12 0RF omeprazole 20 mg capsule,delayed release(DR/EC) 20 mg PO DAILY Qty: 30 0RF oxycodone 5 mg tablet 5 mg PO Q6H PRN (Reason: pain) Qty: 20 0RF oxycodone 5 mg tablet 5 mg PO Q8H PRN (Reason: pain) Qty: 12 0RF clindamycin HCl 300 mg capsule 300 mg PO Q6H 5 Days Qty: 20 0RF hyoscyamine sulfate 0.125 mg tablet 0.125 mg PO QID Qty: 7 0RF loperamide 2 mg capsule 2 mg PO Q6H PRN (Reason: loose stool) Qty: 10 0RF Preparation H Rapid Rlf-Lidocn 5-0.25-14.4-15 % cream 1 appl topical TID Qty: 28 0RF acetaminophen [Tylenol] 325 mg tablet 650 mg PO Q6H PRN (Reason: fever or pain) Qty: 5 0RF cyclobenzaprine 5 mg tablet 5 mg PO BEDTIME Qty: 5 0RF ferrous sulfate 325 mg (65 mg iron) tablet 325 mg PO DAILY Qty: 30 0RF oxycodone 5 mg tablet 5 mg PO Q6H PRN (Reason: Moderate Pain (Scale Score 5-6)) Qty: 15 0RF levofloxacin 750 mg tablet 750 mg PO DAILY 5 Days Qty: 5 0RF Interventions: ED Discharge Assessment Last Done: 10/29/21 22:59 Discharge Date/Time: 10/29/21 23:00 Print Language: Yakut
[2021-10-29] MEDS: oxyCODONE HCl Immed Release 5 MG TABLET PO (19:08)
[2021-10-29] MEDS: Ketorolac Tromethamine 30 MG/ML VIAL IM (21:16)
[2021-10-29 21:40] VITALS: BP 134/60; PULSE 82; RESP 16; TEMP 36.1; O2SAT 98
[2021-10-29 21:46] VITALS: BMI 34.2
== END 2021-10-29 23:00 | disposition home or self-care (01) ==
PROVIDERS: Emergency Provider Emergency Medicine; PCP Physician Assistant Medical
DX: M54.50 Low back pain, unspecified (principal); M79.10 Myalgia, unspecified site; M54.2 Cervicalgia; M54.6 Pain in thoracic spine; R51.9 Headache, unspecified; Z79.899 Other long term (current) drug therapy; Z87.891 Personal history of nicotine dependence
CPT/HCPCS: 70450; 71250; 72125; 74176; 96372; 99284; J1885

== ENCOUNTER 2021-11-03 12:58 | Emergency (ER) | payer OTHER, SELFPAY ==
--- NOTE | ~2021-11-03 | CT_ITS ---
EXAMINATION: CT ABDOMEN AND PELVIS WITHOUT CONTRAST CLINICAL INFORMATION: Fall with back pain. COMPARISON: CT abdomen pelvis 10/29/2021 TECHNIQUE: Multidetector volumetric imaging was performed from the superior aspect of the liver through the pubic symphysis. Sagittal and coronal reformatted images were obtained on the technologist's workstation. This CT examination was performed using dose optimization techniques as appropriate, variously including the following: *Automated exposure control *Adjustment of mA and/or kV according to patient size (this includes techniques or standardized protocols for targeted exams where dose is matched to indication/reason for exam; i.e. extremities or head) *Use of iterative reconstruction technique DLP: 871 mGy-cm FINDINGS: LUNG BASES: Minimal linear atelectatic changes are seen in both lung bases. There is a small hiatal hernia. The heart size is normal. LIVER, GALLBLADDER, AND BILIARY TREE: The liver is normal in size, shape, and attenuation. No focal hepatic lesion or biliary ductal dilatation is present. There are multiple lung calcifications along the liver capsule unchanged to previous 10/29/2021 and 02/03/2021. Gallbladder has been surgically removed. PANCREAS: Unremarkable. SPLEEN: Unremarkable. ADRENAL GLANDS: Unremarkable. KIDNEYS AND URETERS: The kidneys are normal in size, shape, and attenuation. No hydronephrosis, hydroureter, or calculi seen. No perinephric stranding. BLADDER: Unremarkable. GASTROINTESTINAL TRACT: The small and large bowel are unremarkable. The appendix is unremarkable. ABDOMINAL WALL: No significant hernia is appreciated. LYMPH NODES: Normal. VASCULAR: Unremarkable. PELVIC VISCERA: Unremarkable. OSSEOUS STRUCTURES: Unremarkable. CT/CT abdomen pelvis wo con IMPRESSION: No acute intra-abdominal process seen. There is no visible fracture involving lumbosacral spine or the lower ribs. Bibasilar atelectasis and a small hiatal hernia. Fleischner guidelines were followed.
[2021-11-03 13:18] VITALS: BP 132/90; PULSE 128; O2SAT 98
[2021-11-03 16:38] VITALS: BP 146/97; PULSE 89; RESP 20; TEMP 36.7; O2SAT 99; BMI 34.2
[2021-11-03 16:51] VITALS: BP 146/97; PULSE 76; RESP 16; TEMP 37.1; O2SAT 100
--- NOTE | 2021-11-03 17:38 | ED_ITS ---
HPI - Back Pain/Injury General Chief Complaint: Back Pain/Injury Stated Complaint: back pain, seizures Time Seen by Provider: 11/03/21 13:02 Source: patient, old records reviewed and foreign language interpreter Mode of arrival: EMS Limitations: no limitations History of Present Illness HPI Narrative: patient has been seen several times in our department for back pain - not on blood thinners at this time MD elicited complaint: back pain and back injury Pertinent past history: prior back pain and other (had a fall on 10/[address]) Onset (ago): day(s) (10/29) Timing: constant Severity: moderate Similar Symptoms Previously: Yes Quality: aching and throbbing Location: lumbar spine Radiation: left upper leg and right upper leg Exacerbating factors: movement and walking Relieving factors: none Context: fall and other (seizure) Associated symptoms: denies other symptoms Work related injury: No Related Data Previous Rx's Medication Instructions Recorded divalproex 500 mg tablet,delayed 500 mg PO BID #30 tab 04/21/20 release (Depakote) albuterol sulfate 90 mcg/actuation 2 puff INHALATION Q6H PRN #18 g 05/22/20 aerosol inhaler (ProAir HFA) amitriptyline 25 mg tablet 25 mg PO BEDTIME #30 tab 05/22/20 apixaban 5 mg tablet (Eliquis) 5 mg PO BID #60 tab 05/22/20 clonazepam 1 mg tablet 1 mg PO BID #30 tab 05/22/20 divalproex 500 mg tablet,extended 500 mg PO BID #60 tab 05/22/20 release 24 hr (Depakote ER) fluticasone propionate 220 1 puff INHALATION BID #12 g 05/22/20 mcg/actuation HFA aerosol inhaler (Flovent HFA) gabapentin 300 mg capsule 300 mg PO TID #90 cap 05/22/20 omeprazole 20 mg capsule,delayed 20 mg PO DAILY #30 cap 05/22/20 release oxycodone 5 mg tablet 5 mg PO Q6H PRN #20 tab 05/22/20 simvastatin 20 mg tablet (Zocor) 20 mg PO BEDTIME #30 tab 05/22/20 oxycodone 5 mg tablet 5 mg PO Q8H PRN #12 tab 06/04/20 cyclobenzaprine 5 mg tablet 5 mg PO BEDTIME PRN #3 tab 07/17/20 clindamycin HCl 300 mg capsule 300 mg PO Q6H 5 Days #20 cap 08/19/20 ondansetron 4 mg disintegrating 4 mg PO Q6-8H PRN #7 tab 08/24/20 tablet hyoscyamine sulfate 0.125 mg tablet 0.125 mg PO QID #7 tab 02/03/21 lidocaine 5 %-phenylephrine 0.25 1 appl TOPICAL TID #28 g 02/03/21 %-glycern 14.4 %-petrolatm 15 % cream (Preparation H Rapid Relief-Lidocaine) loperamide 2 mg capsule 2 mg PO Q6H PRN #10 cap 02/03/21 cyclobenzaprine 10 mg tablet 10 mg PO TID PRN #10 tab 02/04/21 lidocaine 5 % topical patch 1 patch TOPICAL DAILY #15 ea 02/04/21 (Lidoderm) miconazole nitrate 2 % topical 1 appl TOPICAL BID #85 g 03/16/21 powder acetaminophen 325 mg tablet 650 mg PO Q6H PRN #5 tab 05/28/21 (Tylenol) cyclobenzaprine 5 mg tablet 5 mg PO BEDTIME #5 tab 05/28/21 ferrous sulfate 325 mg (65 mg 325 mg PO DAILY #30 tab 05/28/21 iron) tablet oxycodone 5 mg tablet 5 mg PO Q6H PRN #15 tab 07/09/21 levofloxacin 750 mg tablet 750 mg PO DAILY 5 Days #5 tab 09/15/21 acetaminophen 325 mg capsule 650 mg PO Q6H PRN 7 Days #56 cap 10/29/21 Allergies Allergy/AdvReac Type Severity Reaction Status Date / Time acetaminophen [From VICODIN] Allergy Unknown UNKNOWN Verified 09/15/21 10:10 aspirin Allergy Unknown Unknown Verified 09/15/21 10:10 hydrocodone [From VICODIN] Allergy Unknown UNKNOWN Verified 09/15/21 10:10 ibuprofen [From MOTRIN] Allergy Unknown UNKNOWN Verified 09/15/21 10:10 meperidine [From DEMEROL] Allergy Unknown UNKNOWN Verified 09/15/21 10:10 naproxen [Aleve] Allergy Unknown Unknown Verified 09/15/21 10:10 penicillin V Allergy Unknown Unknown Verified 09/15/21 10:10 Sulfa (Sulfonamide Allergy Unknown Unknown Verified 09/15/21 10:10 Antibiotics) tramadol Allergy Unknown Unknown Verified 09/15/21 10:10 diphenhydramine Allergy Unknown Verified 09/15/21 10:10 [From Benadryl] Codeine Sulfate Allergy Unknown Unknown Uncoded 07/16/20 20:32 Review of Systems Review of Systems: Constitutional : No Weight loss, No Fever, No Chills, ENT/Mouth : No Hearing loss, No Ear Pain, No Nasal Congestion, No Sinus Pain, No Hoarseness, No sore throat, No Rhinorrhea, No Swallowing Difficulty Cardiovascular : No Chest Pain, No SOB Respiratory : No Cough, No Dyspnea Gastrointestinal : No Nausea, No Vomiting, No Diarrhea, No abdominal Pain, No Hematochezia, No Melena Genitourinary : No Dysuria, No Urinary Frequency, No Hematuria, No Urinary Incontinence, Musculoskeletal : positive back pain Skin : No Skin Lesions, No rash Neuro : No Weakness, No Numbness, No Paresthesias, no loss of bowel or bladder incontinence, no saddle anesthesia All other systems reviewed and are negative PMFSH Past Medical History Attestation statement: The following information was validated with the patient. Medical History Anxiety Chronic back pain HTN (hypertension) Pseudoseizure Pulmonary embolus Seizure Social History Social History Alcohol intake: never Patient Tobacco Use Status: Former Tobacco user Advance Directives: No Advance Directives Information Provided: No Physical Exam Vital Signs: Vital Signs: Last Vital Signs Temp 98.2 F 11/03/21 18:37 Pulse 84 11/03/21 18:37 Resp 16 11/03/21 18:37 BP 149/95 H 11/03/21 18:37 Pulse Ox 99 11/03/21 18:37 BMI result Body Mass Index 34.2 Appearance: Alert. Oriented X3. No acute distress. Eyes: Pupils equal, round and reactive to light. ENT: Pharynx normal. Neck: Normal inspection. Neck supple. CVS: Normal heart rate and rhythm. Pulses normal. Respiratory: No respiratory distress. Breath sounds normal. Abdomen: Soft and non-tender. Back: ttp along lower lumbar midline Skin: Skin warm and dry. Normal skin color. Normal skin turgor. Extremities: trace non pitting edema of bilateral lower ankles Neuro: Oriented X 3. No motor deficit. No sensory deficit. no clonus, moving legs around without issue, SILT inner thighs, 2+ DP pulses distally, L5 5/5 bilaterally Course Course Course Narrative: patient denied being in pain management or on pain medications at home on arrival but when confronted with TID films of 8/2 of suboxone she states they don't really work. Then admits she is on them. Will try PO valium. patient just began yelling at staff stating we did not get imaging of her lower back - attempted to be reassured by PA when I was out of the department. PA is fluent in Danish. Patient would not listen. Patient eloped from the Emergency Department. MDM - Back Pain/Injury MDM Narrative Medical decision making narrative: 51 yo female with hx of chronic back pain waiting to get into pain management center, seizures on depakote daily last seizure 1 day ago, asthma, prior VTE but no longer on DOAC comes in with c/o low back pain without b/b incontinence/saddle anesthesia. She has been seen here several times in the past for back pain. At this time will obtain basic labs, UA, CT scan given her pain wraps around her abdomen. PO pain medications. Lab Data Result diagrams: 11/03/21 18:56 11/03/21 18:56 Labs: Lab Results 11/03/21 11/03/21 Range/Units 18:56 18:56 WBC 7.3 (4.8-10.8) X10*3/uL RBC 4.15 L (4.20-5.50) X10*6/uL Hgb 10.7 L (12.0-16.0) g/dl Hct 34.1 L (37.0-47.0) % MCV 82.2 (80.0-98.0) fL MCH 25.8 L (27.0-33.0) pg MCHC 31.4 (31.0-35.0) g/dl RDW 16.1 H (11.0-16.0) % Plt Count 319 (160-400) X10*3/uL MPV 9.0 L (9.4-12.3) fL Immature Gran % (Auto) 0.3 (0.0-0.4) % Neut % (Auto) 52.2 (45-73) % Lymph % (Auto) 34.7 (20-40) % [place] % (Auto) 11.2 H (2-11) % Eos % (Auto) 1.2 (0-4) % Baso % (Auto) 0.4 (0-2) % Lymph # (Auto) 2.5 (1.2-4.9) X10*3/uL [place] # (Auto) 0.8 (0.1-1.2) X10*3/uL Eos # (Auto) 0.1 (0.0-0.4) X10*3/uL Baso # (Auto) 0.0 (0.0-0.2) X10*3/uL Abs Immat Gran (auto) 0.02 (0.00-0.03) X10*3/uL Absolute Neuts (auto) 3.8 (2.0-8.3) x10*3/uL Absolute Nucleated RBC 0.000 (0.0-0.012) X10*3/uL Nucleated RBC % (auto) 0.0 (0.0-0.2) /100WBC Urine Color YELLOW Urine Appearance CLEAR Urine pH 5.5 (5.0-8.0) Ur Specific [place] 1.025 (1.005-1.025) Urine Protein NEG (NEG-TRACE) MG/DL Urine Glucose (UA) NEG (NEG) MG/DL Urine Ketones NEG (NEG) MG/DL Urine Blood NEG (NEG) Urine Nitrite NEG (NEG) Ur Leukocyte Esterase NEG (NEG) Discharge Plan Discharge Clinical Impression: Chronic back pain Patient Disposition: Elopement Prescriptions: No Action cyclobenzaprine 5 mg tablet 5 mg PO BEDTIME PRN (Reason: muscle spasm) Qty: 3 0RF ondansetron 4 mg tablet,disintegrating 4 mg PO Q6-8H PRN (Reason: nausea and vomiting) Qty: 7 0RF lidocaine [Lidoderm] 5 % adhesive patch,medicated 1 patch topical DAILY Qty: 15 0RF Rx Instructions: leave on most painful area for up to 12 hrs cyclobenzaprine 10 mg tablet 10 mg PO TID PRN (Reason: muscle spasm) Qty: 10 0RF miconazole nitrate 2 % powder 1 appl topical BID Qty: 85 0RF divalproex [Depakote] 500 mg tablet,delayed release (DR/EC) 500 mg PO BID Qty: 30 0RF divalproex [Depakote ER] 500 mg tablet extended release 24 hr 500 mg PO BID Qty: 60 3RF clonazepam 1 mg tablet 1 mg PO BID Qty: 30 0RF albuterol sulfate [ProAir HFA] 90 mcg/actuation HFA aerosol inhaler 2 puff inhalation Q6H PRN (Reason: shortness of breath or wheezing) Qty: 18 0RF Eliquis 5 mg tablet 5 mg PO BID Qty: 60 0RF simvastatin [Zocor] 20 mg tablet 20 mg PO BEDTIME Qty: 30 0RF gabapentin 300 mg capsule 300 mg PO TID Qty: 90 0RF amitriptyline 25 mg tablet 25 mg PO BEDTIME Qty: 30 0RF Flovent HFA 220 mcg/actuation HFA aerosol inhaler 1 puff inhalation BID Qty: 12 0RF omeprazole 20 mg capsule,delayed release(DR/EC) 20 mg PO DAILY Qty: 30 0RF oxycodone 5 mg tablet 5 mg PO Q6H PRN (Reason: pain) Qty: 20 0RF oxycodone 5 mg tablet 5 mg PO Q8H PRN (Reason: pain) Qty: 12 0RF clindamycin HCl 300 mg capsule 300 mg PO Q6H 5 Days Qty: 20 0RF hyoscyamine sulfate 0.125 mg tablet 0.125 mg PO QID Qty: 7 0RF loperamide 2 mg capsule 2 mg PO Q6H PRN (Reason: loose stool) Qty: 10 0RF Preparation H Rapid Rlf-Lidocn 5-0.25-14.4-15 % cream 1 appl topical TID Qty: 28 0RF acetaminophen 325 mg capsule 650 mg PO Q6H PRN (Reason: pain) 7 Days Qty: 56 0RF acetaminophen [Tylenol] 325 mg tablet 650 mg PO Q6H PRN (Reason: fever or pain) Qty: 5 0RF cyclobenzaprine 5 mg tablet 5 mg PO BEDTIME Qty: 5 0RF ferrous sulfate 325 mg (65 mg iron) tablet 325 mg PO DAILY Qty: 30 0RF oxycodone 5 mg tablet 5 mg PO Q6H PRN (Reason: Moderate Pain (Scale Score 5-6)) Qty: 15 0RF levofloxacin 750 mg tablet 750 mg PO DAILY 5 Days Qty: 5 0RF
[2021-11-03] MEDS: oxyCODONE HCl Immed Release 5 MG TABLET 10 MG PO (17:43)
[2021-11-03 18:37] VITALS: BP 149/95; PULSE 84; RESP 16; TEMP 36.8; O2SAT 99
[2021-11-03 19:02] LABS: MANUAL DIFF FLAG NO
[2021-11-03 19:04] LABS: Basophils Percent Auto 0.4 % (0-2); Eosinophils Absolute Auto 0.1 X10*3/uL (0.0-0.4); Eosinophils Percent Auto 1.2 % (0-4); Hematocrit 34.1 % (37.0-47.0); Hemoglobin 10.7 g/dl (12.0-16.0); Imm Gran Abs Auto 0.02 X10*3/uL (0.00-0.03); Imm Gran Pct Auto 0.3 % (0.0-0.4); Lymphocytes Absolute Auto 2.5 X10*3/uL (1.2-4.9); Lymphocytes Percent Auto 34.7 % (20-40); Mean Corpuscular HGB Conc 31.4 g/dl (31.0-35.0); Mean Corpuscular Hemoglobin 25.8 pg (27.0-33.0); Mean Corpuscular Volume 82.2 fL (80.0-98.0); Monocytes Absolute Auto 0.8 X10*3/uL (0.1-1.2); Monocytes Percent Auto 11.2 % (2-11); Neutrophils Absolute Auto 3.8 x10*3/uL (2.0-8.3); Neutrophils Percent Auto 52.2 % (45-73); Platelet Count 319 X10*3/uL (160-400); Red Blood Count 4.15 X10*6/uL (4.20-5.50); Red Cell Distribution Width 16.1 % (11.0-16.0); White Blood Count 7.3 X10*3/uL (4.8-10.8)
[2021-11-03 19:05] LABS: Appearance Urine CLEAR; Color Urine YELLOW; Glucose Urine UA NEG (NEG); Leukocyte Esterase Urine NEG (NEG); Nitrite Urine NEG (NEG); PH 5.5 (5.0-8.0); Specific Gravity - Urine 1.025 (1.005-1.025); Urine Blood NEG (NEG); Urine Ketones NEG (NEG); Urine Protein NEG (NEG-TRACE)
[2021-11-03 19:20] LABS: Alanine Aminotransferase 13 U/L (0-31); Albumin Level 3.8 g/dL (3.5-5.0); Alkaline Phosphatase 88 U/L (39-117); Anion Gap 12 (12-20); Aspartate Amino Transferase 17 U/L (5-31); Bilirubin Direct < 0.2 mg/dL (0.0-0.5); Bilirubin Total 0.3 mg/dL (0.0-1.0); Blood Urea Nitrogen 8 mg/dL (9-16); Calcium 9.1 mg/dL (8.4-10.2); Carbon Dioxide 26 mmol/L (22-29); Chloride 106 mmol/L (96-108); Creatinine Clr Calc Pharmacy 113.4; Estimated Glomerular Filt Rate > 60; Glucose Random 89 mg/dL (60-115); Lipase 4 U/L (8-78); Potassium 4.5 mmol/L (3.3-5.1); Sodium 139 mmol/L (135-145); Total Protein 6.7 g/dL (6.5-8.0)
[2021-11-03 19:21] LABS: Amphetamine Screen Urine Not Detected (Not Detect); Barbiturates, Urine Not Detected (Not Detect); Benzodiazepines Screen Urine POSITIVE (Not Detect); Cannabinoid Screen Urine Not Detected (Not Detect); Cocaine Screen Urine Not Detected (Not Detect); Fentanyl, urine Not Detected (Not Detect); Opiate Screen Urine Not Detected (Not Detect); Phencyclidine Screen Urine Not Detected (Not Detect)
[2021-11-03 19:24] LABS: Valproate 22.7 mcg/mL (50.0-100.0)
== END 2021-11-03 20:54 | disposition left against medical advice (07) ==
PROVIDERS: Emergency Provider Emergency Medicine
DX: M54.50 Low back pain, unspecified (principal); R56.9 Unspecified convulsions; R10.9 Unspecified abdominal pain; Z79.899 Other long term (current) drug therapy; Z87.891 Personal history of nicotine dependence
CPT/HCPCS: 36415; 74176; 80048; 80076; 80164; 80307; 81003; 83690; 85025; 99284

== ENCOUNTER 2021-12-22 22:54 | Emergency (ER) | payer OTHER, SELFPAY ==
--- NOTE | ~2021-12-22 | XR_ITS ---
EXAMINATION: XR CHEST CLINICAL INFORMATION: Shortness of breath COMPARISON: 08/17/2021 TECHNIQUE: Frontal view of the chest was obtained. FINDINGS: Normal symmetric lung volumes. No parenchymal consolidation. No pleural effusion. No pneumothorax. Cardiomediastinal silhouette and pulmonary vascularity are within normal limits. No acute osseous abnormalities. XR/XR chest 1V IMPRESSION: No acute findings.
[2021-12-22 23:04] VITALS: BP 141/88; BP 147/97; PULSE 117; PULSE 80; RESP 28; TEMP 36.4; O2SAT 100; O2SAT 97; BMI 36.0
[2021-12-22 23:09] VITALS: PULSE 113
--- NOTE | 2021-12-22 23:18 | ED_ITS ---
HPI - Asthma General Chief Complaint: Asthma Stated Complaint: sob Time Seen by Provider: 12/22/21 23:00 Source: patient Mode of arrival: EMS Limitations: no limitations History of Present Illness HPI Narrative: Patient history of anxiety pseudoseizures and asthma comes here for having 2 seizures today along with coughing for last 2 days and wheezing. Patient states she does not remember about having seizure but she was not postictal complaining of body aches all over has increased anxiety earlier today, similar episodes in the past. No fever no chills has dry cough he denies any chest pain. No leg pain or swelling Related Data Previous Rx's Medication Instructions Recorded divalproex 500 mg tablet,delayed 500 mg PO BID #30 tab 04/21/20 release (Depakote) albuterol sulfate 90 mcg/actuation 2 puff INHALATION Q6H PRN #18 g 05/22/20 aerosol inhaler (ProAir HFA) amitriptyline 25 mg tablet 25 mg PO BEDTIME #30 tab 05/22/20 apixaban 5 mg tablet (Eliquis) 5 mg PO BID #60 tab 05/22/20 clonazepam 1 mg tablet 1 mg PO BID #30 tab 05/22/20 divalproex 500 mg tablet,extended 500 mg PO BID #60 tab 05/22/20 release 24 hr (Depakote ER) fluticasone propionate 220 1 puff INHALATION BID #12 g 05/22/20 mcg/actuation HFA aerosol inhaler (Flovent HFA) gabapentin 300 mg capsule 300 mg PO TID #90 cap 05/22/20 omeprazole 20 mg capsule,delayed 20 mg PO DAILY #30 cap 05/22/20 release oxycodone 5 mg tablet 5 mg PO Q6H PRN #20 tab 05/22/20 simvastatin 20 mg tablet (Zocor) 20 mg PO BEDTIME #30 tab 05/22/20 oxycodone 5 mg tablet 5 mg PO Q8H PRN #12 tab 06/04/20 cyclobenzaprine 5 mg tablet 5 mg PO BEDTIME PRN #3 tab 07/17/20 clindamycin HCl 300 mg capsule 300 mg PO Q6H 5 Days #20 cap 08/19/20 ondansetron 4 mg disintegrating 4 mg PO Q6-8H PRN #7 tab 08/24/20 tablet hyoscyamine sulfate 0.125 mg tablet 0.125 mg PO QID #7 tab 02/03/21 lidocaine 5 %-phenylephrine 0.25 1 appl TOPICAL TID #28 g 02/03/21 %-glycern 14.4 %-petrolatm 15 % cream (Preparation H Rapid Relief-Lidocaine) loperamide 2 mg capsule 2 mg PO Q6H PRN #10 cap 02/03/21 cyclobenzaprine 10 mg tablet 10 mg PO TID PRN #10 tab 02/04/21 lidocaine 5 % topical patch 1 patch TOPICAL DAILY #15 ea 02/04/21 (Lidoderm) miconazole nitrate 2 % topical 1 appl TOPICAL BID #85 g 03/16/21 powder acetaminophen 325 mg tablet 650 mg PO Q6H PRN #5 tab 05/28/21 (Tylenol) cyclobenzaprine 5 mg tablet 5 mg PO BEDTIME #5 tab 05/28/21 ferrous sulfate 325 mg (65 mg 325 mg PO DAILY #30 tab 05/28/21 iron) tablet oxycodone 5 mg tablet 5 mg PO Q6H PRN #15 tab 07/09/21 levofloxacin 750 mg tablet 750 mg PO DAILY 5 Days #5 tab 09/15/21 acetaminophen 325 mg capsule 650 mg PO Q6H PRN 7 Days #56 cap 10/29/21 albuterol sulfate 90 mcg/actuation 2 puff INHALATION Q4-6H PRN #8.5 g 12/23/21 aerosol inhaler (ProAir HFA) oxycodone-acetaminophen 5 mg-325 1 tab PO Q6H PRN #20 tab 12/23/21 mg tablet (Percocet) prednisone 20 mg tablet 40 mg PO DAILY #10 tab 12/23/21 Allergies Allergy/AdvReac Type Severity Reaction Status Date / Time acetaminophen [From VICODIN] Allergy Unknown UNKNOWN Verified 09/15/21 10:10 aspirin Allergy Unknown Unknown Verified 09/15/21 10:10 hydrocodone [From VICODIN] Allergy Unknown UNKNOWN Verified 09/15/21 10:10 ibuprofen [From MOTRIN] Allergy Unknown UNKNOWN Verified 09/15/21 10:10 meperidine [From DEMEROL] Allergy Unknown UNKNOWN Verified 09/15/21 10:10 naproxen [Aleve] Allergy Unknown Unknown Verified 09/15/21 10:10 penicillin V Allergy Unknown Unknown Verified 09/15/21 10:10 Sulfa (Sulfonamide Allergy Unknown Unknown Verified 09/15/21 10:10 Antibiotics) tramadol Allergy Unknown Unknown Verified 09/15/21 10:10 diphenhydramine Allergy Unknown Verified 09/15/21 10:10 [From Benadryl] Codeine Sulfate Allergy Unknown Unknown Uncoded 07/16/20 20:32 Review of Systems Review of Systems: Yes all other systems are reviewed and are negative [facility] Past Medical History Medical History Anxiety Chronic back pain HTN (hypertension) Pseudoseizure Pulmonary embolus Seizure Social History Social History Alcohol intake: never Patient Tobacco Use Status: Former Tobacco user Use of substances other than those prescribed or required for medical reasons: No Advance Directives: No Patient : No Physical Exam Vital Signs: Vital Signs: Last Vital Signs Temp 97.6 F 12/22/21 23:04 Pulse 122 H 12/22/21 23:37 Resp 32 H 12/23/21 00:08 BP 141/88 H 12/22/21 23:04 Pulse Ox 100 12/22/21 23:04 BMI result Body Mass Index 36.0 Appearance: Alert. Oriented X3. No acute distress. Anxious Eyes: PERRLA, No Nystagmus ENT: Pharynx normal. Oral Mucosa moist Neck: Normal inspection. Neck supple. CVS: Normal heart rate and rhythm. Pulses normal. Respiratory: No respiratory distress. Equal air entry bilateral, bilateral wheezing and rhonchi no rales no stridor Abdomen: Soft and nontender. Bowel sounds are present, no mass palpable, no CVA tenderness Skin: Skin warm and dry. Normal skin color. Normal skin turgor. Extremities: No lower extremity edema. No calf tenderness Neuro: Oriented X 3. No motor deficit. MDM - Asthma MDM Narrative Medical decision making narrative: Patient with chronic pain syndrome with asthma came with pseudo seizure supposed to see pain clinic asking for pain medications patient wheezing improved after nebulizing treatment and Solu-Medrol. Labs are stable COVID is negative chest x-ray without any acute infiltrater patient is saturating 100% at room air will discharge patient home Lab Data Attestation: I reviewed the patient's lab results. Result diagrams: 12/23/21 00:39 12/23/21 00:22 Labs: Lab Results 12/22/21 12/22/21 12/23/21 Range/Units 23:46 23:47 00:22 WBC (4.8-10.8) X10*3/uL RBC (4.20-5.50) X10*6/uL Hgb (12.0-16.0) g/dl Hct (37.0-47.0) % MCV (80.0-98.0) fL MCH (27.0-33.0) pg MCHC (31.0-35.0) g/dl RDW (11.0-16.0) % Plt Count (160-400) X10*3/uL MPV (9.4-12.3) fL Immature Gran % (Auto) (0.0-0.4) % Neut % (Auto) (45-73) % Lymph % (Auto) (20-40) % [place] % (Auto) (2-11) % Eos % (Auto) (0-4) % Baso % (Auto) (0-2) % Lymph # (Auto) (1.2-4.9) X10*3/uL [place] # (Auto) (0.1-1.2) X10*3/uL Eos # (Auto) (0.0-0.4) X10*3/uL Baso # (Auto) (0.0-0.2) X10*3/uL Abs Immat Gran (auto) (0.00-0.03) X10*3/uL Absolute Neuts (auto) (2.0-8.3) x10*3/uL Absolute Nucleated RBC (0.0-0.012) X10*3/uL Nucleated RBC % (auto) (0.0-0.2) /100WBC Sodium 143 (135-145) mmol/L Potassium 4.6 (3.3-5.1) mmol/L Chloride 108 (96-108) mmol/L Carbon Dioxide 25 (22-29) mmol/L Anion Gap 15 (12-20) BUN 17 H D (9-16) mg/dL Creatinine 0.85 (0.5-1.4) mg/dL Estim Creat Clear Calc 102.8 Estimated GFR > 60 Random Glucose 115 (60-115) mg/dL Calcium 8.8 (8.4-10.2) mg/dL Total Bilirubin 0.3 (0.0-1.0) mg/dL AST 18 (5-31) U/L ALT 14 (0-31) U/L Alkaline Phosphatase 98 (39-117) U/L Total Protein 6.9 (6.5-8.0) g/dL Albumin 4.1 (3.5-5.0) g/dL COVID-19 (SELVIN) Negative (Negative) COVID-19 Clin Com See Note Influenza Type A (HANK) Negative (Negative) Influenza Type B (HANK) Negative (Negative) Influenza A & B Note See Note 12/23/21 Range/Units 00:39 WBC 9.2 (4.8-10.8) X10*3/uL RBC 4.11 L (4.20-5.50) X10*6/uL Hgb 10.6 L (12.0-16.0) g/dl Hct 34.9 L (37.0-47.0) % MCV 84.9 (80.0-98.0) fL MCH 25.8 L (27.0-33.0) pg MCHC 30.4 L (31.0-35.0) g/dl RDW 17.6 H (11.0-16.0) % Plt Count 323 (160-400) X10*3/uL MPV 8.8 L (9.4-12.3) fL Immature Gran % (Auto) 0.5 H (0.0-0.4) % Neut % (Auto) 48.1 (45-73) % Lymph % (Auto) 38.7 (20-40) % [place] % (Auto) 9.3 (2-11) % Eos % (Auto) 3.0 (0-4) % Baso % (Auto) 0.4 (0-2) % Lymph # (Auto) 3.6 (1.2-4.9) X10*3/uL [place] # (Auto) 0.9 (0.1-1.2) X10*3/uL Eos # (Auto) 0.3 (0.0-0.4) X10*3/uL Baso # (Auto) 0.0 (0.0-0.2) X10*3/uL Abs Immat Gran (auto) 0.05 H (0.00-0.03) X10*3/uL Absolute Neuts (auto) 4.4 (2.0-8.3) x10*3/uL Absolute Nucleated RBC 0.000 (0.0-0.012) X10*3/uL Nucleated RBC % (auto) 0.0 (0.0-0.2) /100WBC Sodium (135-145) mmol/L Potassium (3.3-5.1) mmol/L Chloride (96-108) mmol/L Carbon Dioxide (22-29) mmol/L Anion Gap (12-20) BUN (9-16) mg/dL Creatinine (0.5-1.4) mg/dL Estim Creat Clear Calc Estimated GFR Random Glucose (60-115) mg/dL Calcium (8.4-10.2) mg/dL Total Bilirubin (0.0-1.0) mg/dL AST (5-31) U/L ALT (0-31) U/L Alkaline Phosphatase (39-117) U/L Total Protein (6.5-8.0) g/dL Albumin (3.5-5.0) g/dL COVID-19 (SELVIN) (Negative) COVID-19 Clin Com Influenza Type A (HANK) (Negative) Influenza Type B (HANK) (Negative) Influenza A & B Note Discharge Plan Discharge Clinical Impression: Asthma with acute exacerbation, Pseudoseizures, Chronic pain Patient Disposition: Still a Patient Instructions: Asthma (ED), Pain Management (ED), Chronic Pain (ED), Nonepileptic Seizures (ED) Additional Instructions: Continue your inhaler and other medication as prescribed Follow-up with pain clinic Prescriptions: New prednisone 20 mg tablet 40 mg PO DAILY Qty: 10 0RF oxycodone-acetaminophen [Percocet] 5-325 mg tablet 1 tab PO Q6H PRN (Reason: pain) Qty: 20 0RF albuterol sulfate [ProAir HFA] 90 mcg/actuation HFA aerosol inhaler 2 puff inhalation Q4-6H PRN (Reason: Wheezing) Qty: 8.5 0RF No Action cyclobenzaprine 5 mg tablet 5 mg PO BEDTIME PRN (Reason: muscle spasm) Qty: 3 0RF ondansetron 4 mg tablet,disintegrating 4 mg PO Q6-8H PRN (Reason: nausea and vomiting) Qty: 7 0RF lidocaine [Lidoderm] 5 % adhesive patch,medicated 1 patch topical DAILY Qty: 15 0RF Rx Instructions: leave on most painful area for up to 12 hrs cyclobenzaprine 10 mg tablet 10 mg PO TID PRN (Reason: muscle spasm) Qty: 10 0RF miconazole nitrate 2 % powder 1 appl topical BID Qty: 85 0RF divalproex [Depakote] 500 mg tablet,delayed release (DR/EC) 500 mg PO BID Qty: 30 0RF divalproex [Depakote ER] 500 mg tablet extended release 24 hr 500 mg PO BID Qty: 60 3RF clonazepam 1 mg tablet 1 mg PO BID Qty: 30 0RF albuterol sulfate [ProAir HFA] 90 mcg/actuation HFA aerosol inhaler 2 puff inhalation Q6H PRN (Reason: shortness of breath or wheezing) Qty: 18 0RF Eliquis 5 mg tablet 5 mg PO BID Qty: 60 0RF simvastatin [Zocor] 20 mg tablet 20 mg PO BEDTIME Qty: 30 0RF gabapentin 300 mg capsule 300 mg PO TID Qty: 90 0RF amitriptyline 25 mg tablet 25 mg PO BEDTIME Qty: 30 0RF Flovent HFA 220 mcg/actuation HFA aerosol inhaler 1 puff inhalation BID Qty: 12 0RF omeprazole 20 mg capsule,delayed release(DR/EC) 20 mg PO DAILY Qty: 30 0RF oxycodone 5 mg tablet 5 mg PO Q6H PRN (Reason: pain) Qty: 20 0RF oxycodone 5 mg tablet 5 mg PO Q8H PRN (Reason: pain) Qty: 12 0RF clindamycin HCl 300 mg capsule 300 mg PO Q6H 5 Days Qty: 20 0RF hyoscyamine sulfate 0.125 mg tablet 0.125 mg PO QID Qty: 7 0RF loperamide 2 mg capsule 2 mg PO Q6H PRN (Reason: loose stool) Qty: 10 0RF Preparation H Rapid Rlf-Lidocn 5-0.25-14.4-15 % cream 1 appl topical TID Qty: 28 0RF acetaminophen 325 mg capsule 650 mg PO Q6H PRN (Reason: pain) 7 Days Qty: 56 0RF acetaminophen [Tylenol] 325 mg tablet 650 mg PO Q6H PRN (Reason: fever or pain) Qty: 5 0RF cyclobenzaprine 5 mg tablet 5 mg PO BEDTIME Qty: 5 0RF ferrous sulfate 325 mg (65 mg iron) tablet 325 mg PO DAILY Qty: 30 0RF oxycodone 5 mg tablet 5 mg PO Q6H PRN (Reason: Moderate Pain (Scale Score 5-6)) Qty: 15 0RF levofloxacin 750 mg tablet 750 mg PO DAILY 5 Days Qty: 5 0RF
[2021-12-22] MEDS: Albuterol/Iprat 2.5/0.5MG 3 ML AMPUL.NEB INHALE (23:32)
[2021-12-22] MEDS: Albuterol Sulfate (0.083%) 2.5 MG/3 ML VIAL.NEB INHALE (23:32)
[2021-12-22 23:37] VITALS: PULSE 122; RESP 20; O2SAT 100
[2021-12-23] MEDS: methylPREDNISolone Sod Succ 125 MG/2 ML VIAL IVPUSH (00:01)
[2021-12-23 00:08] VITALS: RESP 32
[2021-12-23] MEDS: Morphine Sulfate 4 MG/ML CARTRIDGE IVPUSH (00:08)
--- NOTE | 2021-12-23 00:10 | PC.NURSE ---
Patient has been asking for pain medication since her arrival. MD aware and prescribed Morphine
[2021-12-23 00:41] LABS: COVID-19 Test Negative (Negative)
[2021-12-23 00:47] LABS: IDNOW Serial# 08D9AD1C; Influenza A Negative (Negative); Influenza B2 Negative (Negative)
[2021-12-23 00:49] LABS: Basophils Percent Auto 0.4 % (0-2); Eosinophils Absolute Auto 0.3 X10*3/uL (0.0-0.4); Hematocrit 34.9 % (37.0-47.0); Hemoglobin 10.6 g/dl (12.0-16.0); Imm Gran Abs Auto 0.05 X10*3/uL (0.00-0.03); Imm Gran Pct Auto 0.5 % (0.0-0.4); Lymphocytes Absolute Auto 3.6 X10*3/uL (1.2-4.9); Lymphocytes Percent Auto 38.7 % (20-40); Mean Corpuscular HGB Conc 30.4 g/dl (31.0-35.0); Mean Corpuscular Hemoglobin 25.8 pg (27.0-33.0); Mean Corpuscular Volume 84.9 fL (80.0-98.0); Mean Platelet Volume 8.8 fL (9.4-12.3); Monocytes Absolute Auto 0.9 X10*3/uL (0.1-1.2); Monocytes Percent Auto 9.3 % (2-11); Neutrophils Absolute Auto 4.4 x10*3/uL (2.0-8.3); Neutrophils Percent Auto 48.1 % (45-73); Platelet Count 323 X10*3/uL (160-400); Red Blood Count 4.11 X10*6/uL (4.20-5.50); Red Cell Distribution Width 17.6 % (11.0-16.0); White Blood Count 9.2 X10*3/uL (4.8-10.8)
[2021-12-23 00:52] LABS: MANUAL DIFF FLAG NO
[2021-12-23 00:53] LABS: Alanine Aminotransferase 14 U/L (0-31); Albumin Level 4.1 g/dL (3.5-5.0); Alkaline Phosphatase 98 U/L (39-117); Anion Gap 15 (12-20); Aspartate Amino Transferase 18 U/L (5-31); Bilirubin Total 0.3 mg/dL (0.0-1.0); Blood Urea Nitrogen 17 mg/dL (9-16); Calcium 8.8 mg/dL (8.4-10.2); Carbon Dioxide 25 mmol/L (22-29); Chloride 108 mmol/L (96-108); Creatinine Clr Calc Pharmacy 102.8; Estimated Glomerular Filt Rate > 60; Glucose Random 115 mg/dL (60-115); Potassium 4.6 mmol/L (3.3-5.1); Sodium 143 mmol/L (135-145); Total Protein 6.9 g/dL (6.5-8.0)
== END 2021-12-23 01:43 | disposition home or self-care (01) ==
PROVIDERS: Emergency Provider Internal Medicine
DX: J45.901 Unspecified asthma with (acute) exacerbation (principal); R56.9 Unspecified convulsions; G89.4 Chronic pain syndrome; Z20.822 Contact with and (suspected) exposure to COVID-19
CPT/HCPCS: 36415; 71045; 80053; 85025; 87502; 87635; 94640; 94644; 96374; 99284; J2270; J2930

== ENCOUNTER 2022-01-13 10:51 | Emergency (ER) | payer OTHER, SELFPAY ==
[2022-01-13 11:22] VITALS: BP 138/82; PULSE 50; O2SAT 95
--- NOTE | 2022-01-13 11:25 | ECG_ITS ---
Test Reason : seizure Blood Pressure : / mmHG Vent. Rate : 088 BPM Atrial Rate : 088 BPM P-R Int : 140 ms QRS Dur : 086 ms QT Int : 358 ms P-R-T Axes : -02 -21 024 degrees QTc Int : 433 ms Normal sinus rhythm Minimal voltage criteria for LVH, may be normal variant ( R in aVL ) Borderline ECG When compared with ECG of 17-AUG-2021 12:34, Vent. rate has decreased BY 46 BPM Referred By: Lolly Méndez Electronically Signed By:RAY ACEVEDO
[2022-01-13 11:32] VITALS: BP 145/85; PULSE 87; RESP 20; TEMP 35.7; O2SAT 100; BMI 44.3
--- NOTE | 2022-01-13 11:37 | ED_ITS ---
HPI - Seizure General Chief Complaint: Seizure Stated Complaint: SZ @ DENTIST S/P TOOTH PULLED,POST ICTAL PER EMS Time Seen by Provider: 01/13/22 11:06 Source: patient and EMS Mode of arrival: EMS Limitations: no limitations History of Present Illness HPI Narrative: Patient presents to emergency department via EMS coming from a dental office. She had 2 teeth extracted today, and upon leaving the office was noticed to have a witnessed fall, it is unclear whether there is any head strike, but patient subsequently began intermittently seizing for 20 minutes. On EMS arrival when she came around was reporting pain to the bilateral hips and left flank. EMS administered midazolam 6 mg IM due to continued seizure-like activity. At this time, she continues to report bilateral hip pain, pain to the lower back, pain in her mouth. She states that she has been taking her Depakote sometimes?. Hard C-spine collar in place MD complaint: possible seizure Onset (ago): hour(s) Witnessed: Yes - by Bystander Seizure History: Yes Related Data Previous Rx's Medication Instructions Recorded divalproex 500 mg tablet,delayed 500 mg PO BID #30 tabs 04/21/20 release (Depakote) albuterol sulfate 90 mcg/actuation 2 puff inhalation Q6H PRN 05/22/20 aerosol inhaler (ProAir HFA) shortness of breath or wheezing #18 grams amitriptyline 25 mg tablet 25 mg PO BEDTIME #30 tabs 05/22/20 apixaban 5 mg tablet (Eliquis) 5 mg PO BID #60 tabs 05/22/20 clonazepam 1 mg tablet 1 mg PO BID #30 tabs 05/22/20 divalproex 500 mg tablet,extended 500 mg PO BID #60 tabs 05/22/20 release 24 hr (Depakote ER) fluticasone propionate 220 1 puff inhalation BID #12 grams 05/22/20 mcg/actuation HFA aerosol inhaler (Flovent HFA) gabapentin 300 mg capsule 300 mg PO TID #90 caps 05/22/20 omeprazole 20 mg capsule,delayed 20 mg PO DAILY #30 caps 05/22/20 release oxycodone 5 mg tablet 5 mg PO Q6H PRN pain #20 tabs 05/22/20 simvastatin 20 mg tablet (Zocor) 20 mg PO BEDTIME #30 tabs 05/22/20 oxycodone 5 mg tablet 5 mg PO Q8H PRN pain #12 tabs 06/04/20 cyclobenzaprine 5 mg tablet 5 mg PO BEDTIME PRN muscle spasm 07/17/20 #3 tabs clindamycin HCl 300 mg capsule 300 mg PO Q6H 5 days #20 caps 08/19/20 ondansetron 4 mg disintegrating 4 mg PO Q6-8H PRN nausea and 08/24/20 tablet vomiting #7 tabs hyoscyamine sulfate 0.125 mg tablet 0.125 mg PO QID #7 tabs 02/03/21 lidocaine 5 %-phenylephrine 0.25 1 appl topical TID #28 grams 02/03/21 %-glycern 14.4 %-petrolatm 15 % cream (Preparation H Rapid Relief-Lidocaine) loperamide 2 mg capsule 2 mg PO Q6H PRN loose stool #10 02/03/21 caps cyclobenzaprine 10 mg tablet 10 mg PO TID PRN muscle spasm #10 02/04/21 tabs lidocaine 5 % topical patch 1 patch topical DAILY #15 ea 02/04/21 (Lidoderm) miconazole nitrate 2 % topical 1 appl topical BID #85 grams 03/16/21 powder acetaminophen 325 mg tablet 650 mg PO Q6H PRN fever or pain #5 05/28/21 (Tylenol) tabs cyclobenzaprine 5 mg tablet 5 mg PO BEDTIME Muscle spasm #5 05/28/21 tabs ferrous sulfate 325 mg (65 mg 325 mg PO DAILY Iron deficiency 05/28/21 iron) tablet anemia #30 tabs oxycodone 5 mg tablet 5 mg PO Q6H PRN Moderate Pain 07/09/21 (Scale Score 5-6) #15 tabs levofloxacin 750 mg tablet 750 mg PO DAILY 5 days #5 tabs 09/15/21 acetaminophen 325 mg capsule 650 mg PO Q6H PRN pain 7 days #56 10/29/21 caps albuterol sulfate 90 mcg/actuation 2 puff inhalation Q4-6H PRN 12/23/21 aerosol inhaler (ProAir HFA) Wheezing #8.5 grams oxycodone-acetaminophen 5 mg-325 1 tab PO Q6H PRN pain #20 tabs 12/23/21 mg tablet (Percocet) prednisone 20 mg tablet 40 mg PO DAILY #10 tabs 12/23/21 Allergies Allergy/AdvReac Type Severity Reaction Status Date / Time acetaminophen [From VICODIN] Allergy Unknown UNKNOWN Verified 09/15/21 10:10 aspirin Allergy Unknown Unknown Verified 09/15/21 10:10 hydrocodone [From VICODIN] Allergy Unknown UNKNOWN Verified 09/15/21 10:10 ibuprofen [From MOTRIN] Allergy Unknown UNKNOWN Verified 09/15/21 10:10 meperidine [From DEMEROL] Allergy Unknown UNKNOWN Verified 09/15/21 10:10 naproxen [Aleve] Allergy Unknown Unknown Verified 09/15/21 10:10 penicillin V Allergy Unknown Unknown Verified 09/15/21 10:10 Sulfa (Sulfonamide Allergy Unknown Unknown Verified 09/15/21 10:10 Antibiotics) tramadol Allergy Unknown Unknown Verified 09/15/21 10:10 diphenhydramine Allergy Unknown Verified 09/15/21 10:10 [From Benadryl] Codeine Sulfate Allergy Unknown Unknown Uncoded 07/16/20 20:32 Review of Systems Review of Systems: Constitutional: No weight loss. No fever. No chills. No weakness. No fatigue. Eye: No swelling. No redness. ENT: Positive oral swelling. Positive dental extraction. Skin: No rash. No itching. Cardiovascular: No chest pain. No chest pressure. No palpitations. No pedal edema. Respiratory: No shortness of breath. No cough. No sputum production. Gastrointestinal: No nausea. No vomiting. No diarrhea. No abdominal pain. Genitourinary: No burning micturition. No urinary frequency. No incontinence. Neurologic: No headache. No dizziness. No pre-syncope/ syncope. No unilateral weakness. No ataxia. No numbness. No tingling. No change in bowel or bladder control. Musculoskeletal: Positive bilateral hip pain Yes all other systems are reviewed and are negative PMFSH Past Medical History Attestation statement: The following information was validated with the patient. Source: old records reviewed Medical History Anxiety Chronic back pain HTN (hypertension) Pseudoseizure Pulmonary embolus Seizure Social History Social History Alcohol intake: never Patient Tobacco Use Status: Former Tobacco user Advance Directives: No Advance Directives Information Provided: Yes Physical Exam Vital Signs: Vital Signs: Last Vital Signs Temp 96.3 F L 01/13/22 11:32 Pulse 87 01/13/22 11:32 Resp 20 01/13/22 11:32 BP 145/85 H 01/13/22 11:32 Pulse Ox 100 01/13/22 11:32 O2 Del Method 01/13/22 11:32 BMI result Body Mass Index 44.3 Appearance: Alert.?Oriented to person, place and time. Voice is slightly garbled difficult to understand, mouth is packed with gauze, but answered questi ons appropriately. ?Normal affect. Eyes: Pupils equal, round and reactive to light.?EOMi. No nystagmus Neck: Normal inspection.? Neck supple.??No midline cervical spine tenderness, step-offs, deformities, CVS: Heart sounds normal. Normal heart rate and rhythm.? Pulses normal.?? Respiratory: No respiratory distress.? Lung sounds clear to auscultation bilaterally?? Abdomen: Soft and non-tender. Normoactive bowel sounds. Skin: Skin warm and dry.? Normal skin color.? ?? Extremities: No lower extremity edema.? No calf ttp? Neuro: Moves all extremities spontaneously. Sensation intact bilaterally. CN II- XII intact. No focal neuro deficits. Course Course Course Narrative: Patient is a 51-year-old female with a past medical history of anxiety, chronic back pain, hypertension, pseudo-seizure, seizure, pulmonary embolism who p resents to the emergency department coming from her dental office after having 2 teeth extracted, having a witnessed fall with seizure-like activity intermittently for about difficulty any tongue-biting had occurred she has significant swelling, in gauze packing. She appears to be maintaining her a irway, has no difficulty breathing, reports of shortness of breath, no choking or gagging, no excessive oral secretions or drooling. Her speech is slightly difficult to understand, however this may be secondary to the amount of swelling in addition to the midazolam she received the EMS. Will obtain labs including CBC, CMP, Depakote level, EKG. In addition to CT of the head and cervical spine as it is unclear whether she had any head strike during this event, and x-ray of bilateral hips given her reports of pain. Reevaluation(s) Reevaluation #1: CBC is overall unremarkable. CMP is unremarkable. Troponin <3.5, EKG reveals normal sinus rhythm, no acute ischemic findings. Valproic acid level was low, patient does report that she is not taking it consistently. Patient is upset at this time, she is requesting to leave. She states she needs to go back to her for dental office. She is conscious alert and oriented x3, ambulatory a steady gait, patient self removed hard C-spine collar, CT of the head and neck are still pending at this time in addition to x-rays bilateral hips. She is in no apparent distress. Has not had any seizure activity for the duration of her stay in emergency department, approximately 3 hours. Advised patient of the risks in potential complications of leaving against medical advice, including additional seizures, potential for injury/fall, or life-threatening injuries such as intracranial bleeding from her fall today. She verbalized understanding, and continued to request to leave. She declined to sign against medical advice paper. Time: 13:33 MDM - Seizure Medical Records Attestation: I reviewed the patient's medical records. Lab Data Attestation: I reviewed the patient's lab results. Result diagrams: 01/13/22 12:00 01/13/22 12:00 Labs: Lab Results 01/13/22 01/13/22 01/13/22 Range/Units 12:00 12:00 12:00 WBC 9.5 (4.8-10.8) X10*3/uL RBC 4.58 (4.20-5.50) X10*6/uL Hgb 12.0 (12.0-16.0) g/dl Hct 38.1 (37.0-47.0) % MCV 83.2 (80.0-98.0) fL MCH 26.2 L (27.0-33.0) pg MCHC 31.5 (31.0-35.0) g/dl RDW 17.2 H (11.0-16.0) % Plt Count 390 (160-400) X10*3/uL MPV 8.8 L (9.4-12.3) fL Immature Gran % (Auto) 0.3 (0.0-0.4) % Neut % (Auto) 79.0 H (45-73) % Lymph % (Auto) 15.3 L (20-40) % [place] % (Auto) 4.7 (2-11) % Eos % (Auto) 0.3 (0-4) % Baso % (Auto) 0.4 (0-2) % Lymph # (Auto) 1.5 (1.2-4.9) X10*3/uL [place] # (Auto) 0.5 (0.1-1.2) X10*3/uL Eos # (Auto) 0.0 (0.0-0.4) X10*3/uL Baso # (Auto) 0.0 (0.0-0.2) X10*3/uL Abs Immat Gran (auto) 0.03 (0.00-0.03) X10*3/uL Absolute Neuts (auto) 7.5 (2.0-8.3) x10*3/uL Absolute Nucleated RBC 0.000 (0.0-0.012) X10*3/uL Nucleated RBC % (auto) 0.0 (0.0-0.2) /100WBC Sodium 140 (135-145) mmol/L Potassium 4.6 (3.3-5.1) mmol/L Chloride 107 (96-108) mmol/L Carbon Dioxide 22 (22-29) mmol/L Anion Gap 16 (12-20) BUN 11 (9-16) mg/dL Creatinine 0.78 (0.5-1.4) mg/dL Estim Creat Clear Calc 102.0 Estimated GFR > 60 Random Glucose 109 (60-115) mg/dL Calcium 9.1 (8.4-10.2) mg/dL Magnesium 1.9 (1.6-2.6) mg/dL Total Bilirubin 0.3 (0.0-1.0) mg/dL AST 16 (5-31) U/L ALT 11 (0-31) U/L Alkaline Phosphatase 102 (39-117) U/L Troponin I High Sens < 3.5 (<3.5-17.0) ng/L Total Protein 6.8 (6.5-8.0) g/dL Albumin 4.0 (3.5-5.0) g/dL Valproic Acid (50.0-100.0) mcg/mL 01/13/22 Range/Units 12:00 WBC (4.8-10.8) X10*3/uL RBC (4.20-5.50) X10*6/uL Hgb (12.0-16.0) g/dl Hct (37.0-47.0) % MCV (80.0-98.0) fL MCH (27.0-33.0) pg MCHC (31.0-35.0) g/dl RDW (11.0-16.0) % Plt Count (160-400) X10*3/uL MPV (9.4-12.3) fL Immature Gran % (Auto) (0.0-0.4) % Neut % (Auto) (45-73) % Lymph % (Auto) (20-40) % [place] % (Auto) (2-11) % Eos % (Auto) (0-4) % Baso % (Auto) (0-2) % Lymph # (Auto) (1.2-4.9) X10*3/uL [place] # (Auto) (0.1-1.2) X10*3/uL Eos # (Auto) (0.0-0.4) X10*3/uL Baso # (Auto) (0.0-0.2) X10*3/uL Abs Immat Gran (auto) (0.00-0.03) X10*3/uL Absolute Neuts (auto) (2.0-8.3) x10*3/uL Absolute Nucleated RBC (0.0-0.012) X10*3/uL Nucleated RBC % (auto) (0.0-0.2) /100WBC Sodium (135-145) mmol/L Potassium (3.3-5.1) mmol/L Chloride (96-108) mmol/L Carbon Dioxide (22-29) mmol/L Anion Gap (12-20) BUN (9-16) mg/dL Creatinine (0.5-1.4) mg/dL Estim Creat Clear Calc Estimated GFR Random Glucose (60-115) mg/dL Calcium (8.4-10.2) mg/dL Magnesium (1.6-2.6) mg/dL Total Bilirubin (0.0-1.0) mg/dL AST (5-31) U/L ALT (0-31) U/L Alkaline Phosphatase (39-117) U/L Troponin I High Sens (<3.5-17.0) ng/L Total Protein (6.5-8.0) g/dL Albumin (3.5-5.0) g/dL Valproic Acid 18.7 L (50.0-100.0) mcg/mL Discharge Plan Discharge Clinical Impression: Seizure-like activity Patient Disposition: Left Against Medical Advice Prescriptions: No Action cyclobenzaprine 5 mg tablet 5 mg PO BEDTIME PRN (Reason: muscle spasm) Qty: 3 0RF ondansetron 4 mg tablet,disintegrating 4 mg PO Q6-8H PRN (Reason: nausea and vomiting) Qty: 7 0RF lidocaine [Lidoderm] 5 % adhesive patch,medicated 1 patch topical DAILY Qty: 15 0RF Rx Instructions: leave on most painful area for up to 12 hrs cyclobenzaprine 10 mg tablet 10 mg PO TID PRN (Reason: muscle spasm) Qty: 10 0RF miconazole nitrate 2 % powder 1 appl topical BID Qty: 85 0RF divalproex [Depakote] 500 mg tablet,delayed release (DR/EC) 500 mg PO BID Qty: 30 0RF divalproex [Depakote ER] 500 mg tablet extended release 24 hr 500 mg PO BID Qty: 60 3RF clonazepam 1 mg tablet 1 mg PO BID Qty: 30 0RF albuterol sulfate [ProAir HFA] 90 mcg/actuation HFA aerosol inhaler 2 puff inhalation Q6H PRN (Reason: shortness of breath or wheezing) Qty: 18 0RF Eliquis 5 mg tablet 5 mg PO BID Qty: 60 0RF simvastatin [Zocor] 20 mg tablet 20 mg PO BEDTIME Qty: 30 0RF gabapentin 300 mg capsule 300 mg PO TID Qty: 90 0RF amitriptyline 25 mg tablet 25 mg PO BEDTIME Qty: 30 0RF Flovent HFA 220 mcg/actuation HFA aerosol inhaler 1 puff inhalation BID Qty: 12 0RF omeprazole 20 mg capsule,delayed release(DR/EC) 20 mg PO DAILY Qty: 30 0RF oxycodone 5 mg tablet 5 mg PO Q6H PRN (Reason: pain) Qty: 20 0RF oxycodone 5 mg tablet 5 mg PO Q8H PRN (Reason: pain) Qty: 12 0RF clindamycin HCl 300 mg capsule 300 mg PO Q6H 5 Days Qty: 20 0RF hyoscyamine sulfate 0.125 mg tablet 0.125 mg PO QID Qty: 7 0RF loperamide 2 mg capsule 2 mg PO Q6H PRN (Reason: loose stool) Qty: 10 0RF Preparation H Rapid Rlf-Lidocn 5-0.25-14.4-15 % cream 1 appl topical TID Qty: 28 0RF acetaminophen 325 mg capsule 650 mg PO Q6H PRN (Reason: pain) 7 Days Qty: 56 0RF prednisone 20 mg tablet 40 mg PO DAILY Qty: 10 0RF oxycodone-acetaminophen [Percocet] 5-325 mg tablet 1 tab PO Q6H PRN (Reason: pain) Qty: 20 0RF albuterol sulfate [ProAir HFA] 90 mcg/actuation HFA aerosol inhaler 2 puff inhalation Q4-6H PRN (Reason: Wheezing) Qty: 8.5 0RF acetaminophen [Tylenol] 325 mg tablet 650 mg PO Q6H PRN (Reason: fever or pain) Qty: 5 0RF cyclobenzaprine 5 mg tablet 5 mg PO BEDTIME Qty: 5 0RF ferrous sulfate 325 mg (65 mg iron) tablet 325 mg PO DAILY Qty: 30 0RF oxycodone 5 mg tablet 5 mg PO Q6H PRN (Reason: Moderate Pain (Scale Score 5-6)) Qty: 15 0RF levofloxacin 750 mg tablet 750 mg PO DAILY 5 Days Qty: 5 0RF Discharge Date/Time: 01/13/22 13:40
[2022-01-13 12:09] LABS: MANUAL DIFF FLAG NO
[2022-01-13 12:10] LABS: Basophils Percent Auto 0.4 % (0-2); Eosinophils Percent Auto 0.3 % (0-4); Hematocrit 38.1 % (37.0-47.0); Imm Gran Abs Auto 0.03 X10*3/uL (0.00-0.03); Imm Gran Pct Auto 0.3 % (0.0-0.4); Lymphocytes Absolute Auto 1.5 X10*3/uL (1.2-4.9); Lymphocytes Percent Auto 15.3 % (20-40); Mean Corpuscular HGB Conc 31.5 g/dl (31.0-35.0); Mean Corpuscular Hemoglobin 26.2 pg (27.0-33.0); Mean Corpuscular Volume 83.2 fL (80.0-98.0); Mean Platelet Volume 8.8 fL (9.4-12.3); Monocytes Absolute Auto 0.5 X10*3/uL (0.1-1.2); Monocytes Percent Auto 4.7 % (2-11); Neutrophils Absolute Auto 7.5 x10*3/uL (2.0-8.3); Platelet Count 390 X10*3/uL (160-400); Red Blood Count 4.58 X10*6/uL (4.20-5.50); Red Cell Distribution Width 17.2 % (11.0-16.0); White Blood Count 9.5 X10*3/uL (4.8-10.8)
[2022-01-13 12:28] LABS: Alanine Aminotransferase 11 U/L (0-31); Alkaline Phosphatase 102 U/L (39-117); Anion Gap 16 (12-20); Aspartate Amino Transferase 16 U/L (5-31); Bilirubin Total 0.3 mg/dL (0.0-1.0); Blood Urea Nitrogen 11 mg/dL (9-16); Calcium 9.1 mg/dL (8.4-10.2); Carbon Dioxide 22 mmol/L (22-29); Chloride 107 mmol/L (96-108); Estimated Glomerular Filt Rate > 60; Glucose Random 109 mg/dL (60-115); Magnesium 1.9 mg/dL (1.6-2.6); Potassium 4.6 mmol/L (3.3-5.1); Sodium 140 mmol/L (135-145); Total Protein 6.8 g/dL (6.5-8.0)
[2022-01-13 12:33] LABS: Troponin-I High Sensitivity < 3.5 ng/L (<3.5-17.0)
[2022-01-13 12:37] LABS: Valproate 18.7 mcg/mL (50.0-100.0)
--- NOTE | 2022-01-13 13:29 | PC.NURSE ---
Pt requesting pain medication and taking off c-collar. Samuel MURILLO notified and lidocaine patch was ordered given the patient's numerous stated allergies. Pt informed that she would receive something for pain but began taking off c-collar and walking out. Despite efforts to explain process to patient she continued to leave. Samuel MURILLO made aware. Pt did leave against medical advice.
--- NOTE | 2022-01-13 14:06 | PC.NURSE ---
Pt eloped, steady on feet, mentation oriented
== END 2022-01-13 13:40 | disposition left against medical advice (07) ==
PROVIDERS: Nurse Practitioner Family; Emergency Provider Emergency Medicine
DX: R56.9 Unspecified convulsions (principal); I10 Essential (primary) hypertension; Z86.711 Personal history of pulmonary embolism; Z91.81 History of falling
CPT/HCPCS: 36415; 80053; 80164; 83735; 84484; 85025; 93005; 99282; 99283; 99284

== ENCOUNTER 2022-01-14 09:59 | Emergency (ER) | payer OTHER, SELFPAY ==
[2022-01-14 10:13] VITALS: BP 135/82; BP 140/80; PULSE 70; PULSE 85; RESP 16; TEMP 36.7; O2SAT 100; O2SAT 98; BMI 34.2
[2022-01-14] MEDS: oxyCODONE HCl Immed Release 5 MG TABLET PO (10:28)
--- NOTE | 2022-01-14 10:36 | ED.DENTAL ---
HPI - Dental/Oral General Chief complaint: Dental/Oral Stated complaint: ORAL PAIN S/P TEETH PULLED T-1 PER EMS Time Seen by Provider: 01/14/22 10:20 Source: patient Mode of arrival: EMS Limitations: no limitations History of Present Illness HPI Narrative: Patient presents to emergency department for evaluation of dental pain. Patient was seen here yesterday in the emergency department after having seizure-like activity after having 2 teeth extracted, she ultimately left the emergency department against medical advice. She states that she contacted her dentist today regarding her dental pain, but she has been unable to sleep, and she was advised to come to the emergency department. She denies fevers, chills, drainage or blood from the extraction sites, oral swelling. Related Data Previous Rx's Medication Instructions Recorded divalproex 500 mg tablet,delayed 500 mg PO BID #30 tabs 04/21/20 release (Depakote) albuterol sulfate 90 mcg/actuation 2 puff inhalation Q6H PRN 05/22/20 aerosol inhaler (ProAir HFA) shortness of breath or wheezing #18 grams amitriptyline 25 mg tablet 25 mg PO BEDTIME #30 tabs 05/22/20 apixaban 5 mg tablet (Eliquis) 5 mg PO BID #60 tabs 05/22/20 clonazepam 1 mg tablet 1 mg PO BID #30 tabs 05/22/20 divalproex 500 mg tablet,extended 500 mg PO BID #60 tabs 05/22/20 release 24 hr (Depakote ER) fluticasone propionate 220 1 puff inhalation BID #12 grams 05/22/20 mcg/actuation HFA aerosol inhaler (Flovent HFA) gabapentin 300 mg capsule 300 mg PO TID #90 caps 05/22/20 omeprazole 20 mg capsule,delayed 20 mg PO DAILY #30 caps 05/22/20 release oxycodone 5 mg tablet 5 mg PO Q6H PRN pain #20 tabs 05/22/20 simvastatin 20 mg tablet (Zocor) 20 mg PO BEDTIME #30 tabs 05/22/20 oxycodone 5 mg tablet 5 mg PO Q8H PRN pain #12 tabs 06/04/20 cyclobenzaprine 5 mg tablet 5 mg PO BEDTIME PRN muscle spasm 07/17/20 #3 tabs clindamycin HCl 300 mg capsule 300 mg PO Q6H 5 days #20 caps 08/19/20 ondansetron 4 mg disintegrating 4 mg PO Q6-8H PRN nausea and 08/24/20 tablet vomiting #7 tabs hyoscyamine sulfate 0.125 mg tablet 0.125 mg PO QID #7 tabs 02/03/21 lidocaine 5 %-phenylephrine 0.25 1 appl topical TID #28 grams 02/03/21 %-glycern 14.4 %-petrolatm 15 % cream (Preparation H Rapid Relief-Lidocaine) loperamide 2 mg capsule 2 mg PO Q6H PRN loose stool #10 02/03/21 caps cyclobenzaprine 10 mg tablet 10 mg PO TID PRN muscle spasm #10 02/04/21 tabs lidocaine 5 % topical patch 1 patch topical DAILY #15 ea 02/04/21 (Lidoderm) miconazole nitrate 2 % topical 1 appl topical BID #85 grams 03/16/21 powder acetaminophen 325 mg tablet 650 mg PO Q6H PRN fever or pain #5 05/28/21 (Tylenol) tabs cyclobenzaprine 5 mg tablet 5 mg PO BEDTIME Muscle spasm #5 05/28/21 tabs ferrous sulfate 325 mg (65 mg 325 mg PO DAILY Iron deficiency 05/28/21 iron) tablet anemia #30 tabs oxycodone 5 mg tablet 5 mg PO Q6H PRN Moderate Pain 07/09/21 (Scale Score 5-6) #15 tabs levofloxacin 750 mg tablet 750 mg PO DAILY 5 days #5 tabs 09/15/21 acetaminophen 325 mg capsule 650 mg PO Q6H PRN pain 7 days #56 10/29/21 caps albuterol sulfate 90 mcg/actuation 2 puff inhalation Q4-6H PRN 12/23/21 aerosol inhaler (ProAir HFA) Wheezing #8.5 grams oxycodone-acetaminophen 5 mg-325 1 tab PO Q6H PRN pain #20 tabs 12/23/21 mg tablet (Percocet) prednisone 20 mg tablet 40 mg PO DAILY #10 tabs 12/23/21 oxycodone 5 mg tablet 5 mg PO Q8H PRN pain 3 days #3 tabs 01/14/22 Allergies Allergy/AdvReac Type Severity Reaction Status Date / Time acetaminophen [From VICODIN] Allergy Unknown UNKNOWN Verified 09/15/21 10:10 aspirin Allergy Unknown Unknown Verified 09/15/21 10:10 hydrocodone [From VICODIN] Allergy Unknown UNKNOWN Verified 09/15/21 10:10 ibuprofen [From MOTRIN] Allergy Unknown UNKNOWN Verified 09/15/21 10:10 meperidine [From DEMEROL] Allergy Unknown UNKNOWN Verified 09/15/21 10:10 naproxen [Aleve] Allergy Unknown Unknown Verified 09/15/21 10:10 penicillin V Allergy Unknown Unknown Verified 09/15/21 10:10 Sulfa (Sulfonamide Allergy Unknown Unknown Verified 09/15/21 10:10 Antibiotics) tramadol Allergy Unknown Unknown Verified 09/15/21 10:10 diphenhydramine Allergy Unknown Verified 09/15/21 10:10 [From Benadryl] Codeine Sulfate Allergy Unknown Unknown Uncoded 07/16/20 20:32 Review of Systems Review of Systems: Constitutional : No Fever, No Chills, No changes in PO intake, No difficulty speaking, recent dental procedure, no heat or cold intolerance while eating, no recent face trauma, ENT/Mouth : No swallowing difficulty, no change in voice, No jaw pain, No facial swelling, no drooling, no trismus, no bleeding, no throat swelling, no lacerations, no tongue swelling, gum swelling, Eyes: No Eye Pain, No periorbital Swelling Cardiovascular : No Chest Pain, No SOB Respiratory : No Cough, No Sputum, No Wheezing, No Smoke Exposure, No Dyspnea Gastrointestinal : No Nausea, No Vomiting, No Diarrhea Genitourinary : No Dysuria Musculoskeletal : No Myalgias Skin : No rash, no facial swelling or redness, Neuro : No Weakness, No Numbness, No Headache Yes all other systems are reviewed and are negative PMFSH Past Medical History Attestation statement: The following information was validated with the patient. Source: old records reviewed Medical History Anxiety Chronic back pain HTN (hypertension) Pseudoseizure Pulmonary embolus Seizure Social History Social History Alcohol intake: never Patient Tobacco Use Status: Former Tobacco user Advance Directives: No Advance Directives Information Provided: Yes Physical Exam Vital Signs: Vital Signs: Last Vital Signs Temp 98.1 F 01/14/22 10:13 Pulse 85 01/14/22 10:13 Resp 16 01/14/22 10:13 BP 135/82 01/14/22 10:13 Pulse Ox 100 01/14/22 10:13 O2 Del Method 01/14/22 10:13 BMI result Body Mass Index 34.2 Vital signs have been reviewed as normal and appeared to be correct. Blood pressure normal.? Heart rate normal.? Respiration rate normal. Temperature normal.? Oxygen saturation normal. Appearance: Alert. Oriented X3. No acute distress. Head: Normal external exam. Normocephalic. Atraumatic. Eyes: PERRLA. EOMI. Conjunctiva and sclera normal. Eyelids normal. ENT: EAC normal. TM's Normal. Pharynx normal. Uvula midline. Moist mucous membranes.? ?No trismus noted.? No drooling noted.? No muffled voice noted. Extraction sites with intact clot, no active drainage or bleeding. Dentition: Gingival within normal limits.? No fluctuance.? Not consistent with peritonsillar abscess. Not consistent with dental abscess.? No salivary duct obstruction noted. Neck: Normal inspection. Neck supple. FROM. No adenopathy. No meningeal signs. No neck mass noted.? Trachea midline. CVS: Normal heart rate and rhythm. Heart sound normal. Pulses normal throughout. Respiratory: No respiratory distress. Lung sounds clear to auscultation bilaterally. Skin: Skin warm and dry.? Normal skin color.? Extremities: Extremities exhibit normal range of motion.? Extremities nontender. Neuro: Oriented X 3.? No motor deficit.? No sensory deficit.? Course Course Course Narrative: Patient is a 51-year-old female with a past medical history of anxiety, chronic back pain, hypertension, pseudo-seizure, seizure, pulmonary embolism, who presents emergency department for evaluation of dental pain. Had upper right bicuspid, and lower left cuspid extracted yesterday. Physical exam not consistent with dental abscess no fluctuance or pus. Not consistent with parapharyngeal space infection no trismus, hoarseness, dysphagia, odynophagia stridor, dyspnea. Not consistent with oral facial space infection, or Des's angina. Clot intact to extraction sites, not consistent with alveolar osteitis. Patient currently prescribed Suboxone, reportedly for chronic pain, she states that she is not taking this medication, however per [facility], last filled 01/06/2022 for 14 day supply. Patient reports an allergy to any pain medication including ibuprofen and naproxen but is unable to state the reaction, tramadol and Vicodin, states she has taken Tylenol without a reaction but this has not helped her pain, she has taken oxycodone in the past without complication or allergic type reaction. Patient reports that she is not driving home today, therefore will give a dose of oxycodone while in the emergency department. Advised patient will prescribe a short course of oxycodone, she needs to follow up with her dental provider, in addition to her primary care provider. Discussed reasons that she should return back to the emergency department, worrisome signs and symptoms, all questions were answered, she was discharged home in stable condition. Discharge Plan Discharge Clinical Impression: Pain, dental Patient Disposition: Home, Self-Care Additional Instructions: As we discussed, please continue taking the antibiotics as prescribed by your dentist. You need to contact their office to arrange for a follow-up visit after your extractions. Continue taking Tylenol as needed for pain, using given a short prescription for oxycodone, this may be used if the Tylenol is not helpful, it is a narcotic, it can be addicting, it may make you drowsy, you should not drive or drink alcohol while taking this medication. You may return to emergency department with any new or worsening symptoms or concerns. If you develop fevers, chills, swelling of your mouth or gums, drainage in your mouth, bowel taste, neck pain, chest pain, shortness of breath, difficulty breathing you should be re-evaluated Prescriptions: New oxycodone 5 mg tablet 5 mg PO Q8H PRN (Reason: pain) 3 Days Qty: 3 0RF Rx Instructions: Partial Fill upon patient request. No Action cyclobenzaprine 5 mg tablet 5 mg PO BEDTIME PRN (Reason: muscle spasm) Qty: 3 0RF ondansetron 4 mg tablet,disintegrating 4 mg PO Q6-8H PRN (Reason: nausea and vomiting) Qty: 7 0RF lidocaine [Lidoderm] 5 % adhesive patch,medicated 1 patch topical DAILY Qty: 15 0RF Rx Instructions: leave on most painful area for up to 12 hrs cyclobenzaprine 10 mg tablet 10 mg PO TID PRN (Reason: muscle spasm) Qty: 10 0RF miconazole nitrate 2 % powder 1 appl topical BID Qty: 85 0RF divalproex [Depakote] 500 mg tablet,delayed release (DR/EC) 500 mg PO BID Qty: 30 0RF divalproex [Depakote ER] 500 mg tablet extended release 24 hr 500 mg PO BID Qty: 60 3RF clonazepam 1 mg tablet 1 mg PO BID Qty: 30 0RF albuterol sulfate [ProAir HFA] 90 mcg/actuation HFA aerosol inhaler 2 puff inhalation Q6H PRN (Reason: shortness of breath or wheezing) Qty: 18 0RF Eliquis 5 mg tablet 5 mg PO BID Qty: 60 0RF simvastatin [Zocor] 20 mg tablet 20 mg PO BEDTIME Qty: 30 0RF gabapentin 300 mg capsule 300 mg PO TID Qty: 90 0RF amitriptyline 25 mg tablet 25 mg PO BEDTIME Qty: 30 0RF Flovent HFA 220 mcg/actuation HFA aerosol inhaler 1 puff inhalation BID Qty: 12 0RF omeprazole 20 mg capsule,delayed release(DR/EC) 20 mg PO DAILY Qty: 30 0RF oxycodone 5 mg tablet 5 mg PO Q6H PRN (Reason: pain) Qty: 20 0RF oxycodone 5 mg tablet 5 mg PO Q8H PRN (Reason: pain) Qty: 12 0RF clindamycin HCl 300 mg capsule 300 mg PO Q6H 5 Days Qty: 20 0RF hyoscyamine sulfate 0.125 mg tablet 0.125 mg PO QID Qty: 7 0RF loperamide 2 mg capsule 2 mg PO Q6H PRN (Reason: loose stool) Qty: 10 0RF Preparation H Rapid Rlf-Lidocn 5-0.25-14.4-15 % cream 1 appl topical TID Qty: 28 0RF acetaminophen 325 mg capsule 650 mg PO Q6H PRN (Reason: pain) 7 Days Qty: 56 0RF prednisone 20 mg tablet 40 mg PO DAILY Qty: 10 0RF oxycodone-acetaminophen [Percocet] 5-325 mg tablet 1 tab PO Q6H PRN (Reason: pain) Qty: 20 0RF albuterol sulfate [ProAir HFA] 90 mcg/actuation HFA aerosol inhaler 2 puff inhalation Q4-6H PRN (Reason: Wheezing) Qty: 8.5 0RF acetaminophen [Tylenol] 325 mg tablet 650 mg PO Q6H PRN (Reason: fever or pain) Qty: 5 0RF cyclobenzaprine 5 mg tablet 5 mg PO BEDTIME Qty: 5 0RF ferrous sulfate 325 mg (65 mg iron) tablet 325 mg PO DAILY Qty: 30 0RF oxycodone 5 mg tablet 5 mg PO Q6H PRN (Reason: Moderate Pain (Scale Score 5-6)) Qty: 15 0RF levofloxacin 750 mg tablet 750 mg PO DAILY 5 Days Qty: 5 0RF Interventions: ED Discharge Assessment Last Done: 01/14/22 10:56 Discharge Date/Time: 01/14/22 10:58
== END 2022-01-14 10:58 | disposition home or self-care (01) ==
PROVIDERS: Emergency Provider Emergency Medicine
DX: K08.89 Other specified disorders of teeth and supporting structures (principal); I10 Essential (primary) hypertension; Z87.891 Personal history of nicotine dependence
CPT/HCPCS: 99283

== ENCOUNTER 2022-02-16 09:54 | Emergency (ER) | payer OTHER, SELFPAY ==
[2022-02-16 09:58] VITALS: BP 119/50; PULSE 116; RESP 20; TEMP 37.7; O2SAT 91; BMI 33.3
--- NOTE | 2022-02-16 09:59 | ED_ITS ---
History of Present Illness General Chief Complaint: General Medical Stated Complaint: possible nose bleed Time Seen by Provider: 02/16/22 09:58 Source: patient and EMS Mode of arrival: EMS Limitations: no limitations History of Present Illness HPI Narrative: nosebleed, noticed blood on her pillow Location: Yes bilateral nares Onset/current episode: Yes hour(s) Duration: Yes now resolved Pertinent past history: Yes hypertension Context: Yes history of previous nose bleed Related Data Previous Rx's Medication Instructions Recorded divalproex 500 mg tablet,delayed 500 mg PO BID #30 tabs 04/21/20 release (Depakote) albuterol sulfate 90 mcg/actuation 2 puff inhalation Q6H PRN 05/22/20 aerosol inhaler (ProAir HFA) shortness of breath or wheezing #18 grams amitriptyline 25 mg tablet 25 mg PO BEDTIME #30 tabs 05/22/20 apixaban 5 mg tablet (Eliquis) 5 mg PO BID #60 tabs 05/22/20 clonazepam 1 mg tablet 1 mg PO BID #30 tabs 05/22/20 divalproex 500 mg tablet,extended 500 mg PO BID #60 tabs 05/22/20 release 24 hr (Depakote ER) fluticasone propionate 220 1 puff inhalation BID #12 grams 05/22/20 mcg/actuation HFA aerosol inhaler (Flovent HFA) gabapentin 300 mg capsule 300 mg PO TID #90 caps 05/22/20 omeprazole 20 mg capsule,delayed 20 mg PO DAILY #30 caps 05/22/20 release oxycodone 5 mg tablet 5 mg PO Q6H PRN pain #20 tabs 05/22/20 simvastatin 20 mg tablet (Zocor) 20 mg PO BEDTIME #30 tabs 05/22/20 oxycodone 5 mg tablet 5 mg PO Q8H PRN pain #12 tabs 06/04/20 cyclobenzaprine 5 mg tablet 5 mg PO BEDTIME PRN muscle spasm 07/17/20 #3 tabs clindamycin HCl 300 mg capsule 300 mg PO Q6H 5 days #20 caps 08/19/20 ondansetron 4 mg disintegrating 4 mg PO Q6-8H PRN nausea and 08/24/20 tablet vomiting #7 tabs hyoscyamine sulfate 0.125 mg tablet 0.125 mg PO QID #7 tabs 02/03/21 lidocaine 5 %-phenylephrine 0.25 1 appl topical TID #28 grams 02/03/21 %-glycern 14.4 %-petrolatm 15 % cream (Preparation H Rapid Relief-Lidocaine) loperamide 2 mg capsule 2 mg PO Q6H PRN loose stool #10 02/03/21 caps cyclobenzaprine 10 mg tablet 10 mg PO TID PRN muscle spasm #10 02/04/21 tabs lidocaine 5 % topical patch 1 patch topical DAILY #15 ea 02/04/21 (Lidoderm) miconazole nitrate 2 % topical 1 appl topical BID #85 grams 03/16/21 powder acetaminophen 325 mg tablet 650 mg PO Q6H PRN fever or pain #5 05/28/21 (Tylenol) tabs cyclobenzaprine 5 mg tablet 5 mg PO BEDTIME Muscle spasm #5 05/28/21 tabs ferrous sulfate 325 mg (65 mg 325 mg PO DAILY Iron deficiency 05/28/21 iron) tablet anemia #30 tabs oxycodone 5 mg tablet 5 mg PO Q6H PRN Moderate Pain 07/09/21 (Scale Score 5-6) #15 tabs levofloxacin 750 mg tablet 750 mg PO DAILY 5 days #5 tabs 09/15/21 acetaminophen 325 mg capsule 650 mg PO Q6H PRN pain 7 days #56 10/29/21 caps albuterol sulfate 90 mcg/actuation 2 puff inhalation Q4-6H PRN 12/23/21 aerosol inhaler (ProAir HFA) Wheezing #8.5 grams oxycodone-acetaminophen 5 mg-325 1 tab PO Q6H PRN pain #20 tabs 12/23/21 mg tablet (Percocet) prednisone 20 mg tablet 40 mg PO DAILY #10 tabs 12/23/21 oxycodone 5 mg tablet 5 mg PO Q8H PRN pain 3 days #3 tabs 01/14/22 Allergies Allergy/AdvReac Type Severity Reaction Status Date / Time acetaminophen [From VICODIN] Allergy Unknown UNKNOWN Verified 09/15/21 10:10 aspirin Allergy Unknown Unknown Verified 09/15/21 10:10 hydrocodone [From VICODIN] Allergy Unknown UNKNOWN Verified 09/15/21 10:10 ibuprofen [From MOTRIN] Allergy Unknown UNKNOWN Verified 09/15/21 10:10 meperidine [From DEMEROL] Allergy Unknown UNKNOWN Verified 09/15/21 10:10 naproxen [Aleve] Allergy Unknown Unknown Verified 09/15/21 10:10 penicillin V Allergy Unknown Unknown Verified 09/15/21 10:10 Sulfa (Sulfonamide Allergy Unknown Unknown Verified 09/15/21 10:10 Antibiotics) tramadol Allergy Unknown Unknown Verified 09/15/21 10:10 diphenhydramine Allergy Unknown Verified 09/15/21 10:10 [From Benadryl] Codeine Sulfate Allergy Unknown Unknown Uncoded 07/16/20 20:32 Review of Systems Constitutional: Constitutional: Reports no additional constitutional complaints Eyes: Eyes: Reports no additional eye complaints ENT: Denies dizziness Cardiovascular: Cardiovascular: Reports no additional cardiovascular complaints Respiratory: Respiratory: Reports as per HPI Gastrointestinal: Gastrointestinal: Reports no additional gastrointestinal complaints Genitourinary: Genitourinary: Reports no additional female genitourinary complaints Musculoskeletal: Musculoskeletal: Reports no additional musculoskeletal complaints Integumentary/Breasts: Skin/Breast: Denies rash Neurologic: Reports system reviewed and no additional complaints, except as documented, Denies dizziness and Denies Sensory deficit (Neuro) Psychiatric: Psychiatric: Denies anxiety [facility] Past Medical History Medical History Anxiety Chronic back pain HTN (hypertension) Pseudoseizure Pulmonary embolus Seizure Social History Social History Alcohol intake: never Patient Tobacco Use Status: Former Tobacco user Advance Directives: No Advance Directives Information Provided: Yes Physical Exam Vital Signs: Vital Signs: Last Vital Signs Temp 99.9 F 02/16/22 09:58 Pulse 116 H 02/16/22 09:58 Resp 20 02/16/22 09:58 BP 119/50 L 02/16/22 09:58 Pulse Ox 91 L 02/16/22 09:58 O2 Del Method 02/16/22 09:58 BMI result Body Mass Index 33.3 Const: Other: anxious, tearful, obese, slightly unkept Orientation/consciousness: oriented to person and patient oriented x3 Limitations: no limitations HEENT: Other: nares normal, no visualized blood vessels, no active bleeding Head: Yes normal to inspection Ears: external ears normal Mouth: Normal oral and palatal mucosa present and oropharynx normal Throat: Yes posterior oropharynx normal Eyes: General: appearance normal, both eyes and all related structures Neck: Other: supple Neck: Yes normal visual inspection Chest: Chest palpation & inspection: normal inspection of the chest Resp: Auscultation: clear to auscultation bilaterally Cardio: Jugular venous distension: no JVD Rate: regular rate Rhythm: regular rhythm Heart sounds: S1 normal heart sound present and S2 normal heart sound present GI: Inspection: Yes normal to inspection Palpation (GI): Soft to palpation, nontender and No hepatosplenomegaly present Auscultation: normal bowel sounds : General: Yes no CVA tenderness Back/Spine/Pelvis: Back: no CVA tenderness Skin: Other: bilateral knee abrasions Neuro: General: oriented to person and patient oriented x3 Cranial nerves: Yes CN's II-XII intact bilaterally Motor exam (neuro): 5/5 motor strength present throughout Sensory Exam: No Sensory deficit (Neuro) Extrem: General: Yes normal to inspection Psych: Appearance: grossly normal Course Reevaluation(s) Reevaluation #1: Epistaxis controlled, no active bleeding, no visualized Blood vessels, in addition patient very anxious will dc home Time: 11:19 Discharge Plan Discharge Clinical Impression: Anterior epistaxis, Anxiety Patient Disposition: Home, Self-Care Instructions: Nosebleed (ED), Anxiety (ED) Prescriptions: No Action cyclobenzaprine 5 mg tablet 5 mg PO BEDTIME PRN (Reason: muscle spasm) Qty: 3 0RF ondansetron 4 mg tablet,disintegrating 4 mg PO Q6-8H PRN (Reason: nausea and vomiting) Qty: 7 0RF lidocaine [Lidoderm] 5 % adhesive patch,medicated 1 patch topical DAILY Qty: 15 0RF Rx Instructions: leave on most painful area for up to 12 hrs cyclobenzaprine 10 mg tablet 10 mg PO TID PRN (Reason: muscle spasm) Qty: 10 0RF miconazole nitrate 2 % powder 1 appl topical BID Qty: 85 0RF divalproex [Depakote] 500 mg tablet,delayed release (DR/EC) 500 mg PO BID Qty: 30 0RF divalproex [Depakote ER] 500 mg tablet extended release 24 hr 500 mg PO BID Qty: 60 3RF clonazepam 1 mg tablet 1 mg PO BID Qty: 30 0RF albuterol sulfate [ProAir HFA] 90 mcg/actuation HFA aerosol inhaler 2 puff inhalation Q6H PRN (Reason: shortness of breath or wheezing) Qty: 18 0RF Eliquis 5 mg tablet 5 mg PO BID Qty: 60 0RF simvastatin [Zocor] 20 mg tablet 20 mg PO BEDTIME Qty: 30 0RF gabapentin 300 mg capsule 300 mg PO TID Qty: 90 0RF amitriptyline 25 mg tablet 25 mg PO BEDTIME Qty: 30 0RF Flovent HFA 220 mcg/actuation HFA aerosol inhaler 1 puff inhalation BID Qty: 12 0RF omeprazole 20 mg capsule,delayed release(DR/EC) 20 mg PO DAILY Qty: 30 0RF oxycodone 5 mg tablet 5 mg PO Q6H PRN (Reason: pain) Qty: 20 0RF oxycodone 5 mg tablet 5 mg PO Q8H PRN (Reason: pain) Qty: 12 0RF clindamycin HCl 300 mg capsule 300 mg PO Q6H 5 Days Qty: 20 0RF hyoscyamine sulfate 0.125 mg tablet 0.125 mg PO QID Qty: 7 0RF loperamide 2 mg capsule 2 mg PO Q6H PRN (Reason: loose stool) Qty: 10 0RF Preparation H Rapid Rlf-Lidocn 5-0.25-14.4-15 % cream 1 appl topical TID Qty: 28 0RF acetaminophen 325 mg capsule 650 mg PO Q6H PRN (Reason: pain) 7 Days Qty: 56 0RF prednisone 20 mg tablet 40 mg PO DAILY Qty: 10 0RF oxycodone-acetaminophen [Percocet] 5-325 mg tablet 1 tab PO Q6H PRN (Reason: pain) Qty: 20 0RF albuterol sulfate [ProAir HFA] 90 mcg/actuation HFA aerosol inhaler 2 puff inhalation Q4-6H PRN (Reason: Wheezing) Qty: 8.5 0RF acetaminophen [Tylenol] 325 mg tablet 650 mg PO Q6H PRN (Reason: fever or pain) Qty: 5 0RF cyclobenzaprine 5 mg tablet 5 mg PO BEDTIME Qty: 5 0RF ferrous sulfate 325 mg (65 mg iron) tablet 325 mg PO DAILY Qty: 30 0RF oxycodone 5 mg tablet 5 mg PO Q6H PRN (Reason: Moderate Pain (Scale Score 5-6)) Qty: 15 0RF levofloxacin 750 mg tablet 750 mg PO DAILY 5 Days Qty: 5 0RF oxycodone 5 mg tablet 5 mg PO Q8H PRN (Reason: pain) 3 Days Qty: 3 0RF Rx Instructions: Partial Fill upon patient request. Referrals: Physician,Unknown J [Primary Care Provider] - 1 week
[2022-02-16] MEDS: Cocaine HCl 4 % 4 ML SOLUTION TOPICAL (10:11)
[2022-02-16] MEDS: Oxymetazoline HCl 0.05 % Nasal 15 ML SPRAY 2 SPRAY NOSTRIL-B (10:12)
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
== END 2022-02-16 11:27 | disposition home or self-care (01) ==
PROVIDERS: Emergency Provider Emergency Medicine
DX: R04.0 Epistaxis (principal); F41.1 Generalized anxiety disorder; F43.0 Acute stress reaction; Z79.899 Other long term (current) drug therapy
CPT/HCPCS: 99284; C9046